=== PATIENT | male | born 1960 | race Caucasian/White ===

== ENCOUNTER 2023-06-04 19:39 | Emergency (ER) | payer OTHER, SELFPAY ==
[2023-06-04 19:49] VITALS: BP 130/70; PULSE 84; O2SAT 96
[2023-06-04 19:53] VITALS: BMI 23.0
[2023-06-04 20:32] VITALS: BP 77/43; PULSE 83; O2SAT 96
[2023-06-04 20:45] VITALS: BP 126/56
--- NOTE | 2023-06-04 22:03 | ED_ITS ---
HPI - Alcohol General Chief Complaint: ETOH/Substance Use Stated Complaint: ETOH, no SI/HI Time Seen by Provider: 06/04/23 19:59 History of Present Illness HPI narrative: 63 y/o M patient; without known PMH; presents from a backyard via EMS with report of alcohol intoxication. The patient endorses drinking whiskey and coke. He also endorses smoking cigarettes and marijuana. He denies recreational drug use. He denies medical complaints. He states he is homeless. He denies suicidal or homicidal ideation. Review of Systems Review of Systems: Yes Unobtainable due to mental condition (alcohol intoxication ) Neurologic: Denies Sensory deficit (Neuro) [facility] Past Medical History Attestation statement: The following information was validated with the patient. Social History Social History Advance Directives: No Advance Directives Information Provided: No Physical Exam ED Vital Signs: Vital Signs - 24 hr 06/04/23 20:32 Pulse Rate 83 Blood Pressure 77/43 L Pulse Oximetry 96 Oxygen Delivery Method Room Air BMI result Body Mass Index 23.0 Patient is afebrile and hemodynamically stable. Const Other: Intoxicated with slurred speech. Orientation/consciousness: patient oriented x3 HENMT Head: Yes atraumatic Eyes Pupils: Equal, round and reactive pupils present EOM: EOMs intact bilaterally Neck Neck: Yes full ROM, Yes supple and No tender Chest Chest palpation & inspection: normal inspection of the chest and normal palpation of entire chest wall Resp Effort & Inspection: normal respiratory effort, able to speak in complete sentences and no respiratory distress Auscultation: clear to auscultation bilaterally Cardio Rate: regular rate Rhythm: regular rhythm Peripheral pulses: Peripheral pulses 2+ throughout GI Palpation (GI): Soft to palpation, not firm, nontender, no guarding and not rigid Auscultation: normal bowel sounds Neuro General: patient oriented x3 Cranial nerves: Yes Equal, round and reactive pupils present Speech: Other speech findings present (Neuro) (mildly slurred speech ) Motor exam (neuro): 5/5 motor strength present throughout Sensory Exam: No Sensory deficit (Neuro) Course Course Course Narrative: Patient is clinically intoxicated. Declines alcohol detox. No acute medical complaints. Atraumatic examination. Plan: Transition care to evening provided pending sobriety Condition: Stable Discharge Plan Discharge Clinical Impression: Alcoholic intoxication Patient Disposition: Still a Patient
[2023-06-05] VITALS: BP 144/66; PULSE 85; RESP 16; TEMP 36.8; O2SAT 95
[2023-06-05 00:38] LABS: MANUAL DIFF FLAG NO
[2023-06-05 00:41] LABS: Basophils Percent Auto 0.7 % (0-2); Eosinophils Absolute Auto 0.2 X10*3/uL (0.0-0.4); Eosinophils Percent Auto 4.8 % (0-4); Hematocrit 32.8 % (42.0-52.0); Hemoglobin 11.9 g/dl (14.0-18.0); Imm Gran Abs Auto 0.01 X10*3/uL (0.00-0.03); Imm Gran Pct Auto 0.2 % (0.0-0.4); Mean Corpuscular HGB Conc 36.3 g/dl (31.0-36.0); Mean Corpuscular Hemoglobin 29.5 pg (27.0-33.0); Mean Corpuscular Volume 81.2 fL (80.0-98.0); Mean Platelet Volume 8.9 fL (9.4-12.4); Monocytes Absolute Auto 0.5 X10*3/uL (0.1-1.2); Monocytes Percent Auto 11.1 % (2-11); Neutrophils Absolute Auto 1.8 x10*3/uL (2.0-8.3); Neutrophils Percent Auto 39.2 % (45-73); Platelet Count 103 X10*3/uL (160-400); Red Blood Count 4.04 X10*6/uL (4.60-5.80); Red Cell Distribution Width 13.3 % (11.0-16.0); White Blood Count 4.6 X10*3/uL (4.8-10.8)
[2023-06-05 00:57] LABS: INTERNATIONAL NORM RATIO 1.1 (0.9-1.1); Prothrombin Time 13.1 SEC (11.1-13.3)
[2023-06-05 01:01] LABS: Alanine Aminotransferase 39 U/L (0-40); Albumin Level 3.6 g/dL (3.5-5.0); Alkaline Phosphatase 84 U/L (39-117); Anion Gap 13 (12-20); Aspartate Amino Transferase 49 U/L (5-37); Bilirubin Direct 0.2 mg/dL (0.0-0.5); Bilirubin Total 0.4 mg/dL (0.0-1.0); Blood Urea Nitrogen 12 mg/dL (9-16); Calcium 8.8 mg/dL (8.4-10.2); Carbon Dioxide 23 mmol/L (22-29); Chloride 104 mmol/L (96-108); Creatinine Clr Calc Pharmacy 101.3; Estimated Glomerular Filt Rate > 60; Ethanol 149 mg/dL; Glucose Random 86 mg/dL (60-115); Potassium 3.3 mmol/L (3.3-5.1); Sodium 137 mmol/L (135-145)
--- NOTE | 2023-06-05 03:04 | PC.NURSE ---
assumed care of pt, pt resting comfortably on stretcher.
[2023-06-05 03:57] LABS: Amphetamine Screen Urine Not Detected (Not Detect); Barbiturates, Urine Not Detected (Not Detect); Benzodiazepines Screen Urine Not Detected (Not Detect); Cannabinoid Screen Urine Not Detected (Not Detect); Cocaine Screen Urine Not Detected (Not Detect); Fentanyl, urine Not Detected (Not Detect); Opiate Screen Urine Not Detected (Not Detect); Phencyclidine Screen Urine Not Detected (Not Detect)
[2023-06-05 06:17] VITALS: BP 156/72; PULSE 75; RESP 18; O2SAT 98
--- NOTE | 2023-06-05 06:34 | PC.NURSE ---
pt clinically sober, changed into hospital attire, ambulated with a steady gait to the bathroom. Scoring 0 in CIWA
--- NOTE | 2023-06-05 08:30 | PC.NURSE ---
pt seen by recovery collector (suzie) pt aware of plan of care
[2023-06-05 09:00] VITALS: BP 171/96; PULSE 83; RESP 14; TEMP 36.8; O2SAT 93
--- NOTE | 2023-06-05 09:25 | MHC.RECOVRN ---
Met with pt in [place] after consult placed to CARE Team for alcohol use and desire to return to [facility]. Pt had presented to the ED after being found intoxicated in someone's backyard, denies SI/HI. Pt standing next to bed, awake, alert, easily engages in conversation. [facility] got in my face and I was having a bad hair day. Pt reports he had been at the [facility] x 8 days and their post ATS program x 2 weeks. Pt reports after leaving the program he went down the hill to the liquor store. On Saturday he reports drinking 6 12 ounce beers and on Saturday 6 beers plus a couple nips of Isak Beam. Pt reports desire to return to a different ATS. Discussed barriers to treatment, including needing [facility] approval to be admitted to another facility as well as recurrence for 2 days. Pt reports plan to return to [facility] to gather medications and belongings and discuss further with them. Pt reports having periods in recovery for up to 5 years, utilizing AA and NA. Pt reports going to meetings and having a sponsor is helpful, plans to attend meetings while waiting for treatment. Pt denies other questions or concerns for t/w. Discussed with provider, [facility].
== END 2023-06-05 09:14 | disposition home or self-care (01) ==
PROVIDERS: Emergency Provider Emergency Medicine
DX: F10.129 Alcohol abuse with intoxication, unspecified (principal); Y90.6 Blood alcohol level of 120-199 mg/100 ml; F12.90 Cannabis use, unspecified, uncomplicated; Z59.00 Homelessness unspecified
CPT/HCPCS: 36415; 80048; 80076; 80307; 85025; 85610; 99284

== ENCOUNTER 2023-11-02 00:55 | Emergency (ER) | payer OTHER, SELFPAY ==
[2023-11-02 01:06] VITALS: BP 126/74; PULSE 92; O2SAT 95
[2023-11-02 01:13] VITALS: BP 115/73; PULSE 88; RESP 12; TEMP 36.7; O2SAT 100
[2023-11-02 01:23] VITALS: BP 115/73; PULSE 88; RESP 12; TEMP 36.7; O2SAT 100; BMI 29.1
--- NOTE | 2023-11-02 01:30 | PC.NURSE ---
Pt ambulates with slow steady gait to restroom. UA collected. Plan of care ongoing.
--- NOTE | 2023-11-02 01:44 | ED.GENADULT ---
HPI - General Adult General Chief complaint: ETOH/Substance Use Stated complaint: weed/alcohol Time Seen by Provider: 11/02/23 01:33 Source: patient Mode of arrival: EMS Limitations: no limitations History of Present Illness ED Provider: ferny VITAL narrative: Patient alcoholic with chronic pain syndrome with neuropathy and chronic back problem with history of PTSD comes here for pain and increased stress had few drinks prior to arrival patient is homeless not happy with his medical condition Related Data Allergies Allergy/AdvReac Type Severity Reaction Status Date / Time No Known Allergies Allergy Verified 11/02/23 01:24 Review of Systems Review of Systems: Yes all other systems are reviewed and are negative [facility] Social History Social History Alcohol intake: current Smoked in Last 30 Days: Yes Use of substances other than those prescribed or required for medical reasons: Yes Substance Use Type: Marijuana Advance Directives: No Advance Directives Information Provided: No Do you have a plan to hurt others: No Plan Physical Exam ED Vital Signs: Vital Signs - 24 hr 11/02/23 01:13 11/02/23 01:23 11/02/23 03:16 Temperature 98.0 F 98.0 F Pulse Rate 88 88 Respiratory Rate 12 12 14 Blood Pressure 115/73 115/73 Pulse Oximetry 100 100 Oxygen Delivery Method Room Air Room Air 11/02/23 07:23 Temperature 0 F L Pulse Rate 0 L Respiratory Rate 0 L Blood Pressure 0/0 L Pulse Oximetry Oxygen Delivery Method BMI result Body Mass Index 29.1 Appearance: Alert. Oriented X3. No acute distress. Anxious intoxicated non cooperative Eyes: PERRLA, No Nystagmus ENT: Pharynx normal. Oral Mucosa moist Neck: Normal inspection. Neck supple. Diffuse neck pain no midline tenderness CVS: Normal heart rate and rhythm. Pulses normal. Respiratory: No respiratory distress. Equal air entry bilateral, no wheezing/rales/rhonchi Abdomen: Soft and nontender. Bowel sounds are present, no mass palpable, no CVA tenderness Skin: Skin warm and dry. Normal skin color. Normal skin turgor. Extremities: No lower extremity edema. No calf tenderness Neuro: Oriented X 3. No motor deficit. No sensory deficit.No cerebellar signs , cranial nerves II-XII intact Medications Administered Discontinued Medications Generic Name Dose Route Start Last Admin Trade Name Freq PRN Reason Stop Dose Admin Lorazepam 2 mg 11/02/23 01:50 11/02/23 01:56 Lorazepam 1 Mg Tablet PO 11/02/23 01:51 2 mg ONCE ONE Administration Morphine Sulfate 15 mg 11/02/23 01:50 11/02/23 01:56 Morphine Sulfate Immed Release 15 Mg Tablet PO 11/02/23 01:51 15 mg ONCE ONE Administration Medical Decision Making Medical Decision Making MDM Narrative: Patient alcoholic with chronic pain syndrome with PTSD non cooperative on arrival refused to have labs drawn slept after pain medication urinated in the bed will re-evaluate in the a.m. patient able to ambulate in steady gait in the ER will discharge patient home [facility] Differential Diagnosis Differential Diagnoses: The differential diagnosis associated with the presentation includes Lab Data Labs: Lab Results 11/02/23 Range/Units 01:55 Urine Color Yellow Urine Appearance Clear Urine pH 6.5 (5.0-9.0) Ur Specific [place] <= 1.005 (1.005-1.025) Urine Protein Negative (Neg-Trace) mg/dL Urine Glucose (UA) Negative (Negative) mg/dL Urine Ketones Negative (Negative) mg/dL Urine Blood Negative (Negative) Urine Nitrite Negative (Negative) Ur Leukocyte Esterase Negative (Negative) Urine Opiates Screen Not Detected (Not Detect) Ur Buprenorphine Scrn Not Detected (Not Detect) ng/mL Ur Oxycodone Screen Not Detected (Not Detect) ng/mL Urine Methadone Screen Not Detected (Not Detect) ng/mL Urine Fentanyl Screen Not Detected (Not Detect) Ur Barbiturates Screen Not Detected (Not Detect) Ur Phencyclidine Scrn Not Detected (Not Detect) Ur Amphetamines Screen Not Detected (Not Detect) U Benzodiazepines Scrn Not Detected (Not Detect) Urine Cocaine Screen Not Detected (Not Detect) U Marijuana (THC) Screen Not Detected (Not Detect) Discharge Plan Discharge Clinical Impression: Alcoholic intoxication, Chronic pain syndrome Patient Disposition: Home, Self-Care Instructions: Chronic Pain (ED), Abuse of Alcohol (ED) Additional Instructions: Stop drinking alcohol follow up with your pain clinic Interventions: ED Discharge Assessment Last Done: 11/02/23 07:23 Discharge Date/Time: 11/02/23 07:27 Print Language: Ukrainian
[2023-11-02] MEDS: LORazepam 1 MG TABLET 2 MG PO (01:56)
[2023-11-02] MEDS: Morphine Sulfate Immed Release 15 MG TABLET PO (01:56)
--- NOTE | 2023-11-02 02:02 | PC.NURSE ---
Pt medicated per mar. Pt being aggressive clapping in this check writer and techs face. Provider Anwer notified and aware of pts ciwa score of 10. Plan of care ongoing.
[2023-11-02 02:07] LABS: Appearance Urine Clear; Color Urine Yellow; Glucose Urine UA Negative (Negative); Leukocyte Esterase Urine Negative (Negative); Nitrite Urine Negative (Negative); PH 6.5 (5.0-9.0); Specific Gravity - Urine <= 1.005 (1.005-1.025); Urine Blood Negative (Negative); Urine Ketones Negative (Negative); Urine Protein Negative (Neg-Trace)
[2023-11-02 02:12] LABS: Amphetamine Screen Urine Not Detected (Not Detect); Barbiturates, Urine Not Detected (Not Detect); Benzodiazepines Screen Urine Not Detected (Not Detect); Buprenorphine Scr Not Detected (Not Detect); Cannabinoid Screen Urine Not Detected (Not Detect); Cocaine Screen Urine Not Detected (Not Detect); Fentanyl, urine Not Detected (Not Detect); Methadone Screen, Urine Not Detected (Not Detect); Opiate Screen Urine Not Detected (Not Detect); Oxycodone Screen Urine Not Detected (Not Detect); Phencyclidine Screen Urine Not Detected (Not Detect)
[2023-11-02 03:16] VITALS: RESP 14
--- NOTE | 2023-11-02 04:05 | MHC.EDTECH ---
Patient is sleeping thats why vitals havent been done
--- NOTE | 2023-11-02 05:42 | MHC.EDTECH ---
Unable to draw blood and clean patient due sleepiness and patient behaviour.
[2023-11-02 07:23] VITALS: BP 0/0; PULSE 0; RESP 0; TEMP -17.7; TEMP 0
--- NOTE | 2023-11-02 07:26 | PC.NURSE ---
Pt. was already here when this RN took over the assignment. Pt. was escorted off property for repeatedly threatening and charging at staff. VS refused upon discharge.
== END 2023-11-02 07:27 | disposition home or self-care (01) ==
PROVIDERS: Emergency Provider Internal Medicine
DX: F10.220 Alcohol dependence with intoxication, uncomplicated (principal); Y90.9 Presence of alcohol in blood, level not specified; G89.4 Chronic pain syndrome; R45.6 Violent behavior; F43.10 Post-traumatic stress disorder, unspecified; Z59.00 Homelessness unspecified; F12.90 Cannabis use, unspecified, uncomplicated
CPT/HCPCS: 80307; 81003; 99284

== ENCOUNTER 2024-01-12 20:31 | Emergency (ER) | payer OTHER, SELFPAY ==
--- NOTE | ~2024-01-12 | CT_ITS ---
EXAMINATION: CT HEAD WITHOUT CONTRAST CLINICAL INFORMATION: Reason for Exam detox ams, ethanol, med clearance COMPARISON: None available. TECHNIQUE: Contiguous axial imaging was performed from the skull base to vertex without intravenous administration of contrast. This CT examination was performed using dose optimization techniques as appropriate, variously including the following: *Automated exposure control *Adjustment of mA and/or kV according to patient size (this includes techniques or standardized protocols for targeted exams where dose is matched to indication/reason for exam; i.e. extremities or head) *Use of iterative reconstruction technique DLP: 775 mGy-cm FINDINGS: There is no evidence of acute intracranial hemorrhage or territorial infarction. No abnormal mass-effect or midline shift is seen. [place] to white matter differentiation is well preserved. No extra-axial fluid collections are identified. The ventricles are normal in size. There is mild periventricular white matter hypoattenuation consistent with chronic small vessel ischemic disease. Mild volume loss is noted. The osseous structures and soft tissues are normal. Mucosal thickening of the right ethmoid air cells. The mastoid air cells are well-aerated. CT/CT head/brain wo IV con IMPRESSION: No acute intracranial pathology. Mild chronic small vessel ischemic disease and volume loss. Electronically signed by: John Brito MD 01/13/2024 03:23 AM EDT RP
[2024-01-12 20:47] VITALS: BP 132/84; PULSE 88; O2SAT 95
[2024-01-12 21:08] VITALS: BP 148/69; PULSE 88; RESP 20; TEMP 36.6; O2SAT 95; BMI 28.3
--- NOTE | 2024-01-12 21:44 | ED_ITS ---
HPI - General Adult General Chief complaint: General Medical Stated complaint: medical clearance Time Seen by Provider: 01/12/24 21:23 Source: patient Limitations: no limitations History of Present Illness ED Provider: Mandeep HPI narrative: 63 yo M PMHx AUD, COPD, PTSD, HTN, cirrhosis, unhoused presenting from [place] for medical clearance for detox. Patient reports he drank 10 beers today, last about 3 hours ago. States he is feeling shaky and has not slept much recently so he is not feeling well. Smokes marijuana occasionally, last use yesterday. Denies fevers, chills, previous alcohol withdrawal seizures, DTs, N/V/D, CP, SOB, palpitations, abd pain , bleeding per rectum or vomiting blood Related Data Allergies Allergy/AdvReac Type Severity Reaction Status Date / Time No Known Allergies Allergy Verified 01/12/24 21:09 Review of Systems 2 Review of Systems: Yes all other systems are reviewed and are negative PMFSH Past Medical History Attestation statement: The following information was validated with the patient. Source: old records reviewed and nursing notes reviewed Social History Social History Alcohol intake: current Alcohol intake frequency: 3 or more drinks per day Alcohol type: beer and hard liquor Use of substances other than those prescribed or required for medical reasons: Yes Substance Use Type: Marijuana Substance Use Frequency: Daily Advance Directives: No Advance Directives Information Provided: No Physical Exam ED Vital Signs: Vital Signs - 24 hr 01/12/24 21:08 Temperature 97.8 F Pulse Rate 88 Respiratory Rate 20 Blood Pressure 148/69 H Pulse Oximetry 95 Oxygen Delivery Method Room Air BMI result Body Mass Index 28.3 VSS Appearance: Alert. Oriented X3. No acute distress. ? No accessory muscle use Head: Normal external exam. Normocephalic. Atraumatic. ? Eyes: PERRLA. EOMI. Conjunctiva and sclera normal. Eyelids normal. ? Neck: ?Soft full range of motion, no JVD CVS: ?Heart regular rate and rhythm no murmurs and rubs Respiratory: CTA Abdomen: ?Soft nontender no rebound or guarding positive bowel sounds Skin: Skin warm and dry.? Normal skin color.? Normal skin turgor. No rashes/lesions/lacerations noted. Extremities: No lower extremity edema. ? Extremities exhibit normal range of motion.? Extremities nontender. Neuro: Oriented X 3.? tremulousl Course Reevaluation(s) Reevaluation #1: CBC with baseline pancytopenia. And a baseline anemia. No reports of bleeding. This is likely patient's baseline Time: 00:01 Reevaluation #2: Chemistry unremarkable. Transaminases slightly bumped likely secondary to chronic alcohol use. Ethanol level 102. At this time patient to be placed into observation to allow more time to be evaluated by recovery. At time observation started patient calm cooperative resting no acute distress Time: 00:19 Medical Decision Making Medical Decision Making [facility] Narrative: 63 yo M presenting from [place] for medical clearance for detox. Patient reports he drank 10 beers today, last about 3 hours ago PE: benign Hx and PE concerning for alcohol intoxication. Less likely, DTs, hepatic encephalopathy, psychosis, metabolic derangements. Unlikely intracranial hemorrhage, stroke, posterior stroke Plan: labs, UA, tox screen Differential Diagnosis Differential Diagnoses: The differential diagnosis associated with the presentation includes (Hx and PE concerning for alcohol intoxication. Less likely, DTs, hepatic encephalopathy, psychosis, metabolic derangements. Unlikely intracranial hemorrhage, stroke, posterior stroke ) Admission/Observation Consideration of admission/observation: Escalation of care including admission/observation considered Lab Data [facility] Lab Attestation statement: I reviewed the patient's lab results. 01/12/24 23:48 01/12/24 23:48 Labs: Lab Results 01/12/24 Range/Units 23:48 WBC 2.7 L (4.8-10.8) X10*3/uL RBC 4.01 L (4.60-5.80) X10*6/uL Hgb 10.5 L (14.0-18.0) g/dl Hct 31.1 L (42.0-52.0) % MCV 77.6 L (80.0-98.0) fL MCH 26.2 L (27.0-33.0) pg MCHC 33.8 (31.0-36.0) g/dl RDW 14.3 (11.0-16.0) % Plt Count 78 L (160-400) X10*3/uL MPV 8.2 L (9.4-12.4) fL Immature Gran % (Auto) 0.4 (0.0-0.4) % Neut % (Auto) 45.1 (45-73) % Lymph % (Auto) 40.8 H (20-40) % Lamb % (Auto) 10.7 (2-11) % Eos % (Auto) 2.6 (0-4) % Baso % (Auto) 0.4 (0-2) % Lymph # (Auto) 1.1 L (1.2-4.9) X10*3/uL Lamb # (Auto) 0.3 (0.1-1.2) X10*3/uL Eos # (Auto) 0.1 (0.0-0.4) X10*3/uL Baso # (Auto) 0.0 (0.0-0.2) X10*3/uL Abs Immat Gran (auto) 0.01 (0.00-0.03) X10*3/uL Absolute Neuts (auto) 1.2 L (2.0-8.3) x10*3/uL Absolute Nucleated RBC 0.000 (0.0-0.012) X10*3/uL Nucleated RBC % (auto) 0.0 (0.0-0.2) /100WBC Sodium 142 (135-145) mmol/L Potassium 3.3 (3.3-5.1) mmol/L Chloride 106 (96-108) mmol/L Carbon Dioxide 26 (22-29) mmol/L Anion Gap 13 (12-20) BUN 9 (9-16) mg/dL Creatinine 0.80 (0.5-1.4) mg/dL Estim Creat Clear Calc 96.8 Estimated GFR > 60 Random Glucose 101 (60-115) mg/dL Calcium 8.5 (8.4-10.2) mg/dL Magnesium 1.8 (1.6-2.6) mg/dL Total Bilirubin 0.5 (0.0-1.0) mg/dL AST 63 H (5-37) U/L ALT 45 H (0-40) U/L Alkaline Phosphatase 101 (39-117) U/L Total Protein 6.8 (6.5-8.0) g/dL Albumin 3.6 (3.5-5.0) g/dL Ethyl Alcohol 102 mg/dL Discharge Plan Discharge Clinical Impression: Alcohol intoxication Patient Disposition: Still a Patient Print Language: Vietnamese
[2024-01-12 23:53] LABS: MANUAL DIFF FLAG NO
[2024-01-12 23:55] LABS: Basophils Percent Auto 0.4 % (0-2); Eosinophils Absolute Auto 0.1 X10*3/uL (0.0-0.4); Eosinophils Percent Auto 2.6 % (0-4); Hematocrit 31.1 % (42.0-52.0); Hemoglobin 10.5 g/dl (14.0-18.0); Imm Gran Abs Auto 0.01 X10*3/uL (0.00-0.03); Imm Gran Pct Auto 0.4 % (0.0-0.4); Lymphocytes Absolute Auto 1.1 X10*3/uL (1.2-4.9); Lymphocytes Percent Auto 40.8 % (20-40); Mean Corpuscular HGB Conc 33.8 g/dl (31.0-36.0); Mean Corpuscular Hemoglobin 26.2 pg (27.0-33.0); Mean Corpuscular Volume 77.6 fL (80.0-98.0); Mean Platelet Volume 8.2 fL (9.4-12.4); Monocytes Absolute Auto 0.3 X10*3/uL (0.1-1.2); Monocytes Percent Auto 10.7 % (2-11); Neutrophils Absolute Auto 1.2 x10*3/uL (2.0-8.3); Neutrophils Percent Auto 45.1 % (45-73); Red Blood Count 4.01 X10*6/uL (4.60-5.80); Red Cell Distribution Width 14.3 % (11.0-16.0); White Blood Count 2.7 X10*3/uL (4.8-10.8)
[2024-01-13] VITALS (9 sets, daily range): BP systolic 136–178; BP diastolic 54–81; PULSE 65–78; RESP 16–18; TEMP 36.5–37.1; O2SAT 90–99
--- NOTE | 2024-01-13 | ECG_ITS ---
Test Reason : MED CLEARANCE Blood Pressure : / mmHG Vent. Rate : 080 BPM Atrial Rate : 080 BPM P-R Int : 126 ms QRS Dur : 088 ms QT Int : 392 ms P-R-T Axes : 051 044 056 degrees QTc Int : 452 ms Normal sinus rhythm Normal ECG No previous ECGs available Referred By: Alonzo Kaufman Electronically Signed By:VERENICE PAIZ
[2024-01-13 00:14] LABS: Alanine Aminotransferase 45 U/L (0-40); Albumin Level 3.6 g/dL (3.5-5.0); Alkaline Phosphatase 101 U/L (39-117); Anion Gap 13 (12-20); Aspartate Amino Transferase 63 U/L (5-37); Bilirubin Total 0.5 mg/dL (0.0-1.0); Blood Urea Nitrogen 9 mg/dL (9-16); Calcium 8.5 mg/dL (8.4-10.2); Carbon Dioxide 26 mmol/L (22-29); Chloride 106 mmol/L (96-108); Creatinine Clr Calc Pharmacy 96.8; Estimated Glomerular Filt Rate > 60; Ethanol 102 mg/dL; Glucose Random 101 mg/dL (60-115); Magnesium 1.8 mg/dL (1.6-2.6); Platelet Count 78 X10*3/uL (160-400); Potassium 3.3 mmol/L (3.3-5.1); Sodium 142 mmol/L (135-145); Total Protein 6.8 g/dL (6.5-8.0)
[2024-01-13 00:27] LABS: Acetaminophen LAB < 3 mcg/mL (<30); Salicylate < 5.0 mg/dL (15-30)
--- NOTE | 2024-01-13 00:55 | MHC.EDTECH ---
This tech took over care of patient at 2300,rounds and vitals completed,patient urinated 600MLS of clear yellow urine in urinal,UDS obtained and sent to lab.
[2024-01-13 01:11] LABS: Amphetamine Screen Urine Not Detected (Not Detect); Barbiturates, Urine Not Detected (Not Detect); Benzodiazepines Screen Urine Not Detected (Not Detect); Buprenorphine Scr Not Detected (Not Detect); Cannabinoid Screen Urine POSITIVE (Not Detect); Cocaine Screen Urine POSITIVE (Not Detect); Fentanyl, urine Not Detected (Not Detect); Methadone Screen, Urine Not Detected (Not Detect); Opiate Screen Urine Not Detected (Not Detect); Oxycodone Screen Urine Not Detected (Not Detect); Phencyclidine Screen Urine Not Detected (Not Detect)
[2024-01-13] MEDS: LORazepam 1 MG TABLET 2 MG PO (01:13)
--- NOTE | 2024-01-13 02:08 | PC.NURSE ---
Patient is alert and oriented x3, VSS. Patient complaints of headache 08/06. Initial CIWA 8, medicated with Ativan 2 mg PO, repeat CIWA 4. Patient currently resting on a stretcher bed, not in acute distress. Plan for care team eval in am.
--- NOTE | 2024-01-13 02:16 | PC.NURSE ---
Patient noted to have a productive cough with wheezing. Hx of COPD. Dr. Walsh notified, plan to administer a Duoneb treatment. Respiratory therapist notified.
[2024-01-13] MEDS: Albuterol Sulfate 2.5 MG, Albuterol/Iprat 2.5/0.5MG 3 ML 3 ML INHALE (02:26)
--- NOTE | 2024-01-13 02:59 | MHC.EDTECH ---
Hourly rounds and vitals completed,patient is resting quietly,call richey in reach
--- NOTE | 2024-01-13 03:27 | PC.NURSE ---
Patient's O2 Sat 88-89% on RA when asleep. Dr. Walsh notified, new order received to place patient on supplemental O2 at 2 LPM.
--- NOTE | 2024-01-13 03:28 | PC.NURSE ---
Supplemental O2 applied at 2 LPM NC, patient maintaining O2 Sat 93-95%.
--- NOTE | 2024-01-13 08:23 | PC.NURSE ---
pt changed over by security - belongings obtained/placed in decon.
--- NOTE | 2024-01-13 10:56 | PC.NURSE ---
updated CIWA = 3. pt continues to rest comfortably w/ the lights dimmed in no apparent distress. remains on 2L via NC for supplemental support while asleep. no sob/wob noted. respirations even/unlabored. pt continues to wait for care team consult at this time. plan of care ongoing. call richey placed within reach.
--- NOTE | 2024-01-13 17:07 | PC.NURSE ---
pt speaking w/ care team at this time. plan of care ongoing.
--- NOTE | 2024-01-13 18:29 | MHC.EDTECH ---
Patient moved to 22H bed, rest comfortably and vitals was done.
--- NOTE | 2024-01-13 19:47 | MHC.EDTECH ---
This tech took over care of patient at 1900,hourly rounds and vitals completed,patient is sitting up drinking a coffee at this time.
--- NOTE | 2024-01-13 20:06 | MHC.EDTECH ---
EKG completed per order and signed by provider,covid swab obtained and sent to lab.
[2024-01-13 20:26] LABS: COVID-19 Test Negative (Negative); IDNOW Serial# 6674DD1D
[2024-01-13] MEDS: Ibuprofen 800 MG TABLET PO (20:33)
--- NOTE | 2024-01-13 21:19 | PC.NURSE ---
Patient arrives to Overflow ED bed 2. Given ham sandwich, mayonnaise packet, mustard packet, applesauce, cheese stick, and sabra radha to eat. Pt is pleasant, calm/cooperative, denies complaints at this time. Pt is awake watching TV at this time, sitting upright.
--- NOTE | 2024-01-13 21:48 | MHC.EDTECH ---
Patient just came to overflow from the main ed ,vitals taken ,RN Carmen is aware of pt high bp ,Patient had a snack .
--- NOTE | 2024-01-13 22:14 | MHC.EDTECH ---
Patient had a shower ,and gown change .
== END 2024-01-13 23:39 | disposition home or self-care (01) ==
PROVIDERS: Physician Assistant; Emergency Provider Emergency Medicine
DX: F10.129 Alcohol abuse with intoxication, unspecified (principal); Y90.5 Blood alcohol level of 100-119 mg/100 ml; F12.90 Cannabis use, unspecified, uncomplicated; R51.9 Headache, unspecified; I10 Essential (primary) hypertension; Z51.81 Encounter for therapeutic drug level monitoring; Z79.899 Other long term (current) drug therapy; Z11.52 Encounter for screening for COVID-19; Z71.41 Alcohol abuse counseling and surveillance of alcoholic
CPT/HCPCS: 36415; 70450; 80053; 80143; 80179; 80307; 83735; 85025; 87635; 93005; 94640; 99285; S9485

== ENCOUNTER → 2024-05-04 20:59 | Outpatient (BNV) | payer OTHER, SELFPAY | PROVIDERS: Emergency Provider Emergency Medicine; Visit Provider Internal Medicine | DX: F14.90 Cocaine use, unspecified, uncomplicated (principal) | CPT/HCPCS: 93010 ==

== ENCOUNTER 2024-06-10 21:05 | Emergency (ER) | payer OTHER, SELFPAY ==
[2024-06-10 21:29] VITALS: BP 140/76; PULSE 84; O2SAT 96
[2024-06-10 21:32] VITALS: BP 144/79; PULSE 88; RESP 20; TEMP 36.7; O2SAT 96; BMI 29.8
--- NOTE | 2024-06-10 21:48 | ED_ITS ---
HPI - General Adult General Chief complaint: ETOH/Substance Use Stated complaint: etoh Time Seen by Provider: 06/10/24 21:42 History of Present Illness ED Provider: Leslie VITAL narrative: The patient is a 64-year-old male who was brought to the hospital after becoming very agitated and a hotel lobby. He was apparently staying at the [facility]. He says he was agitated and upset with other people. He is requesting sedative medication. He admits to alcohol use. The patient was at a hotel in [place], the [facility]. He says that he specifically requested to be brought to the [place] emergency room. He says he does not like the [facility] emergency room. He says he has paid for several days in advance at the [facility]. Related Data Allergies Allergy/AdvReac Type Severity Reaction Status Date / Time latex Allergy Unknown Verified 06/10/24 21:37 lisinopril Allergy Unknown Verified 06/10/24 21:37 Review of Systems Review of Systems: Yes all other systems are reviewed and are negative [facility] Past Medical History Medical History Alcohol abuse Social History Social History (Updated 05/04/24 @ 21:11 by Jane Guillen DO) Alcohol intake: current Alcohol intake frequency: 3 or more drinks per day Alcohol type: beer Patient Tobacco Use Status: Tobacco use Unknown Smoked in Last 30 Days: Yes Use of substances other than those prescribed or required for medical reasons: Yes Substance Use Type: Marijuana Substance Use Frequency: Socially Last Used Substance: Weeks (ago) Any prior treatment program specific to substance use: No Advance Directives: No Advance Directives Information Provided: Yes Do you have a plan to hurt others: No Plan Physical Exam ED Vital Signs: Vital Signs - 24 hr 06/10/24 21:32 06/11/24 02:00 06/11/24 03:23 Temperature 98.1 F 98.1 F Pulse Rate 88 91 91 Respiratory Rate 20 18 Blood Pressure 144/79 H 141/75 H 141/75 H Pulse Oximetry 96 96 Oxygen Delivery Method Room Air Room Air 06/11/24 03:30 Temperature 98.1 F Pulse Rate 88 Respiratory Rate 16 Blood Pressure 140/75 H Pulse Oximetry 96 Oxygen Delivery Method Room Air BMI result Body Mass Index 29.8 Const Other: The patient was awake and alert. He was loud and disruptive. He seemed intoxicated. She did not seem in obvious distress. He looks somewhat chronically ill. HENMT Other: Face is symmetrical. Mucous membranes moist. Eyes Other: Pupils are round equal, conjunctivae clear, no scleral icterus. Neck Neck: Yes full ROM and Yes no JVD Resp Effort & Inspection: normal respiratory effort Auscultation: clear to auscultation bilaterally Cardio Rate: regular rate Rhythm: regular rhythm Heart sounds: S1 normal heart sound present and S2 normal heart sound present GI Other: Abdomen is soft and nontender Skin Other: Skin is dry and unremarkable Neuro Other: The patient was awake. Seemed intoxicated. He was bombastic, loud, and disruptive. No obvious cranial nerve deficit. Cranial nerves 2-12 are intact. He moves his extremities symmetrically. Extrem Other: No peripheral edema Medications Administered Discontinued Medications Generic Name Dose Route Start Last Admin Trade Name Malq PRN Reason Stop Dose Admin Albuterol Sulfate 4 puff 06/10/24 22:23 06/11/24 03:23 Albuterol Sulfate 90 Mcg 8 Gm Inhaler INHALE 06/10/24 22:24 4 puff ONCE ONE Administration Carvedilol 6.25 mg 06/10/24 22:07 06/11/24 03:23 Carvedilol 6.25 Mg Tablet PO 06/10/24 22:08 6.25 mg ONCE ONE Administration Protocol Chlordiazepoxide HCl 100 mg 06/10/24 21:47 06/10/24 21:56 Chlordiazepoxide Hcl 25 Mg Capsule PO 06/10/24 21:48 100 mg ONCE ONE Administration Medical Decision Making Medical Decision Making [facility] Narrative: The patient is a 64-year-old male who was brought to the hospital by ambulance after he became loud and aggressive at a hotel lobby where he has been staying. He was loud and bone best thick and arrival here. He was very argumentative and manipulative. He does not seem obviously acutely ill. He was initially given a dose of chlordiazepoxide. He also requested a dose of chlordiazepoxide and he requested albuterol. He seemed calmer for awhile after this but then he became agitated again in laid down on the floor of the emergency room. He was very reluctant to be assisted off the floor but ultimately we were able to convince him to accept assistance and we lifted him to a standing position and then returned him to his stretcher. At that point I ordered 2 mg of IM lorazepam but the patient fell asleep before this was given. I had also ordered blood work but the patient refused blood work. The patient fell asleep for awhile. He then woke up and asked to be discharged. He hopes to get back to the [facility]. He says he can pay for a cab because he has a debit card. No cabs are running at this hour. The patient requested that he be discharged and will stay in the waiting room. At discharge the patient was given a dose of carvedilol that he had requested and also 4 puffs of albuterol. He was ambulatory without difficulty, very steady in his feet. He was much more coherent. Discharge Plan Discharge Clinical Impression: Alcohol intoxication Patient Disposition: Home, Self-Care Additional Instructions: Please rest and take it easy. Drink a lot of fluids. Try to be very careful with alcohol. Follow up soon with your regular doctor at the [facility]. Return to the emergency room if worse. Referrals: [facility] [Provider Group] Interventions: ED Discharge Assessment Last Done: 06/11/24 03:30 Discharge Date/Time: 06/11/24 03:32 Print Language: Kazakh
[2024-06-10] MEDS: chlordiazePOXIDE HCl 25 MG CAPSULE 100 MG PO (21:56)
--- NOTE | 2024-06-11 01:51 | PC.NURSE ---
pt is sleeping, no meds given at this time. provider made aware.
[2024-06-11 02:00] VITALS: BP 141/75; PULSE 91; RESP 18; TEMP 36.7; O2SAT 96
[2024-06-11 03:23] VITALS: BP 141/75; PULSE 91
[2024-06-11] MEDS: Albuterol Sulfate 90 MCG 8 GM INHALER 4 PUFF INHALE (03:23)
[2024-06-11] MEDS: carvediloL 6.25 MG TABLET PO (03:23)
[2024-06-11 03:30] VITALS: BP 140/75; PULSE 88; RESP 16; TEMP 36.7; O2SAT 96
== END 2024-06-11 03:32 | disposition home or self-care (01) ==
PROVIDERS: Emergency Provider Emergency Medicine
DX: F10.129 Alcohol abuse with intoxication, unspecified (principal); R45.1 Restlessness and agitation; F91.9 Conduct disorder, unspecified; Y90.9 Presence of alcohol in blood, level not specified
CPT/HCPCS: 99284

== ENCOUNTER 2024-06-20 18:46 | Emergency (ER) | payer OTHER, SELFPAY ==
--- NOTE | 2024-06-20 | ECG_ITS ---
Test Reason : ETOH Blood Pressure : */* mmHG Vent. Rate : 86 BPM Atrial Rate : 86 BPM P-R Int : 130 ms QRS Dur : 92 ms QT Int : 400 ms P-R-T Axes : 72 38 56 degrees QTcB Int : 478 ms Normal sinus rhythm Normal ECG When compared with ECG of 04-May-2024 21:35, No significant changes seen Referred By: Jane Guillen Electronically Signed By: LESVIA IRAHETA
--- NOTE | ~2024-06-20 | XR_ITS ---
CLINICAL HISTORY: cough 1 view chest x-ray Comparison: None Findings: Lungs are clear without acute infiltrates. No pneumothorax. Heart size normal. No acute bony abnormalities. Impression: No acute processes This document has been electronically signed by: John Benson MD on 06/20/2024 20:27:14
--- NOTE | ~2024-06-20 | CT_ITS ---
CLINICAL HISTORY: Abd pain, hxo perforated viscus and colectomy CT abdomen and pelvis with contrast Comparison: None Findings: The heart is not enlarged. Calcific atherosclerosis. The lung bases are clear. Cirrhosis without suspicious hepatic mass. The main portal vein is patent. Small left larger than right renal cysts. No evidence of urolithiasis or urinary obstruction. Splenomegaly measuring 13.5 cm in length. Mild fat stranding adjacent to the pancreatic head. Pancreas is otherwise unremarkable. The gallbladder and other abdominal solid organs are unremarkable. Fat containing ventral abdominal wall and umbilical hernias. No bowel obstruction or pneumoperitoneum. Esophageal varices. Minimal colonic diverticulosis. Normal appendix. Pelvic structures unremarkable. Trace ascites. Fat containing right indirect inguinal hernia. Old ununited posterolateral left 10th and 11th rib fractures. Old healed posterior right 9th through 11th rib fractures. Degenerative change of the spine and hips. IMPRESSION: 1. Mild fat stranding adjacent to the pancreatic head, which may be related to the patient's decompensated cirrhosis, although consider correlation with lipase if there is a clinical concern for pancreatitis. 2. Other chronic and incidental findings as above. This document has been electronically signed by: Jose Stewart DO on 06/21/2024 12:25:20
--- NOTE | 2024-06-20 18:52 | ED.ALCOHOL ---
HPI - Alcohol General Chief Complaint: Arrhythmia/Palpitations Stated Complaint: ETOH Source: patient, EMS and old records reviewed Mode of arrival: EMS Limitations: other (intoxicated and agitated) History of Present Illness ED Provider: FILI HPI narrative: 64 yo male with PMH of ETOH abuse is very angry with any questioning. He is intoxicated. He tells me he is upset and doesn't know if a good friend . He then states it is a lot to deal with. He is very angry and then refuses to answer any of my questions. He states don't you understand what I am going through? MD complaint: alcohol intoxication Last drink: Just prior to admission Chronic alcohol use: Yes Previous visits for alcohol intoxication: Yes Recent trauma: No Associated symptoms: depression Treatments prior to arrival: none Related Data Allergies Allergy/AdvReac Type Severity Reaction Status Date / Time latex Allergy Unknown Verified 06/20/24 19:20 lisinopril Allergy Unknown Verified 06/20/24 19:20 Review of Systems Review of Systems: ROS unable to be obtained due to intoxication and anger PMFSH Past Medical History Attestation statement: The following information was validated with the patient. Source: old records reviewed Medical History Alcohol abuse Social History Social History Alcohol intake: current Alcohol intake frequency: 3 or more drinks per day Alcohol type: hard liquor Patient Tobacco Use Status: Tobacco use Unknown Smoked in Last 30 Days: Yes Use of substances other than those prescribed or required for medical reasons: No Substance Use Type: Marijuana Advance Directives: No Advance Directives Information Provided: Yes Do you have a plan to hurt others: No Plan Physical Exam ED Vital Signs: Vital Signs - 24 hr 06/20/24 18:58 06/20/24 23:00 06/21/24 00:35 Temperature 98.1 F 98.8 F 98.6 F Pulse Rate 83 89 82 Respiratory Rate 19 18 16 Blood Pressure 146/70 H 122/62 133/61 Pulse Oximetry 100 94 97 Oxygen Delivery Method Room Air Room Air Room Air BMI result Body Mass Index 23.5 Appearance: Alert. Oriented X3. No acute distress. Eyes: Pupils equal, round and reactive to light. ENT: Pharynx normal. Neck: Normal inspection. Neck supple. CVS: Normal heart rate and rhythm. Pulses normal. Respiratory: No respiratory distress. Breath sounds normal. Abdomen: Soft and nontender. Skin: Skin warm and dry. Normal skin color. Normal skin turgor. Extremities: No lower extremity edema. No calf ttp Neuro: Oriented X 3. No motor deficit. No sensory deficit. CN2-12 intact Medical Decision Making Medical Decision Making [facility] Narrative: 64 yo male with PMH of ETOH abuse here but he is not telling me why. He is from [place] and refused to be taken to [facility] ER. He is very rude on interview. He has no signs of head trauma. He did report palpitations to EMS I have ordered and EKG and basic labs, lytes, TSH. Differential Diagnosis Differential Diagnoses: The differential diagnosis associated with the presentation includes ETOH abuse, lyte abnormality, depression Admission/Observation Consideration of admission/observation: Escalation of care including admission/observation considered at this time physician observation started until he sees CARE team labs and EKG/CXR reassuring Lab Data [facility] Lab Attestation statement: I reviewed the patient's lab results. 06/20/24 19:43 06/20/24 19:43 Labs: Lab Results 06/20/24 Range/Units 19:43 WBC 5.6 (4.8-10.8) X10*3/uL RBC 4.47 L (4.60-5.80) X10*6/uL Hgb 10.3 L (14.0-18.0) g/dl Hct 32.4 L (42.0-52.0) % MCV 72.5 L (80.0-98.0) fL MCH 23.0 L (27.0-33.0) pg MCHC 31.8 (31.0-36.0) g/dl RDW 16.8 H (11.0-16.0) % Plt Count 91 L (160-400) X10*3/uL MPV 8.7 L (9.4-12.4) fL Immature Gran % (Auto) 0.2 (0.0-0.4) % Neut % (Auto) 49.2 (45-73) % Lymph % (Auto) 33.6 (20-40) % [facility] % (Auto) 12.7 H (2-11) % Eos % (Auto) 3.9 (0-4) % Baso % (Auto) 0.4 (0-2) % Lymph # (Auto) 1.9 (1.2-4.9) X10*3/uL [facility] [place] [facility] # (Auto) 0.7 (0.1-1.2) X10*3/uL Eos # (Auto) 0.2 (0.0-0.4) X10*3/uL Baso # (Auto) 0.0 (0.0-0.2) X10*3/uL Abs Immat Gran (auto) 0.01 (0.00-0.03) X10*3/uL Absolute Neuts (auto) 2.8 (2.0-8.3) x10*3/uL Absolute Nucleated RBC 0.000 (0.0-0.012) X10*3/uL Nucleated RBC % (auto) 0.0 (0.0-0.2) /100WBC Sodium 135 (135-145) mmol/L Potassium 4.0 (3.3-5.1) mmol/L Chloride 100 (96-108) mmol/L Carbon Dioxide 24 (22-29) mmol/L Anion Gap 15 (12-20) BUN 6 L (9-16) mg/dL Creatinine 0.76 (0.5-1.4) mg/dL Estim Creat Clear Calc 91.8 Estimated GFR > 60 Random Glucose 87 (60-115) mg/dL Calcium 8.8 (8.4-10.2) mg/dL Magnesium 2.0 (1.6-2.6) mg/dL Total Bilirubin 0.8 (0.0-1.0) mg/dL Direct Bilirubin 0.4 (0.0-0.5) mg/dL AST 70 H (5-37) U/L ALT 47 H (0-40) U/L Alkaline Phosphatase 110 (39-117) U/L Total Protein 7.9 (6.5-8.0) g/dL Albumin 3.9 (3.5-5.0) g/dL TSH 0.85 (0.32-4.0) uIU/mL Urine Opiates Screen Not Detected (Not Detect) Ur Buprenorphine Scrn Not Detected (Not Detect) ng/mL Ur Oxycodone Screen Not Detected (Not Detect) ng/mL Urine Methadone Screen Not Detected (Not Detect) ng/mL Urine Fentanyl Screen Not Detected (Not Detect) Ur Barbiturates Screen Not Detected (Not Detect) Ur Phencyclidine Scrn Not Detected (Not Detect) Ur Amphetamines Screen Not Detected (Not Detect) U Benzodiazepines Scrn POSITIVE H (Not Detect) Urine Cocaine Screen Not Detected (Not Detect) U Marijuana (THC) Screen Not Detected (Not Detect) Ethyl Alcohol 171 mg/dL Independent Interpretation I performed an independent interpretation of an: EKG and Plain X-Ray (normal ) Interpretation: Rate: 86 Rhythm: NSR [place]: normal Normal P waves. Normal LE. Normal QRS complex. ST T wave : normal no ELVIA qTC: 478 prior studies: no acute ischemia The study has been interpreted contemporaneously by me. . Radiology Impression Discussion of test interpretation with radiology: I have reviewed the radiologist's reading. Independent Historian Clinical information obtained from an independent historian. History obtained from or confirmed by: EMS External Record Review External record reviewed: Outpatient record Discharge Plan Discharge Clinical Impression: Alcohol abuse Patient Disposition: Still a Patient Instructions: Abuse of Alcohol (ED) Print Language: North Korean
[2024-06-20 18:58] VITALS: BP 146/70; PULSE 83; RESP 19; TEMP 36.7; O2SAT 100
[2024-06-20 19:16] VITALS: BP 133/74; PULSE 74; O2SAT 97; BMI 23.5
[2024-06-20 19:50] LABS: Basophils Percent Auto 0.4 % (0-2); Eosinophils Absolute Auto 0.2 X10*3/uL (0.0-0.4); Eosinophils Percent Auto 3.9 % (0-4); Hematocrit 32.4 % (42.0-52.0); Hemoglobin 10.3 g/dl (14.0-18.0); Imm Gran Abs Auto 0.01 X10*3/uL (0.00-0.03); Imm Gran Pct Auto 0.2 % (0.0-0.4); Lymphocytes Absolute Auto 1.9 X10*3/uL (1.2-4.9); Lymphocytes Percent Auto 33.6 % (20-40); MANUAL DIFF FLAG NO; Mean Corpuscular HGB Conc 31.8 g/dl (31.0-36.0); Mean Corpuscular Volume 72.5 fL (80.0-98.0); Mean Platelet Volume 8.7 fL (9.4-12.4); Monocytes Absolute Auto 0.7 X10*3/uL (0.1-1.2); Monocytes Percent Auto 12.7 % (2-11); Neutrophils Absolute Auto 2.8 x10*3/uL (2.0-8.3); Neutrophils Percent Auto 49.2 % (45-73); Platelet Count 91 X10*3/uL (160-400); Red Blood Count 4.47 X10*6/uL (4.60-5.80); Red Cell Distribution Width 16.8 % (11.0-16.0); White Blood Count 5.6 X10*3/uL (4.8-10.8)
[2024-06-20 20:03] LABS: Amphetamine Screen Urine Not Detected (Not Detect); Barbiturates, Urine Not Detected (Not Detect); Benzodiazepines Screen Urine POSITIVE (Not Detect); Buprenorphine Scr Not Detected (Not Detect); Cannabinoid Screen Urine Not Detected (Not Detect); Cocaine Screen Urine Not Detected (Not Detect); Fentanyl, urine Not Detected (Not Detect); Methadone Screen, Urine Not Detected (Not Detect); Opiate Screen Urine Not Detected (Not Detect); Oxycodone Screen Urine Not Detected (Not Detect); Phencyclidine Screen Urine Not Detected (Not Detect)
[2024-06-20 20:04] LABS: Ethanol 171 mg/dL
[2024-06-20 20:14] LABS: Alanine Aminotransferase 47 U/L (0-40); Albumin Level 3.9 g/dL (3.5-5.0); Alkaline Phosphatase 110 U/L (39-117); Anion Gap 15 (12-20); Aspartate Amino Transferase 70 U/L (5-37); Bilirubin Direct 0.4 mg/dL (0.0-0.5); Bilirubin Total 0.8 mg/dL (0.0-1.0); Blood Urea Nitrogen 6 mg/dL (9-16); Calcium 8.8 mg/dL (8.4-10.2); Carbon Dioxide 24 mmol/L (22-29); Chloride 100 mmol/L (96-108); Creatinine Clr Calc Pharmacy 91.8; Estimated Glomerular Filt Rate > 60; Glucose Random 87 mg/dL (60-115); Sodium 135 mmol/L (135-145); Total Protein 7.9 g/dL (6.5-8.0)
[2024-06-20 20:29] LABS: TSH reflex Free T4 0.85 uIU/mL (0.32-4.0)
[2024-06-20 23:00] VITALS: BP 122/62; PULSE 89; RESP 18; TEMP 37.1; O2SAT 94
[2024-06-21 00:35] VITALS: BP 133/61; PULSE 82; RESP 16; TEMP 37; O2SAT 97
[2024-06-21 02:27] VITALS: BP 162/72; PULSE 84; RESP 16; TEMP 37.1; O2SAT 94
[2024-06-21 08:46] VITALS: BP 125/49; PULSE 74; RESP 14; O2SAT 96
[2024-06-21] MEDS: iohexoL 350 MG/ML 100 ML INFUS..BTL 85 ML IV (10:41)
--- NOTE | 2024-06-21 11:38 | MHC.RECOVRN ---
Met with pt in ED19H to discuss ongoing alcohol use. Pt help and ATS seeking. Referrals sent for review. See Recovery assessment for more info.
--- NOTE | 2024-06-21 12:48 | MHC.RECOVRN ---
Pt accepted at [facility] for ATS. Waiting to hear back on transport information.
[2024-06-21 13:26] VITALS: BP 125/49; PULSE 74; RESP 14; TEMP 37.1; O2SAT 96
== END 2024-06-21 13:27 | disposition skilled nursing facility (03) ==
PROVIDERS: Emergency Provider Emergency Medicine
DX: F10.10 Alcohol abuse, uncomplicated (principal); Y90.6 Blood alcohol level of 120-199 mg/100 ml; R45.1 Restlessness and agitation; R10.32 Left lower quadrant pain; R00.2 Palpitations
CPT/HCPCS: 36415; 71045; 74177; 80048; 80076; 80307; 83735; 84443; 85025; 93005; 99285; Q9967; S9485

== ENCOUNTER → 2024-06-20 19:06 | Outpatient (BNV) | payer OTHER, SELFPAY | PROVIDERS: Emergency Provider Emergency Medicine; Visit Provider Internal Medicine | DX: R00.2 Palpitations (principal) | CPT/HCPCS: 93010 ==

== ENCOUNTER → 2024-06-20 20:04 | Outpatient (BNV) | payer OTHER, SELFPAY | PROVIDERS: Emergency Provider Emergency Medicine; Visit Provider Radiology Diagnostic Radiology | DX: R05.9 Cough, unspecified (principal) | CPT/HCPCS: 71045 ==

== ENCOUNTER → 2024-06-21 10:10 | Outpatient (BNV) | payer OTHER, SELFPAY | PROVIDERS: Emergency Provider Emergency Medicine; Visit Provider Radiology Diagnostic Radiology | DX: R10.9 Unspecified abdominal pain (principal); K74.60 Unspecified cirrhosis of liver; I25.84 Coronary atherosclerosis due to calcified coronary lesion; R16.0 Hepatomegaly, not elsewhere classified | CPT/HCPCS: 74177 ==

== ENCOUNTER 2024-10-09 16:33 | Emergency (ER) | payer OTHER, SELFPAY ==
--- NOTE | ~2024-10-09 | CT_ITS ---
CLINICAL HISTORY: Syncope, head strike, R O fracture, bleed CT head without contrast Comparison: CT/SR - HEAD HEAD_CSPINE (ADULT) - 10/09/24 16:53 EDT Findings: No intra-axial mass, midline shift, hydrocephalus, or acute hemorrhage. Age appropriate cerebral volume loss. Patchy low-density within the periventricular and subcortical white matter. The visualized paranasal sinuses and mastoid air cells are normal. The orbits are unremarkable. No skull fracture. IMPRESSION: 1. No acute intracranial findings. This document has been electronically signed by: Elver Talley MD on 10/09/2024 17:57:06
--- NOTE | ~2024-10-09 | CT_ITS ---
CLINICAL HISTORY: Syncope, neck pain, struck neck on sink, R O fract CT cervical spine without contrast Comparison: None Findings: Vertebral alignment is within normal limits. Multilevel disc space narrowing and endplate osteophyte formation, as well as facet hypertrophy. No acute fractures or dislocations. Visualized intracranial contents are unremarkable. No cervical fluid collections or masses. No consolidation or effusion at the lung apices. IMPRESSION: No acute findings. This document has been electronically signed by: Elver Talley MD on 10/09/2024 17:55:55
--- NOTE | 2024-10-09 16:39 | ED.FALL ---
HPI - Fall General Stated Complaint: fall w/ head strike 1hour ago, no thinners Time Seen by Provider: 10/09/24 16:35 Source: patient Mode of arrival: EMS Limitations: no limitations History of Present Illness ED Provider: Dr. Juan Pablo Barron HPI Narrative: 64-year-old male with a history of neuropathy, sciatica, COPD, PTSD, hypertension, cirrhosis, alcohol use disorder who presents emergency department for evaluation of syncopal episode with head strike and loss of consciousness. The patient states that he was standing in the bathroom and then passed out. He believes that he struck his neck on the sink. Patient states that he also struck his head with no bleeding. He is currently complaining of a headache and neck pain. He also states that has whole-body ache secondary to neuropathy and sciatica. Patient states that he drank 6 to 8 beers today and that he drinks this amount of beer daily. He denied drug use. The patient had outbursts of anger while talking to me and giving me the history. He also started yelling at the EMS and at nursing staff. Related Data Allergies Allergy/AdvReac Type Severity Reaction Status Date / Time latex Allergy Unknown Verified 10/09/24 17:11 lisinopril Allergy Unknown Verified 10/09/24 17:11 Review of Systems Review of Systems: Yes all other systems are reviewed and are negative PMFSH Past Medical History Medical History Alcohol abuse Social History Social History Alcohol intake: current Alcohol intake frequency: 3 or more drinks per day Alcohol type: beer Patient Tobacco Use Status: Tobacco use Unknown Substance Use Type: Marijuana Physical Exam Vital Signs: Exam: General: Awake, alert in no distress, strong odor of alcohol in his breath, has outbursts of anger when asked questions Head: Normocephalic, tenderness palpation of the occipital area of his head with no obvious hematoma or bleeding noted EENT: PERRL, Lids normal, sclera normal, conjunctiva normal, nose normal , ears normal, throat without erythema or exudates Neck: No C-spine tenderness but he does have tenderness to palpation of his trapezius muscles bilaterally Lung: breath sounds symmetric, no wheezing, rales or rhonchi Chest: symmetric movement, nontender Heart: regular rate and rhythm, normal S1, S2 no murmurs or rubs Abdomen: soft, non-tender, nondistended, normal bowel sounds Back: no vertebral tenderness, no CVAT Extremities: no deformities, moves all extremities symmetrically Neuro: Awake, alert, oriented, normal comprehensible speech, cranial nerves intact, moves all extremities symmetrically Psych: Angry outbursts Medical Decision Making Medical Decision Making [facility] Narrative: 64-year-old male with a history of neuropathy, sciatica, COPD, PTSD, hypertension, cirrhosis, alcohol use disorder who presents emergency department for evaluation of syncopal episode with head strike and loss of consciousness. The patient states that he was standing in the bathroom and then passed out. He believes that he struck his neck on the sink. Patient states that he also struck his head on the floor and denies scalp bleeding. He is currently complaining of a headache and neck pain. He also states that has whole-body aches secondary to neuropathy and sciatica. Patient states that he drank 6 to 8 beers today and that he drinks this amount of beer daily. He denied drug use. The patient had outbursts of anger while talking to me and giving me the history. He also started yelling at the EMS and at nursing staff. Vital signs were unremarkable. Physical examination did reveal tenderness with palpation of his occipital scalp with no hematoma or bleeding noted. Patient has no point tenderness palpation over his cervical vertebrae but does have bilateral trapezius muscle tenderness. Patient does appear to be acutely intoxicated Differential diagnosis: ?Includes but is not limited to skull fracture, intracranial bleed, cervical fracture, neck contusion/sprain/strain, alcohol intoxication, electrolyte abnormalities, anemia Course: 18:20 My independent interpretation patient's laboratory evaluation is as follows: WBC low 2800-chronic with 93 neutrophils and 8 lymphocytes with an ANC of 1.4. Chronic microcytic anemia with an H&H of 11.0 and 32.6. Elevated AST and ALT 59 and 44. Lipase was normal. U tox negative. Ethanol level 204. Troponin was detectable but not elevated. CT head and cervical spine revealed no acute findings. Twelve EKG was unremarkable. The patient states that he is feeling better and he would like to go home. The patient was able to walk without any difficulty and was discharged home. Admission/Observation Consideration of admission/observation: Escalation of care including admission/observation considered (Yes) Independent Interpretation I performed an independent interpretation of an: EKG Interpretation: My independent interpretation of the patient's 12 EKG done on 10/09/2024 at 17:09 hours is as follows: Normal sinus rhythm with a rate of 95, normal NM interval and QRS duration, prolonged QTC interval of 497 milliseconds, no ST segment elevation, no ST segment depression, no significant T-wave abnormalities, no PACs no PVCs Radiology Impression Discussion of test interpretation with radiology: I have reviewed the radiologist's reading. Radiologist Impression: CT head without contrast Comparison: CT/SR - HEAD HEAD_CSPINE (ADULT) - 10/09/24 16:53 EDT Findings: No intra-axial mass, midline shift, hydrocephalus, or acute hemorrhage. Age appropriate cerebral volume loss. Patchy low-density within the periventricular and subcortical white matter. The visualized paranasal sinuses and mastoid air cells are normal. The orbits are unremarkable. No skull fracture. IMPRESSION: 1. No acute intracranial findings. This document has been electronically signed by: Elver Talley MD on 10/09/2024 17:57:06 CT cervical spine without contrast Comparison: None Findings: Vertebral alignment is within normal limits. Multilevel disc space narrowing and endplate osteophyte formation, as well as facet hypertrophy. No acute fractures or dislocations. Visualized intracranial contents are unremarkable. No cervical fluid collections or masses. No consolidation or effusion at the lung apices. IMPRESSION: No acute findings. This document has been electronically signed by: Elver Talley MD on 10/09/2024 17:55:55 Independent Historian Clinical information obtained from an independent historian. History obtained from or confirmed by: EMS Chronic Conditions Patient?s care impacted by: Hypertension and Other (Alcohol use disorder) Discharge Plan Discharge Clinical Impression: Fall, Closed head injury, Neck strain, Alcohol intoxication Patient Disposition: Home, Self-Care Instructions: Head Injury (ED) Additional Instructions: The CT scan of your head revealed no skull fracture and no bleeding in the brain. The CT scan of your neck revealed no broken bones/fractures which is also reassuring. Your blood work was unchanged from your baseline. You do have anemia and elevation in your liver tests. This has secondary to your alcohol use disorder. Your blood alcohol level was elevated at 202. The legal limit of intoxication is 80 in your blood level was 2-3 times above the legal limit. Continue taking medications as prescribed by your providers. Follow-up with your doctor in 2 days. Please return to the emergency department if your symptoms get worse or if you develop any symptoms that are concerning to you. Alcohol use disorder discharge instructions You were seen in the Emergency Department today and you had a very elevated alcohol level If you would like to cut down or stop your alcohol use please consider calling our outpatient Addiction Treatment office:? [facility] (M-F [id number] [address] [place] [address] [phone] ? If you experience seizures, vomiting blood, black stools, falls, severe headache, chest pain, fevers, trouble breathing, hallucinations or any other concerns you need to call 911 or seek immediate care. Please stay hydrated. Print Language: Hungarian
--- NOTE | 2024-10-09 16:41 | ECG_ITS ---
Test Reason : FALL Blood Pressure : */* mmHG Vent. Rate : 95 BPM Atrial Rate : 95 BPM P-R Int : 146 ms QRS Dur : 92 ms QT Int : 396 ms P-R-T Axes : 74 46 63 degrees QTcB Int : 497 ms Normal sinus rhythm Prolonged QT Abnormal ECG When compared with ECG of 20-Jun-2024 19:06, No significant change was found Referred By: Juan Pablo Barron Electronically Signed By: JOSSIE THURMAN MD
[2024-10-09 17:06] VITALS: BP 130/80; BP 154/63; PULSE 80; PULSE 96; RESP 23; TEMP 36.7; O2SAT 93; O2SAT 94; BMI 29.2
[2024-10-09 17:28] LABS: MANUAL DIFF FLAG NO
[2024-10-09 17:30] LABS: Basophils Percent Auto 0.7 % (0-2); Eosinophils Absolute Auto 0.1 X10*3/uL (0.0-0.4); Eosinophils Percent Auto 2.1 % (0-4); Hematocrit 32.6 % (42.0-52.0); Imm Gran Abs Auto 0.01 X10*3/uL (0.00-0.03); Imm Gran Pct Auto 0.4 % (0.0-0.4); Lymphocytes Percent Auto 35.6 % (20-40); Mean Corpuscular HGB Conc 33.7 g/dl (31.0-36.0); Mean Corpuscular Volume 77.1 fL (80.0-98.0); Mean Platelet Volume 8.2 fL (9.4-12.4); Monocytes Absolute Auto 0.3 X10*3/uL (0.1-1.2); Monocytes Percent Auto 10.6 % (2-11); Neutrophils Absolute Auto 1.4 x10*3/uL (2.0-8.3); Neutrophils Percent Auto 50.6 % (45-73); Red Blood Count 4.23 X10*6/uL (4.60-5.80); Red Cell Distribution Width 18.4 % (11.0-16.0); White Blood Count 2.8 X10*3/uL (4.8-10.8)
[2024-10-09 17:45] LABS: Alanine Aminotransferase 44 U/L (0-40); Albumin Level 4.1 g/dL (3.5-5.0); Alkaline Phosphatase 92 U/L (39-117); Anion Gap 16 (12-20); Aspartate Amino Transferase 59 U/L (5-37); Bilirubin Total 0.4 mg/dL (0.0-1.0); Blood Urea Nitrogen 7 mg/dL (9-16); Calcium 8.9 mg/dL (8.4-10.2); Carbon Dioxide 29 mmol/L (22-29); Chloride 103 mmol/L (96-108); Estimated Glomerular Filt Rate > 60; Ethanol 204 mg/dL; Glucose Random 93 mg/dL (60-115); Lipase 34 U/L (8-78); Magnesium 1.9 mg/dL (1.6-2.6); Potassium 3.8 mmol/L (3.3-5.1); Sodium 144 mmol/L (135-145); Total Protein 6.9 g/dL (6.5-8.0)
[2024-10-09 17:51] LABS: Platelet Count 93 X10*3/uL (160-400)
[2024-10-09 17:52] VITALS: BP 141/66; PULSE 84; RESP 20; O2SAT 93
[2024-10-09 17:52] LABS: Troponin-I High Sensitivity 5.3 ng/L (<3.5-35.0)
--- NOTE | 2024-10-09 17:58 | PC.NURSE ---
Patient is a 64-year-old male with a history of neuropathy, sciatica, COPD, PTSD, hypertension, cirrhosis, alcohol use disorder who presents emergency department for evaluation of syncopal episode with head strike and loss of consciousness. The patient states that he was standing in the bathroom and then passed out. He believes that he struck his neck on the sink. Patient states that he also struck his head and no bleeding noted to the back of his head. He is currently complaining of a headache and neck pain. He also states that has whole-body ache secondary to neuropathy and sciatica. Patient states that he drank 6 to 8 beers today and that he drinks this amount of beer daily. He denied drug use. Alert and oriented, angry and belligerent at times. Follows commands. No neuro deficits noted. c-collar removed by provider. Respirations even and non-labored. Abdomen soft, distended with positive bowel sounds. umbilical hernia noted. Positive pedal pulses with LE edema noted. L>R. Bilat upper extremities with multiple areas of ecchymosis.
[2024-10-09 18:00] VITALS: BP 156/81; PULSE 93; RESP 26; TEMP 36.7; O2SAT 93
[2024-10-09 18:02] LABS: Amphetamine Screen Urine Not Detected (Not Detect); Barbiturates, Urine Not Detected (Not Detect); Benzodiazepines Screen Urine Not Detected (Not Detect); Buprenorphine Scr Not Detected (Not Detect); Cannabinoid Screen Urine Not Detected (Not Detect); Cocaine Screen Urine Not Detected (Not Detect); Fentanyl, urine Not Detected (Not Detect); Methadone Screen, Urine Not Detected (Not Detect); Opiate Screen Urine Not Detected (Not Detect); Oxycodone Screen Urine Not Detected (Not Detect); Phencyclidine Screen Urine Not Detected (Not Detect)
[2024-10-09 18:54] VITALS: BP 156/81; PULSE 93; RESP 26; TEMP 36.7; O2SAT 93
== END 2024-10-09 18:57 | disposition home or self-care (01) ==
PROVIDERS: Emergency Provider Emergency Medicine Emergency Medical Services; PCP Physician Assistant
DX: S06.9X9A Unspecified intracranial injury with loss of consciousness of unspecified duration, initial encounter (principal); W22.09XA Striking against other stationary object, initial encounter; Y93.9 Activity, unspecified; Y92.89 Other specified places as the place of occurrence of the external cause; Y99.9 Unspecified external cause status; R51.9 Headache, unspecified; M54.2 Cervicalgia; R55 Syncope and collapse; F10.129 Alcohol abuse with intoxication, unspecified; Y90.7 Blood alcohol level of 200-239 mg/100 ml
CPT/HCPCS: 36415; 70450; 72125; 80053; 80307; 83690; 83735; 84484; 85025; 85730; 93005; 99285

== ENCOUNTER → 2024-10-09 16:40 | Outpatient (BNV) | payer OTHER, SELFPAY | PROVIDERS: Emergency Provider Emergency Medicine Emergency Medical Services; Visit Provider Radiology Diagnostic Radiology | DX: M54.2 Cervicalgia (principal); R55 Syncope and collapse; S09.90XA Unspecified injury of head, initial encounter | CPT/HCPCS: 70450; 72125 ==

== ENCOUNTER → 2024-10-09 16:41 | Outpatient (BNV) | payer OTHER, SELFPAY | PROVIDERS: Emergency Provider Emergency Medicine Emergency Medical Services; PCP Physician Assistant; Visit Provider Internal Medicine Cardiovascular Disease | DX: R94.31 Abnormal electrocardiogram [ECG] [EKG] (principal); W19.XXXA Unspecified fall, initial encounter | CPT/HCPCS: 93010 ==

== ENCOUNTER 2024-10-12 16:01 | Emergency (ER) | payer OTHER, SELFPAY ==
--- NOTE | ~2024-10-12 | CT_ITS ---
CLINICAL HISTORY: fall, head strike CT head without contrast. COMPARISON: CT head dated 10/09/24 at 16:53 EDT FINDINGS: The visualized paranasal sinuses are clear. The mastoid air cells are clear. No calvarial fracture. Atherosclerotic intracranial vasculature. No evidence for mass or mass effect. No intracranial hemorrhage or abnormal extra-axial fluid collection. No evidence of hydrocephalus. The basilar cisterns are patent. Posterior fossa appears unremarkable. IMPRESSION: 1. No acute intracranial findings. This document has been electronically signed by: Cristóbal Balderrama MD on 10/12/2024 17:21:35
--- NOTE | ~2024-10-12 | XR_ITS ---
CLINICAL HISTORY: fall 2 view chest x-ray Comparison: None Findings: No acute airspace opacity. No pleural effusion or pneumothorax. Heart size is normal. No acute fracture. IMPRESSION: No acute cardiopulmonary process. This document has been electronically signed by: Promise Chew DO on 10/12/2024 17:25:28
[2024-10-12 16:08] VITALS: BP 124/83; PULSE 99; O2SAT 96
[2024-10-12 16:26] VITALS: BP 136/77; PULSE 96; RESP 18; TEMP 36.7; O2SAT 96; BMI 21.4
--- NOTE | 2024-10-12 16:36 | ED_ITS ---
HPI - General Adult General Chief complaint: Fall Stated complaint: general unwell feeling, abd pain Time Seen by Provider: 10/12/24 17:51 Source: patient Mode of arrival: ambulatory Limitations: no limitations History of Present Illness ED Provider: HPI narrative: Patient's history of alcohol abuse was seen here 2 comes here again as he fell in his motel room while walking does have history of neuropathy and has a problem in the balance patient when landed hit his right side of the forehead to the ground no loss of consciousness patient has been falling very often balance no loss of consciousness patient also does have bilateral inguinal hernia left status post repair right surgeon has a see surgeon although patient does suffer with chronic low back pain patient also complaining of black stool earlier today Related Data Previous Rx's ?Medication ?Instructions ?Recorded omeprazole 40 mg capsule,delayed 40 mg PO DAILY #90 caps 10/12/24 release thiamine HCl (vitamin B1) 100 mg 100 mg PO DAILY #90 tabs 10/12/24 tablet Allergies Allergy/AdvReac Type Severity Reaction Status Date / Time latex Allergy Unknown Verified 10/12/24 16:31 lisinopril Allergy Unknown Verified 10/12/24 16:31 Review of Systems 2 Review of Systems: Yes all other systems are reviewed and are negative PMFSH Past Medical History Medical History Alcohol abuse Social History Social History Alcohol intake: current Alcohol intake frequency: 3 or more drinks per day Alcohol type: beer Patient Tobacco Use Status: Tobacco use Unknown Smoked in Last 30 Days: Yes Use of substances other than those prescribed or required for medical reasons: Yes Substance Use Type: Marijuana Last Used Substance: Unknown Advance Directives: No Advance Directives Information Provided: No Physical Exam ED Vital Signs: Vital Signs - 24 hr 10/12/24 16:26 10/12/24 21:33 10/12/24 21:53 Temperature 98.0 F 98.9 F 98.9 F Pulse Rate 96 88 88 Respiratory Rate 18 16 16 Blood Pressure 136/77 133/65 133/65 Pulse Oximetry 96 95 95 Oxygen Delivery Method Room Air Room Air Room Air BMI result Body Mass Index 21.4 Appearance: Alert. Oriented X3. No acute distress. etoh+ Eyes: No pallor no icterus ENT: Pharynx normal. Oral Mucosa moist Neck: Normal inspection. Neck supple. CVS: Normal heart rate and rhythm. Pulses normal. Respiratory: No respiratory distress. Equal air entry bilateral, no wheezing/rales/rhonchi Abdomen: Soft and nontender. Bowel sounds are present, no mass palpable, no CVA tenderness : Status post left inguinal hernia surgery right groin has direct hernia reducible nontender brown stool guaiac positive Skin: Skin warm and dry. Normal skin color. Normal skin turgor. Extremities: No lower extremity edema. No calf tenderness Back: Diffuse paralumbar tenderness SLR negative bilateral Neuro: Oriented X 3. No motor deficit. No sensory deficit.No cerebellar signs , cranial nerves II-XII intact Course Course Course Narrative: RME performed by Precious Montelongo PA-C. Patient is a 64 year old assigned male at presenting to the emergency department with alcohol use and a fall. Patient states that he abuses alcohol and fell in his hotel room. Detailed physical exam and review of systems are deferred to the bore mill operator for plastic. EKG, labs, imaging, swabs ordered. Patient placed back in the waiting room pending room availability and results. Medications Administered Discontinued Medications Generic Name Dose Route Start Last Admin Trade Name Freq PRN Reason Stop Dose Admin Omeprazole 40 mg 10/12/24 21:45 10/12/24 21:52 Omeprazole 40 Mg Capsule.Dr PO 10/12/24 21:46 40 mg ONCE ONE Administration Thiamine HCl 100 mg 10/12/24 21:44 10/12/24 21:52 Thiamine Hcl 100 Mg Tablet PO 10/12/24 21:45 100 mg ONCE ONE Administration Medical Decision Making Medical Decision Making [facility] Narrative: Patient alcoholic with right inguinal hernia does not want to go for detox had a mechanical fall head CT was negative labs were stable advised follow up with GI as patient has occult blood positive for stool was brown H&H stable will prescribe thiamine PPI Differential Diagnosis Differential Diagnoses: The differential diagnosis associated with the presentation includes Lab Data [facility] Lab Attestation statement: I reviewed the patient's lab results. 10/12/24 17:37 10/12/24 17:37 Labs: Lab Results 10/12/24 10/12/24 10/12/24 Range/Units 17:37 18:28 18:31 WBC 4.2 L (4.8-10.8) X10*3/uL RBC 4.71 (4.60-5.80) X10*6/uL Hgb 12.4 L (14.0-18.0) g/dl Hct 36.5 L (42.0-52.0) % MCV 77.5 L (80.0-98.0) fL MCH 26.3 L (27.0-33.0) pg MCHC 34.0 (31.0-36.0) g/dl RDW 17.6 H (11.0-16.0) % Plt Count 86 L (160-400) X10*3/uL MPV 8.0 L (9.4-12.4) fL Immature Gran % (Auto) 0.2 (0.0-0.4) % Neut % (Auto) 53.7 (45-73) % Lymph % (Auto) 31.8 (20-40) % [place] % (Auto) 12.8 H (2-11) % Eos % (Auto) 1.0 (0-4) % Baso % (Auto) 0.5 (0-2) % Lymph # (Auto) 1.3 (1.2-4.9) X10*3/uL [place] # (Auto) 0.5 (0.1-1.2) X10*3/uL Eos # (Auto) 0.0 (0.0-0.4) X10*3/uL Baso # (Auto) 0.0 (0.0-0.2) X10*3/uL Abs Immat Gran (auto) 0.01 (0.00-0.03) X10*3/uL Absolute Neuts (auto) 2.2 (2.0-8.3) x10*3/uL Absolute Nucleated RBC 0.000 (0.0-0.012) X10*3/uL Nucleated RBC % (auto) 0.0 (0.0-0.2) /100WBC PT 11.7 (10.9-12.4) SEC INR 1.0 (0.9-1.1) Sodium 141 (135-145) mmol/L Potassium 3.5 (3.3-5.1) mmol/L Chloride 102 (96-108) mmol/L Carbon Dioxide 26 (22-29) mmol/L Anion Gap 17 (12-20) BUN 8 L (9-16) mg/dL Creatinine 0.76 (0.5-1.4) mg/dL Estim Creat Clear Calc 88.6 Estimated GFR > 60 Random Glucose 71 (60-115) mg/dL Calcium 9.2 (8.4-10.2) mg/dL Magnesium 2.0 (1.6-2.6) mg/dL Total Bilirubin 0.5 (0.0-1.0) mg/dL AST 61 H (5-37) U/L ALT 51 H (0-40) U/L Alkaline Phosphatase 99 (39-117) U/L Troponin I High Sens 4.6 (<3.5-35.0) ng/L Total Protein 7.7 (6.5-8.0) g/dL Albumin 4.3 (3.5-5.0) g/dL Urine Color Yellow Urine Appearance Clear Urine pH 6.0 (5.0-9.0) Ur Specific [place] 1.010 (1.005-1.025) Urine Protein Negative (Neg-Trace) mg/dL Urine Glucose (UA) Negative (Negative) mg/dL Urine Ketones Negative (Negative) mg/dL Urine Blood Negative (Negative) Urine Nitrite Negative (Negative) Ur Leukocyte Esterase Negative (Negative) Stool Occult Blood POSITIVE (NEGATIVE) Urine Opiates Screen Not Detected (Not Detect) Ur Buprenorphine Scrn Not Detected (Not Detect) ng/mL Ur Oxycodone Screen Not Detected (Not Detect) ng/mL Urine Methadone Screen Not Detected (Not Detect) ng/mL Urine Fentanyl Screen Not Detected (Not Detect) Ur Barbiturates Screen Not Detected (Not Detect) Ur Phencyclidine Scrn Not Detected (Not Detect) Ur Amphetamines Screen Not Detected (Not Detect) U Benzodiazepines Scrn Not Detected (Not Detect) Urine Cocaine Screen Not Detected (Not Detect) U Marijuana (THC) Screen Not Detected (Not Detect) Ethyl Alcohol 223 mg/dL Discharge Plan Discharge Clinical Impression: Alcohol abuse, Fall, Inguinal hernia of right side without obstruction or gangrene Patient Disposition: Home, Self-Care Instructions: Fall Prevention for Older Adults (ED), Inguinal Hernia (ED), Abuse of Alcohol (ED) Additional Instructions: Stop drinking alcohol Follow up with detox Take Prilosec and thiamine tablets as prescribed Follow up with surgeon for right inguinal hernia Prescriptions: New thiamine HCl (vitamin B1) 100 mg tablet 100 mg PO DAILY Qty: 90 0RF omeprazole 40 mg capsule,delayed release(DR/EC) 40 mg PO DAILY Qty: 90 0RF Referrals: Alexys Freedman MD [Physician] - 2 weeks Interventions: ED Discharge Assessment Last Done: 10/12/24 21:53 Discharge Date/Time: 10/12/24 22:02 Print Language: Canadian
--- NOTE | 2024-10-12 16:36 | ECG_ITS ---
Test Reason : palpitations Blood Pressure : */* mmHG Vent. Rate : 83 BPM Atrial Rate : 83 BPM P-R Int : 160 ms QRS Dur : 96 ms QT Int : 406 ms P-R-T Axes : 65 36 45 degrees QTcB Int : 477 ms Normal sinus rhythm Normal ECG When compared with ECG of 09-Oct-2024 17:09, No significant change was found Referred By: Generic ED Physician Electronically Signed By: Kenneth Fang
[2024-10-12 17:42] LABS: MANUAL DIFF FLAG NO
[2024-10-12 17:44] LABS: Basophils Percent Auto 0.5 % (0-2); Hematocrit 36.5 % (42.0-52.0); Hemoglobin 12.4 g/dl (14.0-18.0); Imm Gran Abs Auto 0.01 X10*3/uL (0.00-0.03); Imm Gran Pct Auto 0.2 % (0.0-0.4); Lymphocytes Absolute Auto 1.3 X10*3/uL (1.2-4.9); Lymphocytes Percent Auto 31.8 % (20-40); Mean Corpuscular Hemoglobin 26.3 pg (27.0-33.0); Mean Corpuscular Volume 77.5 fL (80.0-98.0); Monocytes Absolute Auto 0.5 X10*3/uL (0.1-1.2); Monocytes Percent Auto 12.8 % (2-11); Neutrophils Absolute Auto 2.2 x10*3/uL (2.0-8.3); Neutrophils Percent Auto 53.7 % (45-73); Red Blood Count 4.71 X10*6/uL (4.60-5.80); Red Cell Distribution Width 17.6 % (11.0-16.0); White Blood Count 4.2 X10*3/uL (4.8-10.8)
[2024-10-12 17:53] LABS: Prothrombin Time 11.7 SEC (10.9-12.4)
[2024-10-12 17:55] LABS: Platelet Count 86 X10*3/uL (160-400)
[2024-10-12 18:05] LABS: Alanine Aminotransferase 51 U/L (0-40); Albumin Level 4.3 g/dL (3.5-5.0); Alkaline Phosphatase 99 U/L (39-117); Anion Gap 17 (12-20); Aspartate Amino Transferase 61 U/L (5-37); Bilirubin Total 0.5 mg/dL (0.0-1.0); Blood Urea Nitrogen 8 mg/dL (9-16); Calcium 9.2 mg/dL (8.4-10.2); Carbon Dioxide 26 mmol/L (22-29); Chloride 102 mmol/L (96-108); Creatinine Clr Calc Pharmacy 88.6; Estimated Glomerular Filt Rate > 60; Ethanol 223 mg/dL; Glucose Random 71 mg/dL (60-115); Potassium 3.5 mmol/L (3.3-5.1); Sodium 141 mmol/L (135-145); Total Protein 7.7 g/dL (6.5-8.0)
--- OUTSIDE RECORDS SUMMARY | 2024-10-12 18:11 | XMS_ITS | Clinical Summary ---
Author Organization [facility] Address [address] [place] [address] Care Team Providers Care Quality Control Systems Manager Name Role Phone Unavailable Primary Care Provider Unavailabl e Allergies No known active allergies Social History Tobacco Use Types Packs/Day Years Used Date Smoking Tobacco: Never Assessed AUDIT-C Answer Date Recorded Q1: How often do you have a drink containing alcohol? 4 or more times a week 02/13/2023 Q2: How many drinks containi ng alcohol do you have on a typical day when you are drinking? 5 or 6 Q3: How often do you have si x or more drinks on one occasion? Monthly 02/13/2023 Sex and Gender Information Value Date Recorded Sex Assigned at Male 02/13/2023 2:45 AM EDT Legal Sex Male 2:42 AM EDT Gender Identity Male 02/13/2023 2:45 AM EDT Sexual Orientation Heterosexual (straight) 02/13 2:45 AM EDT Last Filed Vital Signs Vital Sign Reading Time Taken Comments Blood Pressure 124/61 02/13/2023 7:43 AM EDT Pulse 82 02/13/2023 7:43 AM EDT Temperature 35.9 ??C (96.6 ??F) 02/13/2023 4:44 AM ED T Respiratory Rate 17 02/13/2023 7:43 AM EDT Oxygen Saturation 93% 02/13/2023 7:43 AM EDT Inhaled Oxygen Concentration - - Weight - - Height - - Body Mass Index - - Plan of Treatment Health Maintenance Due Date Last Done Comments Hepatitis C Virus Screening 1960 HIV Screening 1973 DTaP/Tdap/Td Vaccines (1 - Tdap) 1979 Colonoscopy 2005 Pneumococcal Vaccines 50+ (1 of 1 - PCV) 2010 Zoster (Shingles) Vaccine (1 of 2) 2010 COVID-19 Vaccine ( - 2023-2 5 season) 2023 Influenza Vaccine 11/27/2024 RSV Vaccine 60 years and old er and Patients (1 - 1-dose 75+ series) 2035 Hepatitis B Vaccines Aged Out No long er eligible based on patient's age to complete this topic Insurance
[2024-10-12 18:12] LABS: Troponin-I High Sensitivity 4.6 ng/L (<3.5-35.0)
[2024-10-12 18:46] LABS: Amphetamine Screen Urine Not Detected (Not Detect); Barbiturates, Urine Not Detected (Not Detect); Benzodiazepines Screen Urine Not Detected (Not Detect); Buprenorphine Scr Not Detected (Not Detect); Cannabinoid Screen Urine Not Detected (Not Detect); Cocaine Screen Urine Not Detected (Not Detect); Fentanyl, urine Not Detected (Not Detect); Methadone Screen, Urine Not Detected (Not Detect); Opiate Screen Urine Not Detected (Not Detect); Oxycodone Screen Urine Not Detected (Not Detect); Phencyclidine Screen Urine Not Detected (Not Detect)
[2024-10-12 18:48] LABS: OBS Int Ctl Valid YES; OBS1 POSITIVE (NEGATIVE)
[2024-10-12 18:49] LABS: Appearance Urine Clear; Color Urine Yellow; Glucose Urine UA Negative (Negative); Leukocyte Esterase Urine Negative (Negative); Nitrite Urine Negative (Negative); Urine Blood Negative (Negative); Urine Ketones Negative (Negative); Urine Protein Negative (Neg-Trace)
--- NOTE | 2024-10-12 18:57 | PC.NURSE ---
Pt has declined orthostatic vs at this time, stating he's in too much pain to participate; pt otherwise cooperative with care at this time
[2024-10-12 21:33] VITALS: BP 133/65; PULSE 88; RESP 16; TEMP 37.2; O2SAT 95
--- NOTE | 2024-10-12 21:42 | MHC.EDTECH ---
Vital signs taken. Pt given gingerale and turkey sandwich per request.
[2024-10-12] MEDS: Omeprazole 40 MG CAPSULE.DR PO (21:52)
[2024-10-12] MEDS: Thiamine HCL 100 MG TABLET PO (21:52)
[2024-10-12 21:53] VITALS: BP 133/65; PULSE 88; RESP 16; TEMP 37.2; O2SAT 95
== END 2024-10-12 22:02 | disposition home or self-care (01) ==
PROVIDERS: Physician Assistant Medical; Emergency Provider Internal Medicine; PCP Physician Assistant
DX: F10.10 Alcohol abuse, uncomplicated (principal); Y90.7 Blood alcohol level of 200-239 mg/100 ml; K40.90 Unilateral inguinal hernia, without obstruction or gangrene, not specified as recurrent; R29.6 Repeated falls; R00.2 Palpitations; F43.10 Post-traumatic stress disorder, unspecified; F33.1 Major depressive disorder, recurrent, moderate; F17.210 Nicotine dependence, cigarettes, uncomplicated
CPT/HCPCS: 70450; 71046; 80053; 80307; 81003; 82272; 83735; 84484; 85025; 85610; 93005; 99284

== ENCOUNTER → 2024-10-12 16:36 | Outpatient (BNV) | payer OTHER, SELFPAY | PROVIDERS: Emergency Provider Internal Medicine; PCP Physician Assistant; Visit Provider Internal Medicine Cardiovascular Disease | DX: R00.2 Palpitations (principal) | CPT/HCPCS: 93010 ==

== ENCOUNTER → 2024-10-12 16:37 | Outpatient (BNV) | payer OTHER, SELFPAY | PROVIDERS: Emergency Provider Internal Medicine; PCP Physician Assistant; Visit Provider Radiology Diagnostic Radiology | DX: S09.90XA Unspecified injury of head, initial encounter (principal); F10.10 Alcohol abuse, uncomplicated | CPT/HCPCS: 70450; 71046 ==

== ENCOUNTER 2024-11-05 20:10 | Inpatient (IN) | payer OTHER, SELFPAY ==
[2024-11-05 20:38] VITALS: BMI 29.9
[2024-11-05 20:51] LABS: MANUAL DIFF FLAG NO
[2024-11-05 20:52] LABS: Hematocrit 33.9 % (42.0-52.0); Hemoglobin 12.0 g/dl (14.0-18.0); Imm Gran Abs Auto 0.01 X10*3/uL (0.00-0.03); Imm Gran Pct Auto 0.2 % (0.0-0.4); Lymphocytes Absolute Auto 1.5 X10*3/uL (1.2-4.9); Mean Corpuscular HGB Conc 35.4 g/dl (31.0-36.0); Mean Corpuscular Hemoglobin 27.7 pg (27.0-33.0); Mean Corpuscular Volume 78.3 fL (80.0-98.0); NRBC Abs Auto 0.000 X10*3/uL (0.0-0.012); NRBC Pct Auto 0.0 /100WBC (0.0-0.2); Red Blood Count 4.33 X10*6/uL (4.60-5.80); White Blood Count 4.2 X10*3/uL (4.8-10.8)
[2024-11-05 20:56] LABS: Platelet Count 97 X10*3/uL (160-400)
[2024-11-05 21:02] LABS: Appearance Urine Clear; Cannabinoid Screen Urine Not Detected (Not Detect); Glucose Urine UA Negative (Negative); PH 5.5 (5.0-9.0); Specific Gravity - Urine 1.010 (1.005-1.025)
[2024-11-05 21:04] VITALS: BP 119/68; PULSE 100; RESP 18; TEMP 37.1; O2SAT 96
[2024-11-05 21:06] LABS: Alanine Aminotransferase 57 U/L (0-40); Albumin Level 4.3 g/dL (3.5-5.0); Alkaline Phosphatase 98 U/L (39-117); Anion Gap 15 (12-20); Aspartate Amino Transferase 75 U/L (5-37); Blood Urea Nitrogen 9 mg/dL (9-16); Calcium 8.4 mg/dL (8.4-10.2); Carbon Dioxide 23 mmol/L (22-29); Chloride 102 mmol/L (96-108); Creatinine Clr Calc Pharmacy 122.9; Estimated Glomerular Filt Rate > 60; Potassium 3.7 mmol/L (3.3-5.1); Sodium 136 mmol/L (135-145); Total Protein 7.5 g/dL (6.5-8.0)
[2024-11-05 21:08] LABS: Acetaminophen LAB < 3 mcg/mL (<30); Salicylate < 5.0 mg/dL (15-30)
--- OUTSIDE RECORDS SUMMARY | 2024-11-05 23:24 | XMS_ITS | Clinical Summary ---
Author Organization [facility] Address [address] [place] [address] Care Team Providers Care Director Clinical Pharmacology Name Role Phone Unavailable Primary Care Provider [...] 82 02/13/2023 7:43 AM EDT Temperature 35.9 C (96.6 F) 02/13/2023 4:44 AM EDT Respiratory Rate 17 02/13/2023 7:43 AM EDT [...]
--- NOTE | 2024-11-05 23:57 | PC.NURSE ---
Took over care from RN Estefanía at 23:00, pt sleeping, no sign of distress.
--- NOTE | 2024-11-06 | ECG_ITS ---
Test Reason : R/O PROLONGED QT Blood Pressure : */* mmHG Vent. Rate : 75 BPM Atrial Rate : 75 BPM P-R Int : 152 ms QRS Dur : 94 ms QT Int : 400 ms P-R-T Axes : 86 57 79 degrees QTcB Int : 446 ms Normal sinus rhythm with sinus arrhythmia Normal ECG When compared with ECG of 12-Oct-2024 16:57, No significant change was found Referred By: Rachael [place] Electronically Signed By: Kenneth Fang
--- NOTE | 2024-11-06 04:21 | ED.GENADULT ---
HPI - General Adult General Chief complaint: Psychiatric Symptoms Stated complaint: SI Time Seen by Provider: 11/05/24 21:52 Source: patient Limitations: other (Question of intoxication) History of Present Illness ED Provider: Jyoti Mills PA-C HPI narrative: 64-year-old male with a history of GERD, alcohol abuse who presents with SI. Patient states he was at a [facility] in [place], making comments about self-harm. Patient was verbalizing that he would ?jump off a bridge?. History limited as the patient is somewhat uncooperative. Related Data Home Medications ?Medication ?Instructions ?Recorded ?Confirmed acetaminophen 325 mg tablet 325 mg PO BID PRN Pain 11/06/24 11/06/24 albuterol sulfate 90 mcg/actuation 2 puff inhalation Q4H PRN 11/06/24 11/06/24 aerosol inhaler (Ventolin HFA) Shortness Of Breath Or Wheezing amlodipine 5 mg tablet 5 mg PO BID 11/06/24 11/06/24 ascorbic acid (vitamin C) 250 mg 250 mg PO BID 11/06/24 11/06/24 tablet (Vitamin C) ibmwvksdmw-wibkqbu-wsryiotpokioa 1 cara mucous membrane Q2H PRN 11/06/24 11/06/24 10 mg-2.5 mg lozenges THROAT PAIN carvedilol 6.25 mg tablet 6.25 mg PO BID 11/06/24 11/06/24 ferrous sulfate 325 mg (65 mg 325 mg PO Q48H 11/06/24 11/06/24 iron) tablet fexofenadine 180 mg tablet 180 mg PO DAILY 11/06/24 11/06/24 gabapentin 300 mg capsule 300 mg PO BID 11/06/24 11/06/24 ibuprofen 800 mg tablet 800 mg PO DAILY PRN Pain 11/06/24 11/06/24 ipratropium 0.5 mg-albuterol 3 mg 3 ml inhalation QID PRN Shortness 11/06/24 11/06/24 (2.5 mg base)/3 mL nebulization Of Breath Or Wheezing soln magnesium hydroxide 400 mg/5 mL 30 ml PO DAILY PRN Constipation 11/06/24 11/06/24 oral suspension (Milk of Magnesia) melatonin 1 mg tablet 2 mg PO BEDTIME PRN Insomnia 11/06/24 11/06/24 nicotine 21 mg/24 hr daily 1 patch transdermal DAILY 11/06/24 11/06/24 transdermal patch spironolactone 25 mg tablet 25 mg PO DAILY 11/06/24 11/06/24 (Aldactone) vit C 250 mg-vit E 90 mg-zinc 40 1 tab PO BIDWM 11/06/24 11/06/24 mg-copper 1 df-wmwggm-uyjumm capsule (PreserVision AREDS-2) Allergies Allergy/AdvReac Type Severity Reaction Status Date / Time latex Allergy Unknown Verified 11/05/24 20:53 lisinopril Allergy Unknown Verified 11/05/24 20:53 Review of Systems Review of Systems: Unable to obtain Yes all other systems are reviewed and are negative [facility] Past Medical History Attestation statement: The following information was validated with the patient. Medical History Alcohol abuse Social History Social History Alcohol intake: current Alcohol intake frequency: 3 or more drinks per day Alcohol type: beer Patient Tobacco Use Status: Tobacco use Unknown Smoked in Last 30 Days: Yes Use of substances other than those prescribed or required for medical reasons: No Substance Use Type: Marijuana Advance Directives: No Advance Directives Information Provided: No Do you have a plan to hurt others: No Plan Physical Exam ED Vital Signs: Vital Signs - 24 hr 11/05/24 21:04 11/06/24 09:21 Temperature 98.8 F 97.0 F Pulse Rate 100 84 Respiratory Rate 18 18 Blood Pressure 119/68 178/73 H Pulse Oximetry 96 94 Oxygen Delivery Method Room Air Room Air BMI result Body Mass Index 29.9 Const Other: Awake Orientation/consciousness: patient oriented x3 HENMT Other: Alcohol halitosis Resp Effort & Inspection: normal respiratory effort Cardio Other: Normal peripheral perfusion Skin Other: Warm dry no rash Neuro General: patient oriented x3, gait normal, no focal motor deficits and CN's II-XI intact bilaterally Psych Other: Uncooperative at times Course Reevaluation(s) Reevaluation #1: Time: 04:25 Date: 11/06/24 Provider: BISI Segovia Patient in physician observation for psychiatric evaluation.? No acute events reported overnight. No current complaints. VS stable.? Patient is in bed search status/pending CARE team evaluation. Will continue to monitor. Reevaluation #2: Time: 08:29 Date: 11/06/24 Provider: Jane Guillen, DO Patient in physician observation for psychiatric evaluation.? No acute events reported overnight. No current complaints. VS stable.? Patient is pending CARE team dispo, CIWA and PRN ativan ordered. Will continue to monitor. Reevaluation #3: Time: 12:10 Date: 11/06/24 Provider: Jane Guillen DO Physician observation ended at 1210pm.Patient to be admitted as inpatient to psychiatry. Medications Administered Generic Name Dose Route Start Last Admin Trade Name Freq PRN Reason Stop Dose Admin Lorazepam 2 mg 11/06/24 12:09 11/06/24 14:02 Lorazepam 1 Mg Tablet PO 2 mg Q2H PRN Administration ciwa -14 Medical Decision Making Medical Decision Making [facility] Narrative: 64-year-old male with a history of GERD, alcohol abuse who presents with SI. Patient states he was at a [facility] in [place], making comments about self-harm. Patient was verbalizing that he would ?jump off a bridge?. History limited as the patient is somewhat uncooperative. Problem: Alcohol abuse History: Per patient I have considered the following differential diagnoses: Drug/alcohol intoxication, SI, HI, decompensated psychiatric illness Plan: The patient will be referred to the care team, in the meantime we will be screening basic labs serum ethanol and drug screen I have independently reviewed the following tests: Labs: No leukocytosis, not anemic, no electrolyte abnormality noted LFTs at baseline, U tox positive for cocaine ethanol is 237 Lab Data 11/05/24 20:42 11/05/24 20:42 Labs: Lab Results 11/05/24 Range/Units 20:42 WBC 4.2 L (4.8-10.8) X10*3/uL RBC 4.33 L (4.60-5.80) X10*6/uL Hgb 12.0 L (14.0-18.0) g/dl Hct 33.9 L (42.0-52.0) % MCV 78.3 L (80.0-98.0) fL MCH 27.7 (27.0-33.0) pg MCHC 35.4 (31.0-36.0) g/dl RDW 15.9 (11.0-16.0) % Plt Count 97 L (160-400) X10*3/uL MPV 7.9 L (9.4-12.4) fL Immature Gran % (Auto) 0.2 (0.0-0.4) % Neut % (Auto) 48.2 (45-73) % Lymph % (Auto) 36.6 (20-40) % [place] % (Auto) 9.3 (2-11) % Eos % (Auto) 5.0 H (0-4) % Baso % (Auto) 0.7 (0-2) % Lymph # (Auto) 1.5 (1.2-4.9) X10*3/uL [place] # (Auto) 0.4 (0.1-1.2) X10*3/uL Eos # (Auto) 0.2 (0.0-0.4) X10*3/uL Baso # (Auto) 0.0 (0.0-0.2) X10*3/uL Abs Immat Gran (auto) 0.01 (0.00-0.03) X10*3/uL Absolute Neuts (auto) 2.0 (2.0-8.3) x10*3/uL Absolute Nucleated RBC 0.000 (0.0-0.012) X10*3/uL Nucleated RBC % (auto) 0.0 (0.0-0.2) /100WBC Sodium 136 (135-145) mmol/L Potassium 3.7 (3.3-5.1) mmol/L Chloride 102 (96-108) mmol/L Carbon Dioxide 23 (22-29) mmol/L Anion Gap 15 (12-20) BUN 9 (9-16) mg/dL Creatinine 0.68 (0.5-1.4) mg/dL Estim Creat Clear Calc 122.9 Estimated GFR > 60 Random Glucose 121 H (60-115) mg/dL Calcium 8.4 D (8.4-10.2) mg/dL Total Bilirubin 0.7 (0.0-1.0) mg/dL AST 75 H (5-37) U/L ALT 57 H (0-40) U/L Alkaline Phosphatase 98 (39-117) U/L Total Protein 7.5 (6.5-8.0) g/dL Albumin 4.3 (3.5-5.0) g/dL Urine Color Yellow Urine Appearance Clear Urine pH 5.5 (5.0-9.0) Ur Specific [place] 1.010 (1.005-1.025) Urine Protein Negative (Neg-Trace) mg/dL Urine Glucose (UA) Negative (Negative) mg/dL Urine Ketones Negative (Negative) mg/dL Urine Blood Negative (Negative) Urine Nitrite Negative (Negative) Ur Leukocyte Esterase Negative (Negative) Salicylates < 5.0 L (15-30) mg/dL Urine Opiates Screen Not Detected (Not Detect) Ur Buprenorphine Scrn Not Detected (Not Detect) ng/mL Ur Oxycodone Screen Not Detected (Not Detect) ng/mL Urine Methadone Screen Not Detected (Not Detect) ng/mL Urine Fentanyl Screen Not Detected (Not Detect) Acetaminophen < 3 (<30) mcg/mL Ur Barbiturates Screen Not Detected (Not Detect) Ur Phencyclidine Scrn Not Detected (Not Detect) Ur Amphetamines Screen Not Detected (Not Detect) U Benzodiazepines Scrn Not Detected (Not Detect) Urine Cocaine Screen POSITIVE H (Not Detect) U Marijuana (THC) Screen Not Detected (Not Detect) Ethyl Alcohol 237 mg/dL Discharge Plan Discharge Clinical Impression: Suicidal ideation, Alcohol intoxication Patient Disposition: Admitted As Inpatient Interventions: Admission Worksheet (ED) Last Done: 11/06/24 13:40 Discharge Date/Time: 11/06/24 14:50
--- NOTE | 2024-11-06 07:19 | PC.NURSE ---
Assumed care of patient at 0645, patient appears to be in no apparent distress, laying on couch in BH 8, respirations even and unlabored. Continue plan of care for CARE team demondal
--- NOTE | 2024-11-06 08:48 | MHC.CARE ---
Pt will be an inpatient bedsearch.
--- NOTE | 2024-11-06 09:03 | PC.NURSE ---
RE: med rec this Rn completed med rec with patient, he reports that he has been non-complaint with medications for about 1 month, has not received any refills on his medications. He does report that he gets his medications from the [facility] in [place]
[2024-11-06 09:21] VITALS: BP 178/73; PULSE 84; RESP 18; TEMP 36.1; O2SAT 94
--- NOTE | 2024-11-06 13:02 | PHA.MEDREC ---
Pharmacy Consult ? Medication Reconciliation Pharmacy has completed the medication reconciliation. Utilized list from [facility].
[2024-11-06 14:00] VITALS: BP 165/99; PULSE 103; RESP 18; TEMP 36.6; O2SAT 96
--- NOTE | 2024-11-06 15:38 | PC.NURSE ---
Pt arrived on the unit at 1342 from [facility]. Pt was brought in by EMS. He was at [facility] in [place], intoxicated, and began making statements about jumping off a bridge and bystanders called the police. Pt reports no psychiatric admission but multiple detox and substance abuse admissions over his life. He got out of detox about 10 days ago and has been drinking heavily ever since. He in tangential in his answers to questions and gathering info can be difficult at times. He reports being homeless and staying with friends or a motel. He also states mom or girlfriends mom recently got out of [facility] and moved away. It seems he was staying with them and now can not. He has a lot of anger regarding this and financial issues about same. Pt is a former marine, has a TBI, and COPD. His CIWA upon admission was 14 and he received 2mg ativan. He received no prior medication for withdrawal since coming into the ED the previous day. Pt states he has lost all providers and hasn't been on meds for about a month. He reports poor sleep as he gets up to urinate frequently, relating this to a surgery on his lower extremities . Skin check was notable to excoriated skin on right buttock, unclear how he got that, and old scar that runs the length of his abdomen (the surgery he frequently refers to). At this time pt is denying SI/HI/AVH. He is worried about what would happen to him should he not be here as he feels he will quickly make plans to take his life. Tox screen was also positive for cocaine, pt hesitant to discuss at this time but was very open about ETOH use.
[2024-11-06 19:48] VITALS: BP 167/77; PULSE 82; RESP 18; TEMP 37.1; O2SAT 96
[2024-11-06] MEDS: Albuterol Sulfate 90 MCG 8 GM INHALER 2 PUFF INHALE (21:58)
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
[2024-11-07 08:03] VITALS: BP 151/77; PULSE 75; RESP 16; TEMP 37.1; O2SAT 96
[2024-11-07] MEDS: Nicotine 21 MG PATCH.TD24 TRANSDERMA (08:54)
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
[2024-11-07 10:59] LABS: Hemoglobin A1C 102.4627 umol/L; Total Hemoglobin (HGBA1C) 3397.0323 umol/L
[2024-11-07 11:04] LABS: Cholesterol 177 mg/dL (<200); HDL Cholesterol 64 mg/dL (>40); Magnesium 2.1 mg/dL (1.6-2.6); Triglycerides 89 mg/dL (<150)
[2024-11-07 11:20] LABS: Free T4 (Free Thyroxine) 0.91 ng/dL (0.71-1.85); Thyroid Stimulating Hormone 1.01 uIU/mL (0.32-4.0)
[2024-11-07 11:42] LABS: Folate 18.2 ng/mL (> or = 4.0); Vitamin B12 615 pg/mL (200-900)
[2024-11-07 11:43] VITALS: BP 131/65; PULSE 97
[2024-11-07 19:37] VITALS: BP 159/85; PULSE 78; RESP 18; TEMP 38.1; O2SAT 97
[2024-11-08 04:59] VITALS: BP 162/78; PULSE 78
[2024-11-08 08:00] VITALS: BP 162/78; PULSE 78; RESP 16; TEMP 36.4; O2SAT 96
[2024-11-08] MEDS: Ferrous Sulfate 324 MG TABLET.DR PO (09:01)
[2024-11-08 09:02] VITALS: BP 162/78; PULSE 78
[2024-11-08] MEDS: Nicotine 21 MG PATCH.TD24 TRANSDERMA (09:03)
[2024-11-08] MEDS: Albuterol Sulfate 90 MCG 8 GM INHALER 2 PUFF INHALE ×2 (09:25→21:02)
--- NOTE | 2024-11-08 11:00 | P.PNPSI_ITS ---
Subjective Subjective Date of Service: 11/08/24 Reason For Visit: Depression, SI, alcohol use d/o, cocaineuse d/o Interim History: met with pt; discussed with team Patient reports that he is feeling little better; SI resolved. Still feeling depressed; discussed risks/side effects of Lexapro and patient agrees to start. Still having withdrawal symptoms so scheduling Ativan. nurse reports abrasion right glut, ordering bactitracin Mental Status Exam Mental Status Exam Narrative: Pt is alert and oriented; behavior is cooperative, friendly and calm; patient is not in distress; dressed in hospital attire, unkempt; mood is described as depressed and affect congruent; eye contact appropriate; Speech is verbose, but not pressured; normal rate, volume and prosody; some psychomotor retardation present; thought process is goal directed but quite circumstantial; Thought content is on psychosocial stressors; otherwise pertinent to relevant topics and without any delusional content, paranoid ideations or grandiosity; no SI; no HI; Denies AVH and there is no evidence of perceptual disturbance. Patients insight and judgment impaired but improving. Diagnostics Vital Signs (24Hr): Vital Signs - 24 hr 11/07/24 11:43 11/07/24 19:37 11/08/24 04:59 Temperature 100.5 F H Pulse Rate 97 78 78 Respiratory Rate 18 Blood Pressure 131/65 159/85 H 162/78 H Pulse Oximetry 97 Oxygen Delivery Method Room Air 11/08/24 08:00 11/08/24 09:02 11/08/24 09:02 Temperature 97.5 F Pulse Rate 78 78 Respiratory Rate 16 Blood Pressure 162/78 H 162/78 H 162/78 H Pulse Oximetry 96 Oxygen Delivery Method Room Air BMI result Body Mass Index 29.9 Labs 11/05/24 20:42 11/05/24 20:42 Labs: Laboratory Results - last 48 hr 11/07/24 10:24 Estimat Average Glucose 94 Hemoglobin A1c % 4.9 Magnesium 2.1 Triglycerides 89 Cholesterol 177 LDL Cholesterol, Calc 96 HDL Cholesterol 64 Vitamin B12 615 Folate 18.2 TSH 1.01 Free T4 0.91 Medications Medications Current Medications Acetaminophen (Acetaminophen 325 Mg Tablet) 650 mg PO Q6H PRN PRN Reason: Headache/Pain, Scale 1-10 Last Admin: 11/07/24 08:56 Dose: 650 mg Al Hydroxide/Mg Hydroxide (Magnesium Hydrox/Alum Hydrox 30 Ml Oral.Susp) 30 ml PO Q6H PRN PRN Reason: Heartburn/Nausea Albuterol Sulfate (Albuterol Sulfate 90 Mcg 8 Gm Inhaler) 2 puff INHALE Q4H PRN PRN Reason: Shortness Of Breath Or Wheezing Last Admin: 11/08/24 09:25 Dose: 2 puff Albuterol/Ipratropium (Albuterol/Iprat 2.5/0.5mg 3 Ml Ampul.Neb) 3 ml INHALE QID PRN PRN Reason: Shortness Of Breath Or Wheezing Amlodipine Besylate (Amlodipine Besylate 5 Mg Tablet) 5 mg PO BID [facility]; Protocol Last Admin: 11/08/24 09:02 Dose: 5 mg Ascorbic Acid (Ascorbic Acid 250 Mg Tablet) 250 mg PO BID [facility] Last Admin: 11/08/24 09:02 Dose: 250 mg Benzocaine (Throat Lozenge, Medicated Lozenge) 1 lozenge MUCOUS MEM Q2H PRN PRN Reason: THROAT PAIN Carvedilol (Carvedilol 6.25 Mg Tablet) 6.25 mg PO BID [facility]; Protocol Last Admin: 11/08/24 09:02 Dose: 6.25 mg Ferrous Sulfate (Ferrous Sulfate 324 Mg Tablet.Dr) 324 mg PO Q48H [facility] Last Admin: 11/08/24 09:01 Dose: 324 mg Folic Acid (Folic Acid 1 Mg Tablet) 1 mg PO DAILY [facility] Last Admin: 11/08/24 09:02 Dose: 1 mg Gabapentin (Gabapentin 300 Mg Capsule) 300 mg PO BID [facility] Last Admin: 11/08/24 09:01 Dose: 300 mg Gabapentin (Gabapentin 300 Mg Capsule) 300 mg PO DAILY@1500 [facility] Stop: 11/11/24 14:59 Hydroxyzine HCl (Hydroxyzine Hcl 25 Mg Tablet) 25 mg PO Q6H PRN PRN Reason: mild anxiety Ibuprofen (Ibuprofen 600 Mg Tablet) 600 mg PO Q6H PRN PRN Reason: severe pain Last Admin: 11/08/24 09:24 Dose: 600 mg Loratadine (Loratadine 10 Mg Tablet) 10 mg PO DAILY [facility] Last Admin: 11/08/24 09:01 Dose: 10 mg Lorazepam (Lorazepam 1 Mg Tablet) 1 mg PO Q2H PRN PRN Reason: ciwa 6-10 Last Admin: 11/07/24 12:09 Dose: 1 mg Lorazepam (Lorazepam 1 Mg Tablet) 2 mg PO Q2H PRN PRN Reason: ciwa 11-14 Last Admin: 11/08/24 09:24 Dose: 2 mg Lorazepam (Lorazepam 1 Mg Tablet) 3 mg PO Q2H PRN PRN Reason: ciwa over 14 Lorazepam (Lorazepam 1 Mg Tablet) 1 mg PO TID [facility] Magnesium Hydroxide (Milk Of Magnesia 30 Ml Oral.Susp) 30 ml PO DAILY PRN PRN Reason: Constipation Melatonin (Melatonin 3 Mg Tablet) 3 mg PO BEDTIME [facility] Last Admin: 11/07/24 21:50 Dose: 3 mg Multivitamins/Vitamin C (Multivitamin Tablet) 1 tab PO DAILY [facility] Last Admin: 11/08/24 09:01 Dose: 1 tab Nicotine (Nicotine 21 Mg Patch.Td24) 21 mg TRANSDERMA DAILY [facility] Last Admin: 11/08/24 09:03 Dose: 21 mg Nicotine Polacrilex (Nicotine Polacrilex 2 Mg Gum) 4 mg BUCCAL Q2H PRN PRN Reason: Nicotine Cravings Spironolactone (Spironolactone 25 Mg Tablet) 25 mg PO DAILY [facility]; Protocol Last Admin: 11/08/24 09:01 Dose: 25 mg Thiamine HCl (Thiamine Hcl 100 Mg Tablet) 100 mg PO DAILY [facility] Last Admin: 11/08/24 09:01 Dose: 100 mg Allergies Allergies Allergy/AdvReac Type Severity Reaction Status Date / Time latex Allergy Unknown Verified 11/05/24 20:53 lisinopril Allergy Unknown Verified 11/05/24 20:53 Assessment & Plan Assessment & Plan (1) PTSD (post-traumatic stress disorder): Status: Acute Code(s): F43.10 - Post-traumatic stress disorder, unspecified (2) Suicidal ideation: Status: Acute Code(s): R45.851 - Suicidal ideations (3) Major depressive disorder, recurrent, moderate: Status: Acute Code(s): F33.1 - Major depressive disorder, recurrent, moderate (4) Alcohol abuse: Status: Acute Code(s): F10.10 - Alcohol abuse, uncomplicated Plan HPI: Pt is a 64 y/o, , [place] speaking, male arrived at the ED via ambulance from the community. Pt was at a [facility] in [place], making comments about selfharm, verbalizing that he would ? jump off a bridge?. Pt was intoxicated on arrival. Pt has no known hx of inpt hospitalization, has hx of substance use and detox admissions through the [place],, there is no known hx of SI or attempts. Past dx of PTSD by pt report. 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 Could be off medication x1 month even though he reports only 7 days as his medication was in friend's truck which was broken down in [place]. 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 Relapsed on alcohol after 10 days being at [place] detox, he has been drinking for 7 days straight up to 7 8 beers plus up to a L of Jenny. Currently has no SI/SIB/HI/AVH. History of suicidal. No history of suicide attempts. Formulation/clinical reasoning: Being homeless, Off med x1 month, relapsed on alcohol, been drinking heavily 7 days straight. Increased suicidal thoughts with plan to jump off a bridge . No outpatient psych provider. No outpatient therapist. Has some sleep issue as he has been going through cancer surgery. History of PTSD, TBI, and question depression. He not currently on antidepressant. Given above information, patient will be benefit from restart on home medication, possibility start on medication to target depression symptoms. Refer patient to outpatient psychiatric services. Patient may benefit from referral to outpatient substance use treatment programs to prevent relapsed on alcohol. Hospital course: 11/06/24: Restart on home medications with medication to address medical issues. Blood pressure elevated. Start Ativan p.r.n. per CIWA protocol. I will not start him on any new medication at this time due to the fact that he was not taking his home medications about a month. Mild edema on bilateral lower extremity. Educate on elevated legs. Monitor for blood pressure. He reports trazodone make him hyper. Therefore melatonin p.r.n. schedule at bedtime. I also review lab results with patient which was done from the ED. 11/07 pt shared about life struggles currently going through and past. Left meds in car which broke down in [facility] so has been off for weeks. However, no psych meds. Pt said he had suicidal thoughts following relapse with etoh 7 days ago (after 2 weeks of sobriety) in the face of being homeless and other stressors. Discussed medications and pt is open to antidepressant; will wait to detox is further along. Discussed antihypertensives -Discussed and Does not want MAT -Would like help w/ program for tx for sobriety in community -moderately scoring on CIWA 11/08 Patient reports that he is feeling little better; SI resolved. Still feeling depressed; discussed risks/side effects of Lexapro and patient agrees to start. Still having withdrawal symptoms so scheduling Ativan. nurse reports abrasion right glut, ordering bactitracin Plan Start Lexapro Schedule Ativan Extra dose of gabapentin for 3 days Patient on 15 minute checks for safety. Admitted to . CV. Encourage group participation. We will monitor for alcohol withdrawal per [facility] protocol. Work with treatment team to do collateral for CSS/CCS if possible for aftercare. We will order some labs work for tomorrow per protocol Patient educated on: diagnosis, medication risk/benefits, substance abuse and medical condition Informed Consent: understands Reason for continued inpatient stay Substantial Risk for: stable for discharge, rapid decompensation and med/psych decompensation Time Spent With Patient Time: Total time managing care of this patient today ____ minutes.
[2024-11-08 19:40] VITALS: BP 149/75; PULSE 70; TEMP 37.4; O2SAT 97
[2024-11-08 20:55] VITALS: BP 138/84; PULSE 100
[2024-11-08 23:23] VITALS: BP 141/63; PULSE 68; TEMP 36.9; O2SAT 96
[2024-11-09] MEDS: Nicotine 21 MG PATCH.TD24 TRANSDERMA (08:27)
[2024-11-09 08:30] VITALS: BP 135/67; PULSE 72; RESP 18; TEMP 36.8; O2SAT 95
--- NOTE | 2024-11-09 09:56 | HO.PSYCHPN ---
Subjective Subjective Date of Service: 11/09/24 Reason For Visit: Depression, SI, alcohol use d/o, cocaineuse d/o Subjective Notes: Conditional Voluntary Interim History: Met with pt and Kamala Summers LCSW. Pt provided a written narrative of his goals for current in pt stay which were reviewed. Agreed to addiction consult which is ordered. Intersted in establishing OP resources for therapy, psychopharmacology, housing (thinking of an SRO, sober living) and will contact [facility]. Tolerating medications. We may need to consider adding another mood stabilizer as he reports lability ARMATURE CONNECTOR. Detox is progressing, Lorazepam contintues scheduled and prn. Medication Compliance: Yes Side effects from medications: No Attending Groups: No Review of Systems Acute medical concerns: No Medical Review of Systems: unchanged Review of Systems Review of Systems Denies at this time Mental Status Exam Mental Status Exam Patient Appearance: Appropriate Patient Orientation: Person, Place, Time and Situation Level of Consciousness: Alert Patient Behavior: Appropriate, Talkative, Cooperative and Good Eye Contact Mood Description: Constricted Affect Description: Constricted Patient Cognition Impaired: No Ability to Follow Directions: Good Speech Pattern: Spontaneous Speech Memory Description: Intact Hallucinations: None Delusions: Not Present Thought Process: Intact and Goal Oriented Thought Content: positive for Intact, positive for Circumstantial and positive for Goal Oriented Depressive Symptoms: Increased Irritability (ARMATURE CONNECTOR per pt report) Judgement: Good Diagnostics Vital Signs (24Hr): Vital Signs - 24 hr 11/08/24 19:40 11/08/24 20:55 11/08/24 20:55 Temperature 99.4 F Pulse Rate 70 100 Respiratory Rate Blood Pressure 149/75 H 138/84 138/84 Pulse Oximetry 97 Oxygen Delivery Method Room Air 11/08/24 23:23 11/09/24 08:30 Temperature 98.4 F 98.2 F Pulse Rate 68 72 Respiratory Rate 18 Blood Pressure 141/63 H 135/67 Pulse Oximetry 96 95 Oxygen Delivery Method Room Air Room Air BMI result Body Mass Index 29.9 Labs 11/05/24 20:42 11/05/24 20:42 Labs: Laboratory Results - last 48 hr 11/07/24 10:24 Estimat Average Glucose 94 Hemoglobin A1c % 4.9 Magnesium 2.1 Triglycerides 89 Cholesterol 177 LDL Cholesterol, Calc 96 HDL Cholesterol 64 Vitamin B12 615 Folate 18.2 TSH 1.01 Free T4 0.91 Medications Medications Current Medications Acetaminophen (Acetaminophen 325 Mg Tablet) 650 mg PO Q6H PRN PRN Reason: Headache/Pain, Scale 1-10 Last Admin: 11/08/24 16:54 Dose: 650 mg Al Hydroxide/Mg Hydroxide (Magnesium Hydrox/Alum Hydrox 30 Ml Oral.Susp) 30 ml PO Q6H PRN PRN Reason: Heartburn/Nausea Albuterol Sulfate (Albuterol Sulfate 90 Mcg 8 Gm Inhaler) 2 puff INHALE Q4H PRN PRN Reason: Shortness Of Breath Or Wheezing Last Admin: 11/08/24 21:02 Dose: 2 puff Albuterol/Ipratropium (Albuterol/Iprat 2.5/0.5mg 3 Ml Ampul.Neb) 3 ml INHALE QID PRN PRN Reason: Shortness Of Breath Or Wheezing Amlodipine Besylate (Amlodipine Besylate 5 Mg Tablet) 5 mg PO BID [facility]; Protocol Last Admin: 11/09/24 08:25 Dose: 5 mg Ascorbic Acid (Ascorbic Acid 250 Mg Tablet) 250 mg PO BID [facility] Last Admin: 11/09/24 08:24 Dose: 250 mg Bacitracin (Bacitracin Oint 14 Gm Tube) 1 appl TOPICAL TID [facility]; Protocol Stop: 11/11/24 14:59 Last Admin: 11/09/24 08:26 Dose: Not Given Benzocaine (Throat Lozenge, Medicated Lozenge) 1 lozenge MUCOUS MEM Q2H PRN PRN Reason: THROAT PAIN Carvedilol (Carvedilol 6.25 Mg Tablet) 6.25 mg PO BID [facility]; Protocol Last Admin: 11/09/24 08:24 Dose: 6.25 mg Escitalopram Oxalate (Escitalopram Oxalate 5 Mg Tablet) 5 mg PO DAILY [facility] Last Admin: 11/09/24 08:24 Dose: 5 mg Ferrous Sulfate (Ferrous Sulfate 324 Mg Tablet.Dr) 324 mg PO Q48H [facility] Last Admin: 11/08/24 09:01 Dose: 324 mg Folic Acid (Folic Acid 1 Mg Tablet) 1 mg PO DAILY [facility] Last Admin: 11/09/24 08:24 Dose: 1 mg Gabapentin (Gabapentin 300 Mg Capsule) 300 mg PO BID [facility] Last Admin: 11/09/24 08:24 Dose: 300 mg Gabapentin (Gabapentin 300 Mg Capsule) 300 mg PO DAILY@1500 [facility] Stop: 11/11/24 14:59 Last Admin: 11/08/24 15:22 Dose: 300 mg Hydroxyzine HCl (Hydroxyzine Hcl 25 Mg Tablet) 25 mg PO Q6H PRN PRN Reason: mild anxiety Ibuprofen (Ibuprofen 600 Mg Tablet) 600 mg PO Q6H PRN PRN Reason: severe pain Last Admin: 11/09/24 00:36 Dose: 600 mg Loratadine (Loratadine 10 Mg Tablet) 10 mg PO DAILY [facility] Last Admin: 11/09/24 08:24 Dose: 10 mg Lorazepam (Lorazepam 1 Mg Tablet) 1 mg PO Q2H PRN PRN Reason: ciwa 6-10 Last Admin: 11/08/24 21:02 Dose: 1 mg Lorazepam (Lorazepam 1 Mg Tablet) 2 mg PO Q2H PRN PRN Reason: ciwa 11-14 Last Admin: 11/08/24 09:24 Dose: 2 mg Lorazepam (Lorazepam 1 Mg Tablet) 3 mg PO Q2H PRN PRN Reason: ciwa over 14 Lorazepam (Lorazepam 1 Mg Tablet) 1 mg PO TID [facility] Last Admin: 11/09/24 08:24 Dose: 1 mg Magnesium Hydroxide (Milk Of Magnesia 30 Ml Oral.Susp) 30 ml PO DAILY PRN PRN Reason: Constipation Melatonin (Melatonin 3 Mg Tablet) 3 mg PO BEDTIME [facility] Last Admin: 11/08/24 20:55 Dose: 3 mg Multivitamins/Vitamin C (Multivitamin Tablet) 1 tab PO DAILY [facility] Last Admin: 11/09/24 08:24 Dose: 1 tab Nicotine (Nicotine 21 Mg Patch.Td24) 21 mg TRANSDERMA DAILY [facility] Last Admin: 11/09/24 08:27 Dose: 21 mg Nicotine Polacrilex (Nicotine Polacrilex 2 Mg Gum) 4 mg BUCCAL Q2H PRN PRN Reason: Nicotine Cravings Spironolactone (Spironolactone 25 Mg Tablet) 25 mg PO DAILY [facility]; Protocol Last Admin: 11/09/24 08:24 Dose: 25 mg Thiamine HCl (Thiamine Hcl 100 Mg Tablet) 100 mg PO DAILY [facility] Last Admin: 11/09/24 08:24 Dose: 100 mg Allergies Allergies Allergy/AdvReac Type Severity Reaction Status Date / Time latex Allergy Unknown Verified 11/05/24 20:53 lisinopril Allergy Unknown Verified 11/05/24 20:53 Assessment & Plan Assessment & Plan (1) PTSD (post-traumatic stress disorder): Status: Acute Code(s): F43.10 - Post-traumatic stress disorder, unspecified (2) Suicidal ideation: Status: Acute Code(s): R45.851 - Suicidal ideations (3) Major depressive disorder, recurrent, moderate: Status: Acute Code(s): F33.1 - Major depressive disorder, recurrent, moderate (4) Alcohol abuse: Status: Acute Code(s): F10.10 - Alcohol abuse, uncomplicated Plan HPI: Pt is a 64 y/o, , [place] speaking, male arrived at the ED via ambulance from the community. Pt was at a [facility] in [place], making comments about selfharm, verbalizing that he would ? jump off a bridge?. Pt was intoxicated on arrival. Pt has no known hx of inpt hospitalization, has hx of substance use and detox admissions through the [place],, there is no known hx of SI or attempts. Past dx of PTSD by pt report. 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 Could be off medication x1 month even though he reports only 7 days as his medication was in friend's truck which was broken down in [place]. 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 Relapsed on alcohol after 10 days being at [place] detox, he has been drinking for 7 days straight up to 7 8 beers plus up to a L of Jenny. Currently has no SI/SIB/HI/AVH. History of suicidal. No history of suicide attempts. Formulation/clinical reasoning: Being homeless, Off med x1 month, relapsed on alcohol, been drinking heavily 7 days straight. Increased suicidal thoughts with plan to jump off a bridge . No outpatient psych provider. No outpatient therapist. Has some sleep issue as he has been going through cancer surgery. History of PTSD, TBI, and question depression. He not currently on antidepressant. Given above information, patient will be benefit from restart on home medication, possibility start on medication to target depression symptoms. Refer patient to outpatient psychiatric services. Patient may benefit from referral to outpatient substance use treatment programs to prevent relapsed on alcohol. Hospital course: 11/06/24: Restart on home medications with medication to address medical issues. Blood pressure elevated. Start Ativan p.r.n. per CIWA protocol. I will not start him on any new medication at this time due to the fact that he was not taking his home medications about a month. Mild edema on bilateral lower extremity. Educate on elevated legs. Monitor for blood pressure. He reports trazodone make him hyper. Therefore melatonin p.r.n. schedule at bedtime. I also review lab results with patient which was done from the ED. 11/07 pt shared about life struggles currently going through and past. Left meds in car which broke down in [facility] so has been off for weeks. However, no psych meds. Pt said he had suicidal thoughts following relapse with etoh 7 days ago (after 2 weeks of sobriety) in the face of being homeless and other stressors. Discussed medications and pt is open to antidepressant; will wait to detox is further along. Discussed antihypertensives -Discussed and Does not want MAT -Would like help w/ program for tx for sobriety in community -moderately scoring on CIWA 11/08 Patient reports that he is feeling little better; SI resolved. Still feeling depressed; discussed risks/side effects of Lexapro and patient agrees to start. Still having withdrawal symptoms so scheduling Ativan. nurse reports abrasion right glut, ordering bactitracin 11/09 Pt provided a narrative he wrote today outlining his goals to establish OP care and housing. Agreed to addictions consult. Continue CIWA, scheduled and prn Lorazepam. Will contact [facility] to discuss housing. Plan Start Lexapro Schedule Ativan Extra dose of gabapentin for 3 days Patient on 15 minute checks for safety. Admitted to . CV. Encourage group participation. We will monitor for alcohol withdrawal per CIWA protocol. Work with treatment team to do collateral for CSS/CCS if possible for aftercare. We will order some labs work for tomorrow per protocol Patient educated on: medication risk/benefits and substance abuse Informed Consent: understands Reason for continued inpatient stay Substantial Risk for: rapid decompensation Time Spent With Patient Time: Total time managing care of this patient today ____ minutes.
--- NOTE | 2024-11-09 16:11 | MHC.RECOVRN ---
Stanley is a 64-year-old Male, [facility] , with a history of COPD, GERD, and Alcohol Use Disorder (AUD). He presented to the ED expressing suicidal ideation. Met with Stanley in - after receiving addiction consult to discuss alcohol use, recovery supports, and other resources.? Pt stated he had a recent recurrence to drinking alcohol lasting about 10 days after a whole month period of sobriety. Trigger for his recent relapse was his girlfriend moving to [facility] without notice, as well as other psychosocial factors such as current lack of housing. Stanley reported drinking the equivalent of a six-pack of beer daily, as well as a couple of Whiskey nips. He states he recently tried cocaine as well, occasionally using $100 worth of cocaine via the intranasal route.? In the past Stanley has been actively engaged in recovery, attending AUD treatment programs including most recently at [facility] on June 21, 2024. From [id number], pt had a 4-year period of sobriety. During that time, he had a sponsor who was also his good friend, attended 12-step meetings, and was employed as a Rock Crusher Operator. He was also able to achieve 6 month-2 year periods of sobriety after this, with some intermittent recurrences in between. Stanley has a family hx of AUD and has a diagnosis of PTSD. Discussed ANDRA with Stanley and outpatient treatment for AUD. He declined outpatient [facility] appointment for treatment of his AUD, as he stated he wants to manage his housing situation first. Pt is considering inpatient [facility] treatment following discharge. Pt was not interested in ANDRA at this time as he insisted he is already on it. Discussed the difference between medications for withdrawal management vs ANDRA. Pt still was hesitant to speak with Addiction Medicine provider. He however did accept a aircraft launch and recovery technician referral to be sent on his behalf. lean coach referral made by t/w on 11.09.2024. Written materials provided to and reviewed with patient on harm reduction info for AUD, levels of care such as ATS, CSS, TSS, IOP, recovery coaching pamphlet and other resources. Pt encouraged to discuss options following discharge with SW. Pt provided with ACS team contact info in case any questions or concerns arise. No further questions or concerns offered at this moment. Discussed with Fifi Bearden NP
[2024-11-09 19:33] VITALS: BP 125/79; PULSE 85; TEMP 37.5; O2SAT 97
[2024-11-09 20:17] VITALS: BP 125/79
[2024-11-09 20:18] VITALS: BP 125/79; PULSE 85
[2024-11-09] MEDS: Albuterol Sulfate 90 MCG 8 GM INHALER 2 PUFF INHALE (20:22)
--- NOTE | 2024-11-09 20:31 | PC.NURSE ---
Dressing to right glute changed. Abrasion cleaned with NS, dressing with bacitracin applied.
--- NOTE | 2024-11-09 22:12 | PC.NURSE ---
Patient has requested that he not be woken for CIWA scoring.
[2024-11-10] MEDS: Ferrous Sulfate 324 MG TABLET.DR PO (08:56)
--- NOTE | 2024-11-10 08:56 | P.PNPSI_ITS ---
Subjective Subjective Date of Service: 11/10/24 Reason For Visit: Depression, SI, alcohol use d/o, cocaineuse d/o Subjective Notes: Conditional Voluntary Healthcare Proxy: No Guardianship: No Medical Problems Affecting Mental Status: No Interim History: Detox progressing. Scheduled Lorazepam decreased. CIWA discontinued. Pt working on calls to [employer] however he reports no answer or response when he calls. Discussed mood stabilizers as pt is talking about anger and difficulty managing anger. Pt reports it is his belief that his anger has a situational base and a mood stabilizer is not needed. I have a lot to be angry about. Medication Compliance: Yes Side effects from medications: No Attending Groups: No Review of Systems Acute medical concerns: No Medical Review of Systems: unchanged Review of Systems Review of Systems Denies Mental Status Exam Mental Status Exam Patient Appearance: Appropriate Patient Orientation: Person, Place, Time and Situation Level of Consciousness: Alert Patient Behavior: Appropriate, Talkative, Cooperative and Good Eye Contact Mood Description: Constricted Affect Description: Constricted Patient Cognition Impaired: No Ability to Follow Directions: Good Speech Pattern: Spontaneous Speech Memory Description: Intact Hallucinations: None Delusions: Not Present Thought Process: Intact and Goal Oriented Thought Content: positive for Intact, positive for Circumstantial and positive for Goal Oriented Depressive Symptoms: Increased Irritability ([employer]TE[employer] per pt report) Judgement: Good Diagnostics Vital Signs (24Hr): Vital Signs - 24 hr 11/09/24 19:33 11/09/24 20:17 11/09/24 20:18 Temperature 99.5 F Pulse Rate 85 85 Blood Pressure 125/79 125/79 125/79 Pulse Oximetry 97 Oxygen Delivery Method Room Air BMI result Body Mass Index 29.9 Labs 11/05/24 20:42 11/05/24 20:42 Medications Medications Current Medications Acetaminophen (Acetaminophen 325 Mg Tablet) 650 mg PO Q6H PRN PRN Reason: Headache/Pain, Scale 1-10 Last Admin: 11/08/24 16:54 Dose: 650 mg Al Hydroxide/Mg Hydroxide (Magnesium Hydrox/Alum Hydrox 30 Ml Oral.Susp) 30 ml PO Q6H PRN PRN Reason: Heartburn/Nausea Albuterol Sulfate (Albuterol Sulfate 90 Mcg 8 Gm Inhaler) 2 puff INHALE Q4H PRN PRN Reason: Shortness Of Breath Or Wheezing Last Admin: 11/09/24 20:22 Dose: 2 puff Albuterol/Ipratropium (Albuterol/Iprat 2.5/0.5mg 3 Ml Ampul.Neb) 3 ml INHALE QID PRN PRN Reason: Shortness Of Breath Or Wheezing Amlodipine Besylate (Amlodipine Besylate 5 Mg Tablet) 5 mg PO BID [facility]; Protocol Last Admin: 11/09/24 20:17 Dose: 5 mg Ascorbic Acid (Ascorbic Acid 250 Mg Tablet) 250 mg PO BID [facility] Last Admin: 11/09/24 20:18 Dose: 250 mg Bacitracin (Bacitracin Oint 14 Gm Tube) 1 appl TOPICAL TID [facility]; Protocol Stop: 11/11/24 14:59 Last Admin: 11/09/24 20:31 Dose: 1 appl Benzocaine (Throat Lozenge, Medicated Lozenge) 1 lozenge MUCOUS MEM Q2H PRN PRN Reason: THROAT PAIN Carvedilol (Carvedilol 6.25 Mg Tablet) 6.25 mg PO BID [facility]; Protocol Last Admin: 11/09/24 20:18 Dose: 6.25 mg Escitalopram Oxalate (Escitalopram Oxalate 5 Mg Tablet) 5 mg PO DAILY [facility] Last Admin: 11/09/24 08:24 Dose: 5 mg Ferrous Sulfate (Ferrous Sulfate 324 Mg Tablet.Dr) 324 mg PO Q48H [facility] Last Admin: 11/08/24 09:01 Dose: 324 mg Folic Acid (Folic Acid 1 Mg Tablet) 1 mg PO DAILY [facility] Last Admin: 11/09/24 08:24 Dose: 1 mg Gabapentin (Gabapentin 300 Mg Capsule) 300 mg PO BID [facility] Last Admin: 11/09/24 20:17 Dose: 300 mg Gabapentin (Gabapentin 300 Mg Capsule) 300 mg PO DAILY@1500 [facility] Stop: 11/11/24 14:59 Last Admin: 11/09/24 14:22 Dose: 300 mg Hydroxyzine HCl (Hydroxyzine Hcl 25 Mg Tablet) 25 mg PO Q6H PRN PRN Reason: mild anxiety Ibuprofen (Ibuprofen 600 Mg Tablet) 600 mg PO Q6H PRN PRN Reason: severe pain Last Admin: 11/10/24 03:03 Dose: 600 mg Loratadine (Loratadine 10 Mg Tablet) 10 mg PO DAILY [facility] Last Admin: 11/09/24 08:24 Dose: 10 mg Lorazepam (Lorazepam 1 Mg Tablet) 1 mg PO Q2H PRN PRN Reason: ciwa 6-10 Last Admin: 11/10/24 03:04 Dose: 1 mg Lorazepam (Lorazepam 1 Mg Tablet) 2 mg PO Q2H PRN PRN Reason: ciwa 11-14 Last Admin: 11/08/24 09:24 Dose: 2 mg Lorazepam (Lorazepam 1 Mg Tablet) 3 mg PO Q2H PRN PRN Reason: ciwa over 14 Lorazepam (Lorazepam 1 Mg Tablet) 1 mg PO TID [facility] Last Admin: 11/09/24 20:18 Dose: 1 mg Magnesium Hydroxide (Milk Of Magnesia 30 Ml Oral.Susp) 30 ml PO DAILY PRN PRN Reason: Constipation Melatonin (Melatonin 3 Mg Tablet) 3 mg PO BEDTIME [facility] Last Admin: 11/09/24 20:18 Dose: 3 mg Multivitamins/Vitamin C (Multivitamin Tablet) 1 tab PO DAILY [facility] Last Admin: 11/09/24 08:24 Dose: 1 tab Nicotine (Nicotine 21 Mg Patch.Td24) 21 mg TRANSDERMA DAILY [facility] Last Admin: 11/09/24 08:27 Dose: 21 mg Nicotine Polacrilex (Nicotine Polacrilex 2 Mg Gum) 4 mg BUCCAL Q2H PRN PRN Reason: Nicotine Cravings Omeprazole (Omeprazole 20 Mg Capsule.Dr) 20 mg PO DAILY@0630 [facility] Last Admin: 11/10/24 06:38 Dose: 20 mg Spironolactone (Spironolactone 25 Mg Tablet) 25 mg PO DAILY [facility]; Protocol Last Admin: 11/09/24 08:24 Dose: 25 mg Thiamine HCl (Thiamine Hcl 100 Mg Tablet) 100 mg PO DAILY [facility] Last Admin: 11/09/24 08:24 Dose: 100 mg Allergies Allergies Allergy/AdvReac Type Severity Reaction Status Date / Time latex Allergy Unknown Verified 11/05/24 20:53 lisinopril Allergy Unknown Verified 11/05/24 20:53 Assessment & Plan Assessment & Plan (1) PTSD (post-traumatic stress disorder): Status: Acute Code(s): F43.10 - Post-traumatic stress disorder, unspecified (2) Suicidal ideation: Status: Acute Code(s): R45.851 - Suicidal ideations (3) Major depressive disorder, recurrent, moderate: Status: Acute Code(s): F33.1 - Major depressive disorder, recurrent, moderate (4) Alcohol abuse: Status: Acute Code(s): F10.10 - Alcohol abuse, uncomplicated Plan HPI: Pt is a 64 y/o, , Kyrgyz speaking, male arrived at the ED via ambulance from the community. Pt was at a [employer] in [place], making comments about selfharm, verbalizing that he would ? jump off a bridge?. Pt was intoxicated on arrival. Pt has no known hx of inpt hospitalization, has hx of substance use and detox admissions through the [place],, there is no known hx of SI or attempts. Past dx of PTSD by pt report. 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 Could be off medication x1 month even though he reports only 7 days as his medication was in friend's truck which was broken down in [place]. 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 Relapsed on alcohol after 10 days being at [place] detox, he has been drinking for 7 days straight up to 7 8 beers plus up to a L of Jenny. Currently has no SI/SIB/HI/AVH. History of suicidal. No history of suicide attempts. Formulation/clinical reasoning: Being homeless, Off med x1 month, relapsed on alcohol, been drinking heavily 7 days straight. Increased suicidal thoughts with plan to jump off a bridge . No outpatient psych provider. No outpatient therapist. Has some sleep issue as he has been going through cancer surgery. History of PTSD, TBI, and question depression. He not currently on antidepressant. Given above information, patient will be benefit from restart on home medication, possibility start on medication to target depression symptoms. Refer patient to outpatient psychiatric services. Patient may benefit from referral to outpatient substance use treatment programs to prevent relapsed on alcohol. Hospital course: 11/06/24: Restart on home medications with medication to address medical issues. Blood pressure elevated. Start Ativan p.r.n. per [place] protocol. I will not start him on any new medication at this time due to the fact that he was not taking his home medications about a month. Mild edema on bilateral lower extremity. Educate on elevated legs. Monitor for blood pressure. He reports trazodone make him hyper. Therefore melatonin p.r.n. schedule at bedtime. I also review lab results with patient which was done from the ED. 11/07 pt shared about life struggles currently going through and past. Left meds in car which broke down in [facility] so has been off for weeks. However, no psych meds. Pt said he had suicidal thoughts following relapse with etoh 7 days ago (after 2 weeks of sobriety) in the face of being homeless and other stressors. Discussed medications and pt is open to antidepressant; will wait to detox is further along. Discussed antihypertensives -Discussed and Does not want MAT -Would like help w/ program for tx for sobriety in community -moderately scoring on CIWA 11/08 Patient reports that he is feeling little better; SI resolved. Still feeling depressed; discussed risks/side effects of Lexapro and patient agrees to start. Still having withdrawal symptoms so scheduling Ativan. nurse reports abrasion right glut, ordering bactitracin 11/09 Pt provided a narrative he wrote today outlining his goals to establish OP care and housing. Agreed to addictions consult. Continue CIWA, scheduled and prn Lorazepam. Will contact [facility] to discuss housing. 11/10 Decrease scheduled lorazepam DC CIWA Increase Lexapro on 11/11. Pt attempting to call [employer] [facility] [phone] to assess availability for sober living. Plan Start Lexapro Schedule Ativan Extra dose of gabapentin for 3 days Patient on 15 minute checks for safety. Admitted to . CV. Encourage group participation. We will monitor for alcohol withdrawal per CIWA protocol. Work with treatment team to do collateral for CSS/CCS if possible for aftercare. We will order some labs work for tomorrow per protocol Reason for continued inpatient stay Substantial Risk for: rapid decompensation Time Spent With Patient Time: Total time managing care of this patient today ____ minutes.
[2024-11-10] MEDS: Nicotine 21 MG PATCH.TD24 TRANSDERMA (08:58)
[2024-11-10 09:00] VITALS: BP 139/69; PULSE 76; RESP 18; TEMP 36.6; O2SAT 94
[2024-11-10] MEDS: Albuterol Sulfate 90 MCG 8 GM INHALER 2 PUFF INHALE ×2 (09:01→20:56)
--- NOTE | 2024-11-10 16:10 | MHC.RECOVRN ---
Met with Pt in in [id number] to offer support and resources regarding AUD Pt was agreeable to meeting and was pleasant, calm, and cooperative during interaction. On approach pt was making a phone call in an attempt to secure sober living. Pt reports he has currently been residing in hotels and motels and is open to other avenues such as [facility] placement.? Pt reported previous placement at [facility] and states he had 4 years of abstinence from alcohol and was also working with an AA sponsor.? TW will contact assigned SW to touch base regarding discharge plan. Pt denies further questions or needs. TW available if needed for further questions or concerns.?
[2024-11-10 20:00] VITALS: BP 130/89; PULSE 77; TEMP 36.9; O2SAT 98
[2024-11-10 20:48] VITALS: BP 130/89; PULSE 77
[2024-11-10 20:49] VITALS: BP 130/89
[2024-11-11 08:09] VITALS: BP 127/86; PULSE 73; TEMP 36.9; O2SAT 96
[2024-11-11] MEDS: Nicotine 21 MG PATCH.TD24 TRANSDERMA (09:11)
--- NOTE | 2024-11-11 09:24 | P.PNPSI_ITS ---
Subjective Subjective Date of Service: 11/11/24 Reason For Visit: Depression, SI, alcohol use d/o, cocaineuse d/o Subjective Notes: Conditional Voluntary Interim History: Patient found lying in bed. Reports migraine; has h/o of chronic migraine, especially when he is not drinking alcohol. He denies withdraw symptoms at this time. He reports moderate anxiety and depressive symptoms. He denies withdrawal symptoms. He denies SI/HI/AV/VH. He is in no acute distress at this time. Medication Compliance: No Side effects from medications: No Attending Groups: Intermittent Review of Systems Acute medical concerns: Yes Migraine Mental Status Exam Mental Status Exam Narrative: Appearance: Casually dressed, adequate hygiene Behavior: Calm and cooperative throughout the interview. Eye contact is appropriate, and there are no signs of psychomotor agitation or retardation Speech: Normal volume and prosody Thought process: logical and goal-directed Thought content: Future oriented no self-harming thoughts Mood: Calm Affect: Constricted SI:denies HI:denies VH/AH:none Delusions: None Insight/judgment: Fair insight and judgment Memory/cog: Alert, oriented x 4. grossly intact to conversational testing Diagnostics Vital Signs (24Hr): Vital Signs - 24 hr 11/10/24 20:00 11/10/24 20:48 11/10/24 20:49 Temperature 98.4 F Pulse Rate 77 77 Blood Pressure 130/89 130/89 130/89 Pulse Oximetry 98 Oxygen Delivery Method Room Air 11/11/24 08:09 Temperature 98.4 F Pulse Rate 73 Blood Pressure 127/86 Pulse Oximetry 96 Oxygen Delivery Method Room Air BMI result Body Mass Index 29.9 Labs 11/05/24 20:42 11/05/24 20:42 Medications Medications Current Medications Acetaminophen (Acetaminophen 325 Mg Tablet) 650 mg PO Q6H PRN PRN Reason: Headache/Pain, Scale 1-10 Last Admin: 11/08/24 16:54 Dose: 650 mg Al Hydroxide/Mg Hydroxide (Magnesium Hydrox/Alum Hydrox 30 Ml Oral.Susp) 30 ml PO Q6H PRN PRN Reason: Heartburn/Nausea Albuterol Sulfate (Albuterol Sulfate 90 Mcg 8 Gm Inhaler) 2 puff INHALE Q4H PRN PRN Reason: Shortness Of Breath Or Wheezing Last Admin: 11/10/24 20:56 Dose: 2 puff Albuterol/Ipratropium (Albuterol/Iprat 2.5/0.5mg 3 Ml Ampul.Neb) 3 ml INHALE QID PRN PRN Reason: Shortness Of Breath Or Wheezing Amlodipine Besylate (Amlodipine Besylate 5 Mg Tablet) 5 mg PO BID [facility]; Protocol Last Admin: 11/11/24 09:02 Dose: 5 mg Ascorbic Acid (Ascorbic Acid 250 Mg Tablet) 250 mg PO BID [facility] Last Admin: 11/11/24 09:02 Dose: 250 mg Bacitracin (Bacitracin Oint 14 Gm Tube) 1 appl TOPICAL TID [facility]; Protocol Stop: 11/11/24 14:59 Last Admin: 11/11/24 09:03 Dose: Not Given Benzocaine (Throat Lozenge, Medicated Lozenge) 1 lozenge MUCOUS MEM Q2H PRN PRN Reason: THROAT PAIN Carvedilol (Carvedilol 6.25 Mg Tablet) 6.25 mg PO BID [facility]; Protocol Last Admin: 11/11/24 09:01 Dose: 6.25 mg Escitalopram Oxalate (Escitalopram Oxalate 10 Mg Tablet) 10 mg PO DAILY [facility] Last Admin: 11/11/24 09:02 Dose: 10 mg Ferrous Sulfate (Ferrous Sulfate 324 Mg Tablet.Dr) 324 mg PO Q48H [facility] Last Admin: 11/10/24 08:56 Dose: 324 mg Folic Acid (Folic Acid 1 Mg Tablet) 1 mg PO DAILY [facility] Last Admin: 11/11/24 09:01 Dose: 1 mg Gabapentin (Gabapentin 300 Mg Capsule) 300 mg PO BID [facility] Last Admin: 11/11/24 09:02 Dose: 300 mg Gabapentin (Gabapentin 300 Mg Capsule) 300 mg PO DAILY@1500 [facility] Stop: 11/11/24 14:59 Last Admin: 11/10/24 14:21 Dose: 300 mg Hydroxyzine HCl (Hydroxyzine Hcl 25 Mg Tablet) 25 mg PO Q6H PRN PRN Reason: mild anxiety Ibuprofen (Ibuprofen 600 Mg Tablet) 600 mg PO Q6H PRN PRN Reason: severe pain Last Admin: 11/11/24 09:12 Dose: 600 mg Loratadine (Loratadine 10 Mg Tablet) 10 mg PO DAILY [facility] Last Admin: 11/11/24 09:00 Dose: 10 mg Lorazepam (Lorazepam 1 Mg Tablet) 1 mg PO Q2H PRN PRN Reason: ciwa 6-10 Last Admin: 11/10/24 03:04 Dose: 1 mg Lorazepam (Lorazepam 1 Mg Tablet) 2 mg PO Q2H PRN PRN Reason: ciwa 11-14 Last Admin: 11/08/24 09:24 Dose: 2 mg Lorazepam (Lorazepam 1 Mg Tablet) 3 mg PO Q2H PRN PRN Reason: ciwa over 14 Lorazepam (Lorazepam 0.5 Mg Tablet) 0.5 mg PO TID [facility] Last Admin: 11/11/24 09:02 Dose: 0.5 mg Magnesium Hydroxide (Milk Of Magnesia 30 Ml Oral.Susp) 30 ml PO DAILY PRN PRN Reason: Constipation Melatonin (Melatonin 3 Mg Tablet) 3 mg PO BEDTIME [facility] Last Admin: 11/10/24 20:49 Dose: 3 mg Multivitamins/Vitamin C (Multivitamin Tablet) 1 tab PO DAILY [facility] Last Admin: 11/11/24 09:01 Dose: 1 tab Nicotine (Nicotine 21 Mg Patch.Td24) 21 mg TRANSDERMA DAILY [facility] Last Admin: 11/11/24 09:11 Dose: 21 mg Nicotine Polacrilex (Nicotine Polacrilex 2 Mg Gum) 4 mg BUCCAL Q2H PRN PRN Reason: Nicotine Cravings Omeprazole (Omeprazole 20 Mg Capsule.Dr) 20 mg PO DAILY@0630 [facility] Last Admin: 11/11/24 07:19 Dose: 20 mg Spironolactone (Spironolactone 25 Mg Tablet) 25 mg PO DAILY [facility]; Protocol Last Admin: 11/11/24 09:00 Dose: 25 mg Thiamine HCl (Thiamine Hcl 100 Mg Tablet) 100 mg PO DAILY [facility] Last Admin: 11/11/24 09:00 Dose: 100 mg Allergies Allergies Allergy/AdvReac Type Severity Reaction Status Date / Time latex Allergy Unknown Verified 11/05/24 20:53 lisinopril Allergy Unknown Verified 11/05/24 20:53 Assessment & Plan Assessment & Plan (1) PTSD (post-traumatic stress disorder): Status: Acute Code(s): F43.10 - Post-traumatic stress disorder, unspecified (2) Suicidal ideation: Status: Acute Code(s): R45.851 - Suicidal ideations (3) Major depressive disorder, recurrent, moderate: Status: Acute Code(s): F33.1 - Major depressive disorder, recurrent, moderate (4) Alcohol abuse: Status: Acute Code(s): F10.10 - Alcohol abuse, uncomplicated Plan HPI: Pt is a 64 y/o, , Chilean speaking, male arrived at the ED via ambulance from the community. Pt was at a [employer] in [place], making comments about selfharm, verbalizing that he would ? jump off a bridge?. Pt was intoxicated on arrival. Pt has no known hx of inpt hospitalization, has hx of substance use and detox admissions through the [place],, there is no known hx of SI or attempts. Past dx of PTSD by pt report. 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 Could be off medication x1 month even though he reports only 7 days as his medication was in friend's truck which was broken down in [place]. 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 Relapsed on alcohol after 10 days being at [place] detox, he has been drinking for 7 days straight up to 7 8 beers plus up to a L of [place]. Currently has no SI/SIB/HI/AVH. History of suicidal. No history of suicide attempts. Formulation/clinical reasoning: Being homeless, Off med x1 month, relapsed on alcohol, been drinking heavily 7 days straight. Increased suicidal thoughts with plan to jump off a bridge . No outpatient psych provider. No outpatient therapist. Has some sleep issue as he has been going through cancer surgery. History of PTSD, TBI, and question depression. He not currently on antidepressant. Given above information, patient will be benefit from restart on home medication, possibility start on medication to target depression symptoms. Refer patient to outpatient psychiatric services. Patient may benefit from referral to outpatient substance use treatment programs to prevent relapsed on alcohol. Hospital course: 11/06/24: Restart on home medications with medication to address medical issues. Blood pressure elevated. Start Ativan p.r.n. per CIWA protocol. I will not start him on any new medication at this time due to the fact that he was not taking his home medications about a month. Mild edema on bilateral lower extremity. Educate on elevated legs. Monitor for blood pressure. He reports trazodone make him hyper. Therefore melatonin p.r.n. schedule at bedtime. I also review lab results with patient which was done from the ED. 7/12 pt shared about life struggles currently going through and past. Left meds in car which broke down in [facility] so has been off for weeks. However, no psych meds. Pt said he had suicidal thoughts following relapse with etoh 7 days ago (after 2 weeks of sobriety) in the face of being homeless and other stressors. Discussed medications and pt is open to antidepressant; will wait to detox is further along. Discussed antihypertensives -Discussed and Does not want MAT -Would like help w/ program for tx for sobriety in community -moderately scoring on CIWA 11/08 Patient reports that he is feeling little better; SI resolved. Still feeling depressed; discussed risks/side effects of Lexapro and patient agrees to start. Still having withdrawal symptoms so scheduling Ativan. nurse reports abrasion right glut, ordering bactitracin 11/09 Pt provided a narrative he wrote today outlining his goals to establish OP care and housing. Agreed to addictions consult. Continue CIWA, scheduled and prn Lorazepam. Will contact [facility] to discuss housing. 11/10 Decrease scheduled lorazepam DC CIWA Increase Lexapro on 11/11. Pt attempting to call [facility] [phone] to assess availability for sober living. 11/11: Lexapro increased to 10 mg daily. Continue current tx regimen. Plan Start Lexapro Schedule Ativan Extra dose of gabapentin for 3 days Patient on 15 minute checks for safety. Admitted to [facility]. CV. Encourage group participation. We will monitor for alcohol withdrawal per CIWA protocol. Work with treatment team to do collateral for CSS/CCS if possible for aftercare. We will order some labs work for tomorrow per protocol Patient educated on: therapeutic strategies Guardian/Caregiver educated on: therapeutic strategies Reason for continued inpatient stay Substantial Risk for: rapid decompensation Time Spent With Patient Time: Total time managing care of this patient today ____ minutes.
[2024-11-11] MEDS: Artificial Tears 15 ML DROPS 2 DROP EYE-BOTH ×3 (14:37→21:03)
[2024-11-11 20:00] VITALS: BP 137/61; PULSE 76; RESP 16; TEMP 36.8; O2SAT 99
[2024-11-11 21:03] VITALS: BP 162/72; BP 169/72; PULSE 77
[2024-11-11] MEDS: Albuterol Sulfate 90 MCG 8 GM INHALER 2 PUFF INHALE (21:05)
[2024-11-12 08:00] VITALS: BP 134/64; PULSE 78; RESP 18; TEMP 37; O2SAT 99
[2024-11-12 08:50] VITALS: BP 182/82; PULSE 66
[2024-11-12] MEDS: Nicotine 21 MG PATCH.TD24 TRANSDERMA (08:53)
[2024-11-12] MEDS: Ferrous Sulfate 324 MG TABLET.DR PO (08:55)
--- NOTE | 2024-11-12 09:08 | P.PNPSI_ITS ---
Subjective Subjective Date of Service: 11/12/24 Reason For Visit: Depression, SI, alcohol use d/o, cocaineuse d/o Subjective Notes: Conditional Voluntary Interim History: Patient found sitting in the break room. Reports moderate anxiety and depressive symptoms which he attributes to not having in place to live and not knowing his girlfriend's wereabouts. He notes that he experiences night sweats at night which is likely as he is not current drinking alcohol. He denies SI/HI/AH/VH. Medication Compliance: Yes Side effects from medications: No Attending Groups: Intermittent Review of Systems Acute medical concerns: No Mental Status Exam Mental Status Exam Narrative: Appearance: Casually dressed, adequate hygiene Behavior: Calm and cooperative throughout the interview. Eye contact is appropriate, and there are no signs of psychomotor agitation or retardation Speech: Normal volume and prosod, talkative Thought process: Circumstantial Thought content: Do not have a place to live Mood: Calm Affect: Constricted SI:denies HI:denies VH/AH:none Delusions: None Insight/judgment: Fair insight and judgment Memory/cog: Alert, oriented x 4. grossly intact to conversational testing Diagnostics Vital Signs (24Hr): Vital Signs - 24 hr 11/11/24 20:00 11/11/24 21:03 11/11/24 21:03 Temperature 98.3 F Pulse Rate 76 77 Respiratory Rate 16 Blood Pressure 137/61 162/72 H 169/72 H Pulse Oximetry 99 Oxygen Delivery Method Room Air 11/12/24 08:50 Temperature Pulse Rate 66 Respiratory Rate Blood Pressure 182/82 H Pulse Oximetry Oxygen Delivery Method BMI result Body Mass Index 29.9 Labs 11/05/24 20:42 11/05/24 20:42 Medications Medications Current Medications Acetaminophen (Acetaminophen 325 Mg Tablet) 650 mg PO Q6H PRN PRN Reason: Headache/Pain, Scale 1-10 Last Admin: 11/08/24 16:54 Dose: 650 mg Al Hydroxide/Mg Hydroxide (Magnesium Hydrox/Alum Hydrox 30 Ml Oral.Susp) 30 ml PO Q6H PRN PRN Reason: Heartburn/Nausea Albuterol Sulfate (Albuterol Sulfate 90 Mcg 8 Gm Inhaler) 2 puff INHALE Q4H PRN PRN Reason: Shortness Of Breath Or Wheezing Last Admin: 11/11/24 21:05 Dose: 2 puff Albuterol/Ipratropium (Albuterol/Iprat 2.5/0.5mg 3 Ml Ampul.Neb) 3 ml INHALE QID PRN PRN Reason: Shortness Of Breath Or Wheezing Amlodipine Besylate (Amlodipine Besylate 5 Mg Tablet) 5 mg PO BID [facility]; Protocol Last Admin: 11/12/24 08:52 Dose: 5 mg Artificial Tears (Artificial Tears 15 Ml Drops) 2 drop EYE-BOTH Q1H PRN PRN Reason: Dry Eyes Last Admin: 11/11/24 21:03 Dose: 2 drop Ascorbic Acid (Ascorbic Acid 250 Mg Tablet) 250 mg PO BID [facility] Last Admin: 11/12/24 08:52 Dose: 250 mg Benzocaine (Throat Lozenge, Medicated Lozenge) 1 lozenge MUCOUS MEM Q2H PRN PRN Reason: THROAT PAIN Carvedilol (Carvedilol 6.25 Mg Tablet) 6.25 mg PO BID [facility]; Protocol Last Admin: 11/12/24 08:50 Dose: 6.25 mg Escitalopram Oxalate (Escitalopram Oxalate 10 Mg Tablet) 10 mg PO DAILY [facility] Last Admin: 11/12/24 08:52 Dose: 10 mg Ferrous Sulfate (Ferrous Sulfate 324 Mg Tablet.Dr) 324 mg PO Q48H [facility] Last Admin: 11/10/24 08:56 Dose: 324 mg Folic Acid (Folic Acid 1 Mg Tablet) 1 mg PO DAILY [facility] Last Admin: 11/12/24 08:52 Dose: 1 mg Gabapentin (Gabapentin 300 Mg Capsule) 300 mg PO BID [facility] Last Admin: 11/12/24 08:51 Dose: 300 mg Hydroxyzine HCl (Hydroxyzine Hcl 25 Mg Tablet) 25 mg PO Q6H PRN PRN Reason: mild anxiety Ibuprofen (Ibuprofen 600 Mg Tablet) 600 mg PO Q6H PRN PRN Reason: severe pain Last Admin: 11/11/24 09:12 Dose: 600 mg Loratadine (Loratadine 10 Mg Tablet) 10 mg PO DAILY [facility] Last Admin: 11/12/24 08:52 Dose: 10 mg Lorazepam (Lorazepam 1 Mg Tablet) 1 mg PO Q2H PRN PRN Reason: ciwa 6-10 Last Admin: 11/10/24 03:04 Dose: 1 mg Lorazepam (Lorazepam 1 Mg Tablet) 2 mg PO Q2H PRN PRN Reason: ciwa 11-14 Last Admin: 11/08/24 09:24 Dose: 2 mg Lorazepam (Lorazepam 1 Mg Tablet) 3 mg PO Q2H PRN PRN Reason: ciwa over 14 Lorazepam (Lorazepam 0.5 Mg Tablet) 0.5 mg PO TID [facility] Last Admin: 11/12/24 08:57 Dose: 0.5 mg Magnesium Hydroxide (Milk Of Magnesia 30 Ml Oral.Susp) 30 ml PO DAILY PRN PRN Reason: Constipation Melatonin (Melatonin 3 Mg Tablet) 3 mg PO BEDTIME [facility] Last Admin: 11/11/24 21:03 Dose: 3 mg Multivitamins/Vitamin C (Multivitamin Tablet) 1 tab PO DAILY [facility] Last Admin: 11/12/24 08:50 Dose: 1 tab Nicotine (Nicotine 21 Mg Patch.Td24) 21 mg TRANSDERMA DAILY [facility] Last Admin: 11/12/24 08:53 Dose: 21 mg Nicotine Polacrilex (Nicotine Polacrilex 2 Mg Gum) 4 mg BUCCAL Q2H PRN PRN Reason: Nicotine Cravings Omeprazole (Omeprazole 20 Mg Capsule.Dr) 20 mg PO DAILY@0630 [facility] Last Admin: 11/12/24 08:49 Dose: 20 mg Spironolactone (Spironolactone 25 Mg Tablet) 25 mg PO DAILY [facility]; Protocol Last Admin: 11/12/24 08:51 Dose: 25 mg Thiamine HCl (Thiamine Hcl 100 Mg Tablet) 100 mg PO DAILY [facility] Last Admin: 11/12/24 08:51 Dose: 100 mg Allergies Allergies Allergy/AdvReac Type Severity Reaction Status Date / Time latex Allergy Unknown Verified 11/05/24 20:53 lisinopril Allergy Unknown Verified 11/05/24 20:53 Assessment & Plan Assessment & Plan (1) PTSD (post-traumatic stress disorder): Status: Acute Code(s): F43.10 - Post-traumatic stress disorder, unspecified (2) Suicidal ideation: Status: Acute Code(s): R45.851 - Suicidal ideations (3) Major depressive disorder, recurrent, moderate: Status: Acute Code(s): F33.1 - Major depressive disorder, recurrent, moderate (4) Alcohol abuse: Status: Acute Code(s): F10.10 - Alcohol abuse, uncomplicated Plan HPI: Pt is a 64 y/o, , Turkmen speaking, male arrived at the ED via ambulance from the community. [facility] [place], making comments about selfharm, verbalizing that he would ? jump off a bridge?. Pt was intoxicated on arrival. Pt has no known hx of inpt hospitalization, has hx of substance use and detox admissions through the [place],, there is no known hx of SI or attempts. Past dx of PTSD by pt report. 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 Could be off medication x1 month even though he reports only 7 days as his medication was in friend's truck which was broken down in [place]. 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 Relapsed on alcohol after 10 days being at [facility], he has been drinking for 7 days straight up to 7 8 beers plus up to a L of Jenny. Currently has no SI/SIB/HI/AVH. History of suicidal. No history of suicide attempts. Formulation/clinical reasoning: Being homeless, Off med x1 month, relapsed on alcohol, been drinking heavily 7 days straight. Increased suicidal thoughts with plan to jump off a bridge . No outpatient psych provider. No outpatient therapist. Has some sleep issue as he has been going through cancer surgery. History of PTSD, TBI, and question depression. He not currently on antidepressant. Given above information, patient will be benefit from restart on home medication, possibility start on medication to target depression symptoms. Refer patient to outpatient psychiatric services. Patient may benefit from referral to outpatient substance use treatment programs to prevent relapsed on alcohol. Hospital course: 11/06/24: Restart on home medications with medication to address medical issues. Blood pressure elevated. Start Ativan p.r.n. per CIWA protocol. I will not start him on any new medication at this time due to the fact that he was not taking his home medications about a month. Mild edema on bilateral lower extremity. Educate on elevated legs. Monitor for blood pressure. He reports trazodone make him hyper. Therefore melatonin p.r.n. schedule at bedtime. I also review lab results with patient which was done from the ED. 11/07 pt shared about life struggles currently going through and past. Left meds in car which broke down in [facility] so has been off for weeks. However, no psych meds. Pt said he had suicidal thoughts following relapse with etoh 7 days ago (after 2 weeks of sobriety) in the face of being homeless and other stressors. Discussed medications and pt is open to antidepressant; will wait to detox is further along. Discussed antihypertensives -Discussed and Does not want MAT -Would like help w/ program for tx for sobriety in community -moderately scoring on CIWA 11/08 Patient reports that he is feeling little better; SI resolved. Still feeling depressed; discussed risks/side effects of Lexapro and patient agrees to start. Still having withdrawal symptoms so scheduling Ativan. nurse reports abrasion right glut, ordering bactitracin 11/09 Pt provided a narrative he wrote today outlining his goals to establish OP care and housing. Agreed to addictions consult. Continue CIWA, scheduled and prn Lorazepam. Will contact [facility] to discuss housing. 11/10 Decrease scheduled lorazepam DC CIWA Increase Lexapro on 11/11. Pt attempting to call [facility] [phone] to assess availability for sober living. 11/11: Lexapro increased to 10 mg daily. Continue current tx regimen. 11/12: Continue current treatment regimen. Plan Start Lexapro Schedule Ativan Extra dose of gabapentin for 3 days Patient on 15 minute checks for safety. Admitted to . CV. Encourage group participation. We will monitor for alcohol withdrawal per CIIL protocol. Work with treatment team to do collateral for CSS/CCS if possible for aftercare. We will order some labs work for tomorrow per protocol Patient educated on: therapeutic strategies Reason for continued inpatient stay Substantial Risk for: rapid decompensation Time Spent With Patient Time: Total time managing care of this patient today ____ minutes.
[2024-11-12] MEDS: Artificial Tears 15 ML DROPS 2 DROP EYE-BOTH ×2 (14:41→21:03)
[2024-11-12 19:54] VITALS: BP 133/63; PULSE 73; RESP 19; TEMP 36.9; O2SAT 96
[2024-11-12] MEDS: Albuterol Sulfate 90 MCG 8 GM INHALER 2 PUFF INHALE (21:03)
[2024-11-13 08:00] VITALS: BP 173/70; PULSE 66; RESP 16; O2SAT 97
[2024-11-13 08:50] VITALS: BP 173/70
[2024-11-13 08:51] VITALS: BP 170/73; PULSE 66
[2024-11-13] MEDS: Nicotine 21 MG PATCH.TD24 TRANSDERMA (08:54)
[2024-11-13] MEDS: Artificial Tears 15 ML DROPS 2 DROP EYE-BOTH ×2 (08:57→21:10)
[2024-11-13] MEDS: Albuterol Sulfate 90 MCG 8 GM INHALER 2 PUFF INHALE ×2 (08:57→21:11)
--- NOTE | 2024-11-13 16:17 | P.PNPSI_ITS ---
Subjective Subjective Date of Service: 11/13/24 Reason For Visit: Depression, SI, alcohol use d/o, cocaineuse d/o Subjective Notes: Conditional Voluntary Healthcare Proxy: No Guardianship: No Medical Problems Affecting Mental Status: No Interim History: Experiencing neuropathic pain today. Added Gabapentin prn. Giving more thought to CSS and discussed possible need for assisted living. Reports tolerating antidepressant. Does not feel the need to increase at this time. Medication Compliance: Yes Side effects from medications: No Attending Groups: No Review of Systems neuropathic pain Medical Review of Systems: unchanged Review of Systems Review of Systems neuropathic pain Mental Status Exam Mental Status Exam Patient Appearance: Fatigued Patient Orientation: Person, Place, Time and Situation Level of Consciousness: Alert Patient Behavior: Appropriate, Talkative, Cooperative and Good Eye Contact Mood Description: Depressed Affect Description: Flat Patient Cognition Impaired: No Ability to Follow Directions: Good Speech Pattern: Spontaneous Speech Memory Description: Intact Hallucinations: None Delusions: Not Present Thought Process: Intact and Goal Oriented Thought Content: positive for Intact and positive for Goal Oriented Judgement: Good Diagnostics Vital Signs (24Hr): Vital Signs - 24 hr 11/12/24 19:54 11/13/24 08:00 11/13/24 08:50 Temperature 98.4 F Pulse Rate 73 66 Respiratory Rate 19 16 Blood Pressure 133/63 173/70 H 173/70 H Pulse Oximetry 96 97 Oxygen Delivery Method Room Air 11/13/24 08:51 11/13/24 08:51 Temperature Pulse Rate 66 Respiratory Rate Blood Pressure 170/73 H 170/73 H Pulse Oximetry Oxygen Delivery Method BMI result Body Mass Index 29.9 Labs 11/05/24 20:42 11/05/24 20:42 Medications Medications Current Medications Acetaminophen (Acetaminophen 325 Mg Tablet) 650 mg PO Q6H PRN PRN Reason: Headache/Pain, Scale 1-10 Last Admin: 11/08/24 16:54 Dose: 650 mg Al Hydroxide/Mg Hydroxide (Magnesium Hydrox/Alum Hydrox 30 Ml Oral.Susp) 30 ml PO Q6H PRN PRN Reason: Heartburn/Nausea Albuterol Sulfate (Albuterol Sulfate 90 Mcg 8 Gm Inhaler) 2 puff INHALE Q4H PRN PRN Reason: Shortness Of Breath Or Wheezing Last Admin: 11/13/24 08:57 Dose: 2 puff Albuterol/Ipratropium (Albuterol/Iprat 2.5/0.5mg 3 Ml Ampul.Neb) 3 ml INHALE QID PRN PRN Reason: Shortness Of Breath Or Wheezing Amlodipine Besylate (Amlodipine Besylate 5 Mg Tablet) 5 mg PO BID [facility]; Protocol Last Admin: 11/13/24 08:51 Dose: 5 mg Artificial Tears (Artificial Tears 15 Ml Drops) 2 drop EYE-BOTH Q1H PRN PRN Reason: Dry Eyes Last Admin: 11/13/24 08:57 Dose: 2 drop Ascorbic Acid (Ascorbic Acid 250 Mg Tablet) 250 mg PO BID [facility] Last Admin: 11/13/24 08:50 Dose: 250 mg Benzocaine (Throat Lozenge, Medicated Lozenge) 1 lozenge MUCOUS MEM Q2H PRN PRN Reason: THROAT PAIN Carvedilol (Carvedilol 6.25 Mg Tablet) 6.25 mg PO BID [facility]; Protocol Last Admin: 11/13/24 08:51 Dose: 6.25 mg Escitalopram Oxalate (Escitalopram Oxalate 10 Mg Tablet) 10 mg PO DAILY [facility] Last Admin: 11/13/24 08:50 Dose: 10 mg Ferrous Sulfate (Ferrous Sulfate 324 Mg Tablet.Dr) 324 mg PO Q48H [facility] Last Admin: 11/12/24 08:55 Dose: 324 mg Folic Acid (Folic Acid 1 Mg Tablet) 1 mg PO DAILY [facility] Last Admin: 11/13/24 08:51 Dose: 1 mg Gabapentin (Gabapentin 300 Mg Capsule) 300 mg PO BID [facility] Last Admin: 11/13/24 08:51 Dose: 300 mg Hydroxyzine HCl (Hydroxyzine Hcl 25 Mg Tablet) 25 mg PO Q6H PRN PRN Reason: mild anxiety Ibuprofen (Ibuprofen 600 Mg Tablet) 600 mg PO Q6H PRN PRN Reason: severe pain Last Admin: 11/12/24 14:40 Dose: 600 mg Loratadine (Loratadine 10 Mg Tablet) 10 mg PO DAILY [facility] Last Admin: 11/13/24 08:51 Dose: 10 mg Lorazepam (Lorazepam 1 Mg Tablet) 1 mg PO Q2H PRN PRN Reason: ciwa 6-10 Last Admin: 11/10/24 03:04 Dose: 1 mg Lorazepam (Lorazepam 1 Mg Tablet) 2 mg PO Q2H PRN PRN Reason: ciwa 11-14 Last Admin: 11/08/24 09:24 Dose: 2 mg Lorazepam (Lorazepam 1 Mg Tablet) 3 mg PO Q2H PRN PRN Reason: ciwa over 14 Lorazepam (Lorazepam 0.5 Mg Tablet) 0.5 mg PO TID [facility] Last Admin: 11/13/24 08:51 Dose: 0.5 mg Magnesium Hydroxide (Milk Of Magnesia 30 Ml Oral.Susp) 30 ml PO DAILY PRN PRN Reason: Constipation Melatonin (Melatonin 3 Mg Tablet) 3 mg PO BEDTIME [facility] Last Admin: 11/12/24 21:04 Dose: 3 mg Multivitamins/Vitamin C (Multivitamin Tablet) 1 tab PO DAILY [facility] Last Admin: 11/13/24 08:50 Dose: 1 tab Nicotine (Nicotine 21 Mg Patch.Td24) 21 mg TRANSDERMA DAILY [facility] Last Admin: 11/13/24 08:54 Dose: 21 mg Nicotine Polacrilex (Nicotine Polacrilex 2 Mg Gum) 4 mg BUCCAL Q2H PRN PRN Reason: Nicotine Cravings Omeprazole (Omeprazole 20 Mg Capsule.Dr) 20 mg PO DAILY@0630 [facility] Last Admin: 11/13/24 06:17 Dose: 20 mg Spironolactone (Spironolactone 25 Mg Tablet) 25 mg PO DAILY [facility]; Protocol Last Admin: 11/13/24 08:50 Dose: 25 mg Thiamine HCl (Thiamine Hcl 100 Mg Tablet) 100 mg PO DAILY [facility] Last Admin: 11/13/24 08:50 Dose: 100 mg Allergies Allergies Allergy/AdvReac Type Severity Reaction Status Date / Time latex Allergy Unknown Verified 11/05/24 20:53 lisinopril Allergy Unknown Verified 11/05/24 20:53 Assessment & Plan Assessment & Plan (1) PTSD (post-traumatic stress disorder): Status: Acute Code(s): F43.10 - Post-traumatic stress disorder, unspecified (2) Suicidal ideation: Status: Acute Code(s): R45.851 - Suicidal ideations (3) Major depressive disorder, recurrent, moderate: Status: Acute Code(s): F33.1 - Major depressive disorder, recurrent, moderate (4) Alcohol abuse: Status: Acute Code(s): F10.10 - Alcohol abuse, uncomplicated Plan HPI: Pt is a 64 y/o, , Yakut speaking, male arrived at the ED via ambulance from the community. Pt was at a [facility] in [place], making comments about selfharm, verbalizing that he would ? jump off a bridge?. Pt was intoxicated on arrival. Pt has no known hx of inpt hospitalization, has hx of substance use and detox admissions through the [place],, there is no known hx of SI or attempts. Past dx of PTSD by pt report. 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 Could be off medication x1 month even though he reports only 7 days as his medication was in friend's truck which was broken down in [place]. 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 Relapsed on alcohol after 10 days being at [facility] detox, he has been drinking for 7 days straight up to 7 8 beers plus up to a L of Jenny. Currently has no SI/SIB/HI/AVH. History of suicidal. No history of suicide attempts. Formulation/clinical reasoning: Being homeless, Off med x1 month, relapsed on alcohol, been drinking heavily 7 days straight. Increased suicidal thoughts with plan to jump off a bridge . No outpatient psych provider. No outpatient therapist. Has some sleep issue as he has been going through cancer surgery. History of PTSD, TBI, and question depression. He not currently on antidepressant. Given above information, patient will be benefit from restart on home medication, possibility start on medication to target depression symptoms. Refer patient to outpatient psychiatric services. Patient may benefit from referral to outpatient substance use treatment programs to prevent relapsed on alcohol. Hospital course: 11/06/24: Restart on home medications with medication to address medical issues. Blood pressure elevated. Start Ativan p.r.n. per CIWA protocol. I will not start him on any new medication at this time due to the fact that he was not taking his home medications about a month. Mild edema on bilateral lower extremity. Educate on elevated legs. Monitor for blood pressure. He reports trazodone make him hyper. Therefore melatonin p.r.n. schedule at bedtime. I also review lab results with patient which was done from the ED. 11/07 pt shared about life struggles currently going through and past. Left meds in car which broke down in [facility] so has been off for weeks. However, no psych meds. Pt said he had suicidal thoughts following relapse with etoh 7 days ago (after 2 weeks of sobriety) in the face of being homeless and other stressors. Discussed medications and pt is open to antidepressant; will wait to detox is further along. Discussed antihypertensives -Discussed and Does not want MAT -Would like help w/ program for tx for sobriety in community -moderately scoring on CIWA 11/08 Patient reports that he is feeling little better; SI resolved. Still feeling depressed; discussed risks/side effects of Lexapro and patient agrees to start. Still having withdrawal symptoms so scheduling Ativan. nurse reports abrasion right glut, ordering bactitracin 11/09 Pt provided a narrative he wrote today outlining his goals to establish OP care and housing. Agreed to addictions consult. Continue CIWA, scheduled and prn Lorazepam. Will contact [facility] to discuss housing. 11/10 Decrease scheduled lorazepam DC CIWA Increase Lexapro on 11/11. Pt attempting to call [facility] [phone] to assess availability for sober living. 11/11: Lexapro increased to 10 mg daily. Continue current tx regimen. 11/12: Continue current treatment regimen. 11/13: Continue tx. Plan Start Lexapro Schedule Ativan Extra dose of gabapentin for 3 days Patient on 15 minute checks for safety. Admitted to . CV. Encourage group participation. We will monitor for alcohol withdrawal per CIWA protocol. Work with treatment team to do collateral for CSS/CCS if possible for aftercare. We will order some labs work for tomorrow per protocol Reason for continued inpatient stay Substantial Risk for: rapid decompensation Time Spent With Patient Time: Total time managing care of this patient today ____ minutes.
[2024-11-13 20:00] VITALS: BP 129/74; PULSE 75; TEMP 36.7; O2SAT 97
[2024-11-13 21:02] VITALS: BP 129/74; PULSE 75
[2024-11-13 21:08] VITALS: BP 124/74
[2024-11-14 09:00] VITALS: BP 174/77; PULSE 67; RESP 18; TEMP 36.3; O2SAT 96
[2024-11-14] MEDS: Ferrous Sulfate 324 MG TABLET.DR PO (09:17)
[2024-11-14] MEDS: Nicotine 21 MG PATCH.TD24 TRANSDERMA (09:18)
--- NOTE | 2024-11-14 09:42 | P.PNPSI_ITS ---
Subjective Subjective Date of Service: 11/14/24 Reason For Visit: Depression, SI, alcohol use d/o, cocaineuse d/o Subjective Notes: Conditional Voluntary Interim History: Reports sleep is intact, ~6.5 hours last evening he reports. Neuropathic pain an issue today. Will add Gabapentin 300 mg daily prn. Lorazepam taper to 0.5 mg bid. Pt spending a good deal of his time in bed as milieu is active and he is attempting to avoid a conflict . Medication Compliance: Yes Side effects from medications: No Attending Groups: No Review of Systems Acute medical concerns: No Medical Review of Systems: unchanged Review of Systems Review of Systems neuropathic pain Mental Status Exam Mental Status Exam Patient Appearance: Fatigued Patient Orientation: Person, Place, Time and Situation Level of Consciousness: Alert Patient Behavior: Appropriate, Talkative, Cooperative and Good Eye Contact Mood Description: Depressed Affect Description: Flat Patient Cognition Impaired: No Ability to Follow Directions: Good Speech Pattern: Spontaneous Speech Memory Description: Intact Hallucinations: None Delusions: Not Present Thought Process: Intact and Goal Oriented Thought Content: positive for Intact and positive for Goal Oriented Judgement: Good Diagnostics Vital Signs (24Hr): Vital Signs - 24 hr 11/13/24 20:00 11/13/24 21:02 11/13/24 21:08 Temperature 98.0 F Pulse Rate 75 75 Respiratory Rate Blood Pressure 129/74 129/74 124/74 Pulse Oximetry 97 Oxygen Delivery Method Room Air 11/14/24 09:00 Temperature 97.4 F Pulse Rate 67 Respiratory Rate 18 Blood Pressure 174/77 H Pulse Oximetry 96 Oxygen Delivery Method Room Air BMI result Body Mass Index 29.9 Labs 11/05/24 20:42 11/05/24 20:42 Medications Medications Current Medications Acetaminophen (Acetaminophen 325 Mg Tablet) 650 mg PO Q6H PRN PRN Reason: Headache/Pain, Scale 1-10 Last Admin: 11/08/24 16:54 Dose: 650 mg Al Hydroxide/Mg Hydroxide (Magnesium Hydrox/Alum Hydrox 30 Ml Oral.Susp) 30 ml PO Q6H PRN PRN Reason: Heartburn/Nausea Albuterol Sulfate (Albuterol Sulfate 90 Mcg 8 Gm Inhaler) 2 puff INHALE Q4H PRN PRN Reason: Shortness Of Breath Or Wheezing Last Admin: 11/13/24 21:11 Dose: 2 puff Albuterol/Ipratropium (Albuterol/Iprat 2.5/0.5mg 3 Ml Ampul.Neb) 3 ml INHALE QID PRN PRN Reason: Shortness Of Breath Or Wheezing Amlodipine Besylate (Amlodipine Besylate 5 Mg Tablet) 5 mg PO BID [facility]; Protocol Last Admin: 11/14/24 09:17 Dose: 5 mg Artificial Tears (Artificial Tears 15 Ml Drops) 2 drop EYE-BOTH Q1H PRN PRN Reason: Dry Eyes Last Admin: 11/13/24 21:10 Dose: 2 drop Ascorbic Acid (Ascorbic Acid 250 Mg Tablet) 250 mg PO BID [facility] Last Admin: 11/14/24 09:17 Dose: 250 mg Benzocaine (Throat Lozenge, Medicated Lozenge) 1 lozenge MUCOUS MEM Q2H PRN PRN Reason: THROAT PAIN Carvedilol (Carvedilol 6.25 Mg Tablet) 6.25 mg PO BID [facility]; Protocol Last Admin: 11/14/24 09:17 Dose: 6.25 mg Escitalopram Oxalate (Escitalopram Oxalate 10 Mg Tablet) 10 mg PO DAILY [facility] Last Admin: 11/14/24 09:17 Dose: 10 mg Ferrous Sulfate (Ferrous Sulfate 324 Mg Tablet.Dr) 324 mg PO Q48H [facility] Last Admin: 11/14/24 09:17 Dose: 324 mg Folic Acid (Folic Acid 1 Mg Tablet) 1 mg PO DAILY [facility] Last Admin: 11/14/24 09:17 Dose: 1 mg Gabapentin (Gabapentin 300 Mg Capsule) 300 mg PO BID [facility] Last Admin: 11/14/24 09:17 Dose: 300 mg Gabapentin (Gabapentin 300 Mg Capsule) 300 mg PO DAILY PRN PRN Reason: neuropathic pain Hydroxyzine HCl (Hydroxyzine Hcl 25 Mg Tablet) 25 mg PO Q6H PRN PRN Reason: mild anxiety Ibuprofen (Ibuprofen 600 Mg Tablet) 600 mg PO Q6H PRN PRN Reason: severe pain Last Admin: 11/13/24 21:03 Dose: 600 mg Loratadine (Loratadine 10 Mg Tablet) 10 mg PO DAILY [facility] Last Admin: 11/14/24 09:17 Dose: 10 mg Lorazepam (Lorazepam 1 Mg Tablet) 1 mg PO Q2H PRN PRN Reason: ciwa 6-10 Last Admin: 11/10/24 03:04 Dose: 1 mg Lorazepam (Lorazepam 1 Mg Tablet) 2 mg PO Q2H PRN PRN Reason: ciwa 11-14 Last Admin: 11/08/24 09:24 Dose: 2 mg Lorazepam (Lorazepam 1 Mg Tablet) 3 mg PO Q2H PRN PRN Reason: ciwa over 14 Lorazepam (Lorazepam 0.5 Mg Tablet) 0.5 mg PO TID [facility] Last Admin: 11/14/24 09:17 Dose: 0.5 mg Magnesium Hydroxide (Milk Of Magnesia 30 Ml Oral.Susp) 30 ml PO DAILY PRN PRN Reason: Constipation Melatonin (Melatonin 3 Mg Tablet) 3 mg PO BEDTIME [facility] Last Admin: 11/13/24 21:08 Dose: 3 mg Multivitamins/Vitamin C (Multivitamin Tablet) 1 tab PO DAILY [facility] Last Admin: 11/14/24 09:17 Dose: 1 tab Nicotine (Nicotine 21 Mg Patch.Td24) 21 mg TRANSDERMA DAILY [facility] Last Admin: 11/14/24 09:18 Dose: 21 mg Nicotine Polacrilex (Nicotine Polacrilex 2 Mg Gum) 4 mg BUCCAL Q2H PRN PRN Reason: Nicotine Cravings Omeprazole (Omeprazole 20 Mg Capsule.Dr) 20 mg PO DAILY@0630 [facility] Last Admin: 11/14/24 07:17 Dose: 20 mg Spironolactone (Spironolactone 25 Mg Tablet) 25 mg PO DAILY [facility]; Protocol Last Admin: 11/14/24 09:17 Dose: 25 mg Thiamine HCl (Thiamine Hcl 100 Mg Tablet) 100 mg PO DAILY [facility] Last Admin: 11/14/24 09:17 Dose: 100 mg Allergies Allergies Allergy/AdvReac Type Severity Reaction Status Date / Time latex Allergy Unknown Verified 11/05/24 20:53 lisinopril Allergy Unknown Verified 11/05/24 20:53 Assessment & Plan Assessment & Plan (1) PTSD (post-traumatic stress disorder): Status: Acute Code(s): F43.10 - Post-traumatic stress disorder, unspecified (2) Suicidal ideation: Status: Acute Code(s): R45.851 - Suicidal ideations (3) Major depressive disorder, recurrent, moderate: Status: Acute Code(s): F33.1 - Major depressive disorder, recurrent, moderate (4) Alcohol abuse: Status: Acute Code(s): F10.10 - Alcohol abuse, uncomplicated Plan HPI: Pt is a 64 y/o, , Romansh speaking, male arrived at the ED via ambulance from the community. [facility] [place], making comments about selfharm, verbalizing that he would ? jump off a bridge?. Pt was intoxicated on arrival. Pt has no known hx of inpt hospitalization, has hx of substance use and detox admissions through the [facility],, there is no known hx of SI or attempts. Past dx of PTSD by pt report. 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 Could be off medication x1 month even though he reports only 7 days as his medication was in friend's truck which was broken down in [place]. 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 Relapsed on alcohol after 10 days being at [place] detox, he has been drinking for 7 days straight up to 7 8 beers plus up to a L of Jenny. Currently has no SI/SIB/HI/AVH. History of suicidal. No history of suicide attempts. Formulation/clinical reasoning: Being homeless, Off med x1 month, relapsed on alcohol, been drinking heavily 7 days straight. Increased suicidal thoughts with plan to jump off a bridge . No outpatient psych provider. No outpatient therapist. Has some sleep issue as he has been going through cancer surgery. History of PTSD, TBI, and question depression. He not currently on antidepressant. Given above information, patient will be benefit from restart on home medication, possibility start on medication to target depression symptoms. Refer patient to outpatient psychiatric services. Patient may benefit from referral to outpatient substance use treatment programs to prevent relapsed on alcohol. Hospital course: 11/06/24: Restart on home medications with medication to address medical issues. Blood pressure elevated. Start Ativan p.r.n. per CIWA protocol. I will not start him on any new medication at this time due to the fact that he was not taking his home medications about a month. Mild edema on bilateral lower extremity. Educate on elevated legs. Monitor for blood pressure. He reports trazodone make him hyper. Therefore melatonin p.r.n. schedule at bedtime. I also review lab results with patient which was done from the ED. 11/07 pt shared about life struggles currently going through and past. Left meds in car which broke down in [facility] so has been off for weeks. However, no psych meds. Pt said he had suicidal thoughts following relapse with etoh 7 days ago (after 2 weeks of sobriety) in the face of being homeless and other stressors. Discussed medications and pt is open to antidepressant; will wait to detox is further along. Discussed antihypertensives -Discussed and Does not want MAT -Would like help w/ program for tx for sobriety in community -moderately scoring on CIWA 11/08 Patient reports that he is feeling little better; SI resolved. Still feeling depressed; discussed risks/side effects of Lexapro and patient agrees to start. Still having withdrawal symptoms so scheduling Ativan. nurse reports abrasion right glut, ordering bactitracin 11/09 Pt provided a narrative he wrote today outlining his goals to establish OP care and housing. Agreed to addictions consult. Continue CIWA, scheduled and prn Lorazepam. Will contact [facility] to discuss housing. 11/10 Decrease scheduled lorazepam DC CIWA Increase Lexapro on 11/11. Pt attempting to call [facility] [phone] to assess availability for sober living. 11/11: Lexapro increased to 10 mg daily. Continue current tx regimen. 11/12: Continue current treatment regimen. 11/13: Continue tx. 11/14: Gabapentin 300 mg daily prn neuropathic pain increase Decrease Lorazepam to 0.5 mg bid Plan Start Lexapro Schedule Ativan Extra dose of gabapentin for 3 days Patient on 15 minute checks for safety. Admitted to . CV. Encourage group participation. We will monitor for alcohol withdrawal per CIWA protocol. Work with treatment team to do collateral for CSS/CCS if possible for aftercare. We will order some labs work for tomorrow per protocol Reason for continued inpatient stay Substantial Risk for: rapid decompensation Time Spent With Patient Time: Total time managing care of this patient today ____ minutes.
[2024-11-14] MEDS: Albuterol Sulfate 90 MCG 8 GM INHALER 2 PUFF INHALE ×2 (14:54→21:24)
[2024-11-14] MEDS: Artificial Tears 15 ML DROPS 2 DROP EYE-BOTH ×2 (14:54→21:28)
[2024-11-14 19:44] VITALS: BP 137/63; PULSE 69; TEMP 36.9; O2SAT 99
[2024-11-15 08:00] VITALS: BP 144/66; PULSE 67; RESP 18; TEMP 36.6; O2SAT 97
[2024-11-15] MEDS: Nicotine 21 MG PATCH.TD24 TRANSDERMA (08:44)
--- NOTE | 2024-11-15 10:29 | PM.EVENT ---
Event Note Date of Service: 11/15/24 Event Note: Pt is a 64-year-old male admitted to [facility] with hospitalist consult for possible conjunctivitis. Pt seen examined in his room where he is resting comfortably in bed. Reports has had left eye redness and crusting upon waking for the past few days. Denies any significant itching or acute vision changes. No pain. Some blurriness upon 1st waking, but soon clears. Pt does not wear contacts. Left eye unaffected. Exam reveals conjunctival injection right without significant purulent drainage. EOM intact and nonpainful. Plan: Erythromycin ointment q.i.d. x5 days in right eye only Treat left eye if becomes symptomatic Pt is advised to wash hands frequently and avoid touching his eyes Time Spent With Patient Time: Total time managing care of this patient today ____ minutes.
[2024-11-15] MEDS: Erythromycin Base 0.5% Oph Oin 1 GM TUBE 1 CM EYE-RIGHT (10:45)
[2024-11-15] MEDS: Erythromycin Base 0.5% Oph Oin 1 GM TUBE 1 CM EYE-BOTH ×3 (13:17→21:34)
--- NOTE | 2024-11-15 16:47 | HO.PSYCHPN ---
Subjective Subjective Date of Service: 11/15/24 Reason For Visit: Depression, SI, alcohol use d/o, cocaineuse d/o Subjective Notes: Conditional Voluntary Interim History: Pt reports migraine today and believes he may have pink eye . Will ask hospitalist to assess. Still reports some time remaining in room due to milieu triggers, however, seen in milieu more today, active with peers and engaged. Discussed concerns about rehab bed availabilities and if he will qualify to admit Medication Compliance: Yes Side effects from medications: No Attending Groups: No Review of Systems migraine headache reported reports sx of conjunctivitis Review of Systems Review of Systems migraine sx conjunctivitis sx Mental Status Exam Mental Status Exam Patient Appearance: Appropriate Patient Orientation: Person, Place, Time and Situation Level of Consciousness: Alert Patient Behavior: Appropriate, Talkative, Cooperative and Good Eye Contact Mood Description: Constricted Affect Description: Constricted Patient Cognition Impaired: No Ability to Follow Directions: Good Speech Pattern: Spontaneous Speech Memory Description: Intact Hallucinations: None Delusions: Not Present Thought Process: Intact and Goal Oriented Thought Content: positive for Intact and positive for Goal Oriented Judgement: Good Diagnostics Vital Signs (24Hr): Vital Signs - 24 hr 11/14/24 19:44 11/15/24 08:00 Temperature 98.4 F 97.9 F Pulse Rate 69 67 Respiratory Rate 18 Blood Pressure 137/63 144/66 H Pulse Oximetry 99 97 Oxygen Delivery Method Room Air Room Air BMI result Body Mass Index 29.9 Labs 11/05/24 20:42 11/05/24 20:42 Medications Medications Current Medications Acetaminophen (Acetaminophen 325 Mg Tablet) 650 mg PO Q6H PRN PRN Reason: Headache/Pain, Scale 1-10 Last Admin: 11/08/24 16:54 Dose: 650 mg Al Hydroxide/Mg Hydroxide (Magnesium Hydrox/Alum Hydrox 30 Ml Oral.Susp) 30 ml PO Q6H PRN PRN Reason: Heartburn/Nausea Albuterol Sulfate (Albuterol Sulfate 90 Mcg 8 Gm Inhaler) 2 puff INHALE Q4H PRN PRN Reason: Shortness Of Breath Or Wheezing Last Admin: 11/14/24 21:24 Dose: 2 puff Albuterol/Ipratropium (Albuterol/Iprat 2.5/0.5mg 3 Ml Ampul.Neb) 3 ml INHALE QID PRN PRN Reason: Shortness Of Breath Or Wheezing Amlodipine Besylate (Amlodipine Besylate 5 Mg Tablet) 5 mg PO BID [facility]; Protocol Last Admin: 11/15/24 08:43 Dose: 5 mg Artificial Tears (Artificial Tears 15 Ml Drops) 2 drop EYE-BOTH Q1H PRN PRN Reason: Dry Eyes Last Admin: 11/14/24 21:28 Dose: 2 drop Ascorbic Acid (Ascorbic Acid 250 Mg Tablet) 250 mg PO BID [facility] Last Admin: 11/15/24 08:42 Dose: 250 mg Benzocaine (Throat Lozenge, Medicated Lozenge) 1 lozenge MUCOUS MEM Q2H PRN PRN Reason: THROAT PAIN Carvedilol (Carvedilol 6.25 Mg Tablet) 6.25 mg PO BID [facility]; Protocol Last Admin: 11/15/24 08:42 Dose: 6.25 mg Erythromycin (Erythromycin Base 0.5% Oph Oin 1 Gm Tube) 1 cm EYE-BOTH QID [facility] Last Admin: 11/15/24 16:26 Dose: 1 cm Escitalopram Oxalate (Escitalopram Oxalate 10 Mg Tablet) 10 mg PO DAILY [facility] Last Admin: 11/15/24 08:43 Dose: 10 mg Ferrous Sulfate (Ferrous Sulfate 324 Mg Tablet.Dr) 324 mg PO Q48H [facility] Last Admin: 11/14/24 09:17 Dose: 324 mg Folic Acid (Folic Acid 1 Mg Tablet) 1 mg PO DAILY [facility] Last Admin: 11/15/24 08:43 Dose: 1 mg Gabapentin (Gabapentin 300 Mg Capsule) 300 mg PO BID [facility] Last Admin: 11/15/24 08:42 Dose: 300 mg Gabapentin (Gabapentin 300 Mg Capsule) 300 mg PO DAILY PRN PRN Reason: neuropathic pain Last Admin: 11/15/24 15:36 Dose: 300 mg Hydroxyzine HCl (Hydroxyzine Hcl 25 Mg Tablet) 25 mg PO Q6H PRN PRN Reason: mild anxiety Ibuprofen (Ibuprofen 600 Mg Tablet) 600 mg PO Q6H PRN PRN Reason: severe pain Last Admin: 11/14/24 20:38 Dose: 600 mg Loratadine (Loratadine 10 Mg Tablet) 10 mg PO DAILY [facility] Last Admin: 11/15/24 08:42 Dose: 10 mg Lorazepam (Lorazepam 0.5 Mg Tablet) 0.5 mg PO BID [facility] Last Admin: 11/15/24 08:42 Dose: 0.5 mg Magnesium Hydroxide (Milk Of Magnesia 30 Ml Oral.Susp) 30 ml PO DAILY PRN PRN Reason: Constipation Melatonin (Melatonin 3 Mg Tablet) 3 mg PO BEDTIME [facility] Last Admin: 11/14/24 20:40 Dose: 3 mg Multivitamins/Vitamin C (Multivitamin Tablet) 1 tab PO DAILY [facility] Last Admin: 11/15/24 08:42 Dose: 1 tab Nicotine (Nicotine 21 Mg Patch.Td24) 21 mg TRANSDERMA DAILY [facility] Last Admin: 11/15/24 08:44 Dose: 21 mg Nicotine Polacrilex (Nicotine Polacrilex 2 Mg Gum) 4 mg BUCCAL Q2H PRN PRN Reason: Nicotine Cravings Omeprazole (Omeprazole 20 Mg Capsule.Dr) 20 mg PO DAILY@0630 [facility] Last Admin: 11/15/24 07:11 Dose: 20 mg Spironolactone (Spironolactone 25 Mg Tablet) 25 mg PO DAILY [facility]; Protocol Last Admin: 11/15/24 08:42 Dose: 25 mg Thiamine HCl (Thiamine Hcl 100 Mg Tablet) 100 mg PO DAILY [facility] Last Admin: 11/15/24 08:42 Dose: 100 mg Allergies Allergies Allergy/AdvReac Type Severity Reaction Status Date / Time latex Allergy Unknown Verified 11/05/24 20:53 lisinopril Allergy Unknown Verified 11/05/24 20:53 Assessment & Plan Assessment & Plan (1) PTSD (post-traumatic stress disorder): Status: Acute Code(s): F43.10 - Post-traumatic stress disorder, unspecified (2) Suicidal ideation: Status: Acute Code(s): R45.851 - Suicidal ideations (3) Major depressive disorder, recurrent, moderate: Status: Acute Code(s): F33.1 - Major depressive disorder, recurrent, moderate (4) Alcohol abuse: Status: Acute Code(s): F10.10 - Alcohol abuse, uncomplicated Plan HPI: Pt is a 64 y/o, , Yakut speaking, male arrived at the ED via ambulance from the community. Pt was at a [facility] in [place], making comments about selfharm, verbalizing that he would ? jump off a bridge?. Pt was intoxicated on arrival. Pt has no known hx of inpt hospitalization, has [facility],, there is no known hx of SI or attempts. Past dx of PTSD by pt report. 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 Could be off medication x1 month even though he reports only 7 days as his medication was in friend's truck which was broken down in [place]. 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 Relapsed on alcohol after 10 days being at [place] detox, he has been drinking for 7 days straight up to 7 8 beers plus up to a L of [place]. Currently has no SI/SIB/HI/AVH. History of suicidal. No history of suicide attempts. Formulation/clinical reasoning: Being homeless, Off med x1 month, relapsed on alcohol, been drinking heavily 7 days straight. Increased suicidal thoughts with plan to jump off a bridge . No outpatient psych provider. No outpatient therapist. Has some sleep issue as he has been going through cancer surgery. History of PTSD, TBI, and question depression. He not currently on antidepressant. Given above information, patient will be benefit from restart on home medication, possibility start on medication to target depression symptoms. Refer patient to outpatient psychiatric services. Patient may benefit from referral to outpatient substance use treatment programs to prevent relapsed on alcohol. Hospital course: 11/06/24: Restart on home medications with medication to address medical issues. Blood pressure elevated. Start Ativan p.r.n. per [facility] protocol. I will not start him on any new medication at this time due to the fact that he was not taking his home medications about a month. Mild edema on bilateral lower extremity. Educate on elevated legs. Monitor for blood pressure. He reports trazodone make him hyper. Therefore melatonin p.r.n. schedule at bedtime. I also review lab results with patient which was done from the ED. 11/07 pt shared about life struggles currently going through and past. Left meds in car which broke down in [facility] so has been off for weeks. However, no psych meds. Pt said he had suicidal thoughts following relapse with etoh 7 days ago (after 2 weeks of sobriety) in the face of being homeless and other stressors. Discussed medications and pt is open to antidepressant; will wait to detox is further along. Discussed antihypertensives -Discussed and Does not want MAT -Would like help w/ program for tx for sobriety in community -moderately scoring on CIWA 11/08 Patient reports that he is feeling little better; SI resolved. Still feeling depressed; discussed risks/side effects of Lexapro and patient agrees to start. Still having withdrawal symptoms so scheduling Ativan. nurse reports abrasion right glut, ordering bactitracin 11/09 Pt provided a narrative he wrote today outlining his goals to establish OP care and housing. Agreed to addictions consult. Continue CIWA, scheduled and prn Lorazepam. Will contact [facility] to discuss housing. 11/10 Decrease scheduled lorazepam DC CIWA Increase Lexapro on 11/11. Pt attempting to call [facility] [phone] to assess availability for sober living. 11/11: Lexapro increased to 10 mg daily. Continue current tx regimen. 11/12: Continue current treatment regimen. 11/13: Continue tx. 11/15: Hospitalist consult for possible conjunctivitis Plan Start Lexapro Schedule Ativan Extra dose of gabapentin for 3 days Patient on 15 minute checks for safety. Admitted to . CV. Encourage group participation. We will monitor for alcohol withdrawal per CIWA protocol. Work with treatment team to do collateral for CSS/CCS if possible for aftercare. We will order some labs work for tomorrow per protocol Reason for continued inpatient stay Substantial Risk for: rapid decompensation Time Spent With Patient Time: Total time managing care of this patient today ____ minutes.
[2024-11-15 20:00] VITALS: BP 171/81; PULSE 69; RESP 16; TEMP 37; O2SAT 98
[2024-11-15 21:13] VITALS: BP 171/81; PULSE 69
[2024-11-16] MEDS: Nicotine 21 MG PATCH.TD24 TRANSDERMA (08:31)
[2024-11-16 08:32] VITALS: BP 153/72
[2024-11-16 08:33] VITALS: BP 153/72; PULSE 65
[2024-11-16] MEDS: Ferrous Sulfate 324 MG TABLET.DR PO (08:33)
[2024-11-16 08:36] VITALS: BP 153/72; PULSE 65; RESP 16; TEMP 36.8; O2SAT 96
[2024-11-16] MEDS: Erythromycin Base 0.5% Oph Oin 1 GM TUBE 1 CM EYE-BOTH ×3 (11:49→21:50)
--- NOTE | 2024-11-16 12:08 | HO.PSYCHPN ---
Subjective Subjective Date of Service: 11/16/24 Reason For Visit: Depression, SI, alcohol use d/o, cocaineuse d/o Subjective Notes: Conditional Voluntary Interim History: Reports migraine is resolved. Tx for conjunctivitis was initiated. Accepted to [facility]. Discussed with pt who is pleased yet apprehensive. Pt continues to request leaving Escitalopram at 10 mg Plans to discharge on 11/17. Medication Compliance: Yes Side effects from medications: No Attending Groups: Intermittent Review of Systems Review of Systems Conjunctivitis rx Mental Status Exam Mental Status Exam Patient Appearance: Appropriate Patient Orientation: Person, Place, Time and Situation Level of Consciousness: Alert Patient Behavior: Appropriate, Talkative, Cooperative and Good Eye Contact Mood Description: Constricted Affect Description: Constricted Patient Cognition Impaired: No Ability to Follow Directions: Good Speech Pattern: Spontaneous Speech Memory Description: Intact Hallucinations: None Delusions: Not Present Thought Process: Intact and Goal Oriented Thought Content: positive for Intact and positive for Goal Oriented Judgement: Good Diagnostics Vital Signs (24Hr): Vital Signs - 24 hr 11/15/24 20:00 11/15/24 21:13 11/15/24 21:13 Temperature 98.6 F Pulse Rate 69 69 Respiratory Rate 16 Blood Pressure 171/81 H 171/81 H 171/81 H Pulse Oximetry 98 Oxygen Delivery Method Room Air 11/16/24 08:32 11/16/24 08:33 11/16/24 08:33 Temperature Pulse Rate 65 Respiratory Rate Blood Pressure 153/72 H 153/72 H 153/72 H Pulse Oximetry Oxygen Delivery Method 11/16/24 08:36 Temperature 98.3 F Pulse Rate 65 Respiratory Rate 16 Blood Pressure 153/72 H Pulse Oximetry 96 Oxygen Delivery Method Room Air BMI result Body Mass Index 29.9 Labs 11/05/24 20:42 11/05/24 20:42 Medications Medications Current Medications Acetaminophen (Acetaminophen 325 Mg Tablet) 650 mg PO Q6H PRN PRN Reason: Headache/Pain, Scale 1-10 Last Admin: 11/08/24 16:54 Dose: 650 mg Al Hydroxide/Mg Hydroxide (Magnesium Hydrox/Alum Hydrox 30 Ml Oral.Susp) 30 ml PO Q6H PRN PRN Reason: Heartburn/Nausea Albuterol Sulfate (Albuterol Sulfate 90 Mcg 8 Gm Inhaler) 2 puff INHALE Q4H PRN PRN Reason: Shortness Of Breath Or Wheezing Last Admin: 11/14/24 21:24 Dose: 2 puff Albuterol/Ipratropium (Albuterol/Iprat 2.5/0.5mg 3 Ml Ampul.Neb) 3 ml INHALE QID PRN PRN Reason: Shortness Of Breath Or Wheezing Amlodipine Besylate (Amlodipine Besylate 5 Mg Tablet) 5 mg PO BID [facility]; Protocol Last Admin: 11/16/24 08:33 Dose: 5 mg Artificial Tears (Artificial Tears 15 Ml Drops) 2 drop EYE-BOTH Q1H PRN PRN Reason: Dry Eyes Last Admin: 11/14/24 21:28 Dose: 2 drop Ascorbic Acid (Ascorbic Acid 250 Mg Tablet) 250 mg PO BID [facility] Last Admin: 11/16/24 08:33 Dose: 250 mg Benzocaine (Throat Lozenge, Medicated Lozenge) 1 lozenge MUCOUS MEM Q2H PRN PRN Reason: THROAT PAIN Carvedilol (Carvedilol 6.25 Mg Tablet) 6.25 mg PO BID [facility]; Protocol Last Admin: 11/16/24 08:33 Dose: 6.25 mg Erythromycin (Erythromycin Base 0.5% Oph Oin 1 Gm Tube) 1 cm EYE-BOTH QID [facility] Last Admin: 11/16/24 11:49 Dose: 1 cm Escitalopram Oxalate (Escitalopram Oxalate 10 Mg Tablet) 10 mg PO DAILY [facility] Last Admin: 11/16/24 08:33 Dose: 10 mg Ferrous Sulfate (Ferrous Sulfate 324 Mg Tablet.Dr) 324 mg PO Q48H [facility] Last Admin: 11/16/24 08:33 Dose: 324 mg Folic Acid (Folic Acid 1 Mg Tablet) 1 mg PO DAILY [facility] Last Admin: 11/16/24 08:33 Dose: 1 mg Gabapentin (Gabapentin 300 Mg Capsule) 300 mg PO BID [facility] Last Admin: 11/16/24 08:32 Dose: 300 mg Gabapentin (Gabapentin 300 Mg Capsule) 300 mg PO DAILY PRN PRN Reason: neuropathic pain Last Admin: 11/15/24 15:36 Dose: 300 mg Hydroxyzine HCl (Hydroxyzine Hcl 25 Mg Tablet) 25 mg PO Q6H PRN PRN Reason: mild anxiety Ibuprofen (Ibuprofen 600 Mg Tablet) 600 mg PO Q6H PRN PRN Reason: severe pain Last Admin: 11/14/24 20:38 Dose: 600 mg Loratadine (Loratadine 10 Mg Tablet) 10 mg PO DAILY [facility] Last Admin: 11/16/24 08:32 Dose: 10 mg Lorazepam (Lorazepam 0.5 Mg Tablet) 0.5 mg PO BID [facility] Last Admin: 11/16/24 08:32 Dose: 0.5 mg Magnesium Hydroxide (Milk Of Magnesia 30 Ml Oral.Susp) 30 ml PO DAILY PRN PRN Reason: Constipation Melatonin (Melatonin 3 Mg Tablet) 3 mg PO BEDTIME [facility] Last Admin: 11/15/24 21:13 Dose: 3 mg Multivitamins/Vitamin C (Multivitamin Tablet) 1 tab PO DAILY [facility] Last Admin: 11/16/24 08:33 Dose: 1 tab Nicotine (Nicotine 21 Mg Patch.Td24) 21 mg TRANSDERMA DAILY [facility] Last Admin: 11/16/24 08:31 Dose: 21 mg Nicotine Polacrilex (Nicotine Polacrilex 2 Mg Gum) 4 mg BUCCAL Q2H PRN PRN Reason: Nicotine Cravings Omeprazole (Omeprazole 20 Mg Capsule.Dr) 20 mg PO DAILY@0630 [facility] Last Admin: 11/16/24 07:05 Dose: 20 mg Spironolactone (Spironolactone 25 Mg Tablet) 25 mg PO DAILY [facility]; Protocol Last Admin: 11/16/24 08:32 Dose: 25 mg Thiamine HCl (Thiamine Hcl 100 Mg Tablet) 100 mg PO DAILY [facility] Last Admin: 11/16/24 08:33 Dose: 100 mg Allergies Allergies Allergy/AdvReac Type Severity Reaction Status Date / Time latex Allergy Unknown Verified 11/05/24 20:53 lisinopril Allergy Unknown Verified 11/05/24 20:53 Assessment & Plan Assessment & Plan (1) PTSD (post-traumatic stress disorder): Status: Acute Code(s): F43.10 - Post-traumatic stress disorder, unspecified (2) Suicidal ideation: Status: Acute Code(s): R45.851 - Suicidal ideations (3) Major depressive disorder, recurrent, moderate: Status: Acute Code(s): F33.1 - Major depressive disorder, recurrent, moderate (4) Alcohol abuse: Status: Acute Code(s): F10.10 - Alcohol abuse, uncomplicated Plan HPI: Pt is a 64 y/o, , Singaporean speaking, male arrived at the ED via ambulance from the community. Pt was at a [employer] in [place], making comments about selfharm, verbalizing that he would ? jump off a bridge?. Pt was intoxicated on arrival. Pt has no known hx of inpt hospitalization, has hx of substance use and detox admissions through the [place],, there is no known hx of SI or attempts. Past dx of PTSD by pt report. 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 Could be off medication x1 month even though he reports only 7 days as his medication was in friend's truck which was broken down in [place]. 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 Relapsed on alcohol after 10 days being at [facility] detox, he has been drinking for 7 days straight up to 7 8 beers plus up to a L of Jenny. Currently has no SI/SIB/HI/AVH. History of suicidal. No history of suicide attempts. Formulation/clinical reasoning: Being homeless, Off med x1 month, relapsed on alcohol, been drinking heavily 7 days straight. Increased suicidal thoughts with plan to jump off a bridge . No outpatient psych provider. No outpatient therapist. Has some sleep issue as he has been going through cancer surgery. History of PTSD, TBI, and question depression. He not currently on antidepressant. Given above information, patient will be benefit from restart on home medication, possibility start on medication to target depression symptoms. Refer patient to outpatient psychiatric services. Patient may benefit from referral to outpatient substance use treatment programs to prevent relapsed on alcohol. Hospital course: 11/06/24: Restart on home medications with medication to address medical issues. Blood pressure elevated. Start Ativan p.r.n. per CIWA protocol. I will not start him on any new medication at this time due to the fact that he was not taking his home medications about a month. Mild edema on bilateral lower extremity. Educate on elevated legs. Monitor for blood pressure. He reports trazodone make him hyper. Therefore melatonin p.r.n. schedule at bedtime. I also review lab results with patient which was done from the ED. 11/07 pt shared about life struggles currently going through and past. Left meds in car which broke down in [facility] so has been off for weeks. However, no psych meds. Pt said he had suicidal thoughts following relapse with etoh 7 days ago (after 2 weeks of sobriety) in the face of being homeless and other stressors. Discussed medications and pt is open to antidepressant; will wait to detox is further along. Discussed antihypertensives -Discussed and Does not want MAT -Would like help w/ program for tx for sobriety in community -moderately scoring on CIWA 11/08 Patient reports that he is feeling little better; SI resolved. Still feeling depressed; discussed risks/side effects of Lexapro and patient agrees to start. Still having withdrawal symptoms so scheduling Ativan. nurse reports abrasion right glut, ordering bactitracin 11/09 Pt provided a narrative he wrote today outlining his goals to establish OP care and housing. Agreed to addictions consult. Continue CIWA, scheduled and prn Lorazepam. Will contact [facility] to discuss housing. 11/10 Decrease scheduled lorazepam DC CIWA Increase Lexapro on 11/11. Pt attempting to call [facility] [phone] to assess availability for sober living. 11/11: Lexapro increased to 10 mg daily. Continue current tx regimen. 11/12: Continue current treatment regimen. 11/13: Continue tx. 11/16: Discharge 11/17 to [facility] Plan Start Lexapro Schedule Ativan Extra dose of gabapentin for 3 days Patient on 15 minute checks for safety. Admitted to . CV. Encourage group participation. We will monitor for alcohol withdrawal per CIWA protocol. Work with treatment team to do collateral for [facility] if possible for aftercare. We will order some labs work for tomorrow per protocol Reason for continued inpatient stay Substantial Risk for: stable for discharge Time Spent With Patient Time: Total time managing care of this patient today ____ minutes.
[2024-11-16 20:00] VITALS: BP 143/62; PULSE 71; RESP 16; TEMP 36.8; O2SAT 97
[2024-11-16 21:46] VITALS: BP 143/62; PULSE 71
[2024-11-16] MEDS: Albuterol Sulfate 90 MCG 8 GM INHALER 2 PUFF INHALE (21:54)
[2024-11-17 07:52] VITALS: BP 148/73; PULSE 60; RESP 16; TEMP 36.7; O2SAT 96
[2024-11-17] MEDS: Nicotine 21 MG PATCH.TD24 TRANSDERMA (08:30)
[2024-11-17] MEDS: Erythromycin Base 0.5% Oph Oin 1 GM TUBE 1 CM EYE-BOTH (08:32)
--- NOTE | 2024-11-17 10:02 | PM.PSYDC ---
DS: Providers Provider Date of admission: 11/06/24 12:00 Primary care physician: Unknown Physician Consults: 11/09/24 12:04 Addiction Medicine Provider Routine Consulting Provider: Addiction Covering Reason for consultation: alcohol, cannabis Has provider been notified: No 11/15/24 10:03 Consult to Hospitalist Routine Comment: Consulting Provider: [facility] Hospitalists Reason For Exam: conjunctivitis DS: Diagnosis Discharge Diagnosis (1) PTSD (post-traumatic stress disorder): Status: Acute (2) Suicidal ideation: Status: Acute (3) Major depressive disorder, recurrent, moderate: Status: Acute (4) Alcohol abuse: Status: Acute DS: Medications Discharge Medications Home Medications: Previous Rx's ?Medication ?Instructions ?Recorded acetaminophen 325 mg tablet 650 mg (2 x 325 mg) PO Q6H PRN 11/16/24 Headache/Pain, Scale 1-10 #0 tabs albuterol sulfate 90 mcg/actuation 2 puff inhalation Q4H PRN 11/16/24 aerosol inhaler (Ventolin HFA) Shortness Of Breath Or Wheezing #1 inhaler amlodipine 5 mg tablet 5 mg PO BID #60 tabs 11/16/24 ascorbic acid (vitamin C) 250 mg 250 mg PO BID #60 tabs 11/16/24 tablet (Vitamin C) carvedilol 6.25 mg tablet 6.25 mg PO BID #60 tabs 11/16/24 erythromycin 5 mg/gram (0.5 %) eye 1 cm ophthalmic (eye) QID #3.5 11/16/24 ointment grams escitalopram oxalate 10 mg tablet 10 mg PO DAILY #30 tabs 11/16/24 ferrous sulfate 325 mg (65 mg 325 mg PO Q48H #30 tabs 11/16/24 iron) tablet fexofenadine 180 mg tablet 180 mg PO DAILY #30 tabs 11/16/24 folic acid 1 mg tablet 1 mg PO DAILY #30 tabs 11/16/24 gabapentin 300 mg capsule 300 mg PO BID #90 caps 11/16/24 gabapentin 300 mg capsule 300 mg PO DAILY PRN neuropathic 11/16/24 pain #0 caps hydroxyzine HCl 25 mg tablet 25 mg PO Q6H PRN mild anxiety #60 11/16/24 tabs ibuprofen 600 mg tablet 600 mg PO Q6H PRN severe pain #60 11/16/24 tabs ipratropium 0.5 mg-albuterol 3 mg 3 ml inhalation QID PRN Shortness 11/16/24 (2.5 mg base)/3 mL nebulization Of Breath Or Wheezing #1 inhaler soln melatonin 3 mg tablet 3 mg PO BEDTIME #30 tabs 11/16/24 multivitamin (Daily-Rian tablet) 1 tab PO DAILY #30 tabs 11/16/24 nicotine 21 mg/24 hr daily 1 patch transdermal DAILY #30 ea 11/16/24 transdermal patch omeprazole 20 mg capsule,delayed 20 mg PO DAILY@0630 #30 caps 11/16/24 release peg [id number] 1 2 drp ophthalmic (eye) Q1H PRN Dry 11/16/24 %-0.2 %-0.2 % eye drops Eyes #15 mL (Artificial Tears ([id number])) spironolactone 25 mg tablet 25 mg PO DAILY #30 tabs 11/16/24 (Aldactone) thiamine mononitrate (vit B1) 100 100 mg PO DAILY #30 tabs 11/16/24 mg tablet vit C 250 mg-vit E 90 mg-zinc 40 1 tab PO BIDWM #30 caps 11/16/24 mg-copper 1 [id number] capsule (PreserVision AREDS-2) DS: Summary Time Spent with Patient Time attestation: Total time managing care of this patient today ____ minutes. Discharge Plan Discharge Anticipated Discharge Date/Time: 11/17/24 12:00 Patient Disposition: Xfer Inpatient Rehab Fac Discharge Diagnosis: PTSD Recurrent Major Depression Alcohol Use Disorder Referrals: Elias SCHMIDT [Other] - 11/17/24 1:00 pm [facility] Phone Screen w Ani Ba [Other] - 11/23/24 3:00 pm Referral Note: Please call Ani on the date scheduled. If you cannot make this date or time call her as soon as possible to reschedule the appointment. Please keep in mind when on the phone screen, they can usually schedule a move-in during the phone screen, so please be prepared with a few days and times that would be convenient for you. [facility] for Psych[facility]/Therap [Other] - 1 Week Referral Note: When you return to the area after completing your treatment program you can secure psychiatry and therapy with [facility]. This is a same day walk in intake for psychiatry and therapy. Walk-in Hours: M-F 8am - 8pm Sat 9am - 5pm The first appointment is an intake only. It is recommended you get your intake in as soon as possible as there will likely be a wait time between your intake and your first psychiatry and therapy appointments. Amol Florez PA [Physician [employer], Internal Medicine] - 1 Week Discharge Medications: New acetaminophen 325 mg Tablet 650 mg PO Q6H PRN (Reason: Headache/Pain, Scale 1-10) Qty: 0 0RF gabapentin 300 mg Capsule 300 mg PO DAILY PRN (Reason: neuropathic pain) Qty: 0 0RF gabapentin 300 mg Capsule 300 mg PO BID Qty: 90 0RF hydroxyzine HCl 25 mg Tablet 25 mg PO Q6H PRN (Reason: mild anxiety) Qty: 60 0RF ibuprofen 600 mg Tablet 600 mg PO Q6H PRN (Reason: severe pain) Qty: 60 0RF Artificial Tears([id number]) 1-0.2-0.2 % Drops 2 drp ophthalmic (eye) Q1H PRN (Reason: Dry Eyes) Qty: 15 0RF escitalopram oxalate 10 mg Tablet 10 mg PO DAILY Qty: 30 0RF multivitamin [Daily-Rian] Tablet 1 tab PO DAILY Qty: 30 0RF melatonin 3 mg Tablet 3 mg PO BEDTIME Qty: 30 0RF erythromycin 5 mg/gram (0.5 %) Ointment 1 cm ophthalmic (eye) QID Qty: 3.5 0RF omeprazole 20 mg Capsule,Delayed Release(Dr/Ec) 20 mg PO DAILY@0630 Qty: 30 0RF folic acid 1 mg Tablet 1 mg PO DAILY Qty: 30 0RF thiamine mononitrate (vit B1) 100 mg Tablet 100 mg PO DAILY Qty: 30 0RF Continued carvedilol 6.25 mg Tablet 6.25 mg PO BID Qty: 60 0RF Rx Instructions: must administer with a meal/food HOLD IF SBP<115 or HR<56 ipratropium-albuterol 0.5 mg-3 mg(2.5 mg base)/3 mL Solution For Nebulization 3 ml INHALATION QID PRN (Reason: Shortness Of Breath Or Wheezing) Qty: 1 0RF fexofenadine 180 mg Tablet 180 mg PO DAILY Qty: 30 0RF amlodipine 5 mg Tablet 5 mg PO BID Qty: 60 0RF spironolactone [Aldactone] 25 mg Tablet 25 mg PO DAILY Qty: 30 0RF ascorbic acid (vitamin C) [Vitamin C] 250 mg Tablet 250 mg PO BID Qty: 60 0RF ferrous sulfate 325 mg (65 mg iron) Tablet 325 mg PO Q48H Qty: 30 0RF nicotine 21 mg/24 hr Patch 24 Hour 1 patch TRANSDERMAL DAILY Qty: 30 0RF albuterol sulfate [Ventolin HFA] 90 mcg/actuation Hfa Aerosol Inhaler 2 puff INHALATION Q4H PRN (Reason: Shortness Of Breath Or Wheezing) Qty: 1 0RF PreserVision AREDS-2 250-90-40-1 mg Capsule 1 tab PO BIDWM Qty: 30 0RF Discontinued acetaminophen 325 mg Tablet 325 mg PO BID PRN (Reason: Pain) ibuprofen 800 mg Tablet 800 mg PO DAILY PRN (Reason: Pain) magnesium hydroxide [Milk of Magnesia] 400 mg/5 mL Suspension 30 ml PO DAILY PRN (Reason: Constipation) gabapentin 300 mg Capsule 300 mg PO BID Cepacol (with benzocain-menth) 10-2.5 mg Lozenge 1 cara MUCOUS MEMBRANE Q2H PRN (Reason: THROAT PAIN) melatonin 1 mg Tablet 2 mg PO BEDTIME PRN (Reason: Insomnia) Discharge Orders: Discharge Order (Routine); Ordered 11/17/24 Ordered By: Lesley Merritt Diet: Advance to usual diet Activity on Discharge: As tolerated Stand Alone Forms: Patient Portal Discharge page, Community Support Print Language: Yoruba Care Plan Goals: Abstinence from substances Mood and Behavioral Stabilization Health Concerns: Abstinence from substances Mood and Behavioral Stabilization Plan of Treatment: Attend [facility] Attend scheduled appointments Take medications as directed Call/Return as needed Assessment: Wilda SI,HI,AH,VH Scheduled discharge to [facility]
== END 2024-11-17 10:54 | DRG 751 ==
LOC: HO.ED 23:24 → HO.PM5 11-06 12:02
PROVIDERS: Admitting Provider Clinical Nurse Specialist Psychiatric/Mental Health, Adult; Emergency Provider Emergency Medicine; Visit Provider Clinical Nurse Specialist Psychiatric/Mental Health, Adult
DX: F33.1 Major depressive disorder, recurrent, moderate (principal); R45.851 Suicidal ideations; F10.129 Alcohol abuse with intoxication, unspecified; F17.210 Nicotine dependence, cigarettes, uncomplicated; H10.9 Unspecified conjunctivitis; F43.10 Post-traumatic stress disorder, unspecified; Y90.7 Blood alcohol level of 200-239 mg/100 ml; Z71.6 Tobacco abuse counseling; Z79.899 Other long term (current) drug therapy
CPT/HCPCS: 36415; 80053; 80061; 80143; 80179; 80307; 81003; 82607; 82746; 83036; 83735; 84439; 84443; 85025; 93005; 99285; S9485

== ENCOUNTER → 2024-11-06 11:19 | Outpatient (BNV) | payer OTHER, SELFPAY | PROVIDERS: Admitting Provider Clinical Nurse Specialist Psychiatric/Mental Health, Adult; Emergency Provider Emergency Medicine; Visit Provider Internal Medicine Cardiovascular Disease | DX: Z13.6 Encounter for screening for cardiovascular disorders (principal) | CPT/HCPCS: 93010 ==

== ENCOUNTER → 2024-11-06 12:00 | Outpatient (BNV) | payer OTHER, SELFPAY | PROVIDERS: Admitting Provider Clinical Nurse Specialist Psychiatric/Mental Health, Adult; Emergency Provider Emergency Medicine; Visit Provider Psychiatry & Neurology Psychiatry | DX: F33.1 Major depressive disorder, recurrent, moderate (principal); R45.851 Suicidal ideations; F43.11 Post-traumatic stress disorder, acute; F10.10 Alcohol abuse, uncomplicated | CPT/HCPCS: 99232 ==

== ENCOUNTER 2024-12-06 22:17 | Emergency (ER) | payer OTHER, SELFPAY ==
--- NOTE | ~2024-12-06 | CT_ITS ---
CLINICAL HISTORY: trauma CT of the head without contrast. Comparison 10/12/2024. Findings: No acute hemorrhage or infarct is seen. No masses are identified and there is no hydrocephalus. There is no mass-effect. Impression: No acute intracranial abnormality is identified. This document has been electronically signed by: Oswaldo Kang MD on 12/07/2024 17:48:11
--- NOTE | ~2024-12-06 | XR_ITS ---
EXAMINATION: XR LUMBAR SPINE 2-3 VIEWS HISTORY: back pain COMPARISON: There are no prior studies for comparison. FINDINGS: AP, lateral, and coned down views of the lumbar spine are submitted. Osseous mineralization is normal. Five nonrib-bearing lumbar vertebral bodies are identified, maintaining normal height and alignment without evidence of fracture or spondylolisthesis. The intervertebral disc spaces are preserved. There is osteoarthritis of the L5-S1 facet joints. There is calcification of the abdominal aorta. XR/XR lumbar spine 2-3V IMPRESSION: Osteoarthritis of the L5-S1 facet joints. Electronically signed by: Stanley Andre MD 12/07/2024 09:47 AM EDT
[2024-12-06 22:32] VITALS: BP 173/95; BP 194/88; PULSE 117; PULSE 90; RESP 20; TEMP 36.8; O2SAT 94; O2SAT 95; BMI 29.0
[2024-12-06 22:58] LABS: MANUAL DIFF FLAG NO
[2024-12-06 23:00] LABS: Hematocrit 36.0 % (42.0-52.0); Hemoglobin 12.9 g/dl (14.0-18.0); Imm Gran Abs Auto 0.03 X10*3/uL (0.00-0.03); Imm Gran Pct Auto 0.3 % (0.0-0.4); Lymphocytes Absolute Auto 3.3 X10*3/uL (1.2-4.9); Mean Corpuscular HGB Conc 35.8 g/dl (31.0-36.0); Mean Corpuscular Hemoglobin 28.5 pg (27.0-33.0); Mean Corpuscular Volume 79.5 fL (80.0-98.0); NRBC Abs Auto 0.000 X10*3/uL (0.0-0.012); NRBC Pct Auto 0.0 /100WBC (0.0-0.2); Platelet Count 131 X10*3/uL (160-400); Red Blood Count 4.53 X10*6/uL (4.60-5.80); White Blood Count 9.0 X10*3/uL (4.8-10.8)
[2024-12-06 23:08] LABS: Appearance Urine Clear; Glucose Urine UA Negative (Negative); PH 5.5 (5.0-9.0); Specific Gravity - Urine 1.025 (1.005-1.025); UMIC TRIGGER UACC YES
[2024-12-06 23:10] LABS: Cannabinoid Screen Urine POSITIVE (Not Detect)
[2024-12-06 23:15] LABS: Alanine Aminotransferase 87 U/L (0-40); Albumin Level 5.0 g/dL (3.5-5.0); Alkaline Phosphatase 119 U/L (39-117); Anion Gap 19 (12-20); Aspartate Amino Transferase 89 U/L (5-37); Blood Urea Nitrogen 9 mg/dL (9-16); Calcium 9.0 mg/dL (8.4-10.2); Carbon Dioxide 27 mmol/L (22-29); Chloride 101 mmol/L (96-108); Creatinine Clr Calc Pharmacy 100.3; Estimated Glomerular Filt Rate > 60; Potassium 3.7 mmol/L (3.3-5.1); Sodium 143 mmol/L (135-145); Total Protein 8.3 g/dL (6.5-8.0)
--- OUTSIDE RECORDS SUMMARY | 2024-12-06 23:36 | XMS_ITS | Clinical Summary ---
Author Organization [facility] Address [address] [place] [address] Phone Care Team Providers Care Apparel Sales Leader Name Role Phone Melissa Lopez NP Primary Care Provider [phone] Allergies Active Allergy Reactions Criticality Noted Date Comments Lisinopril Angioedema High 07/28/2024 Fluoxetine Hives 08/11/2024 Encounters Date Type Department Care Team Description 10/30/2024 5:48 PM EDT - 10/31/2024 12:09 AM EDT Emergency [facility] Emergency [address] [place] [id number] Joel Woo MD Discharge Disposition: Left Against Medical Advice from Last 3 Months Social History Tobacco Use Types Packs/Day Years Used Date Smoking Tobacco: Never Assessed Alcohol Use Standard Drinks/Week Comments Yes 0 (1 standard drink = 0.6 oz pur e alcohol) Sex and Gender Information Value Date Recorded Sex Assigned at Male 07/28/2024 5:12 AM EDT Legal Sex Male 8:20 PM EST Gender Identity Male 07/28/2024 5:12 AM EDT Sexual Orientation Choose not to disclose 2024 5:12 AM EDT Obstetrics History Last Filed Vital Signs Vital Sign Reading Time Taken Comments Blood Pressure 116/85 10/30/2024 10:50 PM EDT Pulse 96 10/30/2024 10:50 PM EDT Temperature 36.9 C (98.4 F) 10/30/2024 10:50 PM EDT Respiratory Rate 20 10/30/2024 10:50 PM EDT Oxygen Saturation 96% 10/30/2024 10:50 PM EDT Inhaled Oxygen Concentration - - Weight 86.2 kg (190 lb) 08/10/2024 1:31 AM EDT Height 170.2 cm (5' 7 ) 08/10/2024 1:31 AM EDT Body Mass Index 29.76 08/10/2024 1:31 AM EDT Plan of Treatment Health Maintenance Due Date Last Done Comments Hepatitis A Vaccines (1 of 2 - Risk 2-dose series) 1979 Pneumococcal Vaccine: 50+ Years (1 of 2 - PCV) 1979 Zoster Vaccines (1 of 2) 2010 Cholesterol Screening (Lipid Panel) 05/23/2023 Colorectal Cancer Screening: Colonoscopy 05/23/2023 HIV Screening 05/23/2023 Lung Cancer Screening (Low Dose CT) 05/23/2023 Social Influencers of Health Screening 05/23/2023 COVID-19 Vaccine (1 - season) 2023 Depression Screening 04/29/2024 Influenza Vaccine (#1) 2024 Hypertension/CHF/CAD Annual BMP Blood Test 10/30/2025 10/30/2024, 08/11/2024, 08/10/2024, Additional history exists DTaP,Tdap,and Td Vaccines (2 - Td or Tdap) 10/02/2033 10/03/2023 RSV Immunization Adult Patients (1 - 1-dose 75+ series) 2035 Hepatitis C Screening Completed 08/09/2022 HIB Vaccines Aged Out No longer eligi ble based on patient's age to complete this topic HPV Vaccines Aged Out No longer eligi ble based on patient's age to complete this topic Hepatitis B Vaccines Aged Out No long er eligible based on patient's age to complete this topic IPV Vaccines Aged Out No longer eligi ble based on patient's age to complete this topic MMR Vaccines Aged Out No longer eligi ble based on patient's age to complete this topic Meningococcal ACWY Vaccine Aged Out N o longer eligible based on patient's age to complete this topic Meningococcal B Vaccine Aged Out No l onger eligible based on patient's age to complete this topic RSV Immunization Patients Under 20 months Aged Out No longer eligible based on patient's age to complete this topic Varicella Vaccines Aged Out No longer eligible based on patient's age to complete this topic Procedures Procedure Name Priority Date/Time Associated Diagnosis Comments ECG ANNOTATED 11/02/2024 URINALYSIS WITH REFLEX MICROSCOPIC STAT 10/30/2024 8:16 PM EDT DRUG ABUSE SCREEN EXPANDED WITH REFLEX CONFIRMATION, URINE STAT 10/30/2024 8:16 PM EDT URINALYSIS WITH REFLEX MICROSCOPIC STAT 10/30/2024 8:[address] HEAD WO CONTRAST STAT 10/30/2024 7 :37 PM EDT CBC WITH AUTO DIFFERENTIAL STAT 10/30/2024 7:33 PM EDT MAGNESIUM STAT 10/30/2024 7:33 PM EDT COMPREHENSIVE METABOLIC PANEL STAT 10/30/2024 7:33 PM EDT CBC AND DIFFERENTIAL STAT 10/30/2024 7:33 PM EDT ECG 12-LEAD STAT 10/30/2024 7:32 PM EDT from Last 3 Months Results * ECG-Annotated (11/02/2024) us Provider Onbase MD ECG ORDERABLES Final Result * Urinalysis with reflex microscopic (10/30/2024 8:16 PM EDT) [facility] [place] Urine 1.006 1.003 - 1.030 LAB URINALYSIS - AUTOMATED METHOD 10/30/2024 8:36 PM EDT [facility] pH, Urine 6.0 5.0 - 8.0 pH LAB URINALYSIS - AUTOMATED METHOD 10/30/2024 8:36 PM EDT [facility] Leukocytes, Urine Negative Negative LAB URINALYSIS - AUTOMATED METHOD 10/30/2024 8:36 PM EDT [facility] Nitrite, Urine Negative Negative LAB URINALYSIS - AUTOMATED METHOD 10/30/2024 8:36 PM EDT [facility] Protein, Urine Negative <=Trace mg/dL LAB URINALYSIS - AUTOMATED METHOD 10/30/2024 8:36 PM EDT [facility] Glucose, Urine Negative Negative mg/dL LAB URINALYSIS - AUTOMATED METHOD 10/30/2024 8:36 PM EDT [facility] Ketones, Urine Negative Negative mg/dL LAB URINALYSIS - AUTOMATED METHOD 10/30/2024 8:36 PM EDT [facility] Urobilinogen, Urine 1.0 0.2 - 1.0 mg/dL LAB URINALYSIS - AUTOMATED METHOD 10/30/2024 8:36 PM EDT [facility] Bilirubin, Urine Negative Negative LAB URINALYSIS - AUTOMATED METHOD 10/30/2024 8:36 PM EDT [facility] Blood, Urine Negative Negative LAB URINALYSIS - AUTOMATED METHOD 10/30/2024 8:36 PM T [facility] Urine Urine specimen obtained by clean catch procedure / Unknown Non-blood Collection / Unknown 10/30/2024 8:16 PM EDT 10/30/2024 8:30 PM EDT us Joel Woo MD LAB URINE ORDERABLES Final Res ult [facility] [address] [place] [address], * Drug abuse screen expanded with reflex confirmation, urine (10/30/2024 8:16 PM EDT) Amphetamine Screen, Ur Negative Negative LAB CHEMISTRY METHOD 10/30/2024 9:02 PM EDT [facility] Comment:Certain OTC medicati ons containing ephedrine, phenylephrine, pseudoephedrine and phenylpropanolamine can cause false positive results. Barbiturate Screen, Ur Negative Negative LAB CHEMISTRY METHOD 10/30/2024 9:02 PM EDT [facility] Benzodiazepine Screen, Ur Negative Negative LAB CHEMISTRY METHOD 10/30/2024 9:02 PM EDT [facility] Cocaine Screen, Ur Negative Negative LAB CHEMISTRY METHOD 10/30/2024 9:02 PM EDT [facility] Opiate Screen, Ur Negative Negative LAB CHEMISTRY METHOD [facility] Cannabinoid (THC) Screen, Ur Negative Negative LAB CHEMISTRY METHOD 10/30/2024 9:02 PM EDT [facility] Comment:Specimens from patie nts taking pantoprazole sodium (Protonix) have been shown to produce false positive results. Fentanyl, Ur Negative Negative LAB CHEMISTRY METHOD 10/30/2024 9:02 PM EDT [facility] Oxycodone Screen, Ur Negative Negative LAB CHEMISTRY METHOD 10/30/2024 9:02 PM [facility] Urine Urine specimen obtained by clean catch procedure / Unknown Non-blood Collection / Unknown 10/30/2024 8:16 PM EDT 10/30/2024 8:30 PM EDT Narrative [facility] - 10/30/2024 9:02 PM EDT Assay cutoffs: Amphetamines 1000 ng/mL Barbiturates 200 ng/mL Benzodiazepines 200 ng/mL Cocaine 300 ng/mL Fentanyl 1 ng/mL Opiates 300 ng/mL Oxycodone 100 ng/mL THC 50 ng/mL Semi-quantitative assay for screening purposes only. Unconfirmed screening result should not be used for non-medical purposes. *POSITIVE RESULTS ARE AUTOMATICALLY SENT FOR ALTERNATE METHOD CONFIRMATION* us Joel Woo MD LAB URINE ORDERABLES Final Res ult [facility] [address] [place] [address], [place] [phone] * CT Head wo Contrast (10/30/2024 7:37 PM EDT) Anatomical Region Laterality Modality Head and Neck Computed Tomogra phy 10/30/2024 8:04 PM EDT Impressions 10/30/2024 8:04 PM EDT 1. No acute intracranial findings. This document has been electronically signed by: Faizan Sanford MD on 10/30/2024 20:04:26 Narrative 10/30/2024 8:04 PM EDT INDICATION: Trauma, intoxication CT head without contrast Comparison: CT - CT HEAD WO CONTRAST - 08/11/24 21:00 EDT Findings: No intra-axial mass, midline shift, hydrocephalus, or acute hemorrhage. Moderate cerebral atrophy. Old lacunar infarct in the left basal ganglia. The visualized paranasal sinuses and mastoid air cells are normal. The orbits are unremarkable. There is no acute fracture. Procedure Note Faizan Sanford MD - 10/30/2024 INDICATION: Trauma, intoxication CT head without contrast Comparison: CT - CT HEAD WO CONTRAST - 08/11/24 21:00 EDT Findings: No intra-axial mass, midline shift, hydrocephalus, or acute hemorrhage. Moderate cerebral atrophy. Old lacunar infarct in the left basalganglia. The visualized paranasal sinuses and mastoid air cells are normal. The orbits are unremarkable. There is no acute fracture. IMPRESSION: 1. No acute intracranial findings. This document has been electronically signed by: Faizan Sanford MD on 10/30/2024 20:04:26 Joel Woo MD IM CT PROCEDURES Final Result * (ABNORMAL) CBC auto differential (10/30/2024 7:33 PM EDT) WBC 4.0(L) 4.8 - 10.8 K/[facility] LAB HEMETOLOGY METHOD 10/30/2024 8:05 PM EDT [facility] RBC 4.10(L) 4.50 - 5.50 M/mcL LAB HEMETOLOGY METHOD 10/30/2024 8:05 PM EDT [facility] Hemoglobin 10.9(L) 13.5 - 17.5 g/dL LAB HEMETOLOGY METHOD 10/30/2024 [facility] Hematocrit 32.7(L) 42.0 - 54.0 % LAB HEMETOLOGY METHOD 10/30/2024 8:05 PM [facility] MCV 79.2 79.0 - 98.0 FL LAB HEMETOLOGY METHOD 10/30/2024 8:05 PM [facility] MCH 26.4(L) 27.0 - 32.0 pcg LAB HEMETOLOGY METHOD 10/30/2024 8:05 PM [facility] MCHC 33.3 32.0 - 37.0 g/dL LAB HEMETOLOGY METHOD 10/30/2024 8:05 PM [facility] RDW 16.3(H) 11.0 - 15.0 % LAB HEMETOLOGY METHOD 10/30/2024 8:05 PM [facility] Platelets 131 130 - 400 K/mcL LAB HEMETOLOGY METHOD 10/30/2024 8:05 PM [facility] MPV 8.7 7.0 - 11.0 FL LAB HEMETOLOGY METHOD 10/30/2024 8:05 PM [facility] NRBC 0.0 <1.0 % LAB HEMETOLOGY METHOD 10/30/2024 8:05 PM [facility] NRBC Absolute 0.00 <0.10 K/mcL LAB HEMETOLOGY METHOD 10/30/2024 8:05 PM [facility] Neutrophils Relative 40.4 % LAB HEMETOLOGY METHOD 10/30/2024 8:05 PM [facility] Lymphocytes Relative 43.4 % LAB HEMETOLOGY METHOD 10/30/2024 8:05 PM [facility] Monocytes Relative 11.6 % LAB HEMETOLOGY METHOD 10/30/2024 8:05 PM [facility] Eosinophils Relative 3.3 % LAB HEMETOLOGY METHOD 10/30/2024 8:05 PM EDT [facility] Basophils Relative 1.0 % LAB HEMETOLOGY METHOD 10/30/2024 8:05 PM EDT [facility] Immature Granulocytes Relative 0.3 % LAB HEMETOLOGY METHOD 10/30/2024 8:05 PM EDT [facility] Neutrophils Absolute 1.60 1.50 - 7.00 K/mcL LAB HEMETOLOGY METHOD 10/30/2024 8:05 PM EDT [facility] Lymphocytes Absolute 1.72 1.00 - 5.00 K/mcL LAB HEMETOLOGY METHOD 10/30/2024 8:[facility] Monocytes Absolute 0.46 0.20 - 1.00 K/mcL LAB HEMETOLOGY METHOD 10/30/2024 8:05 PM EDT [facility] Eosinophils Absolute 0.13 0.00 - 0.50 K/mcL LAB HEMETOLOGY METHOD 10/30/2024 8:05 PM EDT [facility] Basophils Absolute 0.04 0.00 - 0.20 K/mcL LAB HEMETOLOGY METHOD 10/30/2024 8:05 PM EDT [facility] Immature Granulocytes Absolute 0.01 0.00 - 0.03 K/mcL LAB HEMETOLOGY METHOD 10/30/2024 8:05 PM EDT [facility] Blood Venous blood specimen / Unknown Venipuncture / Unknown 10/30/2024 7:33 PM EDT 10/30/2024 7:49 PM EDT us Joel Woo MD LAB BLOOD ORDERABLES Final Res ult [facility] [address] [place] [address], * Magnesium (10/30/2024 7:33 PM EDT) Pathologist [facility] Magnesium 1.9 1.9 - 2.6 mg/dL LAB CHEMISTRY METHOD 10/30/2024 8:27 PM [facility] Blood Venous blood specimen / Unknown Venipuncture / Unknown 10/30/2024 7:33 PM EDT 10/30/2024 7:49 PM EDT us Joel Woo MD LAB BLOOD ORDERABLES Final Res ult [facility] [address] [place] [address], * (ABNORMAL) Comprehensive metabolic panel (10/30/2024 7:33 PM EDT) Pathologist [facility] Sodium 136 133 - 145 mmol/L LAB CHEMISTRY METHOD 10/30/2024 8:27 PM [facility] Potassium 3.7 3.5 - 5.5 mmol/L LAB CHEMISTRY METHOD 10/30/2024 8:27 PM [facility] Chloride 98 96 - 110 mmol/L LAB CHEMISTRY METHOD 10/30/2024 8:27 PM [facility] CO2 31 21 - 32 mmol/L LAB CHEMISTRY METHOD 10/30/2024 8:27 PM [facility] Anion Gap 7 3 - 11 LAB CHEMISTRY METHOD 10/30/2024 8:27 PM [facility] Glucose 97 70 - 100 mg/dL LAB CHEMISTRY METHOD 10/30/2024 8:27 PM [facility] BUN 9 5 - 25 mg/dL LAB CHEMISTRY METHOD 10/30/2024 8:27 PM [facility] Creatinine 0.61(L) 0.70 - 1.30 mg/dL LAB CHEMISTRY METHOD 10/30/2024 8:27 PM [facility] eGFR 107 >=60 mL/min/1. 73m2 LAB CHEMISTRY METHOD 10/30/2024 8:27 PM EDT [facility] Comment:Calculation based on the Chronic Kidney Disease Epidemiology Collaboration (CKD-EPI) equation refit without adjustment for race. BUN/Creatinine Ratio 14.8 LAB CHEMISTRY METHOD 10/30/2024 8:27 PM EDT [facility] Calcium 8.3(L) 8.5 - 10.5 mg/dL LAB CHEMISTRY METHOD 10/30/2024 8:27 PM [facility] AST (SGOT) 57(H) 10 - 42 unit/L LAB CHEMISTRY METHOD 10/30/2024 8:27 PM [facility] ALT (SGPT) 74(H) 10 - 60 unit/L LAB CHEMISTRY METHOD 10/30/2024 8:27 PM [facility] Alkaline Phosphatase 93 42 - 121 unit/L LAB CHEMISTRY METHOD 10/30/2024 8:27 PM [facility] Total Protein 7.1 6.0 - 8.0 g/dL LAB CHEMISTRY METHOD 10/30/2024 8:27 PM [facility] Albumin 3.8 3.2 - 5.0 g/dL LAB CHEMISTRY METHOD 10/30/2024 8:27 PM [facility] Total Bilirubin 0.4 0.0 - 1.4 mg/dL LAB CHEMISTRY METHOD 10/30/2024 8:27 PM [facility] Blood Venous blood specimen / Unknown Venipuncture / Unknown 10/30/2024 7:33 PM EDT 10/30/2024 7:49 PM EDT us Joel Woo MD LAB BLOOD ORDERABLES Final Res ult [facility] [address] [place] [address], * ECG 12 lead (10/30/2024 7:32 PM EDT) Ventricular Rate ECG 88 BPM GEMUSE Atrial Rate 88 BPM GEMUSE P-R Interval 164 ms GEMUSE QRS Duration 96 ms GEMUSE Q-T Interval 394 ms GEMUSE QTc 476 ms GEMUSE P Wave [place] 77 degrees GEMUSE R [place] 40 degrees GEMUSE T [place] 61 degrees GEMUSE ECG Interpretation Normal sinus rhythm Abnormal ECG When compared with ECG of 10-AUG-2024 02:33, No significant change was found Confirmed by SANTOS MERCADO ([id number]) on 10/31/2024 7:59:02 AM GEMUSE 10/30/2024 7:32 PM EDT 10/31/2024 7:59 AM EDT us Joel Woo MD ECG ORDERABLES Final Result GEMUSE from Last 3 Months Insurance [facility] [employer] [facility] Care Teams Apparel Sales Leader Relationship Specialty Start Date End Date Melissa Lopez NP [address] [place] [address] [phone] PCP - General Internal Medicine 08/11/24
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
[2024-12-07 06:00] VITALS: BP 129/61; PULSE 81; RESP 17; TEMP 36.6; O2SAT 94
[2024-12-07 09:03] VITALS: BP 145/61; PULSE 90; RESP 18; TEMP 36.6; O2SAT 93
--- NOTE | 2024-12-07 10:56 | ECG_ITS ---
Test Reason : CP Blood Pressure : */* mmHG Vent. Rate : 71 BPM Atrial Rate : 71 BPM P-R Int : 158 ms QRS Dur : 92 ms QT Int : 434 ms P-R-T Axes : 84 42 61 degrees QTcB Int : 471 ms Normal sinus rhythm Normal ECG When compared with ECG of 06-Nov-2024 11:19, No significant change was found Referred By: Issa Copeland Electronically Signed By: Kenneth Fang
[2024-12-07 12:00] VITALS: RESP 16
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
[2024-12-07 18:00] VITALS: BP 171/97; PULSE 76; RESP 16; O2SAT 96
--- NOTE | 2024-12-07 20:42 | PC.NURSE ---
EMS at bedside for transport to [place].
[2024-12-07 21:03] VITALS: BP 171/97; PULSE 76; RESP 16; TEMP 36.7; O2SAT 96
== END 2024-12-07 21:04 ==
PROVIDERS: Emergency Medicine; Emergency Provider Emergency Medicine
DX: F10.129 Alcohol abuse with intoxication, unspecified (principal); Y90.8 Blood alcohol level of 240 mg/100 ml or more; F43.10 Post-traumatic stress disorder, unspecified; F33.1 Major depressive disorder, recurrent, moderate; R07.89 Other chest pain; M54.50 Low back pain, unspecified; R51.9 Headache, unspecified; F14.90 Cocaine use, unspecified, uncomplicated; F17.210 Nicotine dependence, cigarettes, uncomplicated; Z79.899 Other long term (current) drug therapy; Z51.81 Encounter for therapeutic drug level monitoring
CPT/HCPCS: 36415; 70450; 72100; 80053; 80307; 81001; 85025; 93005; 99284; 99285; S9485

== ENCOUNTER → 2024-12-07 09:00 | Outpatient (BNV) | payer OTHER, SELFPAY | PROVIDERS: Emergency Provider Emergency Medicine; Visit Provider Radiology Diagnostic Radiology | DX: R41.82 Altered mental status, unspecified (principal); M47.817 Spondylosis without myelopathy or radiculopathy, lumbosacral region | CPT/HCPCS: 70450; 72100 ==

== ENCOUNTER → 2024-12-07 10:56 | Outpatient (BNV) | payer OTHER, SELFPAY | PROVIDERS: Emergency Provider Emergency Medicine; Visit Provider Internal Medicine Cardiovascular Disease | DX: R07.9 Chest pain, unspecified (principal) | CPT/HCPCS: 93010 ==

== ENCOUNTER 2024-12-14 22:39 | Emergency (ER) | payer OTHER, SELFPAY ==
--- NOTE | ~2024-12-14 | XR_ITS ---
CLINICAL HISTORY: cp 1 view chest x-ray Comparison: CR - XR CHEST 1V - 06/20/24 20:19 EST Findings: No consolidation or effusion. Normal size heart. No acute fracture. IMPRESSION: 1. No acute findings. This document has been electronically signed by: Kade Charles MD on 12/15/2024 18:53:53
[2024-12-14 22:49] VITALS: BP 124/63; PULSE 89; RESP 18; TEMP 36.6; O2SAT 95
[2024-12-14 22:52] VITALS: BP 124/68; PULSE 88; O2SAT 96; BMI 33.7
--- NOTE | 2024-12-14 23:01 | ECG_ITS ---
Test Reason : etoh Blood Pressure : */* mmHG Vent. Rate : 87 BPM Atrial Rate : 87 BPM P-R Int : 148 ms QRS Dur : 92 ms QT Int : 382 ms P-R-T Axes : 34 37 49 degrees QTcB Int : 459 ms Normal sinus rhythm Cannot rule out Anterior infarct , age undetermined Abnormal ECG When compared with ECG of 07-Dec-2024 11:25, No significant change was found Referred By: Generic ED Physician Electronically Signed By: JOSSIE THURMAN MD
--- NOTE | 2024-12-14 23:21 | PC.NURSE ---
denies SI. states he does not want to kill himself or other people. then proceeds to state I'm afraid that I am going to hurt somebody. refuses to elaborate. changed over. glasses on stating they are prescription, ring left on finger stating it is his orthodoxy symbol. appears stuck on finger and will not come off easily, no redness or swelling or pain. hair ties in hair stating it is also his orthodoxy symbol. cooperative but rambling, repeating himself numerously.
[2024-12-14 23:50] LABS: Hemoglobin 12.1 g/dl (14.0-18.0); NRBC Abs Auto 0.000 X10*3/uL (0.0-0.012); NRBC Pct Auto 0.0 /100WBC (0.0-0.2); PLT CLUMP 1; SCAN SMEAR FLAG 1
[2024-12-14 23:52] LABS: Appearance Urine Clear; Glucose Urine UA Negative (Negative); Hematocrit 33.9 % (42.0-52.0); Imm Gran Abs Auto 0.05 X10*3/uL (0.00-0.03); Imm Gran Pct Auto 0.7 % (0.0-0.4); Lymphocytes Absolute Auto 2.4 X10*3/uL (1.2-4.9); Mean Corpuscular HGB Conc 35.7 g/dl (31.0-36.0); Mean Corpuscular Hemoglobin 28.7 pg (27.0-33.0); Mean Corpuscular Volume 80.3 fL (80.0-98.0); PH 5.0 (5.0-9.0); Red Blood Count 4.22 X10*6/uL (4.60-5.80); Specific Gravity - Urine 1.010 (1.005-1.025); White Blood Count 6.9 X10*3/uL (4.8-10.8)
[2024-12-14 23:53] LABS: MANUAL DIFF FLAG NO; Platelet Count 131 X10*3/uL (160-400)
[2024-12-15 00:01] LABS: Cannabinoid Screen Urine Not Detected (Not Detect)
--- NOTE | 2024-12-15 00:01 | ED.ALCOHOL ---
HPI - Alcohol General Chief Complaint: ETOH/Substance Use Stated Complaint: HTN, FOUND OUTSIDE, ETOH Time Seen by Provider: 12/14/24 23:59 Source: patient and EMS Mode of arrival: EMS Limitations: other (Intoxicated) History of Present Illness ED Provider: Dr. Rachael [place] HPI narrative: Patient comes to the emergency room via ambulance. Patient called for shortness of breath initially. Patient was found smoking 2 cigarettes at once. When patient arrived, patient admits that he has been drinking alcohol, patient is slurring his words, under the influence of drugs, stating that he is homeless. Denies any falls, denies SI or HI Related Data Home Medications ?Medication ?Instructions ?Recorded ?Confirmed ascorbic acid (vitamin C) 250 mg 500 mg PO DAILY 12/15/24 12/15/24 tablet (Vitamin C) Previous Rx's ?Medication ?Instructions ?Recorded acetaminophen 325 mg tablet 650 mg (2 x 325 mg) PO Q6H PRN 11/16/24 Headache/Pain, Scale 1-10 #0 tabs albuterol sulfate 90 mcg/actuation 2 puff inhalation Q4H PRN 11/16/24 aerosol inhaler (Ventolin HFA) Shortness Of Breath Or Wheezing #1 inhaler amlodipine 5 mg tablet 5 mg PO BID #60 tabs 11/16/24 carvedilol 6.25 mg tablet 6.25 mg PO BID #60 tabs 11/16/24 ferrous sulfate 325 mg (65 mg 325 mg PO Q48H #30 tabs 11/16/24 iron) tablet fexofenadine 180 mg tablet 180 mg PO DAILY #30 tabs 11/16/24 folic acid 1 mg tablet 1 mg PO DAILY #30 tabs 11/16/24 gabapentin 300 mg capsule 300 mg PO BID #90 caps 11/16/24 ibuprofen 600 mg tablet 600 mg PO Q6H PRN severe pain #60 11/16/24 tabs multivitamin (Daily-Rian tablet) 1 tab PO DAILY #30 tabs 11/16/24 nicotine 21 mg/24 hr daily 1 patch transdermal DAILY #30 ea 11/16/24 transdermal patch omeprazole 20 mg capsule,delayed 20 mg PO DAILY@0630 #30 caps 11/16/24 release spironolactone 25 mg tablet 25 mg PO DAILY #30 tabs 11/16/24 (Aldactone) Allergies Allergy/AdvReac Type Severity Reaction Status Date / Time latex Allergy Unknown Verified 12/14/24 22:59 lisinopril Allergy Unknown Verified 12/14/24 22:59 Review of Systems Review of Systems: Constitutional : No Weight loss, No Fever, No Chills, No Night Sweats, No Fatigue, No Malaise ENT/Mouth : No Hearing loss, No Ear Pain, No Nasal Congestion, No Sinus Pain, No Hoarseness, No sore throat, No Rhinorrhea, No Swallowing Difficulty Eyes: No Eye Pain, No Swelling, No Redness, No Foreign Body, No Discharge, No Vision Changes Cardiovascular : No Chest Pain, No SOB, No Dyspnea on Exertion, No Orthopnea, No Edema, No Palpitations Respiratory : No Cough, No Sputum, No Wheezing, No Smoke Exposure, No Dyspnea Gastrointestinal : No Nausea, No Vomiting, No Diarrhea, No Constipation, No abdominal Pain, No Hematochezia, No Melena Genitourinary : no irregular bleeding, No Dysuria, No Urinary Frequency, No Hematuria, No Urinary Incontinence, No Urgency, No Flank Pain, No Urinary Flow Changes, No Hesitancy Musculoskeletal : No joint pain, No Myalgias, No Joint Swelling Skin : No Skin Lesions, No rash Neuro : No Weakness, No Numbness, No Paresthesias, No Loss of Consciousness, No Dizziness, No Headache Psych : Admits to alcohol abuse Heme/Lymph: No Bruising, No Bleeding,No Lymphadenopathy Endocrine : No Polyuria, No Polydipsia, No Temperature Intolerance PMF Past Medical History Medical History Major depressive disorder, recurrent, moderate Alcohol abuse Social History Social History Household Members: Other Housing: Other Housing Other:: friends/motel Do you presently have visiting nurse or other home services: No Alcohol intake: current Alcohol intake frequency: 3 or more drinks per day Alcohol type: beer Comment: Pt. refused offer for an opportunity to use a walker. Patient Tobacco Use Status: Current everyday Tobacco user Tobacco use type: Cigarette Years Smoked: 40+ Substance Use Type: Crack/Cocaine service: Yes Sexual orientation: Straight/Heterosexual Physical Exam ED Exam Exam: Appearance: Alert. Intoxicated Eyes: Pupils equal, round and reactive to light. ENT: Pharynx normal. Neck: Normal inspection. Neck supple. No lymph nodes noted. No crepitus CVS: Normal heart rate and rhythm. Pulses normal. Normal S1 and S2 Respiratory: No respiratory distress. Breath sounds normal. No Wheezing. No rales Abdomen: Soft and nontender. No rigidity. No distention. Skin: Skin warm and dry. Normal skin color. Normal skin turgor. Extremities: No lower extremity edema. No Lacerations. No Rash Neuro: During his worse, under the influence of alcohol, belligerent Psych: Agitated and belligerent Vital Signs: Vital Signs - 24 hr 12/15/24 05:46 12/15/24 07:20 12/15/24 08:29 Temperature 97.7 F Pulse Rate 80 79 79 Respiratory Rate 16 17 17 Blood Pressure 117/61 135/56 L 135/56 L Pulse Oximetry 92 93 93 Oxygen Delivery Method Room Air Room Air Room Air 12/15/24 13:02 12/15/24 20:18 12/15/24 20:39 Temperature 98.5 F 98.1 F 98.1 F Pulse Rate 77 75 75 Respiratory Rate 18 18 18 Blood Pressure 160/76 H 168/80 H 168/80 H Pulse Oximetry 95 98 98 Oxygen Delivery Method Room Air Room Air Room Air BMI result Body Mass Index 33.7 Course Course Course Narrative: Patient is under the influence of alcohol. He is close smell of EtOH, admits that he has been drinking alcohol. Patient very loud and belligerent. Initially, IM medications were ordered. However, patient's nurse was able to redirect him. Patient agreeable to take p.o.. If patient becomes aggressive, we will medically and physically restrain him for the staffs and the patient's safety Reevaluation(s) Reevaluation #1: DR. Garcia's progress note; 12/15/2024. 10;00. VSS, no events overnight reported by by the nurse, start on physician observation. Dual diagnosis bed search is underway. Time: 10:00 Reevaluation #2: DR. Garcia's progress note; 12/15/2024 16;39 Was asked to come and evaluate the patient for chest pain and shortness of breath, patient is complaining of left-sided chest pain started 10 minutes ago thinks that because he did not take his heart medications, still await for pharmacy to verify his medication, chest x-ray, EKG, labs were ordered. Case signed out to Dr. Grant. Time: 16:39 Reevaluation #3: repeat trop flat, EKG negative, has had two neg EKGs and neg trop Jane Guillen, DO 12/15/24 0716 Additional Reevaluation(s): Time: 20:14 Date: 12/15/24 Provider: Vladimir Nelson MD Physician observation ended at 20:00. Patient was been medically cleared and evaluated by the CARE team. Recommendation was for a dual diagnosis inpatient admission. The patient is connected to the [facility] and the patient has been accepted in transfer at the [facility] in [place]. The patient will be transferred there by ambulance. Medical Decision Making Differential Diagnosis Differential Diagnoses: The differential diagnosis associated with the presentation includes (Alcohol abuse, polysubstance abuse) Admission/Observation Consideration of admission/observation: Escalation of care including admission/observation considered Lab Data MDM Lab Attestation statement: I reviewed the patient's lab results. 12/15/24 17:16 12/15/24 17:16 Labs: Lab Results 12/14/24 12/15/24 12/15/24 Range/Units 23:44 12:51 17:16 WBC 6.9 4.4 L (4.8-10.8) X10*3/uL RBC 4.22 L 4.52 L (4.60-5.80) X10*6/uL Hgb 12.1 L 12.9 L (14.0-18.0) g/dl Hct 33.9 L 37.3 L (42.0-52.0) % MCV 80.3 82.5 (80.0-98.0) fL MCH 28.7 28.5 (27.0-33.0) pg MCHC 35.7 34.6 (31.0-36.0) g/dl RDW 15.9 15.8 (11.0-16.0) % Plt Count 131 L 105 L (160-400) X10*3/uL MPV 8.3 L 9.0 L (9.4-12.4) fL Immature Gran % (Auto) 0.7 H 0.5 H (0.0-0.4) % Neut % (Auto) 49.1 48.3 (45-73) % Lymph % (Auto) 35.4 31.7 (20-40) % [place] % (Auto) 10.3 15.8 H (2-11) % Eos % (Auto) 4.1 H 3.2 (0-4) % Baso % (Auto) 0.4 0.5 (0-2) % Lymph # (Auto) 2.4 1.4 (1.2-4.9) X10*3/uL [place] # (Auto) 0.7 0.7 (0.1-1.2) X10*3/uL Eos # (Auto) 0.3 0.1 (0.0-0.4) X10*3/uL Baso # (Auto) 0.0 0.0 (0.0-0.2) X10*3/uL Abs Immat Gran (auto) 0.05 H 0.02 (0.00-0.03) X10*3/uL Absolute Neuts (auto) 3.3 2.1 (2.0-8.3) x10*3/uL Absolute Nucleated RBC 0.000 0.000 (0.0-0.012) X10*3/uL Nucleated RBC % (auto) 0.0 0.0 (0.0-0.2) /100WBC Sodium 135 138 (135-145) mmol/L Potassium 4.1 4.1 (3.3-5.1) mmol/L Chloride 101 102 (96-108) mmol/L Carbon Dioxide 22 26 (22-29) mmol/L Anion Gap 16 14 (12-20) BUN 13 17 H (9-16) mg/dL Creatinine 0.70 0.70 (0.5-1.4) mg/dL Estim Creat Clear Calc 118.7 118.7 Estimated GFR > 60 > 60 Random Glucose 99 106 (60-115) mg/dL Calcium 8.4 D 9.2 D (8.4-10.2) mg/dL Total Bilirubin 0.4 (0.0-1.0) mg/dL AST 86 H (5-37) U/L ALT 102 H (0-40) U/L Alkaline Phosphatase 85 (39-117) U/L Troponin I High Sens < 2.7 < 2.7 (<3.5-35.0) ng/L Total Protein 7.4 (6.5-8.0) g/dL Albumin 4.4 (3.5-5.0) g/dL TSH 0.69 (0.32-4.0) uIU/mL Urine Color Yellow Urine Appearance Clear Urine pH 5.0 (5.0-9.0) Ur Specific [place] 1.010 (1.005-1.025) Urine Protein Negative (Neg-Trace) mg/dL Urine Glucose (UA) Negative (Negative) mg/dL Urine Ketones Negative (Negative) mg/dL Urine Blood Negative (Negative) Urine Nitrite Negative (Negative) Ur Leukocyte Esterase Negative (Negative) Urine RBC 0-2 (0-2) /HPF Urine WBC 0-5 (0-5) /HPF Ur Squamous Epith Cells 0-2 (0-2) /HPF Urine Bacteria None Seen (None Seen) Hyaline Casts 0-2 (0-2) /LPF Salicylates < 5.0 L (15-30) mg/dL Urine Opiates Screen Not Detected (Not Detect) Ur Buprenorphine Scrn Not Detected (Not Detect) ng/mL Ur Oxycodone Screen Not Detected (Not Detect) ng/mL Urine Methadone Screen Not Detected (Not Detect) ng/mL Urine Fentanyl Screen Not Detected (Not Detect) Acetaminophen < 3 (<30) mcg/mL Ur Barbiturates Screen Not Detected (Not Detect) Ur Phencyclidine Scrn Not Detected (Not Detect) Ur Amphetamines Screen Not Detected (Not Detect) U Benzodiazepines Scrn Not Detected (Not Detect) Urine Cocaine Screen POSITIVE H (Not Detect) U Marijuana (THC) Screen Not Detected (Not Detect) Ethyl Alcohol 248 mg/dL Medications Administered Discontinued Medications Generic Name Dose Route Start Last Admin Trade Name Zohaib PRN Reason Stop Dose Admin Amlodipine Besylate 5 mg 12/15/24 14:30 12/15/24 20:26 Amlodipine Besylate 5 Mg Tablet PO 5 mg BID MORIS Administration Protocol Ascorbic Acid 500 mg 12/15/24 14:30 12/15/24 17:57 Ascorbic Acid 500 Mg Tablet PO Not Given DAILY MORIS Ascorbic Acid 500 mg 12/15/24 16:45 12/15/24 17:45 Ascorbic Acid 500 Mg Tablet PO 500 mg DAILY MORIS Administration Carvedilol 6.25 mg 12/15/24 14:30 12/15/24 20:26 Carvedilol 6.25 Mg Tablet PO 6.25 mg BID MORIS Administration Protocol Diazepam 10 mg 12/14/24 23:56 12/14/24 23:56 Diazepam 10 Mg/2 Ml Cartridge IM 12/14/24 23:57 Not Given STAT STA Diphenhydramine HCl 50 mg 12/14/24 23:56 12/14/24 23:56 Diphenhydramine Hcl 50 Mg/Ml Vial IM 12/14/24 23:57 Not Given ONCE ONE Diphenhydramine HCl 50 mg 12/14/24 23:59 12/15/24 00:05 Diphenhydramine Hcl 25 Mg Capsule PO 12/15/24 00:00 50 mg ONCE ONE Administration Folic Acid 1 mg 12/15/24 14:30 12/15/24 17:56 Folic Acid 1 Mg Tablet PO Not Given DAILY MORIS Gabapentin 300 mg 12/15/24 14:30 12/15/24 20:27 Gabapentin 300 Mg Capsule PO 300 mg BID MORIS Administration Haloperidol Lactate 5 mg 12/14/24 23:56 12/14/24 23:56 Haloperidol Lactate 5 Mg/Ml Vial IM 12/14/24 23:57 Not Given STAT STA Ibuprofen 600 mg 12/15/24 11:28 12/15/24 11:33 Ibuprofen 600 Mg Tablet PO 12/15/24 11:29 600 mg ONCE ONE Administration Lorazepam 2 mg 12/14/24 23:59 12/15/24 00:05 Lorazepam 1 Mg Tablet PO 12/15/24 00:00 2 mg ONCE ONE Administration Multivitamins/Vitamin C 1 tab 12/15/24 14:30 12/15/24 17:57 Multivitamin Tablet PO Not Given DAILY MORIS Multivitamins/Vitamin C 1 tab 12/15/24 16:45 12/15/24 17:45 Multivitamin Tablet PO 1 tab DAILY MORIS Administration Non-Formulary Medication 325 mg 12/15/24 14:30 12/15/24 17:56 Ferrous Sulfate PO Not Given Q48H MORIS Non-Formulary Medication 180 mg 12/15/24 14:30 12/15/24 17:56 Fexofenadine PO Not Given DAILY MORIS Omeprazole 20 mg 12/15/24 14:30 12/15/24 17:56 Omeprazole 20 Mg Capsule.Dr PO Not Given DAILY@0630 MORIS Spironolactone 25 mg 12/15/24 14:30 12/15/24 17:56 Spironolactone 25 Mg Tablet PO Not Given DAILY MORIS Protocol Critical Care Time Critical Care Time Critical Care Time: Yes Total Critical Care Time: 50 Attestation: I have personally provided critical care time. Time includes review of lab data, radiology results, discussion with consultants, and monitoring for potential decompensation. Intervention performed as documented. Discharge Plan Discharge Clinical Impression: Alcoholic intoxication Patient Disposition: Xfer Inpatient Rehab Fac Transfer Details: [facility], [facility] Instructions: Alcohol Intoxication (ED) Additional Instructions: You are going to the [facility] for further care. Please follow up with your regular doctor as well. Prescriptions: No Action acetaminophen 325 mg Tablet 650 mg PO Q6H PRN (Reason: Headache/Pain, Scale 1-10) Qty: 0 0RF gabapentin 300 mg Capsule 300 mg PO BID Qty: 90 0RF ibuprofen 600 mg Tablet 600 mg PO Q6H PRN (Reason: severe pain) Qty: 60 0RF multivitamin [Daily-Rian] Tablet 1 tab PO DAILY Qty: 30 0RF omeprazole 20 mg Capsule,Delayed Release(Dr/Ec) 20 mg PO DAILY@0630 Qty: 30 0RF folic acid 1 mg Tablet 1 mg PO DAILY Qty: 30 0RF carvedilol 6.25 mg Tablet 6.25 mg PO BID Qty: 60 0RF Rx Instructions: must administer with a meal/food HOLD IF SBP<115 or HR<56 fexofenadine 180 mg Tablet 180 mg PO DAILY Qty: 30 0RF amlodipine 5 mg Tablet 5 mg PO BID Qty: 60 0RF spironolactone [Aldactone] 25 mg Tablet 25 mg PO DAILY Qty: 30 0RF ferrous sulfate 325 mg (65 mg iron) Tablet 325 mg PO Q48H Qty: 30 0RF nicotine 21 mg/24 hr Patch 24 Hour 1 patch TRANSDERMAL DAILY Qty: 30 0RF albuterol sulfate [Ventolin HFA] 90 mcg/actuation Hfa Aerosol Inhaler 2 puff INHALATION Q4H PRN (Reason: Shortness Of Breath Or Wheezing) Qty: 1 0RF ascorbic acid (vitamin C) [Vitamin C] 250 mg tablet 500 mg PO DAILY Referrals: [facility] [Provider Group] Interventions: ED Discharge Assessment Last Done: 12/15/24 20:39 Discharge Date/Time: 12/15/24 20:42 Print Language: Mauritanian
[2024-12-15 00:05] LABS: Alanine Aminotransferase 102 U/L (0-40); Albumin Level 4.4 g/dL (3.5-5.0); Alkaline Phosphatase 85 U/L (39-117); Anion Gap 16 (12-20); Aspartate Amino Transferase 86 U/L (5-37); Blood Urea Nitrogen 13 mg/dL (9-16); Calcium 8.4 mg/dL (8.4-10.2); Carbon Dioxide 22 mmol/L (22-29); Chloride 101 mmol/L (96-108); Creatinine Clr Calc Pharmacy 118.7; Estimated Glomerular Filt Rate > 60; Potassium 4.1 mmol/L (3.3-5.1); Sodium 135 mmol/L (135-145); Total Protein 7.4 g/dL (6.5-8.0)
[2024-12-15 00:15] LABS: Acetaminophen LAB < 3 mcg/mL (<30); Salicylate < 5.0 mg/dL (15-30); Troponin-I High Sensitivity < 2.7 ng/L (<3.5-35.0)
--- NOTE | 2024-12-15 00:39 | PC.NURSE ---
pt awoke from sleep at 2355 severely agitated and combative, yelling. this nurse deescalated pt. at this time pt is in bed, calm, after listening to music and therapeutic communication. ambulated steadily to bathroom.
--- OUTSIDE RECORDS SUMMARY | 2024-12-15 00:40 | XMS_ITS | Clinical Summary ---
Author Organization [facility] Address [address] [place] [address] Phone Care Team Providers Care Fuel Cell Repairer Name Role Phone Melissa Lopez NP Primary Care Provider [phone] Allergies Active Allergy Reactions Criticality Noted Date Comments Lisinopril Angioedema High 07/28/2024 Fluoxetine Hives 08/11/2024 Encounters Date Type Department Care Team Description 10/30/2024 5:48 PM EDT - 10/31/2024 12:09 AM EDT Emergency [facility] Emergency [address] [place] [id number] Joel Woo MD Discharge Disposition: Left Against [...] with reflex microscopic (10/30/2024 8:16 PM EDT) [facility] [place] Urine 1.006 1.003 - 1.030 LAB URINALYSIS - AUTOMATED METHOD 10/30/2024 8:36 PM EDT [facility] pH, Urine 6.0 5.0 - 8.0 pH LAB URINALYSIS - AUTOMATED METHOD 10/30/2024 8:36 PM EDT [facility] Leukocytes, Urine Negative Negative LAB URINALYSIS - AUTOMATED METHOD 10/30/2024 8:36 PM EDT [facility] Nitrite, Urine Negative Negative LAB URINALYSIS - AUTOMATED METHOD 10/30/2024 8:36 PM EDT [facility] Protein, Urine Negative <=Trace mg/dL LAB URINALYSIS - AUTOMATED METHOD 10/30/2024 8:36 PM EDT [facility] Glucose, Urine Negative Negative mg/dL LAB URINALYSIS - AUTOMATED METHOD 10/30/2024 8:36 PM EDT [facility] Ketones, Urine Negative Negative mg/dL LAB URINALYSIS - AUTOMATED METHOD 10/30/2024 8:36 PM EDT [facility] Urobilinogen, Urine 1.0 0.2 - 1.0 mg/dL LAB URINALYSIS - AUTOMATED METHOD 10/30/2024 8:36 PM EDT [facility] Bilirubin, Urine Negative Negative LAB URINALYSIS - AUTOMATED METHOD 10/30/2024 8:36 PM EDT [facility] Blood, Urine Negative Negative LAB URINALYSIS - AUTOMATED METHOD 10/30/2024 8:36 PM T [facility] Urine Urine specimen obtained by clean catch procedure / Unknown Non-blood Collection / Unknown 10/30/2024 8:16 PM EDT 10/30/2024 8:30 PM EDT us Joel Woo MD LAB URINE ORDERABLES Final Res ult [facility] [address] [place] [address], * Drug abuse screen expanded with reflex confirmation, urine (10/30/2024 8:16 PM EDT) Amphetamine Screen, Ur Negative Negative LAB CHEMISTRY METHOD 10/30/2024 9:02 PM EDT [facility] Comment:Certain OTC medicati ons containing ephedrine, phenylephrine, pseudoephedrine and phenylpropanolamine can cause false positive results. Barbiturate Screen, Ur Negative Negative LAB CHEMISTRY METHOD 10/30/2024 9:02 PM EDT [facility] Benzodiazepine Screen, Ur Negative Negative LAB CHEMISTRY METHOD 10/30/2024 9:02 PM EDT [facility] Cocaine Screen, Ur Negative Negative LAB CHEMISTRY METHOD 10/30/2024 9:02 PM EDT [facility] Opiate Screen, Ur Negative Negative LAB CHEMISTRY METHOD 10/[facility]24 [facility] Cannabinoid (THC) Screen, Ur Negative Negative LAB CHEMISTRY METHOD 10/30/2024 9:02 PM EDT [facility] Comment:Specimens from patie nts taking pantoprazole sodium (Protonix) have been shown to produce false positive results. Fentanyl, Ur Negative Negative LAB CHEMISTRY METHOD 10/30/2024 9:02 PM EDT [facility] Oxycodone Screen, Ur Negative Negative LAB CHEMISTRY METHOD 10/30/2024 9:02 PM [facility] Urine Urine specimen obtained by clean catch procedure / Unknown Non-blood Collection / Unknown 10/30/2024 8:16 PM EDT 10/30/2024 8:30 PM EDT Narrative [facility] - 10/30/2024 9:02 PM EDT [...] MD LAB URINE ORDERABLES Final Res ult [facility] [address] [place] [address], [place] [phone] * CT Head wo Contrast (10/30/2024 7:37 [...] PM EDT) WBC 4.0(L) 4.8 - 10.8 K/[facility] LAB HEMETOLOGY METHOD 10/30/2024 8:05 PM EDT [facility] RBC 4.10(L) 4.50 - 5.50 M/mcL LAB HEMETOLOGY METHOD 10/30/2024 8:05 PM EDT [facility] Hemoglobin 10.9(L) 13.5 - 17.5 g/dL LAB HEMETOLOGY METHOD 10/30/2024 8:05 PM [facility] Hematocrit 32.7(L) 42.0 - 54.0 % LAB HEMETOLOGY METHOD 10/30/2024 8:05 PM [facility] MCV 79.2 79.0 - 98.0 FL LAB HEMETOLOGY METHOD 10/30/2024 8:05 PM [facility] MCH 26.4(L) 27.0 - 32.0 pcg LAB HEMETOLOGY METHOD 10/30/2024 8:05 PM [facility] MCHC 33.3 32.0 - 37.0 g/dL LAB HEMETOLOGY METHOD 10/30/2024 8:05 PM [facility] RDW 16.3(H) 11.0 - 15.0 % LAB HEMETOLOGY METHOD 10/30/2024 8:05 PM [facility] Platelets 131 130 - 400 K/mcL LAB HEMETOLOGY METHOD 10/30/2024 8:05 PM [facility] MPV 8.7 7.0 - 11.0 FL LAB HEMETOLOGY METHOD 10/30/2024 8:05 PM [facility] NRBC 0.0 <1.0 % LAB HEMETOLOGY METHOD 10/30/2024 8:05 PM [facility] NRBC Absolute 0.00 <0.10 K/mcL LAB HEMETOLOGY METHOD 10/30/2024 8:05 PM [facility] Neutrophils Relative 40.4 % LAB HEMETOLOGY METHOD 10/30/2024 8:05 PM [facility] Lymphocytes Relative 43.4 % LAB HEMETOLOGY METHOD 10/30/2024 8:05 PM [facility] Monocytes Relative 11.6 % LAB HEMETOLOGY METHOD 10/30/2024 8:05 PM [facility] Eosinophils Relative 3.3 % LAB HEMETOLOGY METHOD 10/30/2024 8:05 PM EDT [facility] Basophils Relative 1.0 % LAB HEMETOLOGY METHOD 10/30/2024 8:05 PM EDT [facility] Immature Granulocytes Relative 0.3 % LAB HEMETOLOGY METHOD 10/30/2024 8:05 PM EDT [facility] Neutrophils Absolute 1.60 1.50 - 7.00 K/mcL LAB HEMETOLOGY METHOD 10/30/2024 8:05 PM EDT [facility] Lymphocytes Absolute 1.72 1.00 - 5.00 K/mcL LAB HEMETOLOGY METHOD 10/30/2024 8:05 PM [facility] Monocytes Absolute 0.46 0.20 - 1.00 K/mcL LAB HEMETOLOGY METHOD 10/30/2024 8:05 PM EDT [facility] Eosinophils Absolute 0.13 0.00 - 0.50 K/mcL LAB HEMETOLOGY METHOD 10/30/2024 8:05 PM EDT [facility] Basophils Absolute 0.04 0.00 - 0.20 K/mcL LAB HEMETOLOGY METHOD 10/30/2024 8:05 PM EDT [facility] Immature Granulocytes Absolute 0.01 0.00 - 0.03 K/mcL LAB HEMETOLOGY METHOD 10/30/2024 8:05 PM EDT [facility] Blood Venous blood specimen / Unknown Venipuncture / Unknown 10/30/2024 7:33 PM EDT 10/30/2024 7:49 PM EDT us Joel Woo MD LAB BLOOD ORDERABLES Final Res ult [facility] [address] [place] [address], * Magnesium (10/30/2024 7:33 PM EDT) Pathologist [facility] Magnesium 1.9 1.9 - 2.6 mg/dL LAB CHEMISTRY METHOD 10/30/2024 8:27 PM [facility] Blood Venous blood specimen / Unknown Venipuncture / Unknown 10/30/2024 7:33 PM EDT 10/30/2024 7:49 PM EDT us Joel Woo MD LAB BLOOD ORDERABLES Final Res ult [facility] [address] [place] [address], * (ABNORMAL) Comprehensive metabolic panel (10/30/2024 7:33 PM EDT) Pathologist [facility] Sodium 136 133 - 145 mmol/L LAB CHEMISTRY METHOD 10/30/2024 8:27 PM [facility] Potassium 3.7 3.5 - 5.5 mmol/L LAB CHEMISTRY METHOD 10/30/2024 8:27 PM [facility] Chloride 98 96 - 110 mmol/L LAB CHEMISTRY METHOD 10/30/2024 8:27 PM [facility] CO2 31 21 - 32 mmol/L LAB CHEMISTRY METHOD 10/30/2024 8:27 PM [facility] Anion Gap 7 3 - 11 LAB CHEMISTRY METHOD 10/30/2024 8:27 PM [facility] Glucose 97 70 - 100 mg/dL LAB CHEMISTRY METHOD 10/30/2024 8:27 PM [facility] BUN 9 5 - 25 mg/dL LAB CHEMISTRY METHOD 10/30/2024 8:27 PM [facility] Creatinine 0.61(L) 0.70 - 1.30 mg/dL LAB CHEMISTRY METHOD 10/30/2024 8:27 PM [facility] eGFR 107 >=60 mL/min/1. 73m2 LAB CHEMISTRY METHOD 10/30/2024 8:27 PM EDT [facility] Comment:Calculation based on the Chronic Kidney Disease Epidemiology Collaboration (CKD-EPI) equation refit without adjustment for race. BUN/Creatinine Ratio 14.8 LAB CHEMISTRY METHOD 10/30/2024 8:27 PM EDT [facility] Calcium 8.3(L) 8.5 - 10.5 mg/dL LAB CHEMISTRY METHOD 10/30/2024 8:27 PM [facility] AST (SGOT) 57(H) 10 - 42 unit/L LAB CHEMISTRY METHOD 10/30/2024 8:27 PM [facility] ALT (SGPT) 74(H) 10 - 60 unit/L LAB CHEMISTRY METHOD 10/30/2024 8:27 PM [facility] Alkaline Phosphatase 93 42 - 121 unit/L LAB CHEMISTRY METHOD 10/30/2024 8:27 PM [facility] Total Protein 7.1 6.0 - 8.0 g/dL LAB CHEMISTRY METHOD 10/30/2024 8:27 PM [facility] Albumin 3.8 3.2 - 5.0 g/dL LAB CHEMISTRY METHOD 10/30/2024 8:27 PM [facility] Total Bilirubin 0.4 0.0 - 1.4 mg/dL LAB CHEMISTRY METHOD 10/30/2024 8:27 PM [facility] Blood Venous blood specimen / Unknown Venipuncture / Unknown 10/30/2024 7:33 PM EDT 10/30/2024 7:49 PM EDT us Joel Woo MD LAB BLOOD ORDERABLES Final Res ult [facility] [address] [place] [address], * ECG 12 lead (10/30/2024 7:32 PM EDT) Ventricular Rate ECG 88 BPM GEMUSE Atrial Rate 88 BPM GEMUSE P-R Interval 164 ms GEMUSE QRS Duration 96 ms GEMUSE Q-T Interval 394 ms GEMUSE QTc 476 ms GEMUSE P Wave [place] 77 degrees GEMUSE R [place] 40 degrees GEMUSE T [place] 61 degrees GEMUSE ECG Interpretation Normal sinus rhythm Abnormal ECG When compared with ECG of 10-AUG-2024 02:33, No significant change was found Confirmed by SANTOS MERCADO ([id number]) on 10/31/2024 7:59:02 AM GEMUSE 10/30/2024 7:32 PM EDT 10/31/2024 7:59 AM EDT us Joel Woo MD ECG ORDERABLES Final Result GEMUSE from Last 3 Months Insurance [facility] [employer] PL[employer] [facility] Care Teams Fuel Cell Repairer Relationship Specialty Start Date End Date Melissa Lopez NP [address] [place] [address] [phone] PCP - General Internal Medicine 08/11/24
--- OUTSIDE RECORDS SUMMARY | 2024-12-15 00:40 | XMS_ITS | Encounter Summary ---
Author Organization [facility] Address [address] [place] [address] Phone Care Team Providers Care Metal Hanger Name Role Phone Pelon Schneider MD Primary Care Provider [phone] Amol Anderson Primary Care Provider [phone] Pcp, Unknown Primary Care Provider Nargis Lewis DO Primary Care Provider [phone] Encounter Details Date Type Department Care Team (Late st Contact Info) Description 08/07/2022 Procedure Pass [facility] [address] [place] [address] Social History Tobacco Use Types Packs/Day Years Used Date Smoking Tobacco: Every Day Cigarettes Smokeless Tobacco: Never Alcohol Use Standard Drinks/Week Comments Yes 6 (1 standard drink = 0.6 oz pur e alcohol) daily Sex and Gender Information Value Date Recorded Sex Assigned at Male 11/11/2022 10:36 AM EDT Legal Sex Male 9:48 PM EDT Gender Identity Male 11/11/2022 10:36 AM EDT Sexual Orientation Straight 11/11/2022 10 :36 AM EDT documented as of this encounter Functional Status * Calculated C-SSRS Risk Score (Lifetime/Recent) Answer Date of Assessment Author No Risk Indicated 08/07/2022 4:45 AM EDT Harjit Nguyen, SAIM * [place] Suicide Severity Rating Scale (Screener/Recent Self-Report) Question Answer Date of Assessment Author 1. Wish to be (Past 1 Month) No 08/07/2022 4:45 AM EDT Florentino Short, RN 2. Non-Specific Active Suicidal Thoughts (Past 1 Month) No 08/07/2022 4:45 AM EDT Florentino Short RN 6. Suicidal Behavior (Lifetime) No 08/07/2022 4:45 AM EDT Florentino Short RN documented as of this encounter Plan of Treatment Upcoming Encounters Date Type Department Care Team (Late st Contact Info) Description 12/17/2024 9:30 AM EDT Office Visit [facility] General Surgical Care [address] [place] [address] Amanda Sanchez MD [address] [facility], [address]nd [place] [address] [email or web address] documented as of this encounter Visit Diagnoses Not on filedocumented in this encounter Additional Health Concerns Infection Onset Date Last Indicated Resolved Time Other (Comment) Comment:Please order CRE screening (Carbapenem Resistant Enterobacteriaceae) if this patient is readmitted, at the request of THUY CURTIS, due to prior potential exposure. Patient does not require additional precautions because of the screening. Contact Infection Control with questions. 08/23/2022 08/23/2022 CoV-Risk 08/14/2023 08/14/2023 08/25/2023 1:23 AM EDT documented as of this encounter Care Teams Metal Hanger Relationship Specialty Start Date End Date Pelon Schneider MD [address] [place] [id number] PCP - General Internal Medicine 02/05/18 12/01/23 Amol Anderson [address] [place] [id number] PCP - General 12/02/23 01/23/24 Pcp, Unknown PCP - General 01/24/24 01/24/24 Nargis Torre DO [address] [place] [id number] PCP - General Internal Medicine 01/25/24 documented as of this encounter Additional Source Comments The information contained in this document represents components of the legal health record. It is not the complete legal health record.[facility]
--- NOTE | 2024-12-15 02:32 | PC.NURSE ---
patient appears to be sleeping, currently supine/on right side with even nonlabored respirations. repositions self in sleep. report to Anna now.
[2024-12-15 05:46] VITALS: BP 117/61; PULSE 80; RESP 16; TEMP 36.5; O2SAT 92
--- NOTE | 2024-12-15 07:15 | PC.NURSE ---
Assumed care of pt at 0645. VSS and up to date. Pt resting quietly in room. When questioning patient about SI/HI, pt became agitated and last night was a bad night . Refused to give a clear answer. States he wants to see Care Team. Has some of his belongings with him. At this time pt seems to be high risk and belongings placed with security. ready to wear department manager notified.
[2024-12-15 07:20] VITALS: BP 135/56; PULSE 79; RESP 17; O2SAT 93
[2024-12-15 08:29] VITALS: BP 135/56; PULSE 79; RESP 17; O2SAT 93
--- NOTE | 2024-12-15 08:40 | PC.NURSE ---
Pt notified that Care Team will be seeing him. Regular diet ordered. All belongings secured. Pt has a ring on left third finger that is unable to come off. Pt calm and cooperative. Plan of care ongoing
--- NOTE | 2024-12-15 11:20 | PC.NURSE ---
per patient prev RN, pharmacy was requested to do patient med rec due to patient nt knowing what his home meds are
[2024-12-15 13:02] VITALS: BP 160/76; PULSE 77; RESP 18; TEMP 36.9; O2SAT 95
[2024-12-15 13:31] LABS: Thyroid Stimulating Hormone 0.69 uIU/mL (0.32-4.0)
--- NOTE | 2024-12-15 13:48 | PC.NURSE ---
spoke w/ pharmacy at [facility] in [facility] rec completed. provider notified/aware.
--- NOTE | 2024-12-15 16:38 | ECG_ITS ---
Test Reason : chest pain Blood Pressure : */* mmHG Vent. Rate : 78 BPM Atrial Rate : 78 BPM P-R Int : 162 ms QRS Dur : 92 ms QT Int : 404 ms P-R-T Axes : 82 39 43 degrees QTcB Int : 460 ms Normal sinus rhythm Normal ECG When compared with ECG of 14-Dec-2024 23:23, No significant change was found Referred By: Wyatt Garcia Electronically Signed By: JOSSIE THURMAN MD
[2024-12-15 17:20] LABS: MANUAL DIFF FLAG NO
[2024-12-15 17:23] LABS: Hematocrit 37.3 % (42.0-52.0); Hemoglobin 12.9 g/dl (14.0-18.0); Imm Gran Abs Auto 0.02 X10*3/uL (0.00-0.03); Imm Gran Pct Auto 0.5 % (0.0-0.4); Lymphocytes Absolute Auto 1.4 X10*3/uL (1.2-4.9); Mean Corpuscular HGB Conc 34.6 g/dl (31.0-36.0); Mean Corpuscular Hemoglobin 28.5 pg (27.0-33.0); Mean Corpuscular Volume 82.5 fL (80.0-98.0); NRBC Abs Auto 0.000 X10*3/uL (0.0-0.012); NRBC Pct Auto 0.0 /100WBC (0.0-0.2); Platelet Count 105 X10*3/uL (160-400); Red Blood Count 4.52 X10*6/uL (4.60-5.80); White Blood Count 4.4 X10*3/uL (4.8-10.8)
[2024-12-15 17:34] LABS: Anion Gap 14 (12-20); Blood Urea Nitrogen 17 mg/dL (9-16); Calcium 9.2 mg/dL (8.4-10.2); Carbon Dioxide 26 mmol/L (22-29); Chloride 102 mmol/L (96-108); Creatinine Clr Calc Pharmacy 118.7; Estimated Glomerular Filt Rate > 60; Potassium 4.1 mmol/L (3.3-5.1); Sodium 138 mmol/L (135-145)
[2024-12-15 17:43] LABS: Troponin-I High Sensitivity < 2.7 ng/L (<3.5-35.0)
--- NOTE | 2024-12-15 19:37 | PHA.MEDREC ---
Pharmacy Consult ? Medication Reconciliation Pharmacy has completed the medication reconciliation [facility] and faxing [facility]. Confirming now and will update if more information is obtained.
--- NOTE | 2024-12-15 19:56 | PC.NURSE ---
This publicity writer assumed care of this Pt at 1900. Pt in room laying on bed at this time. James from [place] called requesting Pt rings to come off prior to admission. Pt agreeable, one ring obtained and placed with belongings.
[2024-12-15 20:18] VITALS: BP 168/80; PULSE 75; RESP 18; TEMP 36.7; O2SAT 98
--- NOTE | 2024-12-15 20:23 | MHC.CARE ---
Pt accepted to [facility]. Accepting is Dr. Pugh
--- NOTE | 2024-12-15 20:33 | PC.NURSE ---
Pt medicated prior to discharge to [place].
[2024-12-15 20:39] VITALS: BP 168/80; PULSE 75; RESP 18; TEMP 36.7; O2SAT 98
== END 2024-12-15 20:42 ==
PROVIDERS: Emergency Medicine; Emergency Provider Emergency Medicine
DX: F10.129 Alcohol abuse with intoxication, unspecified (principal); Y90.8 Blood alcohol level of 240 mg/100 ml or more; R07.9 Chest pain, unspecified; Z59.00 Homelessness unspecified; Z79.899 Other long term (current) drug therapy
CPT/HCPCS: 36415; 71045; 80048; 80053; 80143; 80179; 80307; 81001; 84443; 84484; 85025; 93005; 99285; S9485

== ENCOUNTER → 2024-12-14 23:01 | Outpatient (BNV) | payer OTHER, SELFPAY | PROVIDERS: Emergency Provider Emergency Medicine; Visit Provider Internal Medicine Cardiovascular Disease | DX: R94.31 Abnormal electrocardiogram [ECG] [EKG] (principal); F10.230 Alcohol dependence with withdrawal, uncomplicated | CPT/HCPCS: 93010 ==

== ENCOUNTER → 2024-12-15 16:38 | Outpatient (BNV) | payer OTHER, SELFPAY | PROVIDERS: Emergency Provider Emergency Medicine; Visit Provider Internal Medicine Cardiovascular Disease | DX: R07.9 Chest pain, unspecified (principal) | CPT/HCPCS: 93010 ==

== ENCOUNTER → 2024-12-15 16:38 | Outpatient (BNV) | payer OTHER, SELFPAY | PROVIDERS: Emergency Provider Emergency Medicine; Visit Provider Radiology Diagnostic Radiology | DX: R07.9 Chest pain, unspecified (principal) | CPT/HCPCS: 71045 ==

== ENCOUNTER 2024-12-19 07:00 | Emergency (ER) | payer OTHER, SELFPAY ==
[2024-12-19] VITALS (11 sets, daily range): BP systolic 97–154; BP diastolic 52–86; PULSE 72–94; RESP 15–19; TEMP 36.3; O2SAT 92–100; BMI 29.5
--- NOTE | 2024-12-19 07:26 | PC.NURSE ---
64 M presents to ED with ETOH, appears pretty intoxicated, yelling and mostly non-compliant with medical staff. Pt sts he had drinks at [employer], has multiple drinks daily including mixed drinks, whiskey, and beer. Pt not answer most questions, became agitated during interaction when getting vital signs and history and told me to go away. 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 RR even and unlabored. Pt denies CP or SOB. Pt ambuated to the bathroom, was a little unsteady on his feet.
--- NOTE | 2024-12-19 07:36 | PC.NURSE ---
pt changed over into hospital attire, pt did have a multi tool lettermen- which contained a small knife which is being secured with security and the belongings put in the tami port
--- NOTE | 2024-12-19 08:00 | PC.NURSE ---
pt becomes extremely agitated and threatening towards staff, pt attempted to throw a chair, pt is not redirectable at this time
--- NOTE | 2024-12-19 08:01 | ED_ITS ---
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 He says he has a history of PTSD. Apparently he was picked up by ambulance from a hotel lobby intoxicated this morning. I believe the ambulance was called by the hotel because of intoxication. On arrival here the patient complains of chronic pain. He also says that he has been at several hospitals recently trying to get help but has not received any help. He was extremely vulgar, loud, and disruptive. He could not be redirected and he therefore required sedation. Related Data Home Medications ?Medication ?Instructions ?Recorded ?Confirmed ascorbic acid (vitamin C) 250 mg 500 mg PO DAILY 12/1512/19/24 tablet (Vitamin C) acetaminophen 325 mg tablet 650 mg PO BID PRN Headache /Pain, 12/19/24 12/19/24 Scale 1-10 fexofenadine 180 mg tablet 180 mg PO DAILY PRN Allergy 12/19/24 12/19/24 Symptoms ibuprofen 600 mg tablet 400 mg PO BIDWM PRN joint 12/19/24 pain/headache Previous Rx's ?Medication ?Instructions ?Recorded albuterol sulfate 90 mcg/actuation 2 puff inhalation Q 4H PRN 11/16/24 aerosol inhaler (Ventolin HFA) Shortness Of Breath Or Wheezing #1 inhaler amlodipine 5 mg tablet 5 mg PO BID #60 tabs 5 carvedilol 6.25 mg tablet 6.25 mg PO BID #60 tabs 10/28 05/23 ferrous sulfate 325 mg (65 mg 325 mg PO Q48H #30 tabs 11/16/24 iron) tablet gabapentin 300 mg capsule 300 mg PO BID #90 caps 11/16 nicotine 21 mg/24 hr daily 1 patch transdermal DAILY # 30 ea 11/16/24 transdermal patch omeprazole 20 mg capsule,delayed 20 mg PO DAILY@0630 # 30 caps 11/16/24 release spironolactone 25 mg tablet 25 mg PO DAILY #30 tabs (Aldactone) Allergies Allergy/AdvReac Type Severity Reaction Status Date / Time latex Allergy Unknown Verified 12/19/24 07:21 lisinopril Allergy Unknown Verified 12/19/24 07:21 Review of Systems 2 Review of Systems: Yes all other systems are reviewed and are negative [facility] Past Medical History Medical History Major depressive disorder, recurrent, moderate Alcohol abuse Social History Social History Household Members: Other Housing: Other Housing Other:: friends/motel Do you presently have visiting nurse or other home services: No Alcohol intake: current Alcohol intake frequency: 3 or more drinks per day Alcohol type: beer Comment: Pt. refused offer for an opportunity to use a walker. Patient Tobacco Use Status: Current everyday Tobacco user Tobacco use type: Cigarette Years Smoked: 40+ Smoked in Last 30 Days: Yes Use of substances other than those prescribed or required for medical reasons: Refusing to respond Substance Use Type: Crack/Cocaine Advance Directives: No Advance Directives Information Provided: Yes Do you have a plan to hurt others: No Plan service: Yes Sexual orientation: Straight/Heterosexual Physical Exam ED Vital Signs: Vital Signs - 24 hr 12/20/24 09:31 Temperature 97.8 F Pulse Rate 75 Respiratory Rate 16 Blood Pressure 143/65 H Pulse Oximetry 93 Oxygen Delivery Method Room Air BMI result Body Mass Index 29.5 Const Other: The patient was awake and alert. He looks like a chronically ill 64-year-old who seemed quite intoxicated. He was loud, foul mouth, and agitated. HENMT Other: The face is symmetrical. ?Mucous membranes moist. Eyes Other: Pupils are round equal, conjunctivae are clear, extraocular movements intact Neck Neck: Yes normal visual inspection, Yes full ROM and Yes no JVD Resp Effort & Inspection: normal respiratory effort Auscultation: clear to auscultation bilaterally Cardio Rate: regular rate Rhythm: regular rhythm Heart sounds: S1 normal heart sound present and S2 normal heart sound present GI Other: Abdomen was soft and seems nontender Skin Other: Skin is pale and dry Neuro Other: The patient was awake and alert. He was loud and verbally aggressive and very foul mouthed. Possibly some minimal slurring of speech but otherwise cranial nerves 2-12 are intact. He moved his extremities symmetrically and seemed to have reasonably good coordination. He seemed intoxicated but otherwise without a focal finding. Extrem Other: No peripheral edema Course Reevaluation(s) Reevaluation #1: Time: 07:17 Date: 12/20/24 Provider: Issa Copeland MD Patient in physician observation for psychiatric evaluation.? No acute events reported overnight. No current complaints. VS stable.? Patient is in bed search status/pending CARE team evaluation. Will continue to monitor. Reevaluation #2: 12/20/2024 09:17 patient is now refusing detox he does not want go any longer to detox he will be discharged home cleared by crisis. this end of the is physician observation Time: 09:17 Medications Administered Discontinued Medications Generic Name Dose Route Start Last Admin Trade Name Zohaib PRN Reason Stop Dose Admin Ibuprofen 400 mg 12/19/24 07:51 12/19/24 07:55 Ibuprofen 400 Mg Tablet PO 12/19/24 07:52 400 mg ONCE ONE Administration Lorazepam 2 mg 12/19/24 07:51 12/19/24 07:55 Lorazepam 1 Mg Tablet PO 12/19/24 07:52 2 mg ONCE ONE Administration Midazolam HCl 10 mg 12/19/24 07:59 12/19/24 08:05 Midazolam Hcl 5 Mg/Ml Vial IM 12/19/24 08:00 10 mg ONCE ONE Administration Olanzapine 10 mg 12/19/24 08:00 12/19/24 08:05 Olanzapine 10 Mg Vial IM 12/19/24 08:01 10 mg ONCE ONE Administration Medical Decision Making Medical Decision Making [facility] Narrative: The patient is a 64-year-old male with a history of substance use disorder and previous psychiatric hospitalizations. He was most recently here 4 days ago on December 15 and was transferred to the [facility] for detox and psychiatric care. It seems as though the patient was found significantly intoxicated and a hotel today and was brought here because of his intoxication. He was intoxicated, loud, verbally aggressive, and extremely disruptive. He could not be redirected after multiple efforts had redirection including oral medications. Ultimately he needed to be sedated with IM olanzapine and midazolam. His alcohol level was 257. He slept for several hours. He then awoke and a care team consult was placed. I think the patient is medically clear. He will be moved into our psychiatric area with the plan for disposition per the care team. The patient will be placed in physician observation as of 16:00 today 12/19/2024. Lab Data 12/19/24 08:42 08/23/25 08:42 Labs: Lab Results 12/19/24 12/20/24 Range/Units 08:42 03:27 WBC 4.8 (4.8-10.8) X10*3/uL RBC 4.00 L (4.60-5.80) X10*6/uL Hgb 11.7 L (14.0-18.0) g/dl Hct 31.9 L (42.0-52.0) % MCV 79.8 L (80.0-98.0) fL MCH 29.3 (27.0-33.0) pg MCHC 36.7 H (31.0-36.0) g/dl RDW 15.6 (11.0-16.0) % Plt Count 125 L (160-400) X10*3/uL MPV 8.4 L (9.4-12.4) fL Immature Gran % (Auto) 0.4 (0.0-0.4) % Neut % (Auto) 43.7 L (45-73) % Lymph % (Auto) 40.7 H (20-40) % [place] % (Auto) 11.3 H (2-11) % Eos % (Auto) 3.1 (0-4) % Baso % (Auto) 0.8 (0-2) % Lymph # (Auto) 1.9 (1.2-4.9) X10*3/uL [place] # (Auto) 0.5 (0.1-1.2) X10*3/uL Eos # (Auto) 0.2 (0.0-0.4) X10*3/uL Baso # (Auto) 0.0 (0.0-0.2) X10*3/uL Abs Immat Gran (auto) 0.02 (0.00-0.03) X10*3/uL Absolute Neuts (auto) 2.1 (2.0-8.3) x10*3/uL Absolute Nucleated RBC 0.000 (0.0-0.012) X10*3/uL Nucleated RBC % (auto) 0.0 (0.0-0.2) /100WBC PT 12.5 H (10.9-12.4) SEC INR 1.1 (0.9-1.1) Sodium 136 (135-145) mmol/L Potassium 3.9 (3.3-5.1) mmol/L Chloride 99 (96-108) mmol/L Carbon Dioxide 24 (22-29) mmol/L Anion Gap 17 (12-20) BUN 13 (9-16) mg/dL Creatinine 0.61 (0.5-1.4) mg/dL Estim Creat Clear Calc 127.6 Estimated GFR > 60 Random Glucose 96 (60-115) mg/dL Calcium 8.4 D (8.4-10.2) mg/dL Magnesium 2.1 (1.6-2.6) mg/dL Total Bilirubin 0.6 (0.0-1.0) mg/dL Direct Bilirubin 0.2 (0.0-0.5) mg/dL AST 73 H (5-37) U/L ALT 98 H (0-40) U/L Alkaline Phosphatase 88 (39-117) U/L Total Protein 7.4 (6.5-8.0) g/dL Albumin 4.4 (3.5-5.0) g/dL Urine Color Yellow Urine Appearance Clear Urine pH 6.0 (5.0-9.0) Ur Specific [place] 1.010 (1.005-1.025) Urine Protein Negative (Neg-Trace) mg/dL Urine Glucose (UA) Negative (Negative) mg/dL Urine Ketones Negative (Negative) mg/dL Urine Blood Negative (Negative) Urine Nitrite Negative (Negative) Ur Leukocyte Esterase Negative (Negative) Urine Opiates Screen Not Detected (Not Detect) Ur Buprenorphine Scrn Not Detected (Not Detect) ng/mL Ur Oxycodone Screen Not Detected (Not Detect) ng/mL Urine Methadone Screen Not Detected (Not Detect) ng/mL Urine Fentanyl Screen Not Detected (Not Detect) Ur Barbiturates Screen Not Detected (Not Detect) Ur Phencyclidine Scrn Not Detected (Not Detect) Ur Amphetamines Screen Not Detected (Not Detect) U Benzodiazepines Scrn POSITIVE H (Not Detect) Urine Cocaine Screen Not Detected (Not Detect) U Marijuana (THC) Screen Not Detected (Not Detect) Ethyl Alcohol 257 mg/dL Discharge Plan Discharge Clinical Impression: PTSD (post-traumatic stress disorder), Alcohol abuse Patient Disposition: Home, Self-Care Instructions: Abuse of Alcohol (DC) Prescriptions: No Action acetaminophen 325 mg tablet 650 mg PO BID PRN (Reason: Headache/Pain, Scale 1-10) fexofenadine 180 mg tablet 180 mg PO DAILY PRN (Reason: Allergy Symptoms) ibuprofen 600 mg tablet 400 mg PO BIDWM PRN (Reason: joint pain/headache) gabapentin 300 mg Capsule 300 mg PO BID Qty: 90 0RF omeprazole 20 mg Capsule,Delayed Release(Dr/Ec) 20 mg PO DAILY@0630 Qty: 30 0RF carvedilol 6.25 mg Tablet 6.25 mg PO BID Qty: 60 0RF Rx Instructions: must administer with a meal/food HOLD IF SBP<115 or HR<56 amlodipine 5 mg Tablet 5 mg PO BID Qty: 60 0RF spironolactone [Aldactone] 25 mg Tablet 25 mg PO DAILY Qty: 30 0RF ferrous sulfate 325 mg (65 mg iron) Tablet 325 mg PO Q48H Qty: 30 0RF nicotine 21 mg/24 hr Patch 24 Hour 1 patch TRANSDERMAL DAILY Qty: 30 0RF albuterol sulfate [Ventolin HFA] 90 mcg/actuation Hfa Aerosol Inhaler 2 puff INHALATION Q4H PRN (Reason: Shortness Of Breath Or Wheezing) Qty: 1 0RF ascorbic acid (vitamin C) [Vitamin C] 250 mg tablet 500 mg PO DAILY Interventions: ED Discharge Assessment Last Done: 12/20/24 09:31 Discharge Date/Time: 12/20/24 09:41 Print Language: Portuguese
[2024-12-19] MEDS: OLANZapine 10 MG VIAL IM (08:05)
--- NOTE | 2024-12-19 08:05 | PC.NURSE ---
Pt became increasingly agitated, yelling and swearing, threw a chair and was not re-directable through other means, required IM per MD.
--- NOTE | 2024-12-19 08:06 | ECG_ITS ---
Test Reason : ETOH Blood Pressure : */* mmHG Vent. Rate : 78 BPM Atrial Rate : 78 BPM P-R Int : 158 ms QRS Dur : 100 ms QT Int : 428 ms P-R-T Axes : 20 21 26 degrees QTcB Int : 487 ms Normal sinus rhythm Cannot rule out Anterior infarct , age undetermined Abnormal ECG When compared with ECG of 15-Dec-2024 16:47, No significant change was found Referred By: Vladimir Nelson Electronically Signed By: LESVIA IRAHETA
--- NOTE | 2024-12-19 08:35 | PC.NURSE ---
pt placed on 3L NC d/t desat to 89% on RA, now 92% on 3L NC.
[2024-12-19 08:46] LABS: Hematocrit 31.9 % (42.0-52.0); Hemoglobin 11.7 g/dl (14.0-18.0); Imm Gran Abs Auto 0.02 X10*3/uL (0.00-0.03); Imm Gran Pct Auto 0.4 % (0.0-0.4); Lymphocytes Absolute Auto 1.9 X10*3/uL (1.2-4.9); MANUAL DIFF FLAG NO; Mean Corpuscular HGB Conc 36.7 g/dl (31.0-36.0); Mean Corpuscular Hemoglobin 29.3 pg (27.0-33.0); Mean Corpuscular Volume 79.8 fL (80.0-98.0); NRBC Abs Auto 0.000 X10*3/uL (0.0-0.012); NRBC Pct Auto 0.0 /100WBC (0.0-0.2); Platelet Count 125 X10*3/uL (160-400); Red Blood Count 4.00 X10*6/uL (4.60-5.80); White Blood Count 4.8 X10*3/uL (4.8-10.8)
[2024-12-19 08:53] LABS: INTERNATIONAL NORM RATIO 1.1 (0.9-1.1); Prothrombin Time 12.5 SEC (10.9-12.4)
--- OUTSIDE RECORDS SUMMARY | 2024-12-19 08:54 | XMS_ITS | Clinical Summary ---
Author Organization [facility] Address [address] [place] [address] Care Team Providers Care Clinical Account Manager Name Role Phone Unavailable Primary Care [...]
--- OUTSIDE RECORDS SUMMARY | 2024-12-19 08:54 | XMS_ITS | Encounter Summary ---
Author Organization [facility] Address [address] [place] [address] Phone Care Team Providers Care Internal Revenue Agent Name Role Phone Pelon Schneider MD Primary Care Provider [phone] Amol Anderson Primary Care Provider [phone] Pcp, Unknown Primary Care Provider Nargis Lewis DO Primary Care Provider [phone] Encounter Details Date Type Department Care Team (Late st Contact Info) Description 08/07/2022 Procedure Pass Primary [facility] [address] [place] [address] Social History Tobacco Use Types Packs/Day Years [...] Indicated 08/07/2022 4:45 AM EDT Harjit Nguyen, SAMI * [place] Suicide Severity Rating Scale (Screener/Recent Self-Report) Question Answer Date of Assessment Author 1. Wish to be (Past 1 Month) No 08/07/2022 4:45 AM EDT Florentino Short, RN 2. Non-Specific Active Suicidal Thoughts (Past 1 Month) No 08/07/2022 4:45 AM EDT Florentino Short, RN 6. Suicidal Behavior (Lifetime) No 08/07/2022 4:45 AM EDT Florentino Short RN documented as of this encounter Plan of Treatment Not on file documented as of this encounter Visit Diagnoses [...] documented as of this encounter Care Teams Internal Revenue Agent Relationship Specialty Start Date End Date Pelon Schneider MD [address] [place] [address] PCP - General Internal Medicine 02/05/18 12/01/23 Amol Anderson [address] [place] [address] PCP - General 12/02/23 01/23/24 Pcp, Unknown PCP - General 01/24/24 01/24/24 Nargis Torre DO [address] [place] [address] PCP - General Internal Medicine 01/25/24 documented as of this encounter Additional Source Comments The information contained in this document represents components of the legal health record. It is not the complete legal health record.[facility]
--- OUTSIDE RECORDS SUMMARY | 2024-12-19 08:54 | XMS_ITS | Clinical Summary ---
Author Organization [facility] Address [address] [place] [address] Phone Care Team Providers Care Pie Dough Roller Name Role Phone Melissa Lopez NP Primary Care Provider [phone] Allergies Active Allergy Reactions Criticality Noted Date Comments Lisinopril Angioedema High 07/28/2024 Fluoxetine Hives 08/11/2024 Encounters Date Type Department Care Team Description 10/30/2024 5:48 PM EDT - 10/31/2024 12:[address] [facility] Emergency [address] [place] [id number] Joel Woo MD Discharge Disposition: Left Against [...] with reflex microscopic (10/30/2024 8:16 PM EDT) [facility] [place] [facility] Specific [place] Urine 1.006 1.003 - 1.030 LAB URINALYSIS - AUTOMATED METHOD 10/30/2024 8:36 PM EDT [facility] pH, Urine 6.0 5.0 - 8.0 pH LAB URINALYSIS - AUTOMATED METHOD 10/30/2024 8:36 PM EDT [facility] Leukocytes, Urine Negative Negative LAB URINALYSIS - AUTOMATED METHOD 10/30/2024 8:36 PM EDT [facility] Nitrite, Urine Negative Negative LAB URINALYSIS - AUTOMATED METHOD 10/30/2024 8:36 PM EDT [facility] Protein, Urine Negative <=Trace mg/dL LAB URINALYSIS - AUTOMATED METHOD 10/30/2024 8:36 PM EDT [facility] Glucose, Urine Negative Negative mg/dL LAB URINALYSIS - AUTOMATED METHOD 10/30/2024 8:36 PM EDT [facility] Ketones, Urine Negative Negative mg/dL LAB URINALYSIS - AUTOMATED METHOD 10/30/2024 8:36 PM EDT [facility] Urobilinogen, Urine 1.0 0.2 - 1.0 mg/dL LAB URINALYSIS - AUTOMATED METHOD 10/30/2024 8:36 PM EDT [facility] Bilirubin, Urine Negative Negative LAB URINALYSIS - AUTOMATED METHOD 10/30/2024 8:36 PM EDT [facility] Blood, Urine Negative Negative LAB URINALYSIS - AUTOMATED METHOD 10/30/2024 8:36 PM T [facility] Urine Urine specimen obtained by clean catch procedure / Unknown Non-blood Collection / Unknown 10/30/2024 8:16 PM EDT 10/30/2024 8:30 PM EDT us Joel Woo MD LAB URINE ORDERABLES Final Res ult [facility] [address] [place] [address], * Drug abuse screen expanded with reflex confirmation, urine (10/30/2024 8:16 PM EDT) Amphetamine Screen, Ur Negative Negative LAB CHEMISTRY METHOD 10/30/2024 9:02 PM EDT [facility] Comment:Certain OTC medicati ons containing ephedrine, phenylephrine, pseudoephedrine and phenylpropanolamine can cause false positive results. Barbiturate Screen, Ur Negative Negative LAB CHEMISTRY METHOD 10/30/2024 9:02 PM EDT [facility] Benzodiazepine Screen, Ur Negative Negative LAB CHEMISTRY METHOD 10/30/2024 9:02 PM EDT [facility] Cocaine Screen, Ur Negative Negative LAB CHEMISTRY METHOD 10/30/2024 9:02 PM EDT [facility] Opiate Screen, Ur Negative Negative LAB CHE[facility]STRY [facility] Cannabinoid (THC) Screen, Ur Negative Negative LAB CHEMISTRY METHOD 10/30/2024 9:02 PM EDT [facility] Comment:Specimens from patie nts taking pantoprazole sodium (Protonix) have been shown to produce false positive results. Fentanyl, Ur Negative Negative LAB CHEMISTRY METHOD 10/30/2024 9:02 PM EDT [facility] Oxycodone Screen, Ur Negative Negative LAB CHEMISTRY METHOD 10/30/2024 9:02 PM [facility] Urine Urine specimen obtained by clean catch procedure / Unknown Non-blood Collection / Unknown 10/30/2024 8:16 PM EDT 10/30/2024 8:30 PM EDT Narrative [facility] - 10/30/2024 9:02 PM EDT Assay [...] MD LAB URINE ORDERABLES Final Res ult [facility]) [facility] [address] [place] [address], [place] [phone] * CT Head wo Contrast (10/30/2024 7:37 [...] PM EDT) WBC 4.0(L) 4.8 - 10.8 K/[facility] LAB HEMETOLOGY METHOD 10/30/2024 8:05 PM EDT [facility] RBC 4.10(L) 4.50 - 5.50 M/mcL LAB HEMETOLOGY METHOD 10/30/2024 8:05 PM EDT [facility] Hemoglobin 10.9(L) 13.5 - 17.5 g/dL LAB HEMETOLOGY METHOD 10/30/2024 8:[facility] Hematocrit 32.7(L) 42.0 - 54.0 % LAB HEMETOLOGY METHOD 10/30/2024 8:05 PM [facility] MCV 79.2 79.0 - 98.0 FL LAB HEMETOLOGY METHOD 10/30/2024 8:05 PM [facility] MCH 26.4(L) 27.0 - 32.0 pcg LAB HEMETOLOGY METHOD 10/30/2024 8:05 PM [facility] MCHC 33.3 32.0 - 37.0 g/dL LAB HEMETOLOGY METHOD 10/30/2024 8:05 PM [facility] RDW 16.3(H) 11.0 - 15.0 % LAB HEMETOLOGY METHOD 10/30/2024 8:05 PM [facility] Platelets 131 130 - 400 K/mcL LAB HEMETOLOGY METHOD 10/30/2024 8:05 PM [facility] MPV 8.7 7.0 - 11.0 FL LAB HEMETOLOGY METHOD 10/30/2024 8:05 PM [facility] NRBC 0.0 <1.0 % LAB HEMETOLOGY METHOD 10/30/2024 8:05 PM [facility] NRBC Absolute 0.00 <0.10 K/mcL LAB HEMETOLOGY METHOD 10/30/2024 8:05 PM [facility] Neutrophils Relative 40.4 % LAB HEMETOLOGY METHOD 10/30/2024 8:05 PM [facility] Lymphocytes Relative 43.4 % LAB HEMETOLOGY METHOD 10/30/2024 8:05 PM [facility] Monocytes Relative 11.6 % LAB HEMETOLOGY METHOD 10/30/2024 8:05 PM [facility] Eosinophils Relative 3.3 % LAB HEMETOLOGY METHOD 10/30/2024 8:05 PM EDT [facility] Basophils Relative 1.0 % LAB HEMETOLOGY METHOD 10/30/2024 8:05 PM EDT [facility] Immature Granulocytes Relative 0.3 % LAB HEMETOLOGY METHOD 10/30/2024 8:05 PM EDT [facility] Neutrophils Absolute 1.60 1.50 - 7.00 K/mcL LAB HEMETOLOGY METHOD 10/30/2024 8:05 PM EDT [facility] Lymphocytes Absolute 1.72 1.00 - 5.00 K/mcL LAB HEMETOLOGY METHOD 10/30[facility]2024 8:[facility] Monocytes Absolute 0.46 0.20 - 1.00 K/mcL LAB HEMETOLOGY METHOD 10/30/2024 8:05 PM EDT [facility] Eosinophils Absolute 0.13 0.00 - 0.50 K/mcL LAB HEMETOLOGY METHOD 10/30/2024 8:05 PM EDT [facility] Basophils Absolute 0.04 0.00 - 0.20 K/mcL LAB HEMETOLOGY METHOD 10/30/2024 8:05 PM EDT [facility] Immature Granulocytes Absolute 0.01 0.00 - 0.03 K/mcL LAB HEMETOLOGY METHOD 10/30/2024 8:05 PM EDT [facility] Blood Venous blood specimen / Unknown Venipuncture / Unknown 10/30/2024 7:33 PM EDT 10/30/2024 7:49 PM EDT us Joel Woo MD LAB BLOOD ORDERABLES Final Res ult [facility] [address] [place] [address], * Magnesium (10/30/2024 7:33 PM EDT) Pathologist [facility] Magnesium 1.9 1.9 - 2.6 mg/dL LAB CHEMISTRY METHOD 10/30/2024 8:27 PM [facility] Blood Venous blood specimen / Unknown Venipuncture / Unknown 10/30/2024 7:33 PM EDT 10/30/2024 7:49 PM EDT us Joel Woo MD LAB BLOOD ORDERABLES Final Res ult [facility] [address] [place] [address], * (ABNORMAL) Comprehensive metabolic panel (10/30/2024 7:33 PM EDT) Pathologist [facility] Sodium 136 133 - 145 mmol/L LAB CHEMISTRY METHOD 10/30/2024 8:27 PM [facility] Potassium 3.7 3.5 - 5.5 mmol/L LAB CHEMISTRY METHOD 10/30/2024 8:27 PM [facility] Chloride 98 96 - 110 mmol/L LAB CHEMISTRY METHOD 10/30/2024 8:27 PM [facility] CO2 31 21 - 32 mmol/L LAB CHEMISTRY METHOD 10/30/2024 8:27 PM [facility] Anion Gap 7 3 - 11 LAB CHEMISTRY METHOD 10/30/2024 8:27 PM [facility] Glucose 97 70 - 100 mg/dL LAB CHEMISTRY METHOD 10/30/2024 8:27 PM [facility] BUN 9 5 - 25 mg/dL LAB CHEMISTRY METHOD 10/30/2024 8:27 PM [facility] Creatinine 0.61(L) 0.70 - 1.30 mg/dL LAB CHEMISTRY METHOD 10/30/2024 8:27 PM [facility] eGFR 107 >=60 mL/min/1. 73m2 LAB CHEMISTRY METHOD 10/30/2024 8:27 PM EDT [facility] Comment:Calculation based on the Chronic Kidney Disease Epidemiology Collaboration (CKD-EPI) equation refit without adjustment for race. BUN/Creatinine Ratio 14.8 LAB CHEMISTRY METHOD 10/30/2024 8:27 PM EDT [facility] Calcium 8.3(L) 8.5 - 10.5 mg/dL LAB CHEMISTRY METHOD 10/30/2024 8:27 PM [facility] AST (SGOT) 57(H) 10 - 42 unit/L LAB CHEMISTRY METHOD 10/30/2024 8:27 PM [facility] ALT (SGPT) 74(H) 10 - 60 unit/L LAB CHEMISTRY METHOD 10/30/2024 8:27 PM [facility] Alkaline Phosphatase 93 42 - 121 unit/L LAB CHEMISTRY METHOD 10/30/2024 8:27 PM [facility] Total Protein 7.1 6.0 - 8.0 g/dL LAB CHEMISTRY METHOD 10/30/2024 8:27 PM [facility] Albumin 3.8 3.2 - 5.0 g/dL LAB CHEMISTRY METHOD 10/30/2024 8:27 PM [facility] Total Bilirubin 0.4 0.0 - 1.4 mg/dL LAB CHEMISTRY METHOD 10/30/2024 8:27 PM [facility] Blood Venous blood specimen / Unknown Venipuncture / Unknown 10/30/2024 7:33 PM EDT 10/30/2024 7:49 PM EDT us Joel Woo MD LAB BLOOD ORDERABLES Final Res ult [facility] [address] [place] [address], * ECG 12 lead (10/30/2024 7:32 PM EDT) Ventricular Rate ECG 88 BPM GEMUSE Atrial Rate 88 BPM GEMUSE P-R Interval 164 ms GEMUSE QRS Duration 96 ms GEMUSE Q-T Interval 394 ms GEMUSE QTc 476 ms GEMUSE P Wave [place] 77 degrees GEMUSE R [place] 40 degrees GEMUSE T [place] 61 degrees GEMUSE ECG Interpretation Normal sinus rhythm Abnormal ECG When compared with ECG of 10-AUG-2024 02:33, No significant change was found Confirmed by SANTOS MERCADO ([id number]) on 10/31/2024 7:59:02 AM GEMUSE 10/30/2024 7:32 PM EDT 10/31/2024 7:59 AM EDT us Joel Woo MD ECG ORDERABLES Final Result GEMUSE from Last 3 Months Insurance [facility] [email or web address] [facility] Care Teams Pie Dough Roller Relationship Specialty Start Date End Date Melissa Lopez NP [address] [place] [address] [phone] PCP - General Internal Medicine 08/11/24
--- NOTE | 2024-12-19 09:05 | PC.NURSE ---
Pt is now calm, resting with eyes closed, RR even and unlabored, no visible s/s of distress
[2024-12-19 09:18] LABS: Alanine Aminotransferase 98 U/L (0-40); Albumin Level 4.4 g/dL (3.5-5.0); Alkaline Phosphatase 88 U/L (39-117); Aspartate Amino Transferase 73 U/L (5-37); Magnesium 2.1 mg/dL (1.6-2.6); Total Protein 7.4 g/dL (6.5-8.0)
[2024-12-19 09:19] LABS: Anion Gap 17 (12-20); Blood Urea Nitrogen 13 mg/dL (9-16); Calcium 8.4 mg/dL (8.4-10.2); Carbon Dioxide 24 mmol/L (22-29); Chloride 99 mmol/L (96-108); Creatinine Clr Calc Pharmacy 127.6; Estimated Glomerular Filt Rate > 60; Potassium 3.9 mmol/L (3.3-5.1); Sodium 136 mmol/L (135-145)
--- NOTE | 2024-12-19 11:18 | PC.NURSE ---
pt continuos on sleeping, respirations even and unlabored, sitter in place
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
--- NOTE | 2024-12-19 16:45 | PC.NURSE ---
pharmacy called to request med req.
--- NOTE | 2024-12-19 17:43 | PHA.MEDREC ---
Pharmacy Consult ? Medication Reconciliation Pharmacy has completed the medication reconciliation. List faxed from [place]
[2024-12-20 03:15] VITALS: BP 143/65; PULSE 75; RESP 16; TEMP 36.6; O2SAT 93
[2024-12-20 03:33] LABS: Appearance Urine Clear; Glucose Urine UA Negative (Negative); PH 6.0 (5.0-9.0); Specific Gravity - Urine 1.010 (1.005-1.025)
[2024-12-20 03:43] LABS: Cannabinoid Screen Urine Not Detected (Not Detect)
--- NOTE | 2024-12-20 09:17 | MHC.CARE ---
Pt declined detox and will be discharged to a hotel in [place]. ED provider in agreement.
[2024-12-20 09:31] VITALS: BP 143/65; PULSE 75; RESP 16; TEMP 36.6; O2SAT 93
== END 2024-12-20 09:41 | disposition home or self-care (01) ==
PROVIDERS: Emergency Provider Emergency Medicine
DX: F43.10 Post-traumatic stress disorder, unspecified (principal); F10.129 Alcohol abuse with intoxication, unspecified; R94.31 Abnormal electrocardiogram [ECG] [EKG]; F14.90 Cocaine use, unspecified, uncomplicated; F17.210 Nicotine dependence, cigarettes, uncomplicated; Y90.8 Blood alcohol level of 240 mg/100 ml or more; Z51.81 Encounter for therapeutic drug level monitoring; Z79.899 Other long term (current) drug therapy
CPT/HCPCS: 36415; 80048; 80076; 80307; 81003; 83735; 85025; 85610; 93005; 96372; 99285; J2250; J2359; S9485

== ENCOUNTER → 2024-12-19 08:06 | Outpatient (BNV) | payer OTHER, SELFPAY | PROVIDERS: Emergency Provider Emergency Medicine; Visit Provider Internal Medicine | DX: R94.31 Abnormal electrocardiogram [ECG] [EKG] (principal); F10.120 Alcohol abuse with intoxication, uncomplicated | CPT/HCPCS: 93010 ==

== ENCOUNTER 2025-01-29 01:28 | Emergency (ER) | payer OTHER, SELFPAY ==
[2025-01-29 01:32] VITALS: BP 150/70; PULSE 90; O2SAT 98; BMI 33.5
[2025-01-29 01:41] VITALS: BP 141/72; PULSE 78; RESP 18; TEMP 36.4; O2SAT 93
--- OUTSIDE RECORDS SUMMARY | 2025-01-29 02:04 | XMS_ITS | Clinical Summary ---
Author Organization [facility] Address [address] [place] [address] Care Team Providers Care Clinical Research Monitor Name Role Phone Unavailable Primary Care Provider [...] Zoster (Shingles) Vaccine (1 of 2) 2010 Influenza Vaccine 11/27/2024 COVID-19 Vaccine ( - 2023-2 5 season) 2024 RSV Vaccine 60 years and old er and Patients (1 - 1-dose 75+ series) 2035 Hepatitis B Vaccines Aged Out No long er eligible based on patient's age to complete this topic Insurance
--- OUTSIDE RECORDS SUMMARY | 2025-01-29 02:04 | XMS_ITS | Clinical Summary ---
Author Organization [facility] Address [address] [place] [address] Phone Care Team Providers Care Entry Level Project Engineer Name Role Phone Physician, Pcp Unknown Primary Care Provider Jensie vailable Allergies Active Allergy Reactions Criticality Noted Date Comments Lisinopril Angioedema High 07/28/2024 Fluoxetine Hives 08/11/2024 Encounters Date Type Department Care Team Description 01/05/2025 1:19 AM EDT - 01/05/2025 1:59 AM EDT Emergency [facility] Emergency [address] [place] [phone] Hypertension, unspecified type (Primary Dx); Alcoholic intoxication without complication (CMS/[facility] V24) Discharge Disposition: Home or Self Care 10/30/2024 5:48 PM EDT - 10/31/2024 12:09 AM EDT Emergency [facility] Emergency [address] [place] [address] [phone] Joel Woo MD Discharge Disposition: Left Against Medical Advice from Last 3 Months Medical History Medical History Date Comments Hypertension Social History Tobacco Use Types Packs/Day Years Used Date Smoking Tobacco: Unknown Tobacco Cessation:Counseling Given: Not Answered Alcohol Use Standard Drinks/Week Comments Yes 0 [...] Sign Reading Time Taken Comments Blood Pressure 127/63 01/05/2025 1:49 AM EDT Pulse 77 01/05/2025 1:49 AM EDT Temperature 36.9 C (98.4 F) 10/30/2024 10:50 PM EDT Respiratory Rate 17 01/05/2025 1:49 AM EDT Oxygen Saturation 95% 01/05/2025 1:49 AM EDT Inhaled Oxygen Concentration - - Weight 99.8 kg (220 lb) 01/05/2025 1:49 AM EDT Height 175.3 cm (5' 9 ) 01/05/2025 1:49 AM EDT Body Mass Index 32.49 01/05/2025 1:49 AM EDT Plan of Treatment Health Maintenance Due Date Last Done Comments Colorectal Cancer Screening: Colonoscopy 1960 Hepatitis A Vaccines (1 of 2 - Risk 2-dose series) 1979 Pneumococcal Vaccine: 50+ Years (1 of 2 - PCV) 1979 Zoster Vaccines (1 of 2) 2010 Cholesterol Screening (Lipid Panel) 05/23/2023 HIV Screening 05/23/2023 Lung Cancer Screening (Low Dose CT) 05/23/2023 Social Influencers of Health Screening 05/23/2023 Depression Screening 04/29/2024 COVID-19 Vaccine ( - season) 2024 Influenza Vaccine (#1) 2024 Hypertension/CHF/CAD Annual BMP [...] with reflex microscopic (10/30/2024 8:16 PM EDT) Specific [place] Urine 1.006 1.003 - 1.030 LAB URINALYSIS - AUTOMATED METHOD 10/30/2024 8:36 PM EDT [facility] pH, Urine 6.0 5.0 - 8.0 pH LAB URINALYSIS - AUTOMATED METHOD 10/30/2024 8:36 PM EDT [facility] Leukocytes, Urine Negative Negative LAB URINALYSIS - AUTOMATED METHOD 10/30/2024 8:36 PM EDT [facility] Nitrite, Urine Negative Negative LAB URINALYSIS - AUTOMATED METHOD 10/30/2024 8:36 PM EDT [facility] Protein, Urine Negative <=Trace mg/dL LAB URINALYSIS - AUTOMATED METHOD 10/30/2024 8:36 PM EDT [facility] Glucose, Urine Negative Negative mg/dL LAB URINALYSIS - AUTOMATED METHOD 10/30/2024 8:36 PM EDT [facility] Ketones, Urine Negative Negative mg/dL LAB URINALYSIS - AUTOMATED METHOD 10/30/2024 8:36 PM [facility] Urobilinogen, Urine 1.0 0.2 - 1.0 mg/dL LAB URINALYSIS - AUTOMATED METHOD 10/30/2024 8:36 PM EDT [facility] Bilirubin, Urine Negative Negative LAB URINALYSIS - AUTOMATED METHOD 10/30/2024 8:36 PM EDT [facility] Blood, Urine Negative Negative LAB URINALYSIS - AUTOMATED METHOD 10/30/2024 8:36 PM [facility] Urine Urine specimen obtained by clean catch procedure / Unknown Non-blood Collection / Unknown 10/30/2024 8:16 PM EDT 10/30/2024 8:30 PM EDT us Joel Woo MD LAB URINE ORDERABLES Final Res ult [facility] [address] [place] [address], [place] [phone] * Drug abuse screen expanded with reflex confirmation, urine (10/30/2024 8:16 PM EDT) Amphetamine Screen, Ur Negative Negative LAB CHEMISTRY METHOD 10/30/2024 9:02 PM [facility] Comment:Certain OTC medicati ons containing ephedrine, phenylephrine, pseudoephedrine and phenylpropanolamine can cause false positive results. Barbiturate Screen, Ur Negative Negative LAB CHEMISTRY METHOD 10/30/2024 9:02 PM [facility] Benzodiazepine Screen, Ur Negative Negative LAB CHEMISTRY METHOD 10/30/2024 9:02 PM [facility] Cocaine Screen, Ur Negative Negative LAB CHEMISTRY METHOD 10/30/2024 9:02 PM [facility] Opiate Screen, Ur Negative Negative LAB CHEMISTRY METHOD 10/30/2024 9:02 PM [facility] Cannabinoid (THC) Screen, Ur Negative Negative LAB CHEMISTRY METHOD 10/30/2024 9:02 PM [facility] Comment:Specimens from patie nts taking pantoprazole sodium (Protonix) have been shown to produce false positive results. Fentanyl, Ur Negative Negative LAB CHEMISTRY METHOD 10/30/2024 9:02 PM [facility] Oxycodone Screen, Ur Negative Negative LAB CHEMISTRY METHOD 10/30/2024 9:02 PM [facility] Urine Urine specimen obtained by clean catch procedure / Unknown Non-blood Collection / Unknown 10/30/2024 8:16 PM EDT 10/30/2024 8:30 PM EDT Narrative [facility] - 10/30/2024 9:02 PM [...] MD LAB URINE ORDERABLES Final Res ult [facility] [address] [place] [address], * CT Head wo Contrast (10/30/2024 7:37 [...] PM EDT) WBC 4.0(L) 4.8 - 10.8 K/mcL LAB HEMETOLOGY METHOD 10/30/2024 8:05 PM [facility] RBC 4.10(L) 4.50 - 5.50 M/mcL LAB HEMETOLOGY METHOD 10/30/2024 8:05 PM [facility] Hemoglobin 10.9(L) 13.5 - 17.5 g/dL LAB HEMETOLOGY METHOD 10/30/2024 8:05 PM [facility] Hematocrit 32.7(L) 42.0 - [...] 8:05 PM [facility] Basophils Relative 1.0 % LAB HEMETOLOGY METHOD 10/30/2024 8:05 PM [facility] Immature Granulocytes Relative 0.3 % LAB HEMETOLOGY METHOD 10/30/2024 8:05 PM [facility] Neutrophils Absolute 1.60 1.50 - 7.00 K/mcL LAB HEMETOLOGY METHOD 10/30/2024 8:05 PM [facility] Lymphocytes Absolute 1.72 1.00 - 5.00 K/mcL LAB HEMETOLOGY METHOD 10/30/2024 8:05 PM [facility] Monocytes Absolute 0.46 0.20 - 1.00 K/mcL LAB HEMETOLOGY METHOD 10/30/2024 8:05 PM [facility] Eosinophils Absolute 0.13 0.00 - 0.50 K/mcL LAB HEMETOLOGY METHOD 10/30/2024 8:05 PM [facility] Basophils Absolute 0.04 0.00 - 0.20 K/mcL LAB HEMETOLOGY METHOD 10/30/2024 8:05 PM [facility] Immature Granulocytes Absolute 0.01 0.00 - 0.03 K/mcL LAB HEMETOLOGY METHOD 10/30/2024 8:05 PM [facility] Blood Venous blood specimen / Unknown Venipuncture / Unknown 10/30/2024 7:33 PM EDT 10/30/2024 7:49 PM EDT Joel Woo MD LAB BLOOD ORDERABLES Final Res ult [facility] [address] [place] [address], [place] [phone] * Magnesium (10/30/2024 7:33 PM EDT) [facility] Magnesium 1.9 1.9 - 2.6 mg/dL LAB CHEMISTRY METHOD 10/30/2024 8:27 PM EDT [facility] Blood Venous blood specimen / Unknown Venipuncture / Unknown 10/30/2024 7:33 PM EDT 10/30/2024 7:49 PM EDT Joel Woo MD LAB BLOOD ORDERABLES Final Res ult Performing Organization Address [facility]/ZIP Co de Phone Number [facility] [address] [place] [address], [place] [phone] * (ABNORMAL) Comprehensive metabolic panel (10/30/2024 7:33 PM EDT) [facility] Sodium 136 133 - 145 mmol/L LAB CHEMISTRY METHOD 10/30/2024 8:27 PM EDT [facility] Potassium 3.7 3.5 - 5.5 mmol/L LAB CHEMISTRY METHOD 10/30/2024 8:27 PM EDT [facility] Chloride 98 96 - 110 mmol/L LAB CHEMISTRY METHOD 10/30/2024 8:27 PM T [facility] CO2 31 21 - 32 mmol/L LAB CHEMISTRY METHOD 10/30/2024 8:27 PM EDT [facility] Anion Gap 7 3 - 11 LAB CHE[facility]STR[facility] Glucose 97 70 - 100 mg/dL LAB CHEMISTRY METHOD 10/30/2024 8:27 PM EDT [facility] BUN 9 5 - 25 mg/dL LAB CHEMISTRY METHOD 10/30/2024 8:27 PM [facility] Creatinine 0.61(L) 0.70 - 1.30 mg/dL LAB CHEMISTRY METHOD 10/30/2024 8:27 PM [facility] eGFR 107 >=60 mL/min/1. 73m2 LAB CHEMISTRY METHOD 10/30/2024 8:27 PM [facility] Comment:Calculation based on the Chronic Kidney Disease Epidemiology Collaboration (CKD-EPI) equation refit without adjustment for race. BUN/Creatinine Ratio 14.8 LAB CHEMISTRY METHOD 10/30/2024 8:27 PM [facility] Calcium 8.3(L) 8.5 - [...] 7:33 PM EDT 10/30/2024 7:49 PM EDT Joel Woo MD LAB BLOOD ORDERABLES Final Res ult [facility] [address] [place] [address], * ECG 12 lead (10/30/2024 7:32 PM EDT) Ventricular Rate ECG 88 BPM GEMUSE Atrial Rate 88 BPM GEMUSE P-R Interval 164 ms GEMUSE QRS Duration 96 ms GEMUSE Q-T Interval 394 ms GEMUSE QTc 476 ms GEMUSE P Wave [place] 77 degrees GEMUSE R [place] 40 degrees GEMUSE T [place] 61 degrees GEMUSE ECG Interpretation Normal sinus rhythm Abnormal ECG When compared with ECG of 10-AUG-2024 02:33, No significant change was found Confirmed by SANTOS MERCADO ([id number]) on 10/31/2024 7:59:02 AM GEMUSE 10/30/2024 7:32 PM EDT 10/31/2024 7:59 AM EDT us Joel Woo MD ECG ORDERABLES Final Result Performing Organization Address [facility] Co de Phone Number GEMUSE from Last 3 Months Insurance [facility] Care Teams Entry Level Project Engineer Relationship Specialty Start Date End Date Physician, Pcp Unknown PCP - General 01/05/25
[2025-01-29 02:29] LABS: MANUAL DIFF FLAG NO
[2025-01-29 02:32] LABS: Hematocrit 33.7 % (42.0-52.0); Hemoglobin 12.3 g/dl (14.0-18.0); Imm Gran Abs Auto 0.02 X10*3/uL (0.00-0.03); Imm Gran Pct Auto 0.3 % (0.0-0.4); Lymphocytes Absolute Auto 2.0 X10*3/uL (1.2-4.9); Mean Corpuscular HGB Conc 36.5 g/dl (31.0-36.0); Mean Corpuscular Hemoglobin 29.1 pg (27.0-33.0); Mean Corpuscular Volume 79.7 fL (80.0-98.0); NRBC Abs Auto 0.000 X10*3/uL (0.0-0.012); NRBC Pct Auto 0.0 /100WBC (0.0-0.2); Platelet Count 137 X10*3/uL (160-400); Red Blood Count 4.23 X10*6/uL (4.60-5.80); White Blood Count 6.5 X10*3/uL (4.8-10.8)
[2025-01-29 02:41] LABS: Cannabinoid Screen Urine Not Detected (Not Detect)
[2025-01-29 02:47] LABS: Alanine Aminotransferase 67 U/L (0-40); Albumin Level 4.8 g/dL (3.5-5.0); Alkaline Phosphatase 101 U/L (39-117); Anion Gap 14 (12-20); Aspartate Amino Transferase 71 U/L (5-37); Blood Urea Nitrogen 10 mg/dL (9-16); Calcium 8.8 mg/dL (8.4-10.2); Carbon Dioxide 27 mmol/L (22-29); Chloride 102 mmol/L (96-108); Creatinine Clr Calc Pharmacy 118.3; Estimated Glomerular Filt Rate > 60; Magnesium 2.3 mg/dL (1.6-2.6); Potassium 4.2 mmol/L (3.3-5.1); Sodium 139 mmol/L (135-145); Total Protein 7.8 g/dL (6.5-8.0)
--- NOTE | 2025-01-29 04:07 | ED.PSYCH ---
HPI - Psych General Chief Complaint: Psychiatric Symptoms Stated Complaint: ETOH Time Seen by Provider: 01/29/25 03:30 Source: patient Mode of arrival: ambulatory Limitations: no limitations History of Present Illness ED Provider: Dr. Rachael [place] HPI Narrative: Patient comes to the emergency room via ambulance for EtOH. According to EMS, the patient made some suicidal statements with no plan. EMS states that he walked into a police station stating ?I a.m. going to take half of you out?. Patient is too intoxicated to give any history at this time. Related Data Home Medications ?Medication ?Instructions ?Recorded ?Confirmed ascorbic acid (vitamin C) 250 mg 500 mg PO DAILY 12/15/24 12/19/24 tablet (Vitamin C) acetaminophen 325 mg tablet 650 mg PO BID PRN Headache/Pain, 12/19/24 12/19/24 Scale 1-10 fexofenadine 180 mg tablet 180 mg PO DAILY PRN Allergy 12/19/24 12/19/24 Symptoms ibuprofen 600 mg tablet 400 mg PO BIDWM PRN joint 12/19/24 12/19/24 pain/headache Previous Rx's ?Medication ?Instructions ?Recorded albuterol sulfate 90 mcg/actuation 2 puff inhalation Q4H PRN 11/16/24 aerosol inhaler (Ventolin HFA) Shortness Of Breath Or Wheezing #1 inhaler amlodipine 5 mg tablet 5 mg PO BID #60 tabs 11/16/24 carvedilol 6.25 mg tablet 6.25 mg PO BID #60 tabs 11/16/24 ferrous sulfate 325 mg (65 mg 325 mg PO Q48H #30 tabs 11/16/24 iron) tablet gabapentin 300 mg capsule 300 mg PO BID #90 caps 11/16/24 nicotine 21 mg/24 hr daily 1 patch transdermal DAILY #30 ea 11/16/24 transdermal patch omeprazole 20 mg capsule,delayed 20 mg PO DAILY@0630 #30 caps 11/16/24 release spironolactone 25 mg tablet 25 mg PO DAILY #30 tabs 11/16/24 (Aldactone) Allergies Allergy/AdvReac Type Severity Reaction Status Date / Time latex Allergy Unknown Verified 01/29/25 01:36 lisinopril Allergy Unknown Verified 01/29/25 01:36 Review of Systems Review of Systems: Yes Other (Too intoxicated) [facility] Past Medical History Medical History Major depressive disorder, recurrent, moderate Alcohol abuse Social History Social History Household Members: Other Housing: Other Housing Other:: friends/motel Do you presently have visiting nurse or other home services: No Alcohol intake: current Alcohol intake frequency: 3 or more drinks per day Alcohol type: beer and hard liquor Comment: Pt. refused offer for an opportunity to use a walker. Patient Tobacco Use Status: Current everyday Tobacco user Tobacco use type: Cigarette Years Smoked: 40+ Smoked in Last 30 Days: Yes Substance Use Type: Marijuana Substance Use Frequency: Daily Advance Directives: No Do you have a plan to hurt others: No Plan service: Yes Sexual orientation: Straight/Heterosexual Physical Exam Exam: Exam: Appearance: Alert. Or Jono x1, intoxicated, talking nonsense, somnolent, easily arousable, not answering questions appropriately Eyes: Pupils equal, round and reactive to light. ENT: Pharynx normal. Neck: Normal inspection. Neck supple. No lymph nodes noted. No crepitus CVS: Normal heart rate and rhythm. Pulses normal. Normal S1 and S2 Respiratory: No respiratory distress. Breath sounds normal. No Wheezing. No rales Abdomen: Soft and nontender. No rigidity. No distention. Skin: Skin warm and dry. Normal skin color. Normal skin turgor. Extremities: No lower extremity edema. No Lacerations. No Rash Neuro: Oriented X 1 No motor deficit. Moving all extremities. Patient does have slurred speech, patient is intoxicated, CN 2 through 12 grossly intact Psych: Intoxicated Vital Signs: Vital Signs: Last Vital Signs Temp 97.7 F 01/29/25 07:39 Pulse 82 01/29/25 07:39 Resp 20 01/29/25 07:39 BP 145/54 H 01/29/25 07:39 Pulse Ox 95 01/29/25 07:39 O2 Del Method Room Air 01/29/25 07:39 BMI result Body Mass Index 33.5 Course Course Course Narrative: According to EMS, patient made SI/HI statements that the police station. At this time, patient is too intoxicated to assess. All of patient's labs pending According to EMS, the patient did not report any falls. Patient does not seem to have any obvious trauma Reevaluation(s) Reevaluation #1: Krogius: The patient was signed out to me by the overnight physician. The patient had presented intoxicated and with a belligerent demeanor. He fell asleep in the emergency room. He was signed out to me pending re-evaluation when he was awake. When he was awake he was alert and had no complaints. He was requesting discharge. He denied suicidality or homicidality. He gets his primary care at the [facility] and would like to follow up with the [facility]. He was not interested in any other discussions. Time: 07:50 Medical Decision Making Medical Decision Making [facility] Narrative: My interpretation of labs: Patient's hematology at baseline, chemistry at baseline, normal, LFTs chronically elevated secondary to EtOH abuse., ETOH level 275. Patient has not provided a urine sample yet Patient is intoxicated at this time. Vitals stable We will reassess for SI/HI when patient is clinically sober Physician observation started at 0200 Differential Diagnosis Differential Diagnoses: The differential diagnosis associated with the presentation includes (Alcohol intoxication, polysubstance abuse, anxiety, depression) Admission/Observation Consideration of admission/observation: Escalation of care including admission/observation considered (Patient is under physician observation waiting to become more sober.) Lab Data [facility] Lab Attestation statement: I reviewed the patient's lab results. 01/29/25 02:23 01/29/25 02:23 Labs: Lab Results 01/29/25 Range/Units 02:23 WBC 6.5 (4.8-10.8) X10*3/uL RBC 4.23 L (4.60-5.80) X10*6/uL Hgb 12.3 L (14.0-18.0) g/dl Hct 33.7 L (42.0-52.0) % MCV 79.7 L (80.0-98.0) fL MCH 29.1 (27.0-33.0) pg MCHC 36.5 H (31.0-36.0) g/dl RDW 14.7 (11.0-16.0) % Plt Count 137 L (160-400) X10*3/uL MPV 8.4 L (9.4-12.4) fL Immature Gran % (Auto) 0.3 (0.0-0.4) % Neut % (Auto) 57.1 (45-73) % Lymph % (Auto) 30.7 (20-40) % Arthur % (Auto) 9.3 (2-11) % Eos % (Auto) 2.0 (0-4) % Baso % (Auto) 0.6 (0-2) % Lymph # (Auto) 2.0 (1.2-4.9) X10*3/uL Arthur # (Auto) 0.6 (0.1-1.2) X10*3/uL Eos # (Auto) 0.1 (0.0-0.4) X10*3/uL Baso # (Auto) 0.0 (0.0-0.2) X10*3/uL Abs Immat Gran (auto) 0.02 (0.00-0.03) X10*3/uL Absolute Neuts (auto) 3.7 (2.0-8.3) x10*3/uL Absolute Nucleated RBC 0.000 (0.0-0.012) X10*3/uL Nucleated RBC % (auto) 0.0 (0.0-0.2) /100WBC Sodium 139 (135-145) mmol/L Potassium 4.2 (3.3-5.1) mmol/L Chloride 102 (96-108) mmol/L Carbon Dioxide 27 (22-29) mmol/L Anion Gap 14 (12-20) BUN 10 (9-16) mg/dL Creatinine 0.70 (0.5-1.4) mg/dL Estim Creat Clear Calc 118.3 Estimated GFR > 60 Random Glucose 106 (60-115) mg/dL Calcium 8.8 (8.4-10.2) mg/dL Magnesium 2.3 (1.6-2.6) mg/dL Total Bilirubin 0.5 (0.0-1.0) mg/dL AST 71 H (5-37) U/L ALT 67 H (0-40) U/L Alkaline Phosphatase 101 (39-117) U/L Total Protein 7.8 (6.5-8.0) g/dL Albumin 4.8 (3.5-5.0) g/dL Urine Opiates Screen Not Detected (Not Detect) Ur Buprenorphine Scrn Not Detected (Not Detect) ng/mL Ur Oxycodone Screen Not Detected (Not Detect) ng/mL Urine Methadone Screen Not Detected (Not Detect) ng/mL Urine Fentanyl Screen Not Detected (Not Detect) Ur Barbiturates Screen Not Detected (Not Detect) Ur Phencyclidine Scrn Not Detected (Not Detect) Ur Amphetamines Screen Not Detected (Not Detect) U Benzodiazepines Scrn Not Detected (Not Detect) Urine Cocaine Screen Not Detected (Not Detect) U Marijuana (THC) Screen Not Detected (Not Detect) Ethyl Alcohol 275 mg/dL Independent Historian Clinical information obtained from an independent historian. History obtained from or confirmed by: EMS Chronic Conditions Patient?s care impacted by: Other (Alcohol abuse and dependence) Critical Care Time Critical Care Time Critical Care Time: Yes Total Critical Care Time: 35 Attestation: I have personally provided critical care time. Time includes review of lab data, radiology results, discussion with consultants, and monitoring for potential decompensation. Intervention performed as documented. Discharge Plan Discharge Clinical Impression: Alcohol intoxication Patient Disposition: Home, Self-Care Additional Instructions: Please plan on following up with your regular doctor at the [facility]. Alcohol use disorder You were seen in the Emergency Department today for treatment of alcohol use disorder.? You may have been given medications to help with your withdrawal symptoms.? Please do not drink alcohol with them. This is very dangerous and can cause respiratory depression or other adverse reactions depending on the medication. If you would like to cut down or stop your alcohol use please consider calling our outpatient Addiction Treatment office:? [facility] ([id number] [id number]) [address] [place] [address] You have also been given a list of treatment providers in the area that can assist as well.? If you experience seizures, vomiting blood, black stools, falls, severe headache, chest pain, fevers, trouble breathing, hallucinations or any other concerns you need to call 911 or seek immediate care. Please stay hydrated. Prescriptions: No Action acetaminophen 325 mg tablet 650 mg PO BID PRN (Reason: Headache/Pain, Scale 1-10) fexofenadine 180 mg tablet 180 mg PO DAILY PRN (Reason: Allergy Symptoms) ibuprofen 600 mg tablet 400 mg PO BIDWM PRN (Reason: joint pain/headache) gabapentin 300 mg Capsule 300 mg PO BID Qty: 90 0RF omeprazole 20 mg Capsule,Delayed Release(Dr/Ec) 20 mg PO DAILY@0630 Qty: 30 0RF carvedilol 6.25 mg Tablet 6.25 mg PO BID Qty: 60 0RF Rx Instructions: must administer with a meal/food HOLD IF SBP<115 or HR<56 amlodipine 5 mg Tablet 5 mg PO BID Qty: 60 0RF spironolactone [Aldactone] 25 mg Tablet 25 mg PO DAILY Qty: 30 0RF ferrous sulfate 325 mg (65 mg iron) Tablet 325 mg PO Q48H Qty: 30 0RF nicotine 21 mg/24 hr Patch 24 Hour 1 patch TRANSDERMAL DAILY Qty: 30 0RF albuterol sulfate [Ventolin HFA] 90 mcg/actuation Hfa Aerosol Inhaler 2 puff INHALATION Q4H PRN (Reason: Shortness Of Breath Or Wheezing) Qty: 1 0RF ascorbic acid (vitamin C) [Vitamin C] 250 mg tablet 500 mg PO DAILY Referrals: Amol Florez PA [Physician Tongue And Groove Machine Operator, Internal Medicine] Interventions: Grant-Suicide Risk Severity Scale Last Done: 01/29/25 01:37 ED Discharge Assessment Last Done: 01/29/25 07:39 Print Language: Mexican
[2025-01-29 07:35] VITALS: BP 145/54; PULSE 82; RESP 20; TEMP 36.5; O2SAT 95
[2025-01-29 07:39] VITALS: BP 145/54; PULSE 82; RESP 20; TEMP 36.5; O2SAT 95
== END 2025-01-29 08:00 | disposition home or self-care (01) ==
PROVIDERS: Emergency Provider Emergency Medicine
DX: F10.129 Alcohol abuse with intoxication, unspecified (principal); F33.1 Major depressive disorder, recurrent, moderate; F17.210 Nicotine dependence, cigarettes, uncomplicated; F12.90 Cannabis use, unspecified, uncomplicated; Y90.8 Blood alcohol level of 240 mg/100 ml or more
CPT/HCPCS: 36415; 80053; 80307; 83735; 85025; 99284

== ENCOUNTER 2025-02-08 03:59 | Emergency (ER) | payer OTHER, SELFPAY ==
--- OUTSIDE RECORDS SUMMARY | 2025-02-02 23:39 | XMS_ITS | Encounter Summary ---
Author Organization [facility] Address [address] [place] [phone] Phone Care Team Providers Care Javascript Web Developer Name Role Phone GavincarriemainorNargis Leti ALEXIS Primary Care Provider Reason for Visit * Reason Comments Abdominal Pain * Auth/Cert (Routine) Specialty Diagnoses / Procedures Referred By Arian t Referred To Contact Referral ID Status Reason Start Date Expiration Date Visits Re quested Visits Authorized [id number] 1 1 Encounter Details Date Type Department Care Team (Late st Contact Info) Description 02/02/2025 11:39 PM EDT - 02/03/2025 12:20 AM EDT Emergency [facility] [address] [place] [address] Carlos Alberto Albrecht, DO [address] [place] [address] [email or web address] Discharge Disposition: Home or Self Care Social History Tobacco Use Types Packs/Day Years Used Date Smoking Tobacco: Every Day Cigarettes 0.5 49.9 Started: 1975 Passive Smoke Exposure: Past Smokeless Tobacco: Never Alcohol Use Standard Drinks/Week Comments Yes 42 (1 standard drink = 0.6 oz pu re alcohol) daily Education Answer Date Recorded Are you interested in more education? Not on josh e 08/24/2022 Are you concerned about learning? Not on file 08/24/2022 No 08/24/2022 No 08/24/2022 Food Answer Date Recorded Within the past 6 months we worried whether our food would run out before we got money to buy more. I choose not to answer 01/30/2025 Within the past 6 months the food we bought just didn't last and we didn't have enough money to get more. I choose not to answer 01/30/2025 Residential Stability Answer Date Recor ded What is your housing situation today? I choose n ot to answer 01/30/2025 How many times have you move d in the past 12 months? I choose not to answer 01/30/2025 Paying for Meds Answer Date Recorded Do you have trouble paying for medicines? I roman se not to answer 01/30/2025 Paying Utility Bills Answer Date Record ed Do you have trouble paying y our heating or electricity bill? I choose not to answer 01/30/2025 Transportation Answer Date Recorded Has the lack of transportati on kept you from medical appointments or from getting medications? I choose not to answer 01/30/2025 Digital Access Answer Date Recorded No 01/30/2025 No 01/30/2025 Do you have reliable internet access at home? I choose not to answer 01/30/2025 Do you have a device (e.g., phone, tablet, computer) with a working camera? I choose not to answer 01/30/2025 Intimate Partner Violence Answer Date R ecorded Are you denied basic needs s uch as food, clothing, or medical care? No 02/02/2025 In the past 12 months have y ou been in a relationship with a person who hurts, threatens, or tries to control you? No 02/02/2025 Are you denied basic needs s uch as food, clothing, or medical care? No 02/02/2025 In the past 12 months have y ou been in a relationship with a person who hurts, threatens, or tries to control you? No 02/02/2025 Sex and Gender Information Value Date Recorded Sex Assigned at Male 11/11/2022 10:36 AM EDT Legal Sex Male 9:48 PM EDT Gender Identity Male 11/11/2022 10:36 AM EDT Sexual Orientation Straight 11/11/2022 10 :36 AM EDT documented as of this encounter Last Filed Vital Signs Vital Sign Reading Time Taken Comments Blood Pressure 144/89 02/02/2025 11:45 PM EDT Pulse 91 02/02/2025 11:45 PM EDT Temperature 36.2 C (97.2 F) 02/02/2025 11:45 PM EDT Respiratory Rate 20 02/02/2025 11:45 PM EDT Oxygen Saturation 95% 02/02/2025 11:45 PM EDT Inhaled Oxygen Concentration - - Weight - - Height - - Body Mass Index - - documented in this encounter Discharge Instructions * Discharge Instructions* Carlos Alberto Albrecht DO - 02/03/2025 12:10 AM EDT Continue to follow-up with general surgery as an outpatient. * Attachments The following attachments cannot be sent through Care Everywhere. * Alcohol Intoxication: Acute (Mauritanian) documented in this encounter Medications at Time of Discharge acetaminophen (TYLENOL) 325 mg tabletIndications: [facility] Take 650 mg by mouth 2 (two) times a day as needed for pain (specific location in comments). Indications: [facility] albuterol 90 mcg/actuation inhaler Inhale 2 puffs into the lungs every 6 (six) hours as needed for wheezing. allopurinol (ZYLOPRIM) 100 MG tablet Take 100 mg by mouth daily. amLODIPine (NORVASC) 10 MG tablet Take 10 mg by mouth daily. 07/14/2022 ascorbic acid, vitamin C, (VITAMIN C) 500 MG tabletIndications: [facility] Take 500 mg by mouth daily. Indications: [facility] atenolol (TENORMIN) 50 mg tablet Take 50 mg by mouth. 07/14/2022 carvedilol (COREG) 6.25 MG tablet Take 6.25 mg by mouth 2 (two) times a day with meals. cholecalciferol (VITAMIN D3) 2,000 unit tablet Take 2,000 Units by mouth daily. ferrous sulfate 325 mg (65 mg standing rock iron) tablet Take 325 mg by mouth daily with breakfast. fexofenadine (EMANUEL) 180 MG tabletIndications: [facility] Take 180 mg by mouth daily. Indications: [facility] folic acid (FOLVITE) 1 MG tablet Take 1 mg by mouth daily. furosemide (LASIX) 20 MG tablet Take 20 mg by mouth daily. gabapentin (NEURONTIN) 100 MG capsule Take 100 mg by mouth 3 (three) times a day. ibuprofen (ADVIL,MOTRIN) 600 MG tablet Take 1 tablet (600 mg total) by mouth every 8 (eight) hours as needed for pain (specific location in comments). 30 tablet 09/13/2024 melatonin 5 mg Tab Take 5 mg by mouth nightly at bedtime. nicotine (NICODERM CQ) 21 mg/24 hrIndications:[facility] 1 patch onto the skin daily. Indications: [facility] omeprazole (PRILOSEC) 20 MG capsule Take 20 mg by mouth daily. spironolactone (ALDACTONE) 25 MG tablet Take 50 mg by mouth daily. therapeutic multivitamin tablet Take 1 tablet by mouth daily. thiamine (VITAMIN B-1) 100 MG tablet Take 200 mg by mouth daily. traZODone (DESYREL) 100 MG tablet Take 50 mg by mouth nightly at bedtime. documented as of this encounter ED Notes * Hina Edmond RN - 02/03/2025 12:17 AM EDT ED Discharge Nursing Note Patient refused discharge teaching. Yelling and swearing at staff throughout discharge process. Denied discharge paperwork. Security at bedside to assist patient out of department. * Hina Edmond RN - 02/02/2025 11:44 PM EDT Patient comes in by ambulance complaining of worsening hernia pain. States he is holding his herniain. Demanding hernia surgery now. Yelling at staff while in stretcher. * Carlos Alberto Albrecht DO - 02/02/2025 11:37 PM EDT Chief Complaint Chief Complaint Patient presents with Abdominal Pain History of Present Illness The patient, Stanley Liu,is a 64 y.o. male who presents for evaluation of Abdominal Pain Patient is a 64-year-old male. Presenting for evaluation of alcohol intoxication and chronic abdominal pain. Patient of limited ability to provide a history as he is quite upset at this time. When initially approached the patient questioned if I was a real doctor. Stated that I scuffed my feet too much to be a real doctor. Patient was redirected to his complaint today. States that he is frustrated that a surgeon will not fix his hernia. When asked if he has seen general surgery as an outpatienthe yelled simply that he has been to the ED thousands of times and that no one will fix it. Unless otherwise specified, I have reviewed and agree with the triage and nursing notes. ROS Unable to obtain Review of Systems Past Medical History Past Medical History: Diagnosis Date Alcohol dependence with intoxication Cancer Hypertensive disorder Perforated sigmoid colon Past Surgical History Past Surgical History: Procedure Laterality Date EXPLORATORY LAPAROTOMY/ EVACUATION OF 5L OF ASCITES, REPAIR OF DOUDENAL ULCER AND BENJI PATCH N/A 08/07/2022 Performed by Sarmad Serrato MD, MPH at [facility] Home Medications Prior to Admission medications Medication Sig acetaminophen (TYLENOL) 325 mg tablet 650 mg, 2 times daily PRN Patient not taking: Reported on 01/25/2025 albuterol 90 mcg/actuation inhaler 2 puffs, Every 6 hours PRN Patient not taking: Reported on 01/25/2025 allopurinol (ZYLOPRIM) 100 MG tablet 100 mg, Daily Patient not taking: Reported on 07/18/2024 amLODIPine (NORVASC) 10 MG tablet 10 mg, Daily ascorbic acid, vitamin C, (VITAMIN C) 500 MG tablet 500 mg, Daily Patient not taking: Reported on 01/25/2025 atenolol (TENORMIN) 50 mg tablet 50 mg Patient not taking: Reported on 07/18/2024 carvedilol (COREG) 6.25 MG tablet 6.25 mg, 2 times daily with meals cholecalciferol (VITAMIN D3) 2,000 unit tablet 2,000 Units, Daily Patient not taking: Reported on 07/18/2024 ferrous sulfate 325 mg (65 mg standing rock iron) tablet 325 mg, Daily with breakfast Patient not taking: Reported on 01/25/2025 fexofenadine (EMANUEL) 180 MG tablet 180 mg, Daily Patient not taking: Reported on 01/25/2025 folic acid (FOLVITE) 1 MG tablet 1 mg, Daily Patient not taking: Reported on 07/18/2024 furosemide (LASIX) 20 MG tablet 20 mg, Daily Patient not taking: Reported on 07/18/2024 gabapentin (NEURONTIN) 100 MG capsule 100 mg, 3 times daily ibuprofen (ADVIL,MOTRIN) 600 MG tablet 600 mg, Oral, Every 8 hours PRN melatonin 5 mg Tab 5 mg, Oral, Nightly nicotine (NICODERM CQ) 21 mg/24 hr 1 patch, Every 24 hours omeprazole (PRILOSEC) 20 MG capsule 20 mg, Daily spironolactone (ALDACTONE) 25 MG tablet 50 mg, Daily Patient not taking: Reported on 01/25/2025 therapeutic multivitamin tablet 1 tablet, Daily Patient not taking: Reported on 07/18/2024 thiamine (VITAMIN B-1) 100 MG tablet 200 mg, Daily Patient not taking: Reported on 07/18/2024 traZODone (DESYREL) 100 MG tablet 50 mg, Nightly Patient not taking: Reported on 07/18/2024 Allergies Allergies Allergen Reactions Fluoxetine Hives Hctz [Hydrochlorothiazide] Unknown [facility] Latex Lisinopril Cough Other Artificial sweetener Terazosin Unknown [facility] Social and Family History Social History Tobacco Use Smoking status: Every Day Current packs/day: 0.50 Average packs/day: 0.5 packs/day for 49.9 years (24.9 ttl pk-yrs) Types: Cigarettes Start date: 1975 Passive exposure: Past Smokeless tobacco: Never Substance Use Topics Alcohol use: Yes Alcohol/week: 42.0 standard drinks of alcohol Types: 42 Cans of beer per week Comment: daily Social History Substance and Sexual Activity Drug Use Not Currently No family history on file. Physical Exam Vital Signs: ED Triage Vitals [02/02/25 7928] Encounter Vitals Group BP (!) 144/89 Systolic BP Percentile Diastolic BP Percentile Heart Rate 91 Respiratory Rate 20 Temperature 36.2 ??C (97.2 ??F) Temp src SpO2 95 % Weight Height Head Circumference Peak Flow Pain Score Pain Loc Pain Education Exclude from Growth Chart Physical Exam General: Laying in a stretcher, malodorous of alcohol HENT: Normocephalic, Atraumatic Cardiovascular: Normal Rate, Normal Rhythm, Good Distal Perfusion Pulmonary: Normal Effort, symmetric chest rise Abdominal: Nondistended, visible small umbilical hernia, Soft MSK: Normal ROM Skin: Intact, Dry Neurological: Alert, Orientated x 3, Speech Slurred, Moves extremities without focal deficit Psych: argumentative, mild psychomotor agitation present, punching the stretcher Laboratory Testing No results found for this visit on 02/02/25. Radiology Testing No orders to display MDM MDM patient presents as above. On arrival vital signs are stable outside of mild hypertension. Patient presenting with complaints of abdominal pain and frustration about not having his hernia repaired. History and exam complicated by alcohol intoxication. Patient is quite agitated, yelling at staff, heis punching the stretcher. Despite doing all of this showing no outward signs of any abdominal discomfort. His exam is consistent with intoxication but abdominal exam is benign. Given patient's agitation and aggressive nature towards staff as well as low concern for acute intra-abdominal pathology such as incarcerated or obstructed hernia patient was discharged via the aid of security. Patient was able to get up and ambulate into a wheelchair and was escorted to the waiting room. Clinical Impressions as of 02/03/25 0016 Alcoholic intoxication without complication Generalized abdominal pain Clinical Impression Diagnosis Description Comment Final diagnoses Alcoholic intoxication without complication Alcoholic intoxication without complication -- Generalized abdominal pain Generalized abdominal pain -- Disposition: Home Carlos Alberto Albrecht DO 02/03/25 0023 documented in this encounter Plan of Treatment Not on file documented as of this encounter Visit Diagnoses Diagnosis Alcoholic intoxication without complication- Primary Generalized abdominal pain Abdominal pain, generalized documented in this encounter Additional Health Concerns Infection Onset Date Last Indicated Resolved Time Other (Comment) Comment:Please order CRE screening (Carbapenem Resistant Enterobacteriaceae) if this patient is readmitted, at the request of THUY CURTIS, due to prior potential exposure. Patient does not require additional precautions because of the screening. Contact Infection Control with questions. 08/23/2022 08/23/2022 documented as of this encounter Care Teams Javascript Web Developer Relationship Specialty Start Date End Date Nargis Torre DO [address] [place] [id number] PCP - General Internal Medicine 01/25/24 documented as of this encounter Additional Source Comments The information contained in this document represents components of the legal health record. It is not the complete legal health record.[facility]
--- OUTSIDE RECORDS SUMMARY | 2025-02-06 08:19 | XMS_ITS | Encounter Summary ---
Author Organization [facility] Address [address] [place] [address] Phone Care Team Providers Care Section 8 Property Manager Name Role Phone Nicho Nargis Leti ALEXIS Primary Care Provider [phone] Reason for Visit * Reason Comments Alcohol Intoxication * Auth/Cert (Routine) Specialty Diagnoses / Procedures Referred By Arian t Referred To Contact Referral ID Status Reason Start Date Expiration Date Visits Re quested Visits Authorized [id number] 1 1 Encounter Details Date Type Department Care Team (Late st Contact Info) Description 02/06/2025 8:19 AM EDT - 02/06/2025 11:49 AM EDT Emergency [facility] Emergency [address] [place] [address] Discharge Disposition: Home or Self Care Social [...] have trouble paying for medicines? I roman griffin not to answer 01/30/2025 Paying Utility Bills [...] as food, clothing, or medical care? No 02/07/2025 In the past 12 months have y ou been in a relationship with a person who hurts, threatens, or tries to control you? No 02/07/2025 Are you denied basic needs s uch as food, clothing, or medical care? No 02/07/2025 In the past 12 months have y ou been in a relationship with a person who hurts, threatens, or tries to control you? No 02/07/2025 Sex and Gender Information Value Date Recorded Sex Assigned at Male 11/11/2022 10:36 AM EDT Legal Sex Male 9:48 PM EDT Gender Identity Male 11/11/2022 10:36 AM EDT Sexual Orientation Straight 11/11/2022 10 :36 AM EDT documented as of this encounter Last Filed Vital Signs Vital Sign Reading Time Taken Comments Blood Pressure 129/87 02/06/2025 8:33 AM EDT Pulse 80 02/06/2025 8:33 AM EDT Temperature 35.9 C (96.6 F) 02/06/2025 8:33 AM EDT Respiratory Rate 20 02/06/2025 8:33 AM EDT Oxygen Saturation 94% 02/06/2025 8:33 AM EDT Inhaled Oxygen Concentration - - Weight - - Height - - Body Mass Index - - documented in this encounter Functional Status * Calculated C-SSRS Risk Score (Lifetime/Recent) Answer Date of Assessment Author No Risk Indicated 02/06/2025 1:29 AM EDT Hina Grace RN * [place] Suicide Severity Rating Scale (Screener/Recent Self-Report) Question Answer Date of Assessment Author 1. Wish to be (Past 1 Month) No 02/06/2025 1:29 AM EDT Hina Edmond, SAMI 2. Non-Specific Active Suicidal Thoughts (Past 1 Month) No 02/06/2025 1:29 AM EDT Hina Edmond RN 6. Suicidal Behavior (Lifetime) No 02/06/2025 1:29 AM EDT Hina Edmond RN documented as of this encounter Discharge Instructions * Discharge Instructions* Elisabeth Lovell PA-C - 02/06/2025 8:51 AM EDT Please return to the emergency department if you develop symptoms of alcohol withdrawal, thoughts of hurting yourself, or any other new or concerning symptoms. * Attachments The following attachments cannot be sent through Care Everywhere. * Alcohol Use Disorder: General Info (French) * Alcohol Detoxification and Withdrawal (French) documented in this encounter Medications at Time of Discharge acetaminophen (TYLENOL) 325 mg tabletIndications: [facility] Take 650 mg by mouth 2 (two) times a day as needed for pain (specific location in comments). Indications: [facility] albuterol 90 mcg/actuation inhaler Inhale 2 puffs into the lungs every 6 (six) hours as needed for wheezing. allopurinol (ZYLOPRIM) 100 MG tablet Take 100 mg by mouth daily. amLODIPine (NORVASC) 10 MG tablet Take 10 mg by mouth daily. 07/14/2022 ascorbic acid, vitamin C, (VITAMIN C) 500 MG tabletIndications: [facility] Take 500 mg by mouth daily. Indications: [facility] atenolol (TENORMIN) 50 mg tablet Take 50 mg by mouth. 07/14/2022 carvedilol (COREG) 6.25 MG tablet Take 6.25 mg by mouth 2 (two) times a day with meals. cholecalciferol (VITAMIN D3) 2,000 unit tablet Take 2,000 Units by mouth daily. ferrous sulfate 325 mg (65 mg [place] iron) tablet Take 325 mg by mouth daily with breakfast. fexofenadine (EMANUEL) 180 MG tabletIndications: [facility] Take 180 mg by mouth daily. Indications: [facility] folic acid (FOLVITE) 1 MG tablet Take [...] 1 patch onto the skin daily. Indications: [facility] omeprazole (PRILOSEC) 20 MG capsule Take 20 [...] ED Notes * Hina Edmond RN - 02/06/2025 1:27 AM EDT Patient picked up form outside [employer] [facility] called for high blood pressure. Endorses alcohol tonight.Security notified on arrival. * Elisabeth Lovell PA-C - 02/06/2025 1:25 AM EDT Chief Complaint Chief Complaint Patient presents with Alcohol Intoxication History of Present Illness 64-year-old male presenting for alcohol intoxication. The patient states I try to drink daily. He reports drinking three 24-ounce beers last night. 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 He was taking his blood pressure and noticed it to be going up and down like a yoyo. He is feeling his pulse when saying this. He denies any physicalcomplaints. He does mention a chronic right lower abdominal hernia which he is scheduled to see [facility] surgery for. Unless otherwise specified, I have reviewed and agree with the triage and nursing notes. ROS A ten point review of systems was negative except what was noted in the HPI. Review of Systems Past Medical History Past Medical History: Diagnosis Date Alcohol dependence with intoxication Cancer Hypertensive disorder Perforated sigmoid colon Past Surgical History Past Surgical History: Procedure Laterality Date EXPLORATORY LAPAROTOMY/ EVACUATION OF 5L OF ASCITES, REPAIR OF DOUDENAL ULCER AND BENJI PATCH N/A 08/07/2022 Performed by Sarmad Serrato MD, MPH at [facility] OR Home Medications Prior to Admission medications [...] 07/18/2024 ferrous sulfate 325 mg (65 mg [place] iron) tablet 325 mg, Daily with breakfast [...] Physical Exam Vital Signs: ED Triage Vitals Encounter Vitals Group BP 02/06/25127 (!) 141/78 Systolic BP Percentile -- Diastolic BP Percentile -- Heart Rate 02/06/25127 (!) 103 Respiratory Rate 02/06/25127 18 Temperature 02/06/25127 36 ??C (96.8 ??F) Temp Source 02/06/25 0833 Temporal SpO2 02/06/25127 98 % Weight -- Height -- Head Circumference -- Peak Flow -- Pain Score -- Pain Loc -- Pain Education -- Exclude from Growth Chart -- Physical Exam Vitals and nursing note reviewed. Constitutional: General: He is not in acute distress. Comments: Appears disheveled with foul-smelling odor. HENT: Head: Normocephalic. Cardiovascular: Rate and Rhythm: Normal rate. Pulmonary: Effort: Pulmonary effort is normal. Musculoskeletal: General: Normal range of motion. Skin: General: Skin is warm and dry. Neurological: Mental Status: He is alert. Laboratory Testing No results found for this visit on 02/06/25. Radiology Testing No orders to display MDM Assessment and Plan: 64-year-old male, with history of alcohol use disorder, presenting to the emergency department acutely intoxicated. On arrival, the patient was slightly tachycardic. His vitals are currently stable. He still has some slurred speech. He is requesting a tuna sandwich and sabra radha. He was provided food and drink. Will ambulate him. Anticipate discharge home once clinically sober. Category 1: Tests, Studies or Independent Historians: Prior Data Reviewed: Prior notes reviewed. Clinical Impressions as of 02/06/25 0859 Alcoholic intoxication without complication Clinical Impression Diagnosis Description Comment Final diagnosis Alcoholic intoxication without complication Alcoholic intoxication without complication -- Disposition: Home Elisabeth Lovell PA-C 02/06/25 0900 documented in this encounter Plan of Treatment Not on file documented as of this encounter Visit Diagnoses Diagnosis Alcoholic intoxication without complication- Primary documented in this encounter Additional Health Concerns Infection Onset Date Last Indicated Resolved Time Other (Comment) Comment:Please order CRE screening (Carbapenem Resistant Enterobacteriaceae) if this patient is readmitted, at the request of THUY CURTIS, due to prior potential exposure. Patient does not require additional precautions because of the screening. Contact Infection Control with questions. 08/23/2022 08/23/2022 documented as of this encounter Care Teams Section 8 Property Manager Relationship Specialty Start Date End Date Nargis Torre DO [address] [place] [id number] PCP - General Internal Medicine 01/25/24 documented as of this encounter Additional Source Comments The information contained in this document represents components of the legal health record. It is not the complete legal health record.[facility]
--- OUTSIDE RECORDS SUMMARY | 2025-02-07 01:38 | XMS_ITS | Encounter Summary ---
Author Organization [facility] Address [address] [facility] [address] [place] [address] Phone Care Team Providers Care Pilot Safety Inspector Name Role Phone GavinNargis jim Primary Care Provider [phone] Reason for Visit * Reason Comments Hypertension Leg Pain * Auth/Cert (Routine) Specialty Diagnoses / Procedures Referred By Arian t Referred To Contact Referral ID Status Reason Start Date Expiration Date Visits Re quested Visits Authorized [id number] 1 1 Encounter Details Date Type Department Care Team (Late st Contact Info) Description 02/07/2025 1:38 AM EDT - 02/07/2025 11:13 AM EDT Emergency [facility] [address] [place] [address] Carlos Alberto Albrecht DO [address] [place] [address] Ceferino Flowers MD [address] [place] [address] Discharge Disposition: Home or Self Care Social [...] Sign Reading Time Taken Comments Blood Pressure 182/89 02/07/2025 11:08 AM EDT Pulse 78 02/07/2025 11:08 AM EDT Temperature 36.8 C (98.2 F) 02/07/2025 11:08 AM EDT Respiratory Rate 18 02/07/2025 11:08 AM EDT Oxygen Saturation 99% 02/07/2025 11:08 AM EDT Inhaled Oxygen Concentration - - Weight - - Height - - Body Mass Index - - documented in this encounter Functional Status * Calculated C-SSRS Risk Score (Lifetime/Recent) Answer Date of Assessment Author No Risk Indicated 02/07/2025 12:24 AM EDT Maria C Ordoñez RN * [place] Suicide Severity Rating Scale (Screener/Recent Self-Report) Question Answer Date of Assessment Author 1. Wish to be (Past 1 Month) No 02/07/2025 12:24 AM EDT Luis M Dalal RN 2. Non-Specific Active Suicidal Thoughts (Past 1 Month) No 02/07/2025 12:24 AM EDT Luis M Dalal RN 6. Suicidal Behavior (Lifetime) No 02/07/2025 12:24 AM EDT Luis M Dalal RN documented as of this encounter Discharge Instructions * Discharge Instructions* Amairani Shine PA-C - 02/07/2025 10:56 AM EDT You were seen in the Emergency Department after drinking alcohol and making statements about wanting to harm yourself. You were observed until you were sober and are now safe for discharge. You told us that you no longer feel suicidal. During your visit, you also mentioned a painful lump in your right breast. It does not appear to beinfected at this time. We had planned to do an ultrasound, but you chose to follow up with your primary care provider for further evaluation instead. Please make an appointment as soon as possible for this. Recommendations: Please follow up with your primary care provider within the next few days for further evaluation ofthe breast lump. Seek help right away if you begin to feel suicidal again, have new or worsening pain, redness, or swelling in your breast, or if you feel unsafe. You can always return to the emergency department or call 911 in an emergency. Reduce or avoid alcohol use, as it can worsen mood and make it harder to stay safe and healthy. Resources for Support: National Suicide and Crisis Lifeline: Call or text 281 (available 19/11) If you need someone to talk to, you can also reach out to trusted family, friends, or a counselor. Take care and please seek follow-up care as recommended. Feel better!! documented in this encounter Medications at Time of Discharge acetaminophen (TYLENOL) 325 mg tabletIndications: [facility] pharmacy Take 650 mg by mouth 2 (two) times a day as needed for pain (specific location in comments). Indications: [facility] pharmacy albuterol 90 mcg/actuation inhaler Inhale 2 puffs into the lungs every 6 (six) hours as needed for wheezing. allopurinol (ZYLOPRIM) 100 MG tablet Take 100 mg by mouth daily. amLODIPine (NORVASC) 10 MG tablet Take 10 mg by mouth daily. 07/14/2022 ascorbic acid, vitamin C, (VITAMIN C) 500 MG tabletIndications: [facility] Take 500 mg by mouth daily. Indications: [facility] atenolol (TENORMIN) 50 mg tablet Take 50 mg by mouth. 07/14/2022 carvedilol (COREG) 6.25 MG tablet Take 6.25 mg by mouth 2 (two) times a day with meals. cholecalciferol (VITAMIN D3) 2,000 unit tablet Take 2,000 Units by mouth daily. ferrous sulfate 325 mg (65 mg nisqually iron) tablet Take 325 mg by mouth daily with breakfast. fexofenadine (EMANUEL) 180 MG tabletIndications: [facility] Take 180 mg by mouth daily. Indications: [facility] folic acid (FOLVITE) 1 MG tablet [...] as of this encounter ED Notes * Amairani Shine PA-C - 02/07/2025 11:13 AM EDT I assumed care of this patient at the start of my shift at 1000. The patient is now clinically sober, alert, and oriented, and is denying SI/HI/AVH. Case was discussed with the RESEARCH TEST ENGINE OPERATOR, and given the patient???s history and current presentation, we agree that he is safe for discharge. The patient also feels comfortable with this plan, understands his available outpatient mental health and substance use resources, and is aware that he may return to the emergency department at any time if symptoms recur or he feels unsafe. Separately, the patient was noted to have tenderness and a firm, mass-like swelling under the rightareola. There were no overlying skin changes or irregularities, and the appearance is not consistent with an acute infection. The plan for an ultrasound was discussed, but the patient declined and preferred outpatient follow-up for further evaluation. This plan is reasonable and safe at this time. Strict return precautions were reviewed, and the patient expressed understanding. Discharged in stable condition. * Xin Summers RN - 02/07/2025 11:09 AM EDT ED Discharge Nursing Note pt left ed with steady gait. VS at discharge were WNL for patient. Pt roa x 4, neuro intact. All questions at discharge answered. * Eloy Wilkerson RN - 02/07/2025 9:10 AM EDT ED Nursing Progress Note Pt stating he would like to leave today d/t having a cooking competition tomorrow. Pt informed thatCSO will see him at noon today per MD. Additionally pt requesting ibuprofen, informed that this RN is waiting for breakfast to administer d/t GI impact of medication. Pt accepting of this information. * Eloy Wilkerson RN - 02/07/2025 8:31 AM EDT ED Nursing Progress Note Pt refusing ECG at this time. States give me a little bit of time. Plan is to reattempt in ~1 hour. * Eloy Wilkerson RN - 02/07/2025 7:21 AM EDT ED Nursing Progress Note Assumed care of pt. Pt resting in bed with eyes closed, resps even and unlabored. Equal chest rise and fall noted. Plan is to assess CIWA and ECG when pt is awake and able to participate. * Paris Anderson RN - 02/07/2025 6:00 AM EDT ED Nursing Progress Note Pt sleeping in bed at this time. Pt breathing even and unlabored. NAD. * Paris Anderson RN - 02/07/2025 3:38 AM EDT ED Nursing Progress Note Pt unable to participate in CIWA d/t still being intoxicated/uncooperative * Maria C Dalal RN - 02/07/2025 12:21 AM EDT BIBA. Pt admits to drinking a whole shit load of alcohol today. Pt is complaining of high blood pressure and also left leg and foot pain. Pt states he has neuropathy and a broken toe. Pt also requesting to go to [employer] to have his hernia repaired. Pt yelling in triage but redirectable. Pt also rambling and swearing and appears intoxicated. * Carlos Alberto Albrecht DO - 02/07/2025 12:13 AM EDT Chief Complaint Chief Complaint Patient presents with Hypertension Leg Pain History of Present Illness The patient, Stanley Liu,is a 64 y.o. male who presents for evaluation of Hypertension and Leg Pain 64-year-old male. Presenting for evaluation of alcohol intoxication and what he describes as homicidal ideation. Patient states that he wants to hurt someone. Patient states that he has lost 3 friends over the last week due to drug use. He is just feeling increasingly frustrated and believes he needs a break. States that he [facility] to [facility]. Endorses chronic problems with his blood pressure which currently is actually quite reassuring. Patient also acknowledges chronicpain due to a right inguinal hernia however at this time states that the pain is manageable. He states that he is post to follow-up with a surgeon but is having difficulty getting this arranged. He acknowledges significant alcohol use today. Denies any drug use. Unless otherwise specified, I have reviewed and [...] Performed by Sarmad Serrato MD, MPH at [facility] OR Home Medications Prior to Admission [...] 07/18/2024 ferrous sulfate 325 mg (65 mg nisqually iron) tablet 325 mg, Daily with breakfast Patient not taking: Reported on 01/25/2025 fexofenadine (MEANUEL) 180 MG tablet 180 mg, Daily Patient [...] Physical Exam Vital Signs: ED Triage Vitals [02/07/25 0022] Encounter Vitals Group BP 137/81 Systolic BP Percentile Diastolic BP Percentile Heart Rate 85 Respiratory Rate 20 Temperature 36.1 ??C (97 ??F) Temp Source Tympanic SpO2 93 % Weight Height Head Circumference Peak Flow Pain Score Pain Loc Pain Education Exclude from Growth Chart Physical Exam General: Well Nourished, Well Developed HENT: Normocephalic, Atraumatic Eyes: PERRL, EOM Intact Cardiovascular: Normal Rate, Normal Rhythm, Good Distal Perfusion Pulmonary: Normal Effort, Breath Sounds Normal Abdominal: Soft, Non-tender, Non-distended MSK: Normal ROM Neurologic Screening Exam: Grossly non-focal. Vision is grossly intact to both eyes, EOM grossly intact, PERRL. Hearing is grossly intact to both ears. No olfactory deficits are noted. No obvious facial sensory deficits are noted. Motor function of the face is equal and symmetric. Shoulder shrug isintact. Tongue is in the midline. Psych: Alert, Awake, emotionally labile at certain points smiling at other points Appearing Quite angry. Denies suicidal ideation Laboratory Testing Results for orders placed or performed during the hospital encounter of 02/07/25 Acetaminophen level Specimen: Blood Result Value Ref Range ACETAMINOPHEN <5.0 (L) 15.0 - 30.0 ug/mL Ethanol, blood Specimen: Blood Result Value Ref Range ETHANOL 259 (H) <10 mg/dL Toxicology screen, urine Specimen: Urine Result Value Ref Range URINE CANNABINOIDS Positive (*) NONE DETECTED URINE COCAINE METAB NONE DETECTED NONE DETECTED URINE AMPHETAMINES NONE DETECTED NONE DETECTED URINE METHADONE NONE DETECTED NONE DETECTED URINE OPIATES NONE DETECTED NONE DETECTED URINE PHENCYCLIDINE NONE DETECTED NONE DETECTED URINE OXYCODONE NONE DETECTED NONE DETECTED URINE BARBITURATES NONE DETECTED NONE DETECTED URINE BENZODIAZEPINE NONE DETECTED NONE DETECTED URINE BUPRENORPHINE NONE DETECTED NONE DETECTED Fentanyl, urine NONE DETECTED NONE DETECTED Magnesium Specimen: Blood Result Value Ref Range MAGNESIUM 2.3 1.6 - 2.6 mg/dL LFTs (hepatic panel) Specimen: Blood Result Value Ref Range ALKALINE PHOSPHATASE 119 (H) 39 - 117 U/L TOTAL BILIRUBIN 0.5 0.0 - 1.2 mg/dL DIRECT BILIRUBIN 0.2 0.0 - 0.2 mg/dL Bilirubin (Indirect) 0.3 0 - 1.5 mg/dL AST 65 (H) 0 - 37 U/L ALT 44 (H) 0 - 40 U/L TOTAL PROTEIN 7.9 6.5 - 8.0 g/dL ALBUMIN 4.7 3.9 - 4.8 g/dL GLOBULIN 3.2 1 - 4.8 g/dL A/G Ratio 1.47 1.00 - 4.80 RATIO Basic metabolic panel Specimen: Blood Result Value Ref Range SODIUM 140 133 - 146 mmol/L CHLORIDE 101 96 - 108 mmol/L POTASSIUM 4.1 3.3 - 5.1 mmol/L CO2 24 21 - 35 mmol/L BUN 9 6 - 19 mg/dL CREATININE 0.70 0.5 - 1.5 mg/dL GLUCOSE 107 (H) 70 - 99 mg/dL CALCIUM 9.0 8.4 - 10.3 mg/dL EGFR 103 >59 mL/min/1.73m2 ANION GAP 19 10 - 20 mmol/L CBC and differential Specimen: Blood Result Value Ref Range WBC 6.23 4.00 - 11.00 K/uL RBC 4.38 (L) 4.50 - 5.90 M/uL HGB 12.7 (L) 13.5 - 17.5 g/dL HCT 36.9 (L) 41.0 - 53.0 % PLT 134 (L) 150 - 450 K/uL MCV 84.2 80.0 - 100.0 fL MCH 29.0 27.0 - 31.0 pg MCHC 34.4 32.0 - 36.0 g/dL RDW 15.9 (H) 11.5 - 14.5 % MPV 8.0 (L) 8.4 - 12.0 fL NRBC 0.00 0.00 /100 WBCs ABSOLUTE NRBC 0.00 0.00 K/uL DIFF METHOD Auto NEUTS 39.5 (L) 48.0 - 76.0 % LYMPHS 48.0 (H) 18.0 - 41.0 % MONOS 9.8 4.0 - 11.0 % EOS 2.1 0.0 - 5.0 % BASOS 0.3 0.0 - 1.5 % Granulocytes, immature (%) 0.3 0.0 - 0.9 % ABSOLUTE NEUTS 2.46 1.92 - 7.60 K/uL ABSOLUTE LYMPHS 2.99 0.72 - 4.10 K/uL ABSOLUTE MONOS 0.61 0.16 - 1.10 K/uL ABSOLUTE EOS 0.13 0.00 - 0.50 K/uL ABSOLUTE BASOS 0.02 0.00 - 0.15 K/uL Granulocytes, immature 0.02 0.00 - 0.09 K/uL Radiology Testing No orders to display MDM MDM Patient presents as above. On arrival vital signs are stable. His exam is benign. Requesting evaluation at the [facility] for psychiatric concerns. Will obtain laboratory studies for medical screening and obtain RESEARCH TEST ENGINE OPERATOR consult. ED Course as of 02/07/25254 [place] Feb 07, 2025 0241 LFTs (hepatic panel)(!) C/W prior [JS] 253 Ethanol (mg/dL)(!): 259 C/W hx [JS] 254 Pt will be signed out pending RESEARCH TEST ENGINE OPERATOR evaluation in am [JS] ED Course User Index [JS] Carlos Alberto Albrecht DO Savage, Justin G, DO 02/07/25[address] documented in this encounter Plan of Treatment Not on file documented as of this encounter Procedures Procedure Name Priority Date/Time Associated Diagnosis Comments ETHANOL, BLOOD STAT 02/07/2025 1:59 AM EDT LFTS (HEPATIC PANEL) STAT 02/07/2025 1:59 AM EDT PT-INR STAT 02/07/2025 1:59 AM EDT CBC AND DIFFERENTIAL STAT 02/07/2025 1:59 AM EDT MAGNESIUM STAT 02/07/2025 1:59 AM EDT ACETAMINOPHEN LEVEL STAT 02/07/2025 1 :59 AM EDT BASIC METABOLIC PANEL STAT 02/07/2025 1:59 AM EDT URINALYSIS W/REFLEX URINE CULTURE STAT 02/07/2025 1:38 AM EDT TOXICOLOGY SCREEN, URINE STAT 02/07/2025 1:38 AM EDT documented in this encounter Results * (ABNORMAL) Acetaminophen level (02/07/2025 1:59 AM EDT) ACETAMINOPHEN <5.0(L) 15.0 - 30.0 ug/mL [facility] Blood 02/07/2025 1:59 AM EDT 02/07/2025 2:03 AM EDT us Carlos Alberto G Albrecht DO LAB BLOOD ORDERABLES Final Re sult Performing Organization Address [facility] Co de Phone Number [address] [address] * (ABNORMAL) Ethanol, blood (02/07/2025 1:59 AM EDT) ETHANOL 259(H) <10 mg/dL [facility] Blood 02/07/2025 1:59 AM EDT 02/07/2025 2:03 AM EDT us Carlos Alberto G Albrecht DO LAB BLOOD ORDERABLES Final Re sult Performing Organization Address City/[facility]/ZIP Co de Phone Number [address] [address] * PT-INR (02/07/2025 1:59 AM EDT) [facility] PT 12.1 10.2 - 12.9 sec [facility] INR 1.0 0.9 - 1.1 [facility] Comment:Therapeutic range fo r oral Vitamin K antagonists: 2.0-3.5 Blood 02/07/2025 1:59 AM EDT 02/07/2025 2:03 AM EDT us Carlos Alberto G Albrecht DO LAB BLOOD ORDERABLES Final Re sult [address] [address] * Magnesium (02/07/2025 1:59 AM EDT) [facility] MAGNESIUM 2.3 1.6 - 2.6 mg/dL [facility] Blood 02/07/2025 1:59 AM EDT 02/07/2025 2:03 AM EDT Carlos Alberto [employer] DO LAB BLOOD ORDERABLES Final Re sult Performing Organization Address City/[facility]/ZIP Co de Phone Number [address] [address] * (ABNORMAL) LFTs (hepatic panel) (02/07/2025 1:59 AM EDT) [facility] ALKALINE PHOSPHATASE 119(H) 39 - 117 U/L [facility] TOTAL BILIRUBIN 0.5 0.0 - 1.2 mg/dL [facility] DIRECT BILIRUBIN 0.2 0.0 - 0.2 mg/dL [facility] Bilirubin (Indirect) 0.3 0 - 1.5 mg/dL [facility] AST 65(H) 0 - 37 U/L [facility] ALT 44(H) 0 - 40 U/L [facility] TOTAL PROTEIN 7.9 6.5 - 8.0 g/dL [facility] ALBUMIN 4.7 3.9 - 4.8 g/dL [facility] GLOBULIN 3.2 1 - 4.8 g/dL [facility] A/G Ratio 1.47 1.00 - 4.80 RATIO [facility] Blood 02/07/2025 1:59 AM EDT 02/07/2025 2:03 AM EDT us Carlos Alberto Albrecht DO LAB BLOOD ORDERABLES Final Re sult [address] [address] * (ABNORMAL) Basic metabolic panel (02/07/2025 1:59 AM EDT) SODIUM 140 133 - 146 mmol/L [facility] CHLORIDE 101 96 - 108 mmol/L [facility] POTASSIUM 4.1 3.3 - 5.1 mmol/L [facility] CO2 24 21 - 35 mmol/L [facility] BUN 9 6 - 19 mg/dL [facility] CREATININE 0.70 0.5 - 1.5 mg/dL [facility] GLUCOSE 107(H) 70 - 99 mg/dL [facility] CALCIUM 9.0 8.4 - 10.3 mg/dL [facility] EGFR 103 >59 mL/min/1.7 3m2 [facility] Comment:Estimated glomerular filtration rate calculated using the CKD-EPI refit equation. ANION GAP 19 10 - 20 mmol/L [facility] Blood 02/07/2025 1:59 AM EDT 02/07/2025 2:03 AM EDT us Carlos Alberto Albrecht DO LAB BLOOD ORDERABLES Final Re sult [address] [address] * (ABNORMAL) CBC and differential (02/07/2025 1:59 AM EDT) WBC 6.23 4.00 - 11.00 K/uL [facility] RBC 4.38(L) 4.50 - 5.90 M/uL [facility] HGB 12.7(L) 13.5 - 17.5 g/dL [facility] HCT 36.9(L) 41.0 - 53.0 % [facility] PLT 134(L) 150 - 450 K/uL [facility] MCV 84.2 80.0 - 100.0 fL [facility] MCH 29.0 27.0 - 31.0 pg [facility] MCHC 34.4 32.0 - 36.0 g/dL [facility] RDW 15.9(H) 11.5 - 14.5 % [facility] MPV 8.0(L) 8.4 - 12.0 fL [facility] NRBC 0.00 0.00 /100 WBCs [facility] ABSOLUTE NRBC 0.00 0.00 K/uL [facility] DIFF METHOD Auto [facility] NEUTS 39.5(L) 48.0 - 76.0 % [facility] LYMPHS 48.0(H) 18.0 - 41.0 % [facility] MONOS 9.8 4.0 - 11.0 % [facility] EOS 2.1 0.0 - 5.0 % [facility] BASOS 0.3 0.0 - 1.5 % [facility] Granulocytes, immature (%) 0.3 0.0 - 0.9 % [facility] ABSOLUTE NEUTS 2.46 1.92 - 7.60 K/uL [facility] ABSOLUTE LYMPHS 2.99 0.72 - 4.10 K/uL [facility] ABSOLUTE MONOS 0.61 0.16 - 1.10 K/uL [facility] ABSOLUTE EOS 0.13 0.00 - 0.50 K/uL [facility] ABSOLUTE BASOS 0.02 0.00 - 0.15 K/uL [facility] Granulocytes, immature 0.02 0.00 - 0.09 K/uL [facility] Blood 02/07/2025 1:59 AM EDT 02/07/2025 2:03 AM EDT us Carlos Alberto Albrecht DO LAB BLOOD ORDERABLES Final Re sult [facility] [address] [place] [address] * (ABNORMAL) Toxicology screen, urine (02/07/2025 1:38 AM EDT) URINE CANNABINOIDS Positive(A) NONE DETECTED [facility] Comment:Cutoff: 50 ng/mL URINE COCAINE METAB NONE DETECTED NONE DETECTED [facility] Comment:Cutoff: 300 ng/mL URINE AMPHETAMINES NONE DETECTED NONE DETECTED [facility] Comment:Cutoff: 1000 ng/mL URINE METHADONE NONE DETECTED NONE DETECTED [facility] Comment:Cutoff: 300 ng/mL URINE OPIATES NONE DETECTED NONE DETECTED [facility] Comment:Cutoff: 300 ng/mL URINE PHENCYCLIDINE NONE DETECTED NONE DETECTED [facility] Comment:Cutoff: 25 ng/mL URINE OXYCODONE NONE DETECTED NONE DETECTED [facility] Comment:Cutoff: 300 ng/mL URINE BARBITURATES NONE DETECTED NONE DETECTED [facility] Comment:Cutoff: 200 ng/mL URINE BENZODIAZEPINE NONE DETECTED NONE DETECTED [facility] Comment:Cutoff: 200 ng/mL URINE BUPRENORPHINE NONE DETECTED NONE DETECTED [facility] Comment:Cutoff: 5 ng/mL Fentanyl, urine NONE DETECTED NONE DETECTED [facility] Comment: Cutoff: 5 ng/mL INTERPRETATION FOR TOXICOLOGY PANEL: These results are unconfirmed and should be used for Medical Treatment purposes only. Urine (Urine) 02/07/2025 1:3 8 AM EDT 02/07/2025 1:44 AM EDT us Carlos Alberto Albrecht DO URINE ORDERABLES Final Result [facility] [address] [place] [address] * Urinalysis w/reflex Urine Culture (02/07/2025 1:38 AM EDT) COLOR Yellow Yellow [facility] CLARITY Clear [facility] GLUCOSE Negative Negative [facility] BILI Negative Negative [facility] KETONES Negative Negative [facility] SPECIFIC GRAVITY <1.005 1.005 - 1.030 [facility] BLOOD Negative Negative [facility] PH 5.5 5.0 - 8.0 [facility] Protein-UA Negative Negative [facility] NITRITE Negative Negative [facility] Leukocyte esterase, ur Negative Negative [facility] Urine (Urine) 02/07/2025 1:3 8 AM EDT 02/07/2025 1:45 AM EDT us Carlos Alberto Albrecht URINE ORDERABLES Final Result [facility] [address] [place] [address] documented in this encounter Visit Diagnoses Diagnosis Alcoholic intoxication without complication- Primary documented in this encounter Administered Medications Inactive Administered Medications - up to 3 most recent administrations Medication Order MAR Action Action Date Dose Rate Site ibuprofen (ADVIL,MOTRIN) tablet 600 mg 600 mg, Oral, Once, On 02/07/25 at 0930, For 1 dose Given 02/07/2025 9:27 AM EDT 600 mg documented in this encounter Active and Recently Administered Medications Times are shown in EDT. Scheduled Medication Order 02/05/2025 02/06/2025 02/07/2025 ibuprofen (ADVIL,MOTRIN) tablet 600 mg (COMPLETED) 600 mg, Oral, Once, On 02/07/25 at 0930, For 1 dose 0927 (Given - Provid er: Eloy Wilkerson RN - Comment: Unable to scan med with [place] d/t showin Read-only order. Unable to resolve issue with pharmacist, only able to document administration of this med via overriding scan in Epic.) documented in this encounter Additional Health Concerns Infection Onset Date Last Indicated Resolved Time Other (Comment) Comment:Please order CRE screening (Carbapenem Resistant Enterobacteriaceae) if this patient is readmitted, at the request of THUY Harlan, due to prior potential exposure. Patient does not require additional precautions because of the screening. Contact Infection Control with questions. 08/23/2022 08/23/2022 documented as of this encounter Care Teams Pilot Safety Inspector Relationship Specialty Start Date End Date Nargis Torre DO [address] [place] [address] PCP - General Internal Medicine 01/25/24 documented as of this encounter Additional Source Comments The information contained in this document represents components of the legal health record. It is not the complete legal health record.[facility]
[2025-02-08 04:05] VITALS: BP 142/78; BP 154/71; PULSE 77; RESP 18; TEMP 36.5; O2SAT 98; BMI 32.0
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
--- OUTSIDE RECORDS SUMMARY | 2025-02-08 04:37 | XMS_ITS | Encounter Summary ---
Author Organization [facility] Address [address] [place] [address] Phone Care Team Providers Care Nurse Anesthesia Program Director Name Role Phone GavinNargis jim Primary Care Provider [phone] Encounter Details Date Type Department Care Team (Late st Contact Info) Description 07/18/2024 Procedure Pass [facility], Ct Scan - [address] [id number] Social History Tobacco Use Types Packs/Day Years [...] on file 08/24/2022 No 08/24/2022 No 08/24/2022 Digital Access Answer Date Recorded No 09/21/2022 No 09/21/2022 Reliable internet access at home? Not on file 09/21/2022 Device with a working camera? Not on file Intimate Partner Violence Answer Date R ecorded Are you denied basic needs s uch as food, clothing, or medical care? No 07/18/2024 In the past 12 months have y ou been in a relationship with a person who hurts, threatens, or tries to control you? No 07/18/2024 Are you denied basic needs s uch as food, clothing, or medical care? No 07/18/2024 In the past 12 months have y ou been in a relationship with a person who hurts, threatens, or tries to control you? No 07/18/2024 Sex and Gender Information Value Date Recorded Sex Assigned at Male 11/11/2022 10:36 AM EDT Legal Sex Male 9:48 PM EDT Gender Identity Male 11/11/2022 10:36 AM EDT Sexual Orientation Straight 11/11/2022 10 :36 AM EDT documented as of this encounter Functional Status * Calculated C-SSRS Risk Score (Lifetime/Recent) Answer Date of Assessment Author No Risk Indicated 07/19/2024 1:33 AM EDT Renay Rosario, SAMI * [place] Suicide Severity Rating Scale (Screener/Recent Self-Report) Question Answer Date of Assessment Author 1. Wish to be (Past 1 Month) No 07/19/2024 1:33 AM EDT Renay Rosario, SAMI 2. Non-Specific Active Suici silvano Thoughts (Past 1 Month) No 07/19/2024 1:33 AM EDT Renay Rosario, SAMI 6. Suicidal Behavior (Lifetime) No 1:33 AM EDT Renay Rosario, SAMI documented as of this encounter Plan of Treatment Not on file documented as of this encounter Visit Diagnoses Not on filedocumented in this encounter Additional Health Concerns Infection Onset Date Last Indicated Resolved Time Other (Comment) Comment:Please order CRE screening (Carbapenem Resistant Enterobacteriaceae) if this patient is readmitted, at the request of [facility], due to prior potential exposure. Patient does not require additional precautions because of the screening. Contact Infection Control with questions. 08/23/2022 08/23/2022 documented as of this encounter Care Teams Nurse Anesthesia Program Director Relationship Specialty Start Date End Date Nargis Torre DO [address] [place] [address] PCP - General Internal Medicine 01/25/24 documented as of this encounter Additional Source Comments The information contained in this document represents components of the legal health record. It is not the complete legal health record.[facility]
--- OUTSIDE RECORDS SUMMARY | 2025-02-08 04:37 | XMS_ITS | Encounter Summary ---
Author Organization [facility] Address [address] [place] [address] Phone Care Team Providers Care Flower Buncher Or Picker Name Role Phone GavincarriemainorNargis Leti ALEXIS Primary Care Provider [phone] Encounter Details Date Type Department Care Team (Late st Contact Info) Description 01/01/2025 Procedure Pass [facility], Ct Scan - [address] [id number] Social History Tobacco Use Types Packs/Day Years [...] before we got money to buy more. Unable to assess 025 Within the past 6 months the food we bought just didn't last and we didn't have enough money to get more. Unable to assess 01/05/2025 Residential Stability Answer Date Recor ded What is your housing situation today? Unable to assess 01/05/2025 How many times have you moved in the past 12 mon ths? Unable to assess 01/05/2025 Paying for Meds Answer Date Recorded Do you have trouble paying for medicines? Unable to assess 01/05/2025 Paying Utility Bills Answer Date Record ed Do you have trouble paying y our heating or electricity bill? Unable to assess 01/05/2025 Transportation Answer Date Recorded Has the lack of transportati on kept you from medical appointments or from getting medications? Unable to assess 01/05/2025 Digital Access Answer Date Recorded No 01/05/2025 No 01/05/2025 Do you have reliable internet access at home? Un able to assess 01/05/2025 Do you have a device (e.g., phone, tablet, computer) with a working camera? Unable to assess 01/05/2025 Intimate Partner Violence Answer Date R ecorded Are you denied basic needs s uch as food, clothing, or medical care? No 01/05/2025 In the past 12 months have y ou been in a relationship with a person who hurts, threatens, or tries to control you? No 01/05/2025 Are you denied basic needs s uch as food, clothing, or medical care? No 01/05/2025 In the past 12 months have y ou been in a relationship with a person who hurts, threatens, or tries to control you? No 01/05/2025 Sex and Gender Information Value Date Recorded Sex Assigned at Male 11/11/2022 10:36 AM EDT Legal Sex Male 9:48 PM EDT Gender Identity Male 11/11/2022 10:36 AM EDT Sexual Orientation Straight 11/11/2022 10 :36 AM EDT documented as of this encounter Functional Status * Calculated C-SSRS Risk Score (Lifetime/Recent) Answer Date of Assessment Author No Risk Indicated 01/01/2025 1:54 PM EDT Monika Aragon RN * [place] Suicide Severity Rating Scale (Screener/Recent Self-Report) Question Answer Date of Assessment Author 1. Wish to be (Past 1 Month) No 025 1:54 PM EDT Monika Aragon, RN 2. Non-Specific Active Suici silvano Thoughts (Past 1 Month) No 01/01/2025 1:54 PM EDT Monika Aragon, RN 6. Suicidal Behavior (Lifetime) No 5 1:54 PM EDT Monika Aragon, RN documented as of this encounter Plan [...] documented as of this encounter Care Teams Flower Buncher Or Picker Relationship Specialty Start Date End Date Nargis Torre DO [address] [place] [address] PCP - General Internal Medicine 01/25/24 documented as of this encounter Additional Source Comments The information contained in this document represents components of the legal health record. It is not the complete legal health record.[facility]
--- OUTSIDE RECORDS SUMMARY | 2025-02-08 04:37 | XMS_ITS | Encounter Summary ---
Author Organization [facility] Address [address] [place] [address] Phone Care Team Providers Care Geriatric Physical Therapist Name Role Phone GavinNargis jim Primary Care Provider [phone] Encounter Details Date Type Department Care Team (Late st Contact Info) Description 08/09/2024 Procedure Pass [facility], Ct Scan - [address] [phone] Social History Tobacco Use Types Packs/Day Years [...] as food, clothing, or medical care? No 08/09/2024 In the past 12 months have y ou been in a relationship with a person who hurts, threatens, or tries to control you? No 08/09/2024 Are you denied basic needs s uch as food, clothing, or medical care? No 08/09/2024 In the past 12 months have y ou been in a relationship with a person who hurts, threatens, or tries to control you? No 08/09/2024 Sex and Gender Information Value Date Recorded Sex Assigned at Male 11/11/2022 10:36 AM EDT Legal Sex Male 9:48 PM EDT Gender Identity Male 11/11/2022 10:36 AM EDT Sexual Orientation Straight 11/11/2022 10 :36 AM EDT documented as of this encounter Functional Status * Calculated C-SSRS Risk Score (Lifetime/Recent) Answer Date of Assessment Author No Risk Indicated 08/09/2024 2:22 AM EDT Bianca Eduardo RN * [place] Suicide Severity Rating Scale (Screener/Recent Self-Report) Question Answer Date of Assessment Author 1. Wish to be (Past 1 Month) No 08/09/2024 2:22 AM EDT Graciela Wayne RN 2. Non-Specific Active Suicidal Thoughts (Past 1 Month) No 08/09/2024 2:22 AM EDT Graciela Wayne RN 6. Suicidal Behavior (Lifetime) No 08/09/2024 2:22 AM KALENT Graciela Wayne RN documented as of this encounter Plan [...] documented as of this encounter Care Teams Geriatric Physical Therapist Relationship Specialty Start Date End Date Nargis Torre DO [address] [place] [id number] PCP - General Internal Medicine 01/25/24 documented as of this encounter Additional Source Comments The information contained in this document represents components of the legal health record. It is not the complete legal health record.[facility]
--- OUTSIDE RECORDS SUMMARY | 2025-02-08 04:37 | XMS_ITS | Encounter Summary ---
Author Organization [facility] Address [address] [place] [address] Phone Care Team Providers Care Medical Authorization Specialist Name Role Phone GavinNargis jim Primary Care Provider [phone] Encounter Details Date Type Department Care Team (Late st Contact Info) Description 12/31/2024 Procedure Pass [facility], Ct Scan - [address] [phone] Social History Tobacco Use Types Packs/Day Years [...] buy more. I choose not to answer 12/22/2024 Within the past 6 months the food we bought just didn't last and we didn't have enough money to get more. I choose not to answer 12/22/2024 Residential Stability Answer Date Recor ded What is your housing situation today? I choose n ot to answer 12/22/2024 How many times have you move d in the past 12 months? I choose not to answer 12/22/2024 Paying for Meds Answer Date Recorded Do you have trouble paying for medicines? I roman se not to answer 12/22/2024 Paying Utility Bills Answer Date Record ed Do you have trouble paying y our heating or electricity bill? I choose not to answer 12/22/2024 Transportation Answer Date Recorded Has the lack of transportati on kept you from medical appointments or from getting medications? I choose not to answer 12/22/2024 Digital Access Answer Date Recorded No 12/22/2024 No 12/22/2024 Do you have reliable internet access at home? I choose not to answer 12/22/2024 Do you have a device (e.g., phone, tablet, computer) with a working camera? I choose not to answer 12/22/2024 Intimate Partner Violence Answer Date R ecorded Are you denied basic needs s uch as food, clothing, or medical care? No 01/02/2025 In the past 12 months have y ou been in a relationship with a person who hurts, threatens, or tries to control you? No 01/02/2025 Are you denied basic needs s uch as food, clothing, or medical care? No 01/02/2025 In the past 12 months have y ou been in a relationship with a person who hurts, threatens, or tries to control you? No 01/02/2025 Sex and Gender Information Value Date Recorded Sex Assigned at Male 11/11/2022 10:36 AM EDT Legal Sex Male 9:48 PM EDT Gender Identity Male 11/11/2022 10:36 AM EDT Sexual Orientation Straight 11/11/2022 10 :36 AM EDT documented as of this encounter Functional Status * Calculated C-SSRS Risk Score (Lifetime/Recent) Answer Date of Assessment Author No Risk Indicated 01/01/2025 1:54 PM EDT Monika Aragon, SAMI * [place] Suicide Severity Rating Scale (Screener/Recent Self-Report) Question Answer Date of Assessment Author 1. Wish to be (Past 1 Month) No 025 1:54 PM EDT Monika Aragon, SAMI 2. Non-Specific Active Suici silvano Thoughts (Past 1 Month) No 01/01/2025 1:54 PM EDT Monika Aragon, RN 6. Suicidal Behavior (Lifetime) No 1:54 PM EDT Monika Aragon, RN documented [...] documented as of this encounter Care Teams Medical Authorization Specialist Relationship Specialty Start Date End Date Nargis Torre DO [address] [place] [address] PCP - General Internal Medicine 01/25/24 documented as of this encounter Additional Source Comments The information contained in this document represents components of the legal health record. It is not the complete legal health record.[facility]
--- OUTSIDE RECORDS SUMMARY | 2025-02-08 04:37 | XMS_ITS | Encounter Summary ---
Author Organization [facility] Address [address] [place] [address] Phone Care Team Providers Care Director Market Research Name Role Phone Pelon Schneider MD Primary Care Provider [phone] Amol Anderson Primary Care Provider [phone] Pcp, Unknown Primary Care Provider Nargis Lewis DO Primary Care Provider [phone] Encounter Details Date Type Department Care Team (Late st Contact Info) Description 08/07/2022 Procedure Pass [facility] [address] [place] [address] Social History Tobacco Use Types Packs/Day Years [...] 4:45 AM EDT Harjit Nguyen, SAMI * [place] Suicide Severity Rating Scale (Screener/Recent Self-Report) Question Answer Date of Assessment Author 1. Wish to be (Past 1 Month) No 08/07/2022 4:45 AM EDT Florentino Short, SAMI 2. Non-Specific Active Suicidal Thoughts (Past 1 Month) No 08/07/2022 4:45 AM EDT Florentino Short RN 6. Suicidal Behavior (Lifetime) No 08/07/2022 4:45 AM EDT Flroentino Short RN documented as of this encounter [...] documented as of this encounter Care Teams Director Market Research Relationship Specialty Start Date End Date Pelon Schneider MD [address] [place] [address] PCP - General Internal Medicine 02/05/18 12/01/23 Amol Anderson [address] [place] [address] PCP - General 12/02/23 01/23/24 Pcp, Unknown PCP - General 01/24/24 01/24/24 Nargis Torre DO [address] [place] [address] PCP - General Internal Medicine 01/25/24 documented as of this encounter Additional Source Comments The information contained in this document represents components of the legal health record. It is not the complete legal health record.[facility]
--- OUTSIDE RECORDS SUMMARY | 2025-02-08 04:37 | XMS_ITS | Encounter Summary ---
Author Organization [facility] Address [address] [place] [address] Phone Care Team Providers Care Prune Washer Name Role Phone GavinNargis jim Primary Care Provider [phone] Encounter Details Date Type Department Care Team (Late st Contact Info) Description 09/13/2024 Procedure Pass [facility], Ct Scan - [address] [phone] Social History Tobacco Use Types Packs/Day Years [...] buy more. I choose not to answer 09/13/2024 Within the past 6 months the food we bought just didn't last and we didn't have enough money to get more. I choose not to answer 09/13/2024 Residential Stability Answer Date Recor ded What is your housing situation today? I choose n ot to answer 09/13/2024 How many times have you move d in the past 12 months? I choose not to answer 09/13/2024 Paying for Meds Answer Date Recorded Do you have trouble paying for medicines? I roman se not to answer 09/13/2024 Paying Utility Bills Answer Date Record ed Do you have trouble paying y our heating or electricity bill? I choose not to answer 09/13/2024 Transportation Answer Date Recorded Has the lack of transportati on kept you from medical appointments or from getting medications? I choose not to answer 09/13/2024 Digital Access Answer Date Recorded No 09/13/2024 No 09/13/2024 Do you have reliable internet access at home? I choose not to answer 09/13/2024 Do you have a device (e.g., phone, tablet, computer) with a working camera? I choose not to answer 09/13/2024 Intimate Partner Violence Answer Date R ecorded Are you denied basic needs s uch as food, clothing, or medical care? No 09/15/2024 In the past 12 months have y ou been in a relationship with a person who hurts, threatens, or tries to control you? No 09/15/2024 Are you denied basic needs s uch as food, clothing, or medical care? No 09/15/2024 In the past 12 months have y ou been in a relationship with a person who hurts, threatens, or tries to control you? No 09/15/2024 Sex and Gender Information Value Date Recorded Sex Assigned at Male 11/11/2022 10:36 AM EDT Legal Sex Male 9:48 PM EDT Gender Identity Male 11/11/2022 10:36 AM EDT Sexual Orientation Straight 11/11/2022 10 :36 AM EDT documented as of this encounter Functional Status * Calculated C-SSRS Risk Score (Lifetime/Recent) Answer Date of Assessment Author No Risk Indicated 09/15/2024 6:02 PM EDT Kelsie Ricci RN * [place] Suicide Severity Rating Scale (Screener/Recent Self-Report) Question Answer Date of Assessment Author 1. Wish to be (Past 1 Month) No 09/15/2024 6:02 PM KALENT Kelsie Ricci RN 2. Non-Specific Active Suici silvano Thoughts (Past 1 Month) No 09/15/2024 6:02 PM EDT Dana Ricci RN 6. Suicidal Behavior (Lifetime) No 6:02 PM EDT Kelsie Ricci RN documented as of this encounter Plan [...] documented as of this encounter Care Teams Prune Washer Relationship Specialty Start Date End Date Nargis Torre DO [address] [place] [address] PCP - General Internal Medicine 01/25/24 documented as of this encounter Additional Source Comments The information contained in this document represents components of the legal health record. It is not the complete legal health record.[facility]
--- OUTSIDE RECORDS SUMMARY | 2025-02-08 04:37 | XMS_ITS | Clinical Summary ---
Author Organization [facility] Address [address] [place] [address] Care Team Providers Care Hand Mounter Name Role Phone Unavailable Primary Care Provider [...]
--- OUTSIDE RECORDS SUMMARY | 2025-02-08 04:37 | XMS_ITS | Encounter Summary ---
Author Organization [facility] Address [address] [place] [address] Phone Care Team Providers Care Loadmaster Name Role Phone GavinNargis jim Primary Care Provider [phone] Encounter Details Date Type Department Care Team (Late st Contact Info) Description 08/09/2024 Procedure Pass [facility], Ct Scan - [address] [phone] Social History Tobacco Use Types Packs/Day Years [...] 2:22 AM EDT Bianca Eduardo RN * [place] Suicide Severity Rating Scale (Screener/Recent Self-Report) Question [...] documented as of this encounter Care Teams Loadmaster Relationship Specialty Start Date End Date Nargis Torre DO [address] [place] [address] PCP - General Internal Medicine 01/25/24 documented as of this encounter Additional Source Comments The information contained in this document represents components of the legal health record. It is not the complete legal health record.[facility]
--- OUTSIDE RECORDS SUMMARY | 2025-02-08 04:37 | XMS_ITS | Encounter Summary ---
Author Organization [facility] Address [address] [place] [address] Phone Care Team Providers Care Overweaver Name Role Phone GavincarriemainorNargis Leti ALEXIS Primary Care Provider Encounter Details Date Type Department Care Team (Late st Contact Info) Description 01/01/2025 Procedure Pass [facility], Ct Scan - [address] [phone] Social History Tobacco Use Types Packs/Day Years [...] 1:54 PM EDT Monika Aragon RN * [place] Suicide Severity Rating Scale (Screener/Recent Self-Report) Question [...] documented as of this encounter Care Teams Overweaver Relationship Specialty Start Date End Date Nargis Torre DO [address] [place] [address] PCP - General Internal Medicine 01/25/24 documented as of this encounter Additional Source Comments The information contained in this document represents components of the legal health record. It is not the complete legal health record.[facility]
--- OUTSIDE RECORDS SUMMARY | 2025-02-08 04:37 | XMS_ITS | Encounter Summary ---
Author Organization [facility] Address [address] [place] [address] Phone Care Team Providers Care Echo Vasc Tech Name Role Phone GavinNargis jim Primary Care Provider [phone] Encounter Details Date Type Department Care Team (Late st Contact Info) Description 10/07/2024 Procedure Pass [facility], Ct Scan - [address] [phone] Social History Tobacco Use Types Packs/Day Years [...] before we got money to buy more. Sometimes True 025 Within the past 6 months the food we bought just didn't last and we didn't have enough money to get more. Sometimes True 09/27 Residential Stability Answer Date Recor ded What is your housing situation today? I do not have housing (staying in a hotel, in a residential, living outside on the street, on a beach, in a car, or in a park) 10/06/2024 How many times have you move d in the past 12 months? Two or more times 10/06/2024 Paying for Meds Answer Date Recorded Do you have trouble paying for medicines? Yes 10/06/2024 Paying Utility Bills Answer Date Record ed Do you have trouble paying your heating or elect ricity bill? Yes 10/06/2024 Transportation Answer Date Recorded Has the lack of transportati on kept you from medical appointments or from getting medications? Yes 10/06/2024 Digital Access Answer Date Recorded Yes 10/06/2024 No 10/06/2024 Do you have reliable internet access at home? No 10/06/2024 Do you have a device (e.g., phone, tablet, computer) with a working camera? No 10/06/2024 Intimate Partner Violence Answer Date R ecorded Are you denied basic needs s uch as food, clothing, or medical care? No 10/06/2024 In the past 12 months have y ou been in a relationship with a person who hurts, threatens, or tries to control you? No 10/06/2024 Are you denied basic needs s uch as food, clothing, or medical care? No 10/06/2024 In the past 12 months have y ou been in a relationship with a person who hurts, threatens, or tries to control you? No 10/06/2024 Sex and Gender Information Value Date Recorded Sex Assigned at Male 11/11/2022 10:36 AM EDT Legal Sex Male 9:48 PM EDT Gender Identity Male 11/11/2022 10:36 AM EDT Sexual Orientation Straight 11/11/2022 10 :36 AM EDT documented as of this encounter Functional Status * Calculated C-SSRS Risk Score (Lifetime/Recent) Answer Date of Assessment Author No Risk Indicated 10/07/2024 10:19 AM EDT Hortencia Hughes RN * [place] Suicide Severity Rating Scale (Screener/Recent Self-Report) Question Answer Date of Assessment Author 1. Wish to be (Past 1 Month) No 025 10:19 AM EDT Hortencia Kong RN 2. Non-Specific Active Suici silvano Thoughts (Past 1 Month) No 10/07/2024 10:19 AM EDT Garrett Kong RN 6. Suicidal Behavior (Lifetime) No 10:19 AM EDT Hortencia Kong, SAMI documented as of this encounter Plan [...] documented as of this encounter Care Teams Echo Vasc Tech Relationship Specialty Start Date End Date Nargis Torre DO [address] [place] [address] PCP - General Internal Medicine 01/25/24 documented as of this encounter Additional Source Comments The information contained in this document represents components of the legal health record. It is not the complete legal health record.[facility]
--- OUTSIDE RECORDS SUMMARY | 2025-02-08 04:37 | XMS_ITS | Encounter Summary ---
Author Organization [facility] Address [address] [place] [address] Phone Care Team Providers Care Sleeping Room Cleaner Name Role Phone Pelon Schneider MD Primary Care Provider [phone] Amol Anderson Primary Care Provider [phone] Pcp, Unknown Primary Care Provider Nargis Lewis DO Primary Care Provider [phone] Encounter Details Date Type Department Care Team (Late st Contact Info) Description 08/07/2022 Procedure Pass [facility] [address]iop [address] [place] [address] Social History Tobacco Use Types Packs/Day Years [...] 4:45 AM EDT Harjit Nguyen, SAMI * [place] Suicide Severity Rating Scale (Screener/Recent Self-Report) Question [...] documented as of this encounter Care Teams Sleeping Room Cleaner Relationship Specialty Start Date End Date Pelon Schneider MD [address] [place] [address] PCP - General Internal Medicine 02/05/18 12/01/23 Amol Anderson [address] [place] [address] PCP - General 12/02/23 01/23/24 Pcp, Unknown PCP - General 01/24/24 01/24/24 Nargis Torre DO [address] [place] [address] PCP - General Internal Medicine 01/25/24 documented as of this encounter Additional Source Comments The information contained in this document represents components of the legal health record. It is not the complete legal health record.[facility]
--- OUTSIDE RECORDS SUMMARY | 2025-02-08 04:37 | XMS_ITS | Encounter Summary ---
Author Organization [facility] Address [address] [place] [address] Phone Care Team Providers Care Foil Spooler Name Role Phone GavinNargis jim Primary Care Provider [phone] Encounter Details Date Type Department Care Team (Late st Contact Info) Description 12/31/2024 Procedure Pass [facility], Ct Scan - [address] [phone] Social History Tobacco Use Types Packs/Day Years [...] 1:54 PM EDT Monika Aragon, SAMI * [place] Suicide Severity Rating Scale (Screener/Recent Self-Report) Question [...] documented as of this encounter Care Teams Foil Spooler Relationship Specialty Start Date End Date Nargis Torre DO [address] [place] [address] PCP - General Internal Medicine 01/25/24 documented as of this encounter Additional Source Comments The information contained in this document represents components of the legal health record. It is not the complete legal health record.[facility]
--- OUTSIDE RECORDS SUMMARY | 2025-02-08 04:37 | XMS_ITS | Encounter Summary ---
Author Organization [facility] Address [address] [place] [address] Phone Care Team Providers Care Dredging Inspector Name Role Phone GavinNargis jim Primary Care Provider [phone] Encounter Details Date Type Department Care Team (Late st Contact Info) Description 07/18/2024 Procedure Pass [facility], Ct Scan - [address] [phone] Social History Tobacco Use Types Packs/Day Years [...] 1:33 AM EDT Renay Rosario, SAMI * [place] Suicide Severity Rating Scale (Screener/Recent Self-Report) Question [...] is readmitted, at the request of [facility], due to prior potential exposure. Patient does not require additional precautions because of the screening. Contact Infection Control with questions. 08/23/2022 08/23/2022 documented as of this encounter Care Teams Dredging Inspector Relationship Specialty Start Date End Date Nargis Torre DO [address] [place] [address] PCP - General Internal Medicine 01/25/24 documented as of this encounter Additional Source Comments The information contained in this document represents components of the legal health record. It is not the complete legal health record.[facility]
--- OUTSIDE RECORDS SUMMARY | 2025-02-08 04:37 | XMS_ITS | Encounter Summary ---
Author Organization [facility] Address [address] [place] [address] Phone Care Team Providers Care Babbitt Spinner Name Role Phone GavinNargis jim Primary Care Provider [phone] Encounter Details Date Type Department Care Team (Late st Contact Info) Description 10/07/2024 Procedure Pass [facility], Ct Scan - [address] [phone] Social History Tobacco Use Types Packs/Day Years [...] housing (staying in a hotel, in a alf, living outside on the street, on a [...] 10:19 AM EDT Hortencia Hughes RN * [place] Suicide Severity Rating Scale (Screener/Recent Self-Report) Question [...] documented as of this encounter Care Teams Babbitt Spinner Relationship Specialty Start Date End Date Nargis Torre DO [address] [place] [address] PCP - General Internal Medicine 01/25/24 documented as of this encounter Additional Source Comments The information contained in this document represents components of the legal health record. It is not the complete legal health record.[facility]
--- OUTSIDE RECORDS SUMMARY | 2025-02-08 04:38 | XMS_ITS | Encounter Summary ---
Author Organization [facility] Address [address] [place] [address] Phone Care Team Providers Care Senior Financial Reporting Accountant Name Role Phone Pelon Schneider MD Primary Care Provider [phone] Amol Anderson Primary Care Provider [phone] Pcp, Unknown Primary Care Provider Nargis Lewis DO Primary Care Provider [phone] Encounter Details Date Type Department Care Team (Late st Contact Info) Description 10/03/2023 Procedure Pass [facility] [place] [address], [address] [place] [address] Social History Tobacco Use Types Packs/Day Years [...] with a working camera? Not on file Sex and Gender Information Value Date Recorded Sex Assigned at Male 11/11/2022 10:36 AM EDT Legal Sex Male 9:48 PM EDT Gender Identity Male 11/11/2022 10:36 AM EDT Sexual Orientation Straight 11/11/2022 10 :36 AM EDT documented as of this encounter Plan of [...] documented as of this encounter Care Teams Senior Financial Reporting Accountant Relationship Specialty Start Date End Date Pelon Schneider MD [address] [place] [address] PCP - General Internal Medicine 02/05/18 12/01/23 Amol Anderson [address] [place] [address] PCP - General 12/02/23 01/23/24 Pcp, Unknown PCP - General 01/24/24 01/24/24 Nargis Torre DO [address] [place] [address] PCP - General Internal Medicine 01/25/24 documented as of this encounter Additional Source Comments The information contained in this document represents components of the legal health record. It is not the complete legal health record.[facility]
--- OUTSIDE RECORDS SUMMARY | 2025-02-08 04:38 | XMS_ITS | Encounter Summary ---
Author Organization [facility] Address [address] [place] [address] Phone Care Team Providers Care Lead Carpenter Name Role Phone GavincarriemainorNargis Leti ALEXIS Primary Care Provider [phone] Encounter Details Date Type Department Care Team (Late st Contact Info) Description 01/26/2024 Procedure Pass [facility], Ct Scan - [address] [phone] Social History Tobacco Use Types Packs/Day Years [...] Date of Assessment Author No Risk Indicated 01/29/2024 2:55 PM EDT Stormy Collins RN * [place] Suicide Severity Rating Scale (Screener/Recent Self-Report) Question Answer Date of Assessment Author 1. Wish to be (Past 1 Month) No 01/29/2024 2:55 PM EDT Stormy Collins ae, RN 2. Non-Specific Active Suici silvano Thoughts (Past 1 Month) No 01/29/2024 2:55 PM EDT Jacky Collins RN 6. Suicidal Behavior (Lifetime) No 4 2:55 PM EDT Stormy Collins RN documented as of this encounter Plan [...] documented as of this encounter Care Teams Lead Carpenter Relationship Specialty Start Date End Date Nargis Torre DO [address] [place] [address] PCP - General Internal Medicine 01/25/24 documented as of this encounter Additional Source Comments The information contained in this document represents components of the legal health record. It is not the complete legal health record.[facility]
--- OUTSIDE RECORDS SUMMARY | 2025-02-08 04:38 | XMS_ITS | Encounter Summary ---
Author Organization [facility] Address [address] [place] [address] Phone Care Team Providers Care Plug Paster Name Role Phone GavinNargis jim Primary Care Provider [phone] Encounter Details Date Type Department Care Team (Late st Contact Info) Description 09/14/2024 Procedure Pass [facility], Ct Scan - [address] [phone] Social History Tobacco Use Types Packs/Day Years [...] 6:02 PM EDT Kelsie Ricci RN * [place] Suicide Severity Rating Scale (Screener/Recent Self-Report) Question [...] documented as of this encounter Care Teams Plug Paster Relationship Specialty Start Date End Date Nargis Torre DO [address] [place] [address] PCP - General Internal Medicine 01/25/24 documented as of this encounter Additional Source Comments The information contained in this document represents components of the legal health record. It is not the complete legal health record.[facility]
--- OUTSIDE RECORDS SUMMARY | 2025-02-08 04:38 | XMS_ITS | Clinical Summary ---
Author Organization [facility] Address [address] [place] [address] Phone Care Team Providers Care Repeater Chief Name Role Phone GavinNargis jim Primary Care Provider [phone] Allergies Active Allergy Reactions Criticality Noted Date Comments Fluoxetine Hives 08/11/2024 Hydrochlorothiazide Unknown 08/15/2022 [facility] Latex 12/23/2023 Lisinopril Cough 11/04/2012 Other 01/30/2025 Artificial sweetener Terazosin Unknown 08/15/2022 [facility] Medications * This document contains information received from the source organization and may not represent a complete record from that organization. albuterol 90 mcg/actuation inhaler Inhale 2 puffs into the lungs every 6 (six) hours as needed for wheezing. Active allopurinol (ZYLOPRIM) 100 MG tablet Take 100 mg by mouth daily. Active thiamine (VITAMIN B-1) 100 MG tablet Take 200 mg by mouth daily. Active omeprazole (PRILOSEC) 20 MG capsule Take 20 mg by mouth daily. Active folic acid (FOLVITE) 1 MG tablet Take 1 mg by mouth daily. Active cholecalciferol (VITAMIN D3) 2,000 unit tablet Take 2,000 Units by mouth daily. Active carvedilol (COREG) 6.25 MG tablet Take 6.25 mg by mouth 2 (two) times a day with meals. Active spironolactone (ALDACTONE) 25 MG tablet Take 50 mg by mouth daily. Active traZODone (DESYREL) 100 MG tablet Take 50 mg by mouth nightly at bedtime. Active ferrous sulfate 325 mg (65 mg wainwright iron) tablet Take 325 mg by mouth daily with breakfast. Active gabapentin (NEURONTIN) 100 MG capsule Take 100 mg by mouth 3 (three) times a day. Active furosemide (LASIX) 20 MG tablet Take 20 mg by mouth daily. Active therapeutic multivitamin tablet Take 1 tablet by mouth daily. Active atenolol (TENORMIN) 50 mg tablet Take 50 mg by mouth. 3 Active amLODIPine (NORVASC) 10 MG tablet Take 10 mg by mouth daily. 3 Active ibuprofen (ADVIL,MOTRIN) 600 MG tablet Take 1 tablet (600 mg total) by mouth every 8 (eight) hours as needed for pain (specific location in comments). 30 tablet 5 Active ascorbic acid, vitamin C, (VITAMIN C) 500 MG tabletIndications :[facility] 500 mg by mouth daily. Ind[facility] Active fexofenadine (EMANUEL) 180 MG tabletIndications [facility] Take 180 mg by mouth daily. Ind[facility] Active nicotine (NICODERM CQ) 21 mg/[address] hrInd[address]:[facility] [address] 1 patch onto the skin daily. Ind[facility] Active acetaminophen (TYLENOL) 325 mg tabletIndications [facility] Take 650 mg by mouth 2 (two) times a day as needed for pain (specific location in comments). Indications: [facility] Active melatonin 5 mg Tab Take 5 mg by mouth nightly at bedtime. Active Active Problems Problem Noted Date Diagnosed Date PTSD (post-traumatic stress disorder) 01/30/2025 Alcohol intoxication 10/03/2023 Suicidal ideation 10/12/2022 Bowel perforation 08/07/2022 Myalgia 02/19/2018 Lumbar radiculopathy 02/19/2018 Cervical facet joint syndrome 02/19/2018 Hypertension, benign 02/19/2018 Cancer Resolved Problems Problem Noted Date Diagnosed Date Resolved Date Alcohol use disorder 02/10/2024 024 Severe recurrent major depre ssion without psychotic features 02/10/2024 02/14/2024 Encounters Date Type Department Care Team Description 02/07/2025 1:38 AM EDT - 02/07/2025 11:13 AM EDT Emergency [facility] [address] [place] [address] Carlos Alberto Albrecht, Ceferino Miller MD Discharge Disposition: Home or Self Care 02/06/2025 8:19 AM EDT - 02/06/2025 11:49 AM EDT Emergency [facility] [address] [place] [phone] Discharge Disposition: Home or Self Care 02/02/2025 11:39 PM EDT - 02/03/2025 12:20 AM EDT Emergency [facility] [address] [place] [id number] Carlos Alberto Albrecht DO Discharge Disposition: Home or Self Care 01/30/2025 2:10 AM EDT - 02/01/2025 11:17 AM EDT Hospital Encounter [facility] [address] [place] [phone] Ceferino Flowers MD Daul, Adrian D, MD Andrade, Olyn Amanda, MD Griffith, MD Aditya Laguna, Harjit North MD Discharge Disposition: Home or Self Care 01/25/2025 6:01 PM EDT - 01/27/2025 9:56 AM EDT Hospital Encounter [facility] [address] [place] [address] Monique Callahan MD Griffith, MD Ruby Laguna Caleb J, MD Daul, Adrian D, MD Morse, Peter, MD Discharge Disposition: Home or Self Care 01/23/2025 5:04 PM EDT - 01/23/2025 10:47 PM EDT Emergency [facility] [address] [place] [address] Discharge Disposition: Home or Self Care 01/14/2025 3:07 AM EDT - 01/15/2025 12:40 PM EDT Hospital Encounter [facility] [address] [place] [address] Carlos Alberto Albrecht DO Griffith, Andrew Thomas Liao, MD Steinberg, Benjamin G, MD Kanter, Carolyn R, MD Discharge Disposition: [facility] 01/05/2025 5:51 AM EDT - 01/05/2025 9:42 PM EDT Emergency [facility] [address] [place] [phone] Carlos Alberto Albrecht DO Steinberg, Benjamin G, MD Discharge Disposition: Home or Self Care 01/02/2025 2:55 AM EDT - 01/02/2025 2:56 AM EDT Emergency [facility] Emergency [address] [place] [address] Discharge Disposition: Left Without Being Seen 01/01/2025 1:43 PM EDT - 01/01/2025 9:21 PM EDT Emergency [facility] Emergency [address] [place] [phone] Amanda Sanchez MD Discharge Disposition: Home or Self Care 01/01/[address] [address] 01/01/[address] [address] 12/31/2024 11:50 AM EDT - 12/31/2024 5:40 PM EDT Emergency [address] [address] Discharge Disposition: Home or Self Care 12/31/[address] [address] 12/31/[address] [address] 12/23/2024 1:52 AM EDT - 12/23/2024 2:42 AM EDT Emergency [facility] Emergency [address] [place] [id number] Carlos Alberto Albrecht, Discharge Disposition: Home or Self Care 12/22/2024 12:32 PM EDT - 12/22/2024 1:50 PM EDT Emergency [facility] Emergency [address] [place] [phone] Rob Romero MD Discharge Disposition: Home or Self Care 12/22/2024 1:28 AM EDT - 12/22/2024 3:15 AM EDT Emergency [facility] Emergency [address] [place] [address] Carlos Alberto Albrecht DO Discharge Disposition: Home or Self Care from Last 3 Months Immunizations Immunization Administration Dates Next Due PPD Test 09/02/2023 Tdap 10/03/2023 Social History Tobacco Use Types Packs/Day Years Used Date Smoking Tobacco: Every Day Cigarettes 0.5 49.9 Started: 1975 Passive Smoke Exposure: Past Smokeless Tobacco: Never Tobacco Cessation:Ready to Q uit: Not Asked; Counseling Given: Yes Alcohol Use Standard Drinks/Week Comments Yes 42 [...] Orientation Straight 11/11/2022 10 :36 AM EDT Last Filed Vital Signs Vital Sign Reading Time Taken Comments Blood Pressure 182/89 02/07/2025 11:08 AM EDT Pulse 78 02/07/2025 11:08 AM EDT Temperature 36.8 C (98.2 F) 02/07/2025 11:08 AM EDT Respiratory Rate 18 02/07/2025 11:08 AM EDT Oxygen Saturation 99% 02/07/2025 11:08 AM EDT Inhaled Oxygen Concentration 29.8% 08/09/2022 1 1:00 AM EDT Weight 88.5 kg (195 lb) 02/01/2025 6:45 AM EDT Height 170.2 cm (5' 7 ) 02/01/2025 6:45 AM EDT Body Mass Index 30.54 02/01/2025 6:45 AM EDT Plan of Treatment Health Maintenance Due Date Last Done Comments BLOOD PRESSURE 1960 LIPID PANEL 1960 DEPRESSION SCREENING 1972 HIV ONE-TIME SCREENING (18-65 YEARS) 1978 PNEUMOCOCCAL VACCINES (50+ years) (1 of 2 - PCV) 1979 ZOSTER VACCINES (1 of 2) 1979 COLOGUARD 2005 COLONOSCOPY 2005 COLORECTAL CANCER SCREENING 2005 FIT TEST 2005 FOBT 2005 SIGMOIDOSCOPY 2005 VIRTUAL COLONOSCOPY 2005 LUNG CANCER SCREENING (LDCT Only) 2010 RSV VACCINE (1 - Risk 50-74 years 1-dose series) 2010 INFLUENZA VACCINE (#1) 2024 COVID-19 VACCINE ( season) 2024 SMOKING Hx and SMOKELESS TOBACCO SCREENING 01/05/2026 01/05/2025 CREATININE LEVEL 02/07/2026 02/07/2025, 07/2024, 01/25/2025, Additional history exists POTASSIUM LEVEL 02/07/2026 02/07/2025, 07/2024, 01/25/2025, Additional history exists SCREENING FOR DIABETES 02/08/2028 02/07/2025 Adult Td,Tdap Booster 10/02/2033 10/03/2023 HEPATITIS C SCREENING Completed 08/09/2022, 023 HEPATITIS A VACCINES Aged Out No long er eligible based on patient's age to complete this topic HIB VACCINES Aged Out No longer eligi ble based on patient's age to complete this topic MENINGOCOCCAL VACCINES (ACWY) Aged Out No longer eligible based on patient's age to complete this topic MENINGOCOCCAL VACCINES (B) Aged Out N o longer eligible based on patient's age to complete this topic Medical Devices Not on file Procedures Procedure Name Priority Date/Time Associated Diagnosis Comments ACETAMINOPHEN LEVEL STAT 02/07/2025 1 :59 AM EDT ETHANOL, BLOOD STAT 02/07/2025 1:59 AM EDT PT-INR STAT 02/07/2025 1:59 AM EDT MAGNESIUM STAT 02/07/2025 1:59 AM EDT LFTS (HEPATIC PANEL) STAT 02/07/2025 1:59 AM EDT BASIC METABOLIC PANEL STAT 02/07/2025 1:59 AM EDT CBC AND DIFFERENTIAL STAT 02/07/2025 1:59 AM EDT TOXICOLOGY SCREEN, URINE STAT 02/07/2025 1:38 AM EDT URINALYSIS W/REFLEX URINE CULTURE STAT 02/07/2025 1:38 AM EDT TOXICOLOGY SCREEN, URINE STAT 01/31/2025 2:13 PM EDT ETHANOL, BLOOD STAT 01/30/2025 2:36 AM EDT LFTS (HEPATIC PANEL) STAT 01/30/2025 2:36 AM EDT BASIC METABOLIC PANEL STAT 01/30/2025 2:36 AM EDT CBC AND DIFFERENTIAL STAT 01/30/2025 2:36 AM EDT URINALYSIS W/REFLEX URINE CULTURE STAT 01/26/2025 6:20 PM EDT PT-INR STAT 01/26/2025 2:08 PM EDT ETHANOL, BLOOD STAT 01/25/2025 6:50 PM EDT SALICYLATES STAT 01/25/2025 6:50 PM EDT ACETAMINOPHEN LEVEL STAT 01/25/2025 6 :50 PM EDT LFTS (HEPATIC PANEL) STAT 01/25/2025 6:46 PM EDT BASIC METABOLIC PANEL STAT 01/25/2025 6:46 PM EDT CBC AND DIFFERENTIAL STAT 01/25/2025 6:46 PM EDT TOXICOLOGY SCREEN, URINE STAT 01/25/2025 6:41 PM EDT SALICYLATES STAT 01/14/2025 5:44 AM EDT ACETAMINOPHEN LEVEL STAT 01/14/2025 5 :44 AM EDT ETHANOL, BLOOD STAT 01/14/2025 5:44 AM EDT PT-INR STAT 01/14/2025 5:44 AM EDT LFTS (HEPATIC PANEL) STAT 01/14/2025 5:44 AM EDT BASIC METABOLIC PANEL STAT 01/14/2025 5:44 AM EDT CBC AND DIFFERENTIAL STAT 01/14/2025 5:44 AM EDT URINE SEDIMENT STAT 01/14/2025 5:37 AM EDT URINALYSIS W/REFLEX URINE CULTURE STAT 01/14/2025 5:37 AM EDT TOXICOLOGY SCREEN, URINE STAT 01/14/2025 5:37 AM EDT ECG 12-LEAD STAT 01/14/2025 3:41 AM EDT URINALYSIS Routine 01/05/2025 10:24 AM EDT TOXICOLOGY SCREEN, URINE STAT 01/05/2025 10:24 AM EDT ECG 12-LEAD STAT 01/05/2025 9:04 AM EDT COVID PANDEMIC RESPIRATORY VIRAL ORDER (PRO) STAT 01/05/2025 8:39 AM EDT MAGNESIUM Routine 01/05/2025 4:43 AM EDT SALICYLATES STAT 01/05/2025 4:43 AM EDT ACETAMINOPHEN LEVEL STAT 01/05/2025 4 :43 AM EDT ETHANOL, BLOOD STAT 01/05/2025 4:43 AM EDT LFTS (HEPATIC PANEL) STAT 01/05/2025 4:43 AM EDT BASIC METABOLIC PANEL STAT 01/05/2025 4:43 AM EDT CBC AND DIFFERENTIAL STAT 01/05/2025 4:43 AM EDT POCT GLUCOSE Routine 01/01/2025 7:55 PM EDT ECG 12-LEAD STAT 01/01/2025 7:[address] CERVICAL SPINE WITHOUT CONTRAST Routine 01/01/2025 1:[address] HEAD WITHOUT CONTRAST Routine 01/01/2025 1:55 PM EDT POCT GLUCOSE Routine 12/31/2024 2:[address] CERVICAL SPINE WITHOUT CONTRAST Routine 12/31/2024 2:[address] HEAD WITHOUT CONTRAST Routine 12/31/2024 2:07 PM EDT HEPATITIS C VIRAL LOAD (PCR) STAT 08/09/2022 5:38 PM EDT from Last 3 Months or Most Recently Relevant to Health Maintenance Results * (ABNORMAL) Ethanol, blood (02/07/2025 1:59 AM EDT) Only the most recent of5 resultswithin the time period is included. Pathologist [facility] ETHANOL 259(H) <10 mg/dL [facility] Blood 02/07/2025 1:59 AM EDT 02/07/2025 2:03 AM EDT us Carlos Alberto Albrecht DO LAB BLOOD ORDERABLES Final Re sult [address] [address] * (ABNORMAL) LFTs (hepatic panel) (02/07/2025 1:59 AM EDT) Only the most recent of5 resultswithin the time period is included. ALKALINE PHOSPHATASE 119(H) 39 - 117 U/L [facility] TOTAL BILIRUBIN 0.5 0.0 - 1.2 mg/dL [facility] DIRECT BILIRUBIN 0.2 0.0 - 0.2 mg/dL [facility] Bilirubin (Indirect) 0.3 0 - 1.5 mg/dL [facility] AST 65(H) 0 - 37 U/L [facility] ALT 44(H) 0 - 40 U/L [facility] TOTAL PROTEIN 7.9 6.5 - 8.0 g/dL [facility] ALBUMIN 4.7 3.9 - 4.8 g/dL [facility] GLOBULIN 3.2 1 - 4.8 g/dL [facility] A/G Ratio 1.47 1.00 - 4.80 RATIO [facility] Blood 02/07/2025 1:59 AM EDT 02/07/2025 2:03 AM EDT us Carlos Alberto Albrecht DO LAB BLOOD ORDERABLES Final Re sult Performing Organization Address [facility] Co de Phone Number [address] [address] * PT-INR (02/07/2025 1:59 AM EDT) Only the most recent of3 resultswithin the time period is included. Pathologist [facility] PT 12.1 10.2 - 12.9 sec [facility] INR 1.0 0.9 - 1.1 [facility] Comment:Therapeutic range fo r oral Vitamin K antagonists: 2.0-3.5 Blood 02/07/2025 1:59 AM EDT 02/07/2025 2:03 AM EDT us [employer] LAB BLOOD ORDERABLES Final Re sult Performing Organization Address City/[facility] Co de Phone Number [address] [address] * (ABNORMAL) CBC and differential (02/07/2025 1:59 AM EDT) Only the most recent of5 resultswithin the time period is included. WBC 6.23 4.00 - 11.00 K/uL [facility] RBC 4.38(L) 4.50 - 5.90 M/uL [facility] HGB 12.7(L) 13.5 - 17.5 g/dL [facility] HCT 36.9(L) 41.0 - 53.0 % [facility] PLT 134(L) 150 - 450 K/uL [facility] MCV 84.2 80.0 - 100.0 fL [facility] MCH 29.0 27.0 - 31.0 pg [facility] MCHC 34.4 32.0 - 36.0 g/dL [facility] RDW 15.9(H) 11.5 - 14.5 % [facility] MPV 8.0(L) 8.4 - 12.0 fL [facility] NRBC 0.00 0.00 /100 WBCs [facility] ABSOLUTE NRBC 0.00 0.00 K/uL [facility] DIFF METHOD Auto [facility] NEUTS 39.5(L) 48.0 - 76.0 % [facility] LYMPHS 48.0(H) 18.0 - 41.0 % [facility] MONOS 9.8 4.0 - 11.0 % [facility] EOS 2.1 0.0 - 5.0 % [facility] BASOS 0.3 0.0 - 1.5 % [facility] Granulocytes, immature (%) 0.3 0.0 - 0.9 % [facility] ABSOLUTE NEUTS 2.46 1.92 - 7.60 K/uL [facility] ABSOLUTE LYMPHS 2.99 0.72 - 4.10 K/uL [facility] ABSOLUTE MONOS 0.61 0.16 - 1.10 K/uL [facility] ABSOLUTE EOS 0.13 0.00 - 0.50 K/uL [facility] ABSOLUTE BASOS 0.02 0.00 - 0.15 K/uL [facility] Granulocytes, immature 0.02 0.00 - 0.09 K/uL [facility] Blood 02/07/2025 1:59 AM EDT 02/07/2025 2:03 AM EDT us Carlos Alberto Albrecht DO LAB BLOOD ORDERABLES Final Re sult Performing Organization Address [facility] de Phone Number [address] [address] * Magnesium (02/07/2025 1:59 AM EDT) Only the most recent of2 resultswithin the time period is included. MAGNESIUM 2.3 1.6 - 2.6 mg/dL [facility] Blood 02/07/2025 1:59 AM EDT 02/07/2025 2:03 AM EDT us Carlos Alberto Albrecht DO LAB BLOOD ORDERABLES Final Re sult Performing Organization Address [facility] de Phone Number [address] [address] * (ABNORMAL) Acetaminophen level (02/07/2025 1:59 AM EDT) Only the most recent of4 resultswithin the time period is included. Pathologist [facility] ACETAMINOPHEN <5.0(L) 15.0 - 30.0 ug/mL [facility] Blood 02/07/2025 1:59 AM EDT 02/07/2025 2:03 AM EDT us Carlos Alberto Albrecht DO LAB BLOOD ORDERABLES Final Re sult Performing Organization Address [facility] de Phone Number [address] [address] * (ABNORMAL) Basic metabolic panel (02/07/2025 1:59 AM EDT) Only the most recent of5 resultswithin the time period is included. SODIUM 140 133 - 146 mmol/L [facility] CHLORIDE 101 96 - 108 mmol/L [facility] POTASSIUM 4.1 3.3 - 5.1 mmol/L [facility] CO2 24 21 - 35 mmol/L [facility] BUN 9 6 - 19 mg/dL [facility] CREATININE 0.70 0.5 - 1.5 mg/dL [facility] GLUCOSE 107(H) 70 - 99 mg/dL [facility] CALCIUM 9.0 8.4 - 10.3 mg/dL [facility] EGFR 103 >59 mL/min/1.7 3m2 [facility] Comment:Estimated glomerular filtration rate calculated using the CKD-EPI refit equation. ANION GAP 19 10 - 20 mmol/L [facility] Blood 02/07/2025 1:59 AM EDT 02/07/2025 2:03 AM EDT us Carlos Alberto Albrecht DO LAB BLOOD ORDERABLES Final Re sult Performing Organization Address City/[facility] Co de Phone Number [address] [address] * Urinalysis w/reflex Urine Culture (02/07/2025 1:38 AM EDT) Only the most recent of3 resultswithin the time period is included. COLOR Yellow Yellow [facility] CLARITY Clear [facility] GLUCOSE Negative Negative [facility] BILI Negative Negative [facility] KETONES Negative Negative [facility] SPECIFIC GRAVITY <1.005 1.005 - 1.030 [facility] BLOOD Negative Negative [facility] PH 5.5 5.0 - 8.0 [facility] Protein-UA Negative Negative [facility] NITRITE Negative Negative [facility] Leukocyte esterase, ur Negative Negative [facility] Urine (Urine) 02/07/2025 1:3 8 AM EDT 02/07/2025 1:45 AM EDT us Carlos Alberto [place] Albrecht DO URINE ORDERABLES Final Result Performing Organization Address [facility]/ZIP Co de Phone Number [address] [address] * (ABNORMAL) Toxicology screen, urine (02/07/2025 1:38 AM EDT) Only the most recent of5 resultswithin the time period is included. URINE CANNABINOIDS Positive(A) NONE DETECTED [facility] Comment:Cutoff: 50 ng/mL URINE COCAINE METAB NONE DETECTED NONE DETECTED [facility] Comment:Cutoff: 300 ng/mL URINE AMPHETAMINES NONE DETECTED NONE DETECTED [facility] Comment:Cutoff: 1000 ng/mL URINE METHADONE NONE DETECTED NONE DETECTED [facility] Comment:Cutoff: 300 ng/mL URINE OPIATES NONE DETECTED NONE DETECTED [facility] Comment:Cutoff: 300 ng/mL URINE PHENCYCLIDINE NONE DETECTED NONE DETECTED [facility] Comment:Cutoff: 25 ng/mL URINE OXYCODONE NONE DETECTED NONE DETECTED [facility] Comment:Cutoff: 300 ng/mL URINE BARBITURATES NONE DETECTED NONE DETECTED [facility] Comment:Cutoff: 200 ng/mL URINE BENZODIAZEPINE NONE DETECTED NONE DETECTED [facility] Comment:Cutoff: 200 ng/mL URINE BUPRENORPHINE NONE DETECTED NONE DETECTED [facility] Comment:Cutoff: 5 ng/mL Fentanyl, urine NONE DETECTED NONE DETECTED [facility] Comment: Cutoff: 5 ng/mL INTERPRETATION FOR TOXICOLOGY PANEL: These results are unconfirmed and should be used for Medical Treatment purposes only. Urine (Urine) 02/07/2025 1:3 8 AM EDT 02/07/2025 1:44 AM EDT us Carlos Alberto Albrecht DO URINE ORDERABLES Final Result Performing Organization Address [facility] Co de Phone Number [address] [address] * (ABNORMAL) Salicylates (01/25/2025 6:50 PM EDT) Only the most recent of3 resultswithin the time period is included. SALICYLATES <0.3(L) 2.8 - 19.9 mg/dL [facility] Blood 01/25/2025 6:50 PM EDT 01/25/2025 6:59 PM EDT us Kizzy Lott PA-C LAB BLOOD ORDERABLES Final Result Performing Organization Address City/[facility]/ZIP Co de Phone Number [address] [address] * (ABNORMAL) Urine sediment (01/14/2025 5:37 AM EDT) WBC 0-4(A) NONE SEEN /hpf [facility] RBC NONE SEEN NONE SEEN /hpf [facility] URINE EPITHELIAL NONE SEEN NONE SEEN [facility] MUCUS NONE SEEN NONE SEEN /hpf [facility] BACTERIA NONE SEEN NONE SEEN /hpf [facility] 01/14/2025 5:37 AM EDT 01/14/2025 5:45 AM EDT us Carlos Alberto G Albrecht DO URINE ORDERABLES Final Result Performing Organization Address City/[facility]/ZIP Co de Phone Number [address] [address] * ECG 12-LEAD (01/14/2025 3:41 AM EDT) Only the most recent of3 resultswithin the time period is included. Ventricular Rate EKG/MIN 81 BPM [facility] Atrial Rate 81 BPM [facility] MA Interval 170 ms [facility] QRS Duration 92 ms [facility] QT Interval 404 ms [facility] QTC Interval 469 ms [facility] P Ashley 79 degrees [facility] R Wave Ashley 50 degrees [facility] T Wave Ashley 65 degrees [facility] 01/14/2025 3:41 AM EDT 01/14/2025 4:59 PM EDT Narrative [facility] - 01/14/2025 4:59 PM EDT Normal sinus rhythm Normal ECG When compared with ECG of 05-Jan-2025 09:04, T wave amplitude has increased in Anterior leads Confirmed by Rohan Cook ([id number]) on 01/14/2025 4:59:46 PM us Carlos Alberto G Albrecht DO ECG ORDERABLES Final Result [facility] * Urinalysis (01/05/2025 10:24 AM EDT) COLOR Yellow Yellow [facility] CLARITY Clear [facility] GLUCOSE Negative Negative [facility] BILI Negative Negative [facility] KETONES Negative Negative [facility] SPECIFIC GRAVITY 1.010 1.005 - 1.030 [facility] BLOOD Negative Negative [facility] PH 7.0 5.0 - 8.0 [facility] Protein-UA Negative Negative [facility] NITRITE Negative Negative [facility] Leukocyte esterase, ur Negative Negative [facility] 01/05/2025 10:2 4 AM EDT 01/05/2025 2:19 PM EDT us Giovany Gutierrez MD URINE ORDERABLES Final R esult Performing Organization Address [facility] de Phone Number [address] [address] * COVID Pandemic Respiratory Viral Order (PRO) (01/05/2025 8:39 AM EDT) Test Ordered Rapid COVID has been ordered [facility] Specimen Source/Description NASAL [facility] SARS-CoV 2 (COVID-19) PCR Not Detected Not Detected [facility] Comment: SARS-CoV-2 not detected Negative results do not preclude SARS-CoV-2 infection and should not be used as the sole basis for patient management decisions. Negative results must be combined with clinical observations, patient history, and epidemiological information. Other (Nasopharyngeal swab) 01/05/2025 8:39 AM EDT 01/05/2025 10:36 AM EDT us Darlyn Orozco MD BODY FLUIDS AND STOOLS ORDER KENIA Final Result Performing Organization Address [facility] Co de Phone Number [address] [address] * POCT Glucose (01/01/2025 7:55 PM EDT) Only the most recent of2 resultswithin the time period is included. Glucose, POCT 91 70 - 100 mg/dL [facility] 01/01/2025 7:55 PM EDT 01/01/2025 8:01 PM EDT us Amanda Sanchez MD POINT OF CARE TEST ORDERAB LES Final Result [address] [address] * CT CERVICAL SPINE WITHOUT CONTRAST (01/01/2025 1:55 PM EDT) Anatomical Region Laterality Modality C-spine Computed Tomogra phy 01/01/2025 2:25 PM EDT Impressions 01/01/2025 2:42 PM EDT 1. No acute intracranial findings. 2. No acute fracture or traumatic malalignment of the cervical spine. ATTESTATION: I, Lexy Tyson as teaching physician, have reviewed the images for this case and if necessary edited the report originally created by Saul Powers. Narrative 01/01/2025 2:[address] HEAD WITHOUT CONTRAST, CT CERVICAL SPINE WITHOUT CONTRAST Referring clinician's provided indication for this examination in Epic: Head trauma, abnormal mental status. TECHNIQUE: CTs of the head and cervical spine were performed without intravenous contrast using tailored dose modulation techniques. Images were reconstructed in the axial, coronal, and sagittal planes. COMPARISON: CT HEAD WITHOUT CONTRAST ; CT CERVICAL SPINE WITHOUT CONTRAST FINDINGS: HEAD: Brain Parenchyma: No midline shift, mass effect, parenchymal hemorrhage, or evidence of acute territorial infarct. Hypodensities in the periventricular white matter, likely a manifestation of chronic small vessel disease. Ventricular System and Extra-Axial Spaces: The ventricles and sulci are prominent. No extra-axial fluid collections. Basilar cisterns are patent. No hydrocephalus. Osseous and Extracranial Structures: No calvarial fracture or significant soft tissue hematoma. No significant paranasal sinus disease. No orbital abnormality. CERVICAL SPINE: Alignment and Vertebrae: Straightening of the lordosis. Vertebral bodies and posterior elements are intact. Bilateral facet arthropathy at multiple levels. Preserved C1-C2 relationship with degenerative change. Discs and Endplates: Disc space narrowing with endplate changes, anterior osteophytes, and posterior disc osteophyte complexes at C3 C7. Other Findings: Vascular calcifications. Procedure Note Lexy Tyson MD - 01/01/2025 CT HEAD WITHOUT CONTRAST, CT CERVICAL SPINE WITHOUT CONTRAST Referring clinician's provided indication for this examination in Epic:Head trauma, abnormal mental status. TECHNIQUE: CTs of the head and cervical spine were performed withoutintravenous contrast using tailored dose modulation techniques. Imageswere reconstructed in the axial, coronal, and sagittal planes. COMPARISON: CT HEAD WITHOUT CONTRAST ; CT CERVICAL SPINEWITHOUT CONTRAST FINDINGS: HEAD: Brain Parenchyma: No midline shift, mass effect, parenchymal hemorrhage,or evidence of acute territorial infarct. Hypodensities in theperiventricular white matter, likely a manifestation of chronic smallvessel disease. Ventricular System and Extra-Axial Spaces: The ventricles and sulci areprominent. No extra-axial fluid collections. Basilar cisterns are patent.No hydrocephalus. Osseous and Extracranial Structures: No calvarial fracture or significantsoft tissue hematoma. No significant paranasal sinus disease. No orbitalabnormality. CERVICAL SPINE: Alignment and Vertebrae: Straightening of the lordosis. Vertebral bodiesand posterior elements are intact. Bilateral facet arthropathy at multiplelevels. Preserved C1-C2 relationship with degenerative change. Discs and Endplates: Disc space narrowing with endplate changes, anteriorosteophytes, and posterior disc osteophyte complexes at C3 C7. Other Findings: Vascular calcifications. IMPRESSION: 1. No acute intracranial findings. 2. No acute fracture or traumatic malalignment of the cervical spine. ATTESTATION: I, Lexy Tyson as teaching physician, have reviewed theimages for this case and if necessary edited the report originally createdby Saul Powers. Aure Maynard PA-C IMG CT XSPECIALT Y ORDERABLES Final Result * CT HEAD WITHOUT CONTRAST (01/01/2025 1:55 PM EDT) Anatomical Region Laterality Modality Head Computed Tomogra phy 01/01/2025 2:25 PM EDT Impressions 01/01/2025 2:42 PM EDT 1. No acute intracranial findings. 2. No acute fracture or traumatic malalignment of the cervical spine. ATTESTATION: I, Lexy Tyson as teaching physician, have reviewed the images for this case and if necessary edited the report originally created by Saul Powers. Narrative 01/01/2025 2:[address] HEAD WITHOUT CONTRAST, CT CERVICAL SPINE WITHOUT CONTRAST Referring clinician's provided indication for this examination in [facility]: Head trauma, abnormal mental status. TECHNIQUE: CTs of the head and cervical spine were performed without intravenous contrast using tailored dose modulation techniques. Images were reconstructed in the axial, coronal, and sagittal planes. COMPARISON: CT HEAD WITHOUT CONTRAST ; CT CERVICAL SPINE WITHOUT CONTRAST FINDINGS: HEAD: Brain Parenchyma: No midline shift, mass effect, parenchymal hemorrhage, or evidence of acute territorial infarct. Hypodensities in the periventricular white matter, likely a manifestation of chronic small vessel disease. Ventricular System and Extra-Axial Spaces: The ventricles and sulci are prominent. No extra-axial fluid collections. Basilar cisterns are patent. No hydrocephalus. Osseous and Extracranial Structures: No calvarial fracture or significant soft tissue hematoma. No significant paranasal sinus disease. No orbital abnormality. CERVICAL SPINE: Alignment and Vertebrae: Straightening of the lordosis. Vertebral bodies and posterior elements are intact. Bilateral facet arthropathy at multiple levels. Preserved C1-C2 relationship with degenerative change. Discs and Endplates: Disc space narrowing with endplate changes, anterior osteophytes, and posterior disc osteophyte complexes at C3 C7. Other Findings: Vascular calcifications. Procedure Note Lexy Tyson MD - 01/01/2025 CT HEAD WITHOUT CONTRAST, CT CERVICAL SPINE WITHOUT CONTRAST Referring clinician's provided indication for this examination in [facility]:Head trauma, abnormal mental status. TECHNIQUE: CTs of the head and cervical spine were performed withoutintravenous contrast using tailored dose modulation techniques. Imageswere reconstructed in the axial, coronal, and sagittal planes. COMPARISON: CT HEAD WITHOUT CONTRAST ; CT CERVICAL SPINEWITHOUT CONTRAST FINDINGS: HEAD: Brain Parenchyma: No midline shift, mass effect, parenchymal hemorrhage,or evidence of acute territorial infarct. Hypodensities in theperiventricular white matter, likely a manifestation of chronic smallvessel disease. Ventricular System and Extra-Axial Spaces: The ventricles and sulci areprominent. No extra-axial fluid collections. Basilar cisterns are patent.No hydrocephalus. Osseous and Extracranial Structures: No calvarial fracture or significantsoft tissue hematoma. No significant paranasal sinus disease. No orbitalabnormality. CERVICAL SPINE: Alignment and Vertebrae: Straightening of the lordosis. Vertebral bodiesand posterior elements are intact. Bilateral facet arthropathy at multiplelevels. Preserved C1-C2 relationship with degenerative change. Discs and Endplates: Disc space narrowing with endplate changes, anteriorosteophytes, and posterior disc osteophyte complexes at C3 C7. Other Findings: Vascular calcifications. IMPRESSION: 1. No acute intracranial findings. 2. No acute fracture or traumatic malalignment of the cervical spine. ATTESTATION: I, Lexy Tyson as teaching physician, have reviewed theimages for this case and if necessary edited the report originally createdby Saul Powers. Aure Maynard PA-C IMCan CT HEAD/NECK Final Result * CT CERVICAL SPINE WITHOUT CONTRAST (12/31/2024 2:07 PM EDT) Anatomical Region Laterality Modality C-spine Computed Tomogra phy 12/31/2024 2:53 PM EDT Impressions 12/31/2024 3:02 PM EDT 1. No acute intracranial findings. 2. No acute fracture or traumatic malalignment of the cervical spine. Narrative 12/31/2024 3:[address] HEAD WITHOUT CONTRAST, CT CERVICAL SPINE WITHOUT CONTRAST Referring clinician's provided indication for this examination in Epic: * Head trauma, abnormal mental status (Age 19-64y) TECHNIQUE: CTs of the head and cervical spine were performed without intravenous contrast using tailored dose modulation techniques. Images were reconstructed in the axial, coronal, and sagittal planes. COMPARISON: CT HEAD WITHOUT CONTRAST FINDINGS: HEAD: Brain Parenchyma: Normal. No midline shift, mass effect, parenchymal hemorrhage, or evidence of acute territorial infarct. Ventricular System and Extra-Axial Spaces: Normal. No extra-axial fluid collections. Basal cisterns are patent. No hydrocephalus. Osseous and Extracranial Structures: No calvarial fracture or significant soft tissue hematoma. No significant paranasal sinus disease. No orbital abnormality. CERVICAL SPINE: Alignment and Vertebrae: Straightened alignment. Vertebral bodies and posterior elements are intact. Discs and Endplates: Normal. Other Findings: None. Procedure Note Armando Sue MD - 12/31/2024 CT HEAD WITHOUT CONTRAST, CT CERVICAL SPINE WITHOUT CONTRAST Referring clinician's provided indication for this examination in Epic: *Head trauma, abnormal mental status (Age 19-64y) TECHNIQUE: CTs of the head and cervical spine were performed withoutintravenous contrast using tailored dose modulation techniques. Imageswere reconstructed in the axial, coronal, and sagittal planes. COMPARISON: CT HEAD WITHOUT CONTRAST FINDINGS: HEAD: Brain Parenchyma: Normal. No midline shift, mass effect, parenchymalhemorrhage, or evidence of acute territorial infarct. Ventricular System and Extra-Axial Spaces: Normal. No extra-axial fluidcollections. Basal cisterns are patent. No hydrocephalus. Osseous and Extracranial Structures: No calvarial fracture or significantsoft tissue hematoma. No significant paranasal sinus disease. No orbitalabnormality. CERVICAL SPINE: Alignment and Vertebrae: Straightened alignment. Vertebral bodies andposterior elements are intact. Discs and Endplates: Normal. Other Findings: None. IMPRESSION: 1. No acute intracranial findings. 2. No acute fracture or traumatic malalignment of the cervical spine. Kizzy ELY CT XSPECIALTY ORD ERABLES Final Result * CT HEAD WITHOUT CONTRAST (12/31/2024 2:07 PM EDT) Anatomical Region Laterality Modality Head Computed Tomogra phy 12/31/2024 2:53 PM EDT Impressions 12/31/2024 3:02 PM EDT 1. No acute intracranial findings. 2. No acute fracture or traumatic malalignment of the cervical spine. Narrative 12/31/2024 3:[address] HEAD WITHOUT CONTRAST, CT CERVICAL SPINE WITHOUT CONTRAST Referring clinician's provided indication for this examination in [facility]: * Head trauma, abnormal mental status (Age 19-64y) TECHNIQUE: CTs of the head and cervical spine were performed without intravenous contrast using tailored dose modulation techniques. Images were reconstructed in the axial, coronal, and sagittal planes. COMPARISON: CT HEAD WITHOUT CONTRAST FINDINGS: HEAD: Brain Parenchyma: Normal. No midline shift, mass effect, parenchymal hemorrhage, or evidence of acute territorial infarct. Ventricular System and Extra-Axial Spaces: Normal. No extra-axial fluid collections. Basal cisterns are patent. No hydrocephalus. Osseous and Extracranial Structures: No calvarial fracture or significant soft tissue hematoma. No significant paranasal sinus disease. No orbital abnormality. CERVICAL SPINE: Alignment and Vertebrae: Straightened alignment. Vertebral bodies and posterior elements are intact. Discs and Endplates: Normal. Other Findings: None. Procedure Note Armando Sue MD - 12/31/2024 CT HEAD WITHOUT CONTRAST, CT CERVICAL SPINE WITHOUT CONTRAST Referring clinician's provided indication for this examination in [facility]: *Head trauma, abnormal mental status (Age 19-64y) TECHNIQUE: CTs of the head and cervical spine were performed withoutintravenous contrast using tailored dose modulation techniques. Imageswere reconstructed in the axial, coronal, and sagittal planes. COMPARISON: CT HEAD WITHOUT CONTRAST FINDINGS: HEAD: Brain Parenchyma: Normal. No midline shift, mass effect, parenchymalhemorrhage, or evidence of acute territorial infarct. Ventricular System and Extra-Axial Spaces: Normal. No extra-axial fluidcollections. Basal cisterns are patent. No hydrocephalus. Osseous and Extracranial Structures: No calvarial fracture or significantsoft tissue hematoma. No significant paranasal sinus disease. No orbitalabnormality. CERVICAL SPINE: Alignment and Vertebrae: Straightened alignment. Vertebral bodies andposterior elements are intact. Discs and Endplates: Normal. Other Findings: None. IMPRESSION: 1. No acute intracranial findings. 2. No acute fracture or traumatic malalignment of the cervical spine. Kizzy Lott PA-C IMG CT HEAD/NECK Kanwal l Result * Hepatitis C viral load (PCR) (08/09/2022 5:38 PM EDT) HCV RNA PCR TARGET NOT DETECTED TARGET NOT DETECTED IU/mL [facility] Comment:ASSAY RANGE: 15-100, 000,000 IU/ml HCV Viral Load LOG 10 TARGET NOT DETECTED TARGET NOT DETECTED log IU/mL [facility] Comment: NO VIRAL DNA DETECTED ASSAY RANGE: [id number] IU/mL (1.18 log - 8.00 log IU/mL) Blood (Blood) 08/09/2022 5:3 8 PM EDT 08/09/2022 5:57 PM EDT Jailene Donaldson MD NON CULTURE MICROBIOLOGY Fi nal Result [facility] [address] [place] [id number] from Last 3 Months or Most Recently Relevant to Health Maintenance Additional Health Concerns Infection Onset Date Last Indicated Other (Comment) Comment:Please order CRE screening (Carbapenem Resistant Enterobacteriaceae) if this patient is readmitted, at the request of THUY CURTIS, due to prior potential exposure. Patient does not require additional precautions because of the screening. Contact Infection Control with questions. 08/23/2022 0 08/23/2022 [place] [id number] [facility] [address] [facility] [address] [facility] [place] [address] [facility] [place] [address] [facility] [address] [facility] [place] [address] [facility] [place] [address] [facility] [place] [address] [facility] Advance Directives For more information, please contact: [phone] (9AM - 5PM Melissa/[place], Saturday-Saturday) * Full Code (Latest Code Status on File) Date Activated Date Inactivated Comments 08/07/2022 10:58 AM Question Answer Comments Code Status Confirmed With: Patient Care Teams Repeater Chief Relationship Specialty Start Date End Date Nargis Torre DO [address] [place] [id number] [email or web address] PCP - General Internal Medicine 01/25/24 Additional Source Comments The information contained in this document represents components of the legal health record. It is not the complete legal health record.[facility]
--- OUTSIDE RECORDS SUMMARY | 2025-02-08 04:38 | XMS_ITS | Clinical Summary ---
Author Organization [facility] Address [address] [place] [address] Phone Care Team Providers Care Wastewater Manager Name Role Phone Physician, Pcp Unknown Primary Care Provider Jenise vailable Allergies Active Allergy Reactions Criticality Noted Date Comments Lisinopril Angioedema High 07/28/2024 Fluoxetine Hives 08/11/2024 Encounters Date Type Department Care Team Description 01/05/2025 1:19 AM EDT - 01/05/2025 1:59 AM EDT Emergency [facility] Emergency [address] [place] [id number] Hypertension, unspecified type (Primary Dx); Alcoholic intoxication without complication (CMS/[facility] V24) Discharge Disposition: Home or Self Care from Last 3 Months Medical History Medical [...] Procedure Name Priority Date/Time Associated Diagnosis Comments COMPREHENSIVE METABOLIC PANEL STAT 10/30/2024 7:33 PM EDT from Last 3 Months or Most Recently Relevant to Health Maintenance Results * (ABNORMAL) Comprehensive metabolic panel (10/30/2024 7:33 PM EDT) Sodium 136 133 - 145 mmol/L LAB CHEMISTRY METHOD 10/30/2024 8:27 PM [facility] Potassium 3.7 3.5 - 5.5 mmol/L LAB CHEMISTRY METHOD 10/30/2024 8:27 PM [facility] Chloride 98 96 - 110 mmol/L LAB CHEMISTRY METHOD 10/30/2024 8:27 PM [facility] CO2 31 21 - 32 mmol/L LAB CHEMISTRY METHOD 10/30/2024 8:27 PM [facility] Anion Gap 7 3 - 11 LAB CHEMISTRY METHOD 10/30/2024 8:27 PM [facility] Glucose 97 70 - 100 mg/dL LAB CHEMISTRY METHOD 10/30/2024 8:27 PM [facility] BUN 9 5 - 25 mg/dL LAB CHEMISTRY METHOD 10/30/2024 8:27 PM [facility] Creatinine 0.61(L) 0.70 - 1.30 mg/dL LAB CHEMISTRY METHOD 10/30/2024 8:27 PM [facility] eGFR 107 >=60 mL/min/1. 73m2 LAB CHEMISTRY METHOD 10/30/2024 8:27 PM [facility] Comment:Calculation based on the Chronic Kidney Disease Epidemiology Collaboration (CKD-EPI) equation refit without adjustment for race. BUN/Creatinine Ratio 14.8 LAB CHEMISTRY METHOD 10/30/2024 8:27 PM [facility] Calcium 8.3(L) 8.5 - 10.5 mg/dL LAB CHEMISTRY METHOD 10/30/2024 8:27 PM EDT [facility] AST (SGOT) 57(H) 10 - 42 unit/L LAB CHEMISTRY METHOD 10/30/2024 8:27 PM EDT [facility] ALT (SGPT) 74(H) 10 - 60 unit/L LAB CHEMISTRY METHOD 10/30/2024 8:27 PM EDT [facility] Alkaline Phosphatase 93 42 - 121 unit/L LAB CHEMISTRY METHOD 10/30/2024 8:27 PM EDT [facility] Total Protein 7.1 6.0 - 8.0 g/dL LAB CHEMISTRY METHOD 10/30/2024 8:27 PM EDT [facility] Albumin 3.8 3.2 - 5.0 g/dL LAB CHEMISTRY METHOD [facility] Total Bilirubin 0.4 0.0 - 1.4 mg/dL LAB CHEMISTRY METHOD 10/30/2024 8:27 PM EDT [facility] Blood Venous blood specimen / Unknown Venipuncture / Unknown 10/30/2024 7:33 PM EDT 10/30/2024 7:49 PM EDT us Joel Woo MD LAB BLOOD ORDERABLES Final Res ult [facility] [address] [place] [address], from Last 3 Months or Most Recently Relevant to Health Maintenance Insurance [facility] [employer] [facility] Care Teams Wastewater Manager Relationship Specialty Start Date End Date Physician, Pcp Unknown PCP - General 01/05/25
--- OUTSIDE RECORDS SUMMARY | 2025-02-08 04:38 | XMS_ITS | Encounter Summary ---
Author Organization [facility] Address [address] [place] [address] Phone Care Team Providers Care Radiology Assistant Name Role Phone GavinNargis jim Primary Care Provider [phone] Encounter Details Date Type Department Care Team (Late st Contact Info) Description 02/19/2024 Procedure Pass [facility], Ct Scan - [address] [id number] Social History Tobacco Use Types Packs/Day Years [...] as food, clothing, or medical care? No 02/19/2024 In the past 12 months have y ou been in a relationship with a person who hurts, threatens, or tries to control you? No 02/19/2024 Are you denied basic needs s uch as food, clothing, or medical care? No 02/19/2024 In the past 12 months have y ou been in a relationship with a person who hurts, threatens, or tries to control you? No 02/19/2024 Sex and Gender Information Value Date Recorded Sex Assigned at Male 11/11/2022 10:36 AM EDT Legal Sex Male 9:48 PM EDT Gender Identity Male 11/11/2022 10:36 AM EDT Sexual Orientation Straight 11/11/2022 10 :36 AM EDT documented as of this encounter Functional Status * Calculated C-SSRS Risk Score (Lifetime/Recent) Answer Date of Assessment Author No Risk Indicated 02/19/2024 5:18 PM EDT Kirstin Bedolla RN * [place] Suicide Severity Rating Scale (Screener/Recent Self-Report) Question Answer Date of Assessment Author 1. Wish to be (Past 1 Month) No 024 5:18 PM EDT Kirstin Harris RN 2. Non-Specific Active Suici silvano Thoughts (Past 1 Month) No 02/19/2024 5:18 PM EDT Lisa Harris RN 6. Suicidal Behavior (Lifetime) No 5:18 PM EDT Kirstin Harris RN documented as of this encounter Plan [...] documented as of this encounter Care Teams Radiology Assistant Relationship Specialty Start Date End Date Nargis Torre DO [address] [place] [id number] PCP - General Internal Medicine 01/25/24 documented as of this encounter Additional Source Comments The information contained in this document represents components of the legal health record. It is not the complete legal health record.[facility]
--- OUTSIDE RECORDS SUMMARY | 2025-02-08 04:38 | XMS_ITS | Encounter Summary ---
Author Organization [facility] Address [address] [place] [address] Phone Care Team Providers Care Draw In Hand Name Role Phone GavinNargis jim Primary Care Provider [phone] Encounter Details Date Type Department Care Team (Late st Contact Info) Description 09/14/2024 Procedure Pass [facility], Ct Scan - [address] [phone] Social History Tobacco Use Types Packs/Day Years [...] 6:02 PM EDT Kelsie Ricci RN * [place] Suicide Severity Rating Scale (Screener/Recent Self-Report) Question [...] documented as of this encounter Care Teams Draw In Hand Relationship Specialty Start Date End Date Nargis Torre DO [address] [place] [id number] PCP - General Internal Medicine 01/25/24 documented as of this encounter Additional Source Comments The information contained in this document represents components of the legal health record. It is not the complete legal health record.[facility]
--- OUTSIDE RECORDS SUMMARY | 2025-02-08 04:38 | XMS_ITS | Encounter Summary ---
Author Organization [facility] Address [address] [place] [address] Phone Care Team Providers Care Helicopter Utility Aircrewman Name Role Phone GavincarriemainorNargis Leti ALEXIS Primary Care Provider Encounter Details Date Type Department Care Team (Late st Contact Info) Description 10/01/2024 Procedure Pass [facility], Ct Scan - [address] [phone] Social History Tobacco Use Types Packs/Day Years [...] money to get more. Unable to assess 10/04/2024 Residential Stability Answer Date Recor ded What is your housing situation today? Unable to assess 10/04/2024 How many times have you moved in the past 12 mon ths? Unable to assess 10/04/2024 Paying for Meds Answer Date Recorded Do you have trouble paying for medicines? Unable to assess 10/04/2024 Paying Utility Bills Answer Date Record ed Do you have trouble paying y our heating or electricity bill? Unable to assess 10/04/2024 Transportation Answer Date Recorded Has the lack of transportati on kept you from medical appointments or from getting medications? Unable to assess 10/04/2024 Digital Access Answer Date Recorded No 10/04/2024 No 10/04/2024 Do you have reliable internet access at home? Un able to assess 10/04/2024 Do you have a device (e.g., phone, tablet, computer) with a working camera? Unable to assess 10/04/2024 Intimate Partner Violence Answer Date R ecorded Are you denied basic needs s uch as food, clothing, or medical care? No 10/04/2024 In the past 12 months have y ou been in a relationship with a person who hurts, threatens, or tries to control you? No 10/04/2024 Are you denied basic needs s uch as food, clothing, or medical care? No 10/04/2024 In the past 12 months have y ou been in a relationship with a person who hurts, threatens, or tries to control you? No 10/04/2024 Sex and Gender Information Value Date Recorded Sex Assigned at Male 11/11/2022 10:36 AM EDT Legal Sex Male 9:48 PM EDT Gender Identity Male 11/11/2022 10:36 AM EDT Sexual Orientation Straight 11/11/2022 10 :36 AM EDT documented as of this encounter Functional Status * Calculated C-SSRS Risk Score (Lifetime/Recent) Answer Date of Assessment Author Low Risk 10/04/2024 4:19 AM EDT Noy Caldwell RN * [place] Suicide Severity Rating Scale (Screener/Recent Self-Report) Question Answer Date of Assessment Author 1. Wish to be (Past 1 Month) Yes 10/04/2024 4:19 AM KALENT Noy Caldwell RN 2. Non-Specific Active Suicidal Thoughts (Past 1 Month) Yes 10/04/2024 4:19 AM Noy Harvey RN 3. Active Suicidal Ideation with any Methods (Not Plan) Without Intent to Act (Past 1 Month) No 10/04/2024 4:19 AM Noy Harvey RN 4. Active Suicidal Ideation with Some Intent to Act, Without Specific Plan (Past 1 Month) No 10/04/2024 4:19 AM EDNoy Najera RN 5. Active Suicidal Ideation with Specific Plan and Intent (Past 1 Month) No 10/04/2024 4:19 AM Noy Harvey RN 6. Suicidal Behavior (Lifetime) No 10/04/2024 4:19 AM Noy Harvey RN documented as of this encounter Plan [...] documented as of this encounter Care Teams Helicopter Utility Aircrewman Relationship Specialty Start Date End Date Nargis Torre DO [address] [place] [id number] PCP - General Internal Medicine 01/25/24 documented as of this encounter Additional Source Comments The information contained in this document represents components of the legal health record. It is not the complete legal health record.[facility]
--- OUTSIDE RECORDS SUMMARY | 2025-02-08 04:38 | XMS_ITS | Encounter Summary ---
Author Organization [facility] Address [address] [place] [address] Phone Care Team Providers Care Director Of Clinical Trials Name Role Phone Pelon Schneider MD Primary Care Provider [phone] Amol Anderson Primary Care Provider [phone] Pcp, Unknown Primary Care Provider Nargis Lewis DO Primary Care Provider [phone] Encounter Details Date Type Department Care Team (Late st Contact Info) Description 06/13/2022 Procedure Pass [facility], Ct Scan - [facility] [address] [place] [address] Social History Tobacco Use Types Packs/Day Years [...] Date of Assessment Author No Risk Indicated 06/13/2022 9:57 PM Lety Jasmine RN * [place] Suicide Severity Rating Scale (Screener/Recent Self-Report) Question Answer Date of Assessment Author 1. Wish to be (Past 1 Month) No 023 9:57 PM Lety Matias, RN 2. Non-Specific Active Suici silvano Thoughts (Past 1 Month) No 06/13/2022 9:57 PM Dominick Matias, SAMI 6. Suicidal Behavior (Lifetime) No 9:57 PM Lety Matias, SAMI documented as of this encounter Plan [...] as of this encounter Care Teams Director Of Clinical Trials Relationship Specialty Start Date End Date Pelon Schneider MD [address] [place] [address] PCP - General Internal Medicine 02/05/18 12/01/23 Amol Anderson [address] [place] [address] PCP - General 12/02/23 01/23/24 Pcp, Unknown PCP - General 01/24/24 01/24/24 Nargis Torre DO [address] [place] [address] PCP - General Internal Medicine 01/25/24 documented as of this encounter Additional Source Comments The information contained in this document represents components of the legal health record. It is not the complete legal health record.[facility]
--- OUTSIDE RECORDS SUMMARY | 2025-02-08 04:38 | XMS_ITS | Encounter Summary ---
Author Organization [facility] Address [address] [place] [address] Phone Care Team Providers Care High School Coach Name Role Phone Pelon Schneider MD Primary Care Provider [phone] Amol Anderson Primary Care Provider [phone] Pcp, Unknown Primary Care Provider Nargis Lewis DO Primary Care Provider [phone] Encounter Details Date Type Department Care Team (Late st Contact Info) Description 10/05/2023 Procedure Pass [facility] Emergency Imaging, [address] Floor 1 [place] [address] Social History Tobacco Use Types Packs/Day Years [...] documented as of this encounter Care Teams High School Coach Relationship Specialty Start Date End Date Pelon Schneider MD [address] [place] [address] PCP - General Internal Medicine 02/05/18 12/01/23 Amol Anderson [address] [place] [address] PCP - General 12/02/23 01/23/24 Pcp, Unknown PCP - General 01/24/24 01/24/24 Nargis Torre DO [address] [place] [address] PCP - General Internal Medicine 01/25/24 documented as of this encounter Additional Source Comments The information contained in this document represents components of the legal health record. It is not the complete legal health record.[facility]
--- OUTSIDE RECORDS SUMMARY | 2025-02-08 04:38 | XMS_ITS | Encounter Summary ---
Author Organization [facility] Address [address] [place] [address] Phone Care Team Providers Care Carpet Binder Name Role Phone Pelon Schneider MD Primary Care Provider [phone] Amol Anderson Primary Care Provider [phone] Pcp, Unknown Primary Care Provider Nargis Lewis DO Primary Care Provider [phone] Encounter Details Date Type Department Care Team (Late st Contact Info) Description 06/13/2022 Procedure Pass [facility], Ct Scan - [facility] [address] [place] [address] Social History Tobacco Use Types Packs/Day Years [...] 06/13/2022 9:57 PM Lety Jasmine RN * [place] Suicide Severity Rating Scale (Screener/Recent Self-Report) Question Answer Date of Assessment Author 1. Wish to be (Past 1 Month) No 023 9:57 PM Lety Matias, RN 2. Non-Specific Active Suici silvano Thoughts (Past 1 Month) No 06/13/2022 9:57 PM Dominick Matias, SAMI 6. Suicidal Behavior (Lifetime) No 9:57 PM Lety Matias, SAIM documented as of this encounter Plan of [...] documented as of this encounter Care Teams Carpet Binder Relationship Specialty Start Date End Date Pelon Schneider MD [address] [place] [address] PCP - General Internal Medicine 02/05/18 12/01/23 Amol Anderson [address] [place] [address] PCP - General 12/02/23 01/23/24 Pcp, Unknown PCP - General 01/24/24 01/24/24 Nargis Torre DO [address] [place] [address] PCP - General Internal Medicine 01/25/24 documented as of this encounter Additional Source Comments The information contained in this document represents components of the legal health record. It is not the complete legal health record.[facility]
--- OUTSIDE RECORDS SUMMARY | 2025-02-08 04:38 | XMS_ITS | Encounter Summary ---
Author Organization [facility] Address [address] [place] [address] Phone Care Team Providers Care Vegetable Thinner Name Role Phone Pelon Schneider MD Primary Care Provider [phone] Amol Anderson Primary Care Provider [phone] Pcp, Unknown Primary Care Provider Nargis Lewis DO Primary Care Provider [phone] Encounter Details Date Type Department Care Team (Late st Contact Info) Description 10/03/2023 Procedure Pass [facility] [place] [address] [facility] [address], 2nd Floor, [address] [place] [address] Social History Tobacco Use Types Packs/Day Years [...] documented as of this encounter Care Teams Vegetable Thinner Relationship Specialty Start Date End Date Pelon Schneider MD [address] [place] [address] PCP - General Internal Medicine 02/05/18 12/01/23 Amol Anderson [address] [place] [address] PCP - General 12/02/23 01/23/24 Pcp, Unknown PCP - General 01/24/24 01/24/24 Nargis Torre DO [address] [place] [address] PCP - General Internal Medicine 01/25/24 documented as of this encounter Additional Source Comments The information contained in this document represents components of the legal health record. It is not the complete legal health record.[facility]
--- OUTSIDE RECORDS SUMMARY | 2025-02-08 04:38 | XMS_ITS | Encounter Summary ---
Author Organization [facility] Address [address] [place] [address] Phone Care Team Providers Care Regulatory Leader Name Role Phone GavinNargis jim Primary Care Provider [phone] Encounter Details Date Type Department Care Team (Late st Contact Info) Description 01/29/2024 Procedure Pass [facility], Ct Scan - [address] [id number] Social History Tobacco Use Types Packs/Day Years [...] Date of Assessment Author No Risk Indicated 01/30/2024 10:22 PM EDT Bianca Balderas, RN * [place] Suicide Severity Rating Scale (Screener/Recent Self-Report) Question Answer Date of Assessment Author 1. Wish to be (Past 1 Month) No 01/30/2024 10:22 PM EDT Maria C Wayne RN 2. Non-Specific Active Suicidal Thoughts (Past 1 Month) No 01/30/2024 10:22 PM EDT Maria C Wayne RN 6. Suicidal Behavior (Lifetime) No 01/30/2024 10:22 PM EDT Maria C Wayne RN documented as of this encounter [...] documented as of this encounter Care Teams Regulatory Leader Relationship Specialty Start Date End Date Nargis Torre DO [address] [place] [address] PCP - General Internal Medicine 01/25/24 documented as of this encounter Additional Source Comments The information contained in this document represents components of the legal health record. It is not the complete legal health record.[facility]
--- OUTSIDE RECORDS SUMMARY | 2025-02-08 04:38 | XMS_ITS | Encounter Summary ---
Author Organization [facility] Address [address] [place] [address] Phone Care Team Providers Care Photoengraver Apprentice Name Role Phone GavinNargis jim Primary Care Provider [phone] Encounter Details Date Type Department Care Team (Late st Contact Info) Description 02/19/2024 Procedure Pass [facility], Ct Scan - [address] [id number] Social History Tobacco Use Types Packs/Day Years [...] 5:18 PM EDT Kirstin Bedolla RN * [place] Suicide Severity Rating Scale (Screener/Recent Self-Report) Question [...] documented as of this encounter Care Teams Photoengraver Apprentice Relationship Specialty Start Date End Date Nargis Torre DO [address] [place] [address] PCP - General Internal Medicine 01/25/24 documented as of this encounter Additional Source Comments The information contained in this document represents components of the legal health record. It is not the complete legal health record.[facility]
--- OUTSIDE RECORDS SUMMARY | 2025-02-08 04:38 | XMS_ITS | Encounter Summary ---
Author Organization [facility] Address [address] [place] [address] Phone Care Team Providers Care Lithographic Press Feeder Name Role Phone GavincarriemainorNargis Leti ALEXIS Primary Care Provider Encounter Details Date Type Department Care Team (Late st Contact Info) Description 10/01/2024 Procedure Pass [facility], Ct Scan - [address] [phone] Social History Tobacco Use Types Packs/Day Years [...] 4:19 AM EDT Noy Caldwell RN * [place] Suicide Severity Rating Scale (Screener/Recent Self-Report) Question [...] documented as of this encounter Care Teams Lithographic Press Feeder Relationship Specialty Start Date End Date Nargis Torre DO [address] [place] [address] PCP - General Internal Medicine 01/25/24 documented as of this encounter Additional Source Comments The information contained in this document represents components of the legal health record. It is not the complete legal health record.[facility]
--- OUTSIDE RECORDS SUMMARY | 2025-02-08 04:38 | XMS_ITS | Encounter Summary ---
Author Organization [facility] Address [address] [place] [address] Phone Care Team Providers Care Account Executive Metalworking Name Role Phone GavinNargis jim Primary Care Provider Encounter Details Date Type Department Care Team (Late st Contact Info) Description 01/29/2024 Procedure Pass [facility], Ct Scan - [address] [phone] Social History Tobacco Use Types Packs/Day Years [...] 10:22 PM EDT Bianca Balderas, RN * [place] Suicide Severity Rating Scale (Screener/Recent Self-Report) Question [...] documented as of this encounter Care Teams Account Executive Metalworking Relationship Specialty Start Date End Date Nargis Torre DO [address] [place] [address] PCP - General Internal Medicine 01/25/24 documented as of this encounter Additional Source Comments The information contained in this document represents components of the legal health record. It is not the complete legal health record.[facility]
--- OUTSIDE RECORDS SUMMARY | 2025-02-08 04:38 | XMS_ITS | Encounter Summary ---
Author Organization [facility] Address [address] [place] [address] Phone Care Team Providers Care Lathe Spotter Name Role Phone GavincarriemainorNargis Leti ALEXIS Primary Care Provider [phone] Encounter Details Date Type Department Care Team (Late st Contact Info) Description 01/26/2024 Procedure Pass [facility], Ct Scan - [address] [phone] Social History Tobacco Use Types Packs/Day Years [...] 2:55 PM EDT Stormy Collins RN * [place] Suicide Severity Rating Scale (Screener/Recent Self-Report) Question [...] documented as of this encounter Care Teams Lathe Spotter Relationship Specialty Start Date End Date Nargis Torre DO [address] [place] [address] PCP - General Internal Medicine 01/25/24 documented as of this encounter Additional Source Comments The information contained in this document represents components of the legal health record. It is not the complete legal health record.[facility]
--- OUTSIDE RECORDS SUMMARY | 2025-02-08 04:38 | XMS_ITS | Encounter Summary ---
Author Organization [facility] Address [address] [place] [address] Phone Care Team Providers Care Cma Or Lpn Name Role Phone Pelon Schneider MD Primary Care Provider [phone] Amol Anderson Primary Care Provider [phone] Pcp, Unknown Primary Care Provider Nargis Lewis DO Primary Care Provider [phone] Encounter Details Date Type Department Care Team (Late st Contact Info) Description 10/05/2023 Procedure Pass [facility] Emergency Imaging, [address], [address] 1 [place] [address] Social History Tobacco Use Types Packs/Day Years [...] documented as of this encounter Care Teams Cma Or Lpn Relationship Specialty Start Date End Date Pelon Schneider MD [address] [place] [address] PCP - General Internal Medicine 02/05/18 12/01/23 Amol Anderson [address] [place] [address] PCP - General 12/02/23 01/23/24 Pcp, Unknown PCP - General 01/24/24 01/24/24 Nargis Torre DO [address] [place] [address] PCP - General Internal Medicine 01/25/24 documented as of this encounter Additional Source Comments The information contained in this document represents components of the legal health record. It is not the complete legal health record.[facility]
--- NOTE | 2025-02-08 05:30 | PC.NURSE ---
pt belongings placed in [place]ami [place] by security due to pt attempting to get dressed and leave
--- NOTE | 2025-02-08 07:47 | ED.ALCOHOL ---
HPI - Alcohol General Chief Complaint: ETOH/Substance Use Stated Complaint: ETOH Time Seen by Provider: 02/08/25 04:23 Source: patient, EMS and police Mode of arrival: EMS Limitations: altered mental status (alcohol intoxication) History of Present Illness ED Provider: Dr. Bertha Herbert HPI narrative: 64-year-old male with extensive history of alcohol abuse and PTSD, very well known to this emergency department brought in by ambulance from the hotel where he is currently living with his girlfriend because he was reportedly kicked out of their hotel room. Patient admits to alcohol use tonight. Describes drinking 8 beers and 5 shots. He has no complaints aside from being intoxicated. Denies suicidal or homicidal ideation. Patient is extremely belligerent, refusing to answer further questions. Related Data Home Medications ?Medication ?Instructions ?Recorded ?Confirmed ascorbic acid (vitamin C) 250 mg 500 mg PO DAILY 12/15/24 12/19/24 tablet (Vitamin C) acetaminophen 325 mg tablet 650 mg PO BID PRN Headache/Pain, 12/19/24 12/19/24 Scale 1-10 fexofenadine 180 mg tablet 180 mg PO DAILY PRN Allergy 12/19/24 12/19/24 Symptoms ibuprofen 600 mg tablet 400 mg PO BIDWM PRN joint 12/19/24 12/19/24 pain/headache Previous Rx's ?Medication ?Instructions ?Recorded albuterol sulfate 90 mcg/actuation 2 puff inhalation Q4H PRN 11/16/24 aerosol inhaler (Ventolin HFA) Shortness Of Breath Or Wheezing #1 inhaler amlodipine 5 mg tablet 5 mg PO BID #60 tabs 11/16/24 carvedilol 6.25 mg tablet 6.25 mg PO BID #60 tabs 11/16/24 ferrous sulfate 325 mg (65 mg 325 mg PO Q48H #30 tabs 11/16/24 iron) tablet gabapentin 300 mg capsule 300 mg PO BID #90 caps 11/16/24 nicotine 21 mg/24 hr daily 1 patch transdermal DAILY #30 ea 11/16/24 transdermal patch omeprazole 20 mg capsule,delayed 20 mg PO DAILY@0630 #30 caps 11/16/24 release spironolactone 25 mg tablet 25 mg PO DAILY #30 tabs 11/16/24 (Aldactone) Allergies Allergy/AdvReac Type Severity Reaction Status Date / Time latex Allergy Unknown Verified 02/09/25 15:37 lisinopril Allergy Unknown Verified 02/09/25 15:37 Review of Systems Review of Systems: Yes Unobtainable due to mental status (Intoxicated) [facility] Past Medical History Medical History Major depressive disorder, recurrent, moderate Alcohol abuse Social History Social History Household Members: Other Housing: Other Housing Other:: friends/motel Do you presently have visiting nurse or other home services: No Alcohol intake: current Alcohol intake frequency: 3 or more drinks per day Alcohol type: beer and hard liquor Comment: Pt. refused offer for an opportunity to use a walker. Patient Tobacco Use Status: Current everyday Tobacco user Tobacco use type: Cigarette Years Smoked: 40+ Substance Use Type: Marijuana Advance Directives: No Advance Directives Information Provided: No Do you have a plan to hurt others: No Plan service: Yes Sexual orientation: Straight/Heterosexual Physical Exam ED Exam Exam: GENERAL: Appears intoxicated, GCS 13, eyes open to voice, slurred speech, belligerent, refusing to answer questions. SKIN: Normal skin color for ethnicity, warm, dry, no rashes noted. HEENT: Normocephalic, atraumatic, no stridor, posterior oropharynx nonerythematous, dentition intact, EOMI, pupils are pinpoint bilaterally, reactive to light, smell of alcohol on his breath. NECK: Soft, supple, no step-offs, no deformities, no lymphadenopathy. CHEST: Heart regular rhythm, no murmurs, symmetric chest rise and fall. PULMONARY: Clear to auscultation bilaterally, diminished at the bases, no labored breathing, no wheezes/rhales/rhonchi. ABDOMINAL: Soft, nondistended, positive bowel sounds in all quadrants. : Deferred. MUSCULOSKELETAL: Normal tone, full range of motion, no deformities, no peripheral edema. NEURO: GCS 13, eyes open to voice, slightly slurred speech, CN II through XII intact, equal strength and sensation bilateral upper and lower extremities, no focal neurologic deficits. PSYCHIATRIC: Flat affect, poor eye contact, belligerent, confrontational. Vital Signs: Vital Signs - 24 hr 02/08/25 04:05 Temperature 97.7 F Pulse Rate 77 Respiratory Rate 18 Blood Pressure 154/71 H Pulse Oximetry 98 Oxygen Delivery Method Room Air BMI result Body Mass Index 32.0 Medical Decision Making Medical Decision Making MDM Narrative: 64-year-old male with history of alcohol use disorder and PTSD presenting via EMS with reported alcohol intoxication after being kicked out of his hotel room by his girlfriend. Patient appears intoxicated and is extremely belligerent. Police are at bedside, requiring anxiolysis with Valium. Differential diagnosis includes alcohol intoxication, drug use, decompensated mental illness, malingering, among others. Plan for sober re-evaluation and final disposition. He has no evidence of trauma, no complaints other than being intoxicated and needing a place to stay because he was kicked out of his hotel room. Hemodynamically stable. Differential Diagnosis Differential Diagnoses: The differential diagnosis associated with the presentation includes (as above) Admission/Observation Consideration of admission/observation: Escalation of care including admission/observation considered Independent Historian Clinical information obtained from an independent historian. History obtained from or confirmed by: EMS External Record Review External record reviewed: Inpatient record Chronic Conditions Patient?s care impacted by: Other (PTSD, EtOH use disorder) Social Determinants Patient?s care significantly limited by Social Determinants of Health including: Inadequate housing, Problems related to primary support group and Other Social Determinant of Health Medications Administered Discontinued Medications Generic Name Dose Route Start Last Admin Trade Name Zohaib PRN Reason Stop Dose Admin Diazepam 5 mg 02/08/25 04:23 02/08/25 04:28 Diazepam 5 Mg Tablet PO 02/08/25 04:24 5 mg ONCE ONE Administration Diphenhydramine HCl 50 mg 02/08/25 05:02 02/08/25 05:08 Diphenhydramine Hcl 25 Mg Capsule PO 02/08/25 05:03 50 mg ONCE ONE Administration Haloperidol 5 mg 02/08/25 04:23 02/08/25 04:29 Haloperidol 5 Mg Tablet PO 02/08/25 04:24 Not Given ONCE ONE Discharge Plan Discharge Clinical Impression: Alcoholic intoxication, Alcohol abuse, Housing insecurity Patient Disposition: Home, Self-Care Additional Instructions: Please follow up with your regular doctor at the [facility]. Alcohol use disorder You were seen in the Emergency Department today for treatment of alcohol use disorder.? You may have been given medications to help with your withdrawal symptoms.? Please do not drink alcohol with them. This is very dangerous and can cause respiratory depression or other adverse reactions depending on the medication. If you would like to cut down or stop your alcohol use please consider calling our outpatient Addiction Treatment office:? [facility] (M-F 9a-5p) [address] [place] [address] [address] You have also been given a list of treatment providers in the area that can assist as well.? If you experience seizures, vomiting blood, black stools, falls, severe headache, chest pain, fevers, trouble breathing, hallucinations or any other concerns you need to call 911 or seek immediate care. Please stay hydrated. Please follow up with your regular doctor at the [facility]. Prescriptions: No Action acetaminophen 325 mg tablet 650 mg PO BID PRN (Reason: Headache/Pain, Scale 1-10) fexofenadine 180 mg tablet 180 mg PO DAILY PRN (Reason: Allergy Symptoms) ibuprofen 600 mg tablet 400 mg PO BIDWM PRN (Reason: joint pain/headache) gabapentin 300 mg Capsule 300 mg PO BID Qty: 90 0RF omeprazole 20 mg Capsule,Delayed Release(Dr/Ec) 20 mg PO DAILY@0630 Qty: 30 0RF carvedilol 6.25 mg Tablet 6.25 mg PO BID Qty: 60 0RF Rx Instructions: must administer with a meal/food HOLD IF SBP<115 or HR<56 amlodipine 5 mg Tablet 5 mg PO BID Qty: 60 0RF spironolactone [Aldactone] 25 mg Tablet 25 mg PO DAILY Qty: 30 0RF ferrous sulfate 325 mg (65 mg iron) Tablet 325 mg PO Q48H Qty: 30 0RF nicotine 21 mg/24 hr Patch 24 Hour 1 patch TRANSDERMAL DAILY Qty: 30 0RF albuterol sulfate [Ventolin HFA] 90 mcg/actuation Hfa Aerosol Inhaler 2 puff INHALATION Q4H PRN (Reason: Shortness Of Breath Or Wheezing) Qty: 1 0RF ascorbic acid (vitamin C) [Vitamin C] 250 mg tablet 500 mg PO DAILY Referrals: Amol Florez PA [Physician Usability Architect, Internal Medicine] Discharge Date/Time: 02/08/25 11:41 Print Language: Hungarian
[2025-02-08 08:09] VITALS: RESP 16
--- NOTE | 2025-02-08 09:22 | PC.NURSE ---
assumed care of pt approx 0700, resting in stretcher with eyes closed and respirations even/unlabored. no apparent s/s of distressed. pt allowed to rest and plan on care ongoing..
== END 2025-02-08 11:41 | disposition home or self-care (01) ==
PROVIDERS: Emergency Provider Emergency Medicine
DX: F10.129 Alcohol abuse with intoxication, unspecified (principal); Y90.9 Presence of alcohol in blood, level not specified; F43.10 Post-traumatic stress disorder, unspecified; Z59.89 Other problems related to housing and economic circumstances
CPT/HCPCS: 99284

== ENCOUNTER 2025-02-09 15:17 | Emergency (ER) | payer OTHER, SELFPAY ==
[2025-02-09 15:35] VITALS: BP 150/84; PULSE 96; RESP 22; O2SAT 95; BMI 29.1
[2025-02-09 15:45] VITALS: BP 109/64; PULSE 104; RESP 20; O2SAT 95
[2025-02-09] MEDS: OLANZapine 10 MG VIAL IM (15:45)
--- NOTE | 2025-02-09 16:03 | ED.ALCOHOL ---
HPI - Alcohol General Chief Complaint: ETOH/Substance Use Stated Complaint: ETOH INTOX,WAVING POCKET KNIVE,CALM PER EMS Time Seen by Provider: 02/09/25 16:03 History of Present Illness ED Provider: Leslie VITAL narrative: The patient is a 64-year-old male with a history of chronic alcoholism and a history of frequent emergency room visits because of alcohol intoxication. He is brought here with a great deal of frequency because he becomes agitated when intoxicated. I believe that he has been staying at a hotel. Apparently today he was intoxicated and waving a pocket knife around. An ambulance was called and he was brought to the hospital. There was no report of any assault or injury. He denies using anything other than alcohol. He was agitated and intoxicated and he did not offer any additional history. He was very disruptive to the emergency room. Related Data Home Medications ?Medication ?Instructions ?Recorded ?Confirmed ascorbic acid (vitamin C) 250 mg 500 mg PO DAILY 12/15/24 12/19/24 tablet (Vitamin C) acetaminophen 325 mg tablet 650 mg PO BID PRN Headache/Pain, 12/19/24 12/19/24 Scale 1-10 fexofenadine 180 mg tablet 180 mg PO DAILY PRN Allergy 12/19/24 12/19/24 Symptoms ibuprofen 600 mg tablet 400 mg PO BIDWM PRN joint 12/19/24 12/19/24 pain/headache Previous Rx's ?Medication ?Instructions ?Recorded albuterol sulfate 90 mcg/actuation 2 puff inhalation Q4H PRN 11/16/24 aerosol inhaler (Ventolin HFA) Shortness Of Breath Or Wheezing #1 inhaler amlodipine 5 mg tablet 5 mg PO BID #60 tabs 11/16/24 carvedilol 6.25 mg tablet 6.25 mg PO BID #60 tabs 11/16/24 ferrous sulfate 325 mg (65 mg 325 mg PO Q48H #30 tabs 11/16/24 iron) tablet gabapentin 300 mg capsule 300 mg PO BID #90 caps 11/16/24 nicotine 21 mg/24 hr daily 1 patch transdermal DAILY #30 ea 11/16/24 transdermal patch omeprazole 20 mg capsule,delayed 20 mg PO DAILY@0630 #30 caps 11/16/24 release spironolactone 25 mg tablet 25 mg PO DAILY #30 tabs 11/16/24 (Aldactone) Allergies Allergy/AdvReac Type Severity Reaction Status Date / Time latex Allergy Unknown Verified 02/09/25 15:37 lisinopril Allergy Unknown Verified 02/09/25 15:37 Review of Systems Review of Systems: Yes Unobtainable due to mental status PMFSH Past Medical History Medical History Major depressive disorder, recurrent, moderate Alcohol abuse Social History Social History Household Members: Other Housing: Other Housing Other:: friends/motel Do you presently have visiting nurse or other home services: No Alcohol intake: current Alcohol intake frequency: 3 or more drinks per day Alcohol type: beer and hard liquor Comment: Pt. refused offer for an opportunity to use a walker. Patient Tobacco Use Status: Current everyday Tobacco user Tobacco use type: Cigarette Years Smoked: 40+ Substance Use Type: Marijuana Advance Directives: No Advance Directives Information Provided: No Do you have a plan to hurt others: No Plan service: Yes Sexual orientation: Straight/Heterosexual Physical Exam ED Vital Signs: Vital Signs - 24 hr 02/09/25 15:35 02/09/25 15:45 02/09/25 21:31 Temperature Pulse Rate 104 H 75 Respiratory Rate 22 H 20 12 Blood Pressure 109/64 133/69 Pulse Oximetry 95 100 Oxygen Delivery Method Room Air Nasal Cannula Oxygen Flow Rate 2 02/09/25 23:46 02/10/25 02:35 02/10/25 04:42 Temperature 97.9 F 98.6 F Pulse Rate 83 74 80 Respiratory Rate 16 16 18 Blood Pressure 128/81 146/88 H Pulse Oximetry 96 95 Oxygen Delivery Method Room Air Room Air Oxygen Flow Rate 02/10/25 06:37 02/10/25 08:40 02/10/25 12:13 Temperature 98.8 F 97.7 F 97.8 F Pulse Rate 75 88 110 H Respiratory Rate 16 14 18 Blood Pressure 156/65 H 161/93 H 153/102 H Pulse Oximetry 92 97 94 Oxygen Delivery Method Room Air Room Air Room Air Oxygen Flow Rate BMI result Body Mass Index 29.1 Const Other: The patient was awake and alert. He was agitated and belligerent similar to his behavior on previous presentations when intoxicated. He did not seem injured or in distress. HENMT Other: Face is symmetrical. Mucous membranes moist. No signs of trauma to the head or the face. Eyes Other: Pupils are round equal, conjunctivae are clear, extraocular movements intact, no scleral icterus Neck Neck: Yes normal visual inspection, Yes full ROM and Yes no JVD Resp Effort & Inspection: normal respiratory effort Auscultation: clear to auscultation bilaterally Cardio Rate: tachycardic Rhythm: regular rhythm Heart sounds: S1 normal heart sound present and S2 normal heart sound present GI Other: Abdomen, examined when sedated, seemed soft and nontender. Skin Other: Skin is intact. No signs of trauma. Skin is dry and unremarkable. Neuro Other: The patient was awake and agitated in a manner consistent with a intoxication. His demeanor was loudly belligerent and threatening. Otherwise his cranial nerves seemed intact. He was moving his extremities symmetrically. He seemed intoxicated but without focal deficits. Extrem Other: No deformities or other signs of injury to the extremities. Course Reevaluation(s) Reevaluation #1: DR. Garcia's progress note: Patient's feel stable now, AAO x3, no SI, no HI, no auditory hallucination, no visual hallucination, patient feels safe to be discharged home, admitted that he did what he did yesterday because he was drunk now he wants to be discharged and feels safe to be discharged. Patient will see his doctor at the [facility] today. Care team input is appreciated, discontinue physician observation. Time: 12:51 Medical Decision Making Medical Decision Making MDM Narrative: The patient is a chronic alcoholic who frequently becomes very belligerent when intoxicated and is brought to the emergency room. His presentation today is extremely similar to previous presentations. Because of his agitation and belligerence he was given IM olanzapine and midazolam. This seemed to be an effective sedation as it has been in the past. Labs has been done. His ethanol level is 279. This is similar to previous recent ethanol levels when he has presented in his similar manner. His white count is 2.7. It is not uncommon for alcoholics to have leukopenia. He has no left shift on his differential. Hemoglobin is 11.6 which is similar to previous hemoglobins. Electrolytes are normal. Renal function is stable. At this point my impression is that the patient has simply again intoxicated. He is currently sedated. He will be allowed to sleep until he is more coherent. I will be signing the patient out to the oncoming physician at change of shift. I took over patient's case at the change of shift. Patient at around midnight stated that he wants to go to detox. State that he was depressed. Care team/cost recovery technician was consulted. Currently in stable condition. Awaiting final disposition. Lab Data 02/09/25 16:41 02/09/25 16:41 Labs: Lab Results 02/09/25 02/10/25 Range/Units 16:41 10:32 WBC 2.7 L (4.8-10.8) X10*3/uL RBC 4.08 L (4.60-5.80) X10*6/uL Hgb 11.6 L (14.0-18.0) g/dl Hct 34.8 L (42.0-52.0) % MCV 85.3 (80.0-98.0) fL MCH 28.4 (27.0-33.0) pg MCHC 33.3 (31.0-36.0) g/dl RDW 16.1 H (11.0-16.0) % Plt Count 83 L D (160-400) X10*3/uL MPV 8.7 L (9.4-12.4) fL Immature Gran % (Auto) 0.0 (0.0-0.4) % Neut % (Auto) 50.7 (45-73) % Lymph % (Auto) 36.0 (20-40) % [place] % (Auto) 11.4 H (2-11) % Eos % (Auto) 1.5 (0-4) % Baso % (Auto) 0.4 (0-2) % Lymph # (Auto) 1.0 L (1.2-4.9) X10*3/uL [place] # (Auto) 0.3 (0.1-1.2) X10*3/uL Eos # (Auto) 0.0 (0.0-0.4) X10*3/uL Baso # (Auto) 0.0 (0.0-0.2) X10*3/uL Abs Immat Gran (auto) 0.00 (0.00-0.03) X10*3/uL Absolute Neuts (auto) 1.4 L (2.0-8.3) x10*3/uL Absolute Nucleated RBC 0.000 (0.0-0.012) X10*3/uL Nucleated RBC % (auto) 0.0 (0.0-0.2) /100WBC PT 12.5 H (10.9-12.4) SEC INR 1.1 (0.9-1.1) Sodium 144 (135-145) mmol/L Potassium 3.7 (3.3-5.1) mmol/L Chloride 107 (96-108) mmol/L Carbon Dioxide 27 (22-29) mmol/L Anion Gap 14 (12-20) BUN 8 L (9-16) mg/dL Creatinine 0.70 (0.5-1.4) mg/dL Estim Creat Clear Calc 103.5 Estimated GFR > 60 Random Glucose 98 (60-115) mg/dL Calcium 8.3 L (8.4-10.2) mg/dL Total Bilirubin 0.6 (0.0-1.0) mg/dL Direct Bilirubin 0.3 (0.0-0.5) mg/dL AST 74 H (5-37) U/L ALT 50 H (0-40) U/L Alkaline Phosphatase 99 (39-117) U/L Total Protein 6.7 (6.5-8.0) g/dL Albumin 4.0 (3.5-5.0) g/dL Urine Color Yellow Urine Appearance Clear Urine pH 6.5 (5.0-9.0) Ur Specific [place] <= 1.005 (1.005-1.025) Urine Protein Negative (Neg-Trace) mg/dL Urine Glucose (UA) Negative (Negative) mg/dL Urine Ketones Negative (Negative) mg/dL Urine Blood Negative (Negative) Urine Nitrite Negative (Negative) Ur Leukocyte Esterase Trace H (Negative) Urine RBC 0-2 (0-2) /HPF Urine WBC 0-5 (0-5) /HPF Ur Squamous Epith Cells 0-2 (0-2) /HPF Urine Bacteria None Seen (None Seen) Hyaline Casts 0-2 (0-2) /LPF Urine Opiates Screen Not Detected (Not Detect) Ur Buprenorphine Scrn Not Detected (Not Detect) ng/mL Ur Oxycodone Screen Not Detected (Not Detect) ng/mL Urine Methadone Screen Not Detected (Not Detect) ng/mL Urine Fentanyl Screen Not Detected (Not Detect) Ur Barbiturates Screen Not Detected (Not Detect) Ur Phencyclidine Scrn Not Detected (Not Detect) Ur Amphetamines Screen Not Detected (Not Detect) U Benzodiazepines Scrn POSITIVE H (Not Detect) Urine Cocaine Screen Not Detected (Not Detect) U Marijuana (THC) Screen POSITIVE H (Not Detect) Ethyl Alcohol 279 mg/dL Medications Administered Discontinued Medications Generic Name Dose Route Start Last Admin Trade Name Freq PRN Reason Stop Dose Admin Albuterol Sulfate 2.5 mg 02/10/25 04:36 02/10/25 04:39 Albuterol Sulfate (0.083%) 2.5 Mg/3 Ml Vial.Neb INHALE 02/10/25 04:37 2.5 mg ONCE ONE Administration Midazolam HCl 10 mg 02/09/25 15:37 02/09/25 15:45 Midazolam Hcl 5 Mg/Ml Vial IM 02/09/25 15:38 10 mg ONCE ONE Administration Olanzapine 10 mg 02/09/25 15:37 02/09/25 15:45 Olanzapine 10 Mg Vial IM 02/09/25 15:38 10 mg ONCE ONE Administration Discharge Plan Discharge Clinical Impression: Alcohol intoxication, Alcoholism, Agitation Patient Disposition: Home, Self-Care Instructions: Alcohol Intoxication (ED) Prescriptions: No Action acetaminophen 325 mg tablet 650 mg PO BID PRN (Reason: Headache/Pain, Scale 1-10) fexofenadine 180 mg tablet 180 mg PO DAILY PRN (Reason: Allergy Symptoms) ibuprofen 600 mg tablet 400 mg PO BIDWM PRN (Reason: joint pain/headache) gabapentin 300 mg Capsule 300 mg PO BID Qty: 90 0RF omeprazole 20 mg Capsule,Delayed Release(Dr/Ec) 20 mg PO DAILY@0630 Qty: 30 0RF carvedilol 6.25 mg Tablet 6.25 mg PO BID Qty: 60 0RF Rx Instructions: must administer with a meal/food HOLD IF SBP<115 or HR<56 amlodipine 5 mg Tablet 5 mg PO BID Qty: 60 0RF spironolactone [Aldactone] 25 mg Tablet 25 mg PO DAILY Qty: 30 0RF ferrous sulfate 325 mg (65 mg iron) Tablet 325 mg PO Q48H Qty: 30 0RF nicotine 21 mg/24 hr Patch 24 Hour 1 patch TRANSDERMAL DAILY Qty: 30 0RF albuterol sulfate [Ventolin HFA] 90 mcg/actuation Hfa Aerosol Inhaler 2 puff INHALATION Q4H PRN (Reason: Shortness Of Breath Or Wheezing) Qty: 1 0RF ascorbic acid (vitamin C) [Vitamin C] 250 mg tablet 500 mg PO DAILY Stand Alone Forms: Against Medical Advice Print Language: Bangladeshi
[2025-02-09 16:45] LABS: MANUAL DIFF FLAG NO
[2025-02-09 16:52] LABS: Hematocrit 34.8 % (42.0-52.0); Hemoglobin 11.6 g/dl (14.0-18.0); Imm Gran Abs Auto 0.00 X10*3/uL (0.00-0.03); Imm Gran Pct Auto 0.0 % (0.0-0.4); Lymphocytes Absolute Auto 1.0 X10*3/uL (1.2-4.9); Mean Corpuscular HGB Conc 33.3 g/dl (31.0-36.0); Mean Corpuscular Hemoglobin 28.4 pg (27.0-33.0); Mean Corpuscular Volume 85.3 fL (80.0-98.0); NRBC Abs Auto 0.000 X10*3/uL (0.0-0.012); NRBC Pct Auto 0.0 /100WBC (0.0-0.2); Red Blood Count 4.08 X10*6/uL (4.60-5.80); White Blood Count 2.7 X10*3/uL (4.8-10.8)
--- NOTE | 2025-02-09 17:01 | PC.NURSE ---
upon patient arrival he became threatening and yelling at staff and other patients in the [place], security was called, provider came to bedside, pt safety search and changeover was performed, it was decided by the provider to give the patient IM medications, see written documentation.
[2025-02-09 17:07] LABS: Alanine Aminotransferase 50 U/L (0-40); Albumin Level 4.0 g/dL (3.5-5.0); Alkaline Phosphatase 99 U/L (39-117); Anion Gap 14 (12-20); Aspartate Amino Transferase 74 U/L (5-37); Blood Urea Nitrogen 8 mg/dL (9-16); Calcium 8.3 mg/dL (8.4-10.2); Carbon Dioxide 27 mmol/L (22-29); Chloride 107 mmol/L (96-108); Creatinine Clr Calc Pharmacy 103.5; Estimated Glomerular Filt Rate > 60; Potassium 3.7 mmol/L (3.3-5.1); Sodium 144 mmol/L (135-145); Total Protein 6.7 g/dL (6.5-8.0)
[2025-02-09 17:08] LABS: INTERNATIONAL NORM RATIO 1.1 (0.9-1.1); Prothrombin Time 12.5 SEC (10.9-12.4)
[2025-02-09 17:53] LABS: Platelet Count 83 X10*3/uL (160-400)
--- OUTSIDE RECORDS SUMMARY | 2025-02-09 18:22 | XMS_ITS | Clinical Summary ---
Author Organization [facility] Address [address] [place] [address] Care Team Providers Care Second Crusher Name Role Phone Unavailable Primary Care Provider [...]
--- OUTSIDE RECORDS SUMMARY | 2025-02-09 18:22 | XMS_ITS | Clinical Summary ---
Author Organization [facility] Address [address] [place] [address] Phone Care Team Providers Care Cream Tester Name Role Phone Physician, Pcp Unknown Primary Care Provider Jenise vailable Allergies Active Allergy Reactions Criticality Noted Date Comments Lisinopril Angioedema High 07/28/2024 Fluoxetine Hives 08/11/2024 Encounters Date Type Department Care Team Description 01/05/2025 1:19 AM EDT - 01/05/2025 1:59 AM EDT Emergency [facility] Emergency [address] [place] [id number] Hypertension, unspecified type (Primary Dx); Alcoholic intoxication without complication (CMS/[facility] V24) Discharge Disposition: Home or Self Care [...] mmol/L LAB CHEMISTRY METHOD 10/30/2024 8:27 PM [facility] Potassium 3.7 3.5 - 5.5 mmol/L LAB CHEMISTRY METHOD 10/30/2024 8:27 PM [facility] Chloride 98 96 - 110 mmol/L LAB CHEMISTRY METHOD 10/30/2024 8:27 PM [facility] CO2 31 21 - 32 mmol/L LAB CHEMISTRY METHOD 10/30/2024 8:27 PM [facility] Anion Gap 7 3 - 11 LAB CHEMISTRY METHOD 10/30/2024 8:27 PM [facility] Glucose 97 70 - 100 mg/dL LAB CHEMISTRY METHOD 10/30/2024 8:27 PM [facility] BUN 9 5 - 25 mg/dL LAB CHEMISTRY METHOD 10/30/2024 8:27 PM [facility] Creatinine 0.61(L) 0.70 - 1.30 mg/dL LAB CHEMISTRY METHOD 10/30/2024 8:27 PM [facility] eGFR 107 >=60 mL/min/1. 73m2 LAB CHEMISTRY METHOD 10/30/2024 8:27 PM [facility] Comment:Calculation based on the Chronic Kidney Disease Epidemiology Collaboration (CKD-EPI) equation refit without adjustment for race. BUN/Creatinine Ratio 14.8 LAB CHEMISTRY METHOD 10/30/2024 8:27 PM [facility] Calcium 8.3(L) 8.5 - 10.5 mg/dL LAB CHEMISTRY METHOD 10/30/2024 8:27 PM EDT [facility] AST (SGOT) 57(H) 10 - 42 unit/L LAB CHEMISTRY METHOD 10/30/2024 8:27 PM EDT [facility] ALT (SGPT) 74(H) 10 - 60 unit/L LAB CHEMISTRY METHOD 10/30/2024 8:27 PM EDT [facility] Alkaline Phosphatase 93 42 - 121 unit/L LAB CHEMISTRY METHOD 10/30/2024 8:27 PM EDT [facility] Total Protein 7.1 6.0 - 8.0 g/dL LAB CHEMISTRY METHOD 10/30/2024 8:27 PM EDT [facility] Albumin 3.8 3.2 - 5.0 g/dL LAB CHEMISTRY METHOD [facility] Total Bilirubin 0.4 0.0 - 1.4 mg/dL LAB CHEMISTRY METHOD 10/30/2024 8:27 PM EDT [facility] Blood Venous blood specimen / Unknown Venipuncture / Unknown 10/30/2024 7:33 PM EDT 10/30/2024 7:49 PM EDT us Joel Woo MD LAB BLOOD ORDERABLES Final Res ult [facility] [address] [place] [address], from Last 3 Months or Most Recently Relevant to Health Maintenance Insurance [facility] [employer] [facility] Care Teams Cream Tester Relationship Specialty Start Date End Date Physician, Pcp Unknown PCP - General 01/05/25
[2025-02-09 21:31] VITALS: BP 133/69; PULSE 75; RESP 12; O2SAT 100
--- NOTE | 2025-02-09 21:33 | PC.NURSE ---
Patient sleeping. skin pwd, resp even and non labored. VSS
--- NOTE | 2025-02-09 23:35 | PC.NURSE ---
Patient awake and alert. skin pwd, resp even and non labored, speaking in full, clear sentences. patient calm and cooperative at this time. incontinent of urine. one assist to the bathroom, new crisis gown provided and linens change. patient reports increased depression, denies SI/HI, reports that he would like to see crisis, physician aware.
[2025-02-09 23:46] VITALS: BP 128/81; PULSE 83; RESP 16; TEMP 36.6; O2SAT 96
--- NOTE | 2025-02-10 | ECG_ITS ---
Test Reason : [id number] Blood Pressure : */* mmHG Vent. Rate : 106 BPM Atrial Rate : 106 BPM P-R Int : 134 ms QRS Dur : 84 ms QT Int : 346 ms P-R-T Axes : 74 27 47 degrees QTcB Int : 459 ms Sinus tachycardia Nonspecific ST abnormality Abnormal ECG When compared with ECG of 19-Dec-2024 08:29, No significant change was found Referred By: Padmini Siddiqui Electronically Signed By: Kenneth Fang
--- NOTE | 2025-02-10 00:42 | MHC.CARE ---
CARE Team attempted to evaluate patient who is minimally engaged, falling asleep with slurred speech. Patient becoming angry when asked to repeat himself. He was unable to provide any specifics related to his ED visit but did state he was seeking detox and had already explained that to a previous staff. Patient was engaged for roughly five minutes before falling back to sleep. He was not arousable and was unable to complete evaluation. CARE Team will wait a few hours before making an additional attempt.
[2025-02-10 02:35] VITALS: BP 146/88; PULSE 74; RESP 16; TEMP 37; O2SAT 95
[2025-02-10] MEDS: Albuterol Sulfate (0.083%) 2.5 MG/3 ML VIAL.NEB INHALE (04:39)
[2025-02-10 04:42] VITALS: PULSE 80; RESP 18; O2SAT 93
[2025-02-10 06:37] VITALS: BP 156/65; PULSE 75; RESP 16; TEMP 37.1; O2SAT 92
[2025-02-10 08:40] VITALS: BP 161/93; PULSE 88; RESP 14; TEMP 36.5; O2SAT 97
--- NOTE | 2025-02-10 09:46 | MHC.CARE ---
patient seen by CARE team, is agreeable to inpatient dual dx bed search. Aware he could be sent as far as [place] and is fine with this.
--- NOTE | 2025-02-10 10:23 | PC.NURSE ---
Pt still reporting severe nausea and pain after zofran, maalox and carafate. Lying on his right side at this time.
[2025-02-10 10:40] LABS: Appearance Urine Clear; Glucose Urine UA Negative (Negative); PH 6.5 (5.0-9.0); Specific Gravity - Urine <= 1.005 (1.005-1.025); UMIC TRIGGER UACC YES
[2025-02-10 10:51] LABS: Cannabinoid Screen Urine POSITIVE (Not Detect)
--- NOTE | 2025-02-10 12:07 | PC.NURSE ---
Pt reports that he has a physical therapy apppoint for his back. He is considering leaving [place] to make it to this appoint. He is asking for his wallet to access phone numbers to call PT. Will continue to discuss.
[2025-02-10 12:13] VITALS: BP 153/102; PULSE 110; RESP 18; TEMP 36.6; O2SAT 94
--- NOTE | 2025-02-10 12:55 | PC.NURSE ---
Pt wants to leave DR DREW and manager wholesale notified. MD to discharge. Pt alert and oriented. No signs of withdrawal.
[2025-02-10 13:16] VITALS: BP 153/102; PULSE 110; RESP 18; TEMP 36.6; O2SAT 94
--- NOTE | 2025-02-10 13:17 | PC.NURSE ---
Pt left AMA before DC was written. AMA signed.
== END 2025-02-10 13:17 | disposition home or self-care (01) ==
PROVIDERS: Emergency Medicine; Emergency Provider Emergency Medicine Emergency Medical Services
DX: F10.120 Alcohol abuse with intoxication, uncomplicated (principal); R45.1 Restlessness and agitation
CPT/HCPCS: 36415; 80048; 80076; 80307; 81001; 85025; 85610; 93005; 94640; 99285; J2250; J2359; S9485

== ENCOUNTER → 2025-02-10 10:44 | Outpatient (BNV) | payer OTHER, SELFPAY | PROVIDERS: Emergency Provider Emergency Medicine Emergency Medical Services; Visit Provider Internal Medicine Cardiovascular Disease | DX: R00.0 Tachycardia, unspecified (principal) | CPT/HCPCS: 93010 ==

== ENCOUNTER 2025-02-11 08:22 | Emergency (ER) | payer OTHER, SELFPAY ==
[2025-02-11] VITALS (7 sets, daily range): BP systolic 136–175; BP diastolic 73–84; PULSE 82–102; RESP 12–18; TEMP 36.2–37.1; O2SAT 94–97; BMI 30.5
--- NOTE | 2025-02-11 08:26 | ED.PSYCH ---
HPI - Psych General Chief Complaint: Psychiatric Symptoms Stated Complaint: CRISIS EVAL PER EMS Time Seen by Provider: 02/11/25 08:23 Source: patient, EMS, RN notes reviewed and old records reviewed Mode of arrival: EMS Limitations: no limitations History of Present Illness ED Provider: Dang Bernal PA-C HPI Narrative: 64 yo male, former [employer], with history of PTSD, major depressive disorder, and ETOH use disorder who presents to the ER via EMS for evaluation of longstanding depression and suicidal ideation. EMS reports picking him up on the streets, he usually gets his care at the [facility] in [place]. He endorses drinking alcohol this morning, when asked how much he reports not enough. when asked if he was trying to harm himself by drinking alcohol he reported always. further interview limited as he is focused on his experience and not answering questions appropriately. MD complaint: suicidal ideation and feels depressed Onset (ago): unknown (reports a long time ) Duration: constant History of same: Yes Context: recent alcohol abuse Associated psychiatric symptoms: depression and suicidal ideation Related Data Home Medications ?Medication ?Instructions ?Recorded ?Confirmed ascorbic acid (vitamin C) 250 mg 500 mg PO DAILY 12/15/24 02/11/25 tablet (Vitamin C) acetaminophen 325 mg tablet 650 mg PO BID PRN Headache/Pain, 12/19/24 02/11/25 Scale 1-10 fexofenadine 180 mg tablet 180 mg PO DAILY PRN Allergy 12/19/24 02/11/25 Symptoms ibuprofen 600 mg tablet 400 mg PO BIDWM PRN joint 12/19/24 02/11/25 pain/headache Previous Rx's ?Medication ?Instructions ?Recorded albuterol sulfate 90 mcg/actuation 2 puff inhalation Q4H PRN 11/16/24 aerosol inhaler (Ventolin HFA) Shortness Of Breath Or Wheezing #1 inhaler amlodipine 5 mg tablet 5 mg PO BID #60 tabs 11/16/24 carvedilol 6.25 mg tablet 6.25 mg PO BID #60 tabs 11/16/24 ferrous sulfate 325 mg (65 mg 325 mg PO Q48H #30 tabs 11/16/24 iron) tablet gabapentin 300 mg capsule 300 mg PO BID #90 caps 11/16/24 nicotine 21 mg/24 hr daily 1 patch transdermal DAILY #30 ea 11/16/24 transdermal patch omeprazole 20 mg capsule,delayed 20 mg PO DAILY@0630 #30 caps 11/16/24 release spironolactone 25 mg tablet 25 mg PO DAILY #30 tabs 11/16/24 (Aldactone) Allergies Allergy/AdvReac Type Severity Reaction Status Date / Time latex Allergy Unknown Verified 02/11/25 08:50 lisinopril Allergy Unknown Verified 02/11/25 08:50 Review of Systems Review of Systems: Yes Unobtainable due to mental status [facility] Past Medical History Medical History Major depressive disorder, recurrent, moderate Alcohol abuse Social History Social History Household Members: Other Housing: Other Housing Other:: friends/motel Do you presently have visiting nurse or other home services: No Alcohol intake: current Alcohol intake frequency: 3 or more drinks per day Alcohol type: beer and hard liquor Comment: Pt. refused offer for an opportunity to use a walker. Patient Tobacco Use Status: Current everyday Tobacco user Tobacco use type: Cigarette Years Smoked: 40+ Substance Use Type: Marijuana Advance Directives: No Advance Directives Information Provided: No Do you have a plan to hurt others: No Plan service: Yes Sexual orientation: Straight/Heterosexual Physical Exam Exam: Exam: Appearance: Alert. Oriented X3. No acute distress. smells of alcohol Head: normocephalic, atraumatic. Eyes: Pupils equal, round and reactive to light. ENT: normal external inspection Neck: Normal inspection. CVS: Normal heart rate and rhythm. Pulses normal. Respiratory: No respiratory distress. Breath sounds normal. Abdomen: Soft and nontender. +BS x4 Skin: Skin warm and dry. Normal skin color. Normal skin turgor. No rashes. Extremities: No lower extremity edema. No joint swelling. Neuro/psych: Oriented X 3. slow but steady gait, CN II-XII intact. slightly slurred speech, speaking loudly, perseverating on marine training and experiences, passive suicidal thoughts Vital Signs: Vital Signs: Last Vital Signs Temp 97.8 F 02/12/25 16:16 Pulse 85 02/12/25 16:16 Resp 18 02/12/25 16:16 BP 140/80 H 02/12/25 16:16 Pulse Ox 96 02/12/25 16:16 O2 Del Method Room Air 02/12/25 13:44 BMI result Body Mass Index 30.5 Course Course Course Narrative: Time: 06:04 Date: 02/12/25 Provider: Jane Guillen, DO Patient in physician observation for psychiatric evaluation.? No acute events reported overnight. No current complaints. VS stable.? Patient is pending repeat CARE team reassess. Will continue to monitor. Reevaluation(s) Reevaluation #1: 02/12/25 1616 FILI dougherty physician observation transferred to acute psych facility Medications Administered Discontinued Medications Generic Name Dose Route Start Last Admin Trade Name Freq PRN Reason Stop Dose Admin Albuterol Sulfate 2 puff 02/11/25 21:18 02/11/25 23:27 Albuterol Sulfate 90 Mcg 8 Gm Inhaler INHALE 2 puff Q4H PRN Administration Shortness Of Breath Or Wheezing Amlodipine Besylate 5 mg 02/11/25 21:30 02/12/25 08:20 Amlodipine Besylate 5 Mg Tablet PO 5 mg BID MORIS Administration Protocol Ascorbic Acid 500 mg 02/12/25 09:00 02/12/25 08:20 Ascorbic Acid 500 Mg Tablet PO 500 mg DAILY MORIS Administration Carvedilol 6.25 mg 02/11/25 21:30 02/11/25 21:52 Carvedilol 6.25 Mg Tablet PO 6.25 mg BID MORIS Administration Protocol Ferrous Sulfate 324 mg 02/12/25 09:00 02/12/25 08:21 Ferrous Sulfate 324 Mg Tablet. PO 324 mg Q48H MORIS Administration Gabapentin 300 mg 02/11/25 21:30 02/12/25 08:21 Gabapentin 300 Mg Capsule PO 300 mg BID MORIS Administration Ibuprofen 400 mg 02/11/25 21:18 02/11/25 21:54 Ibuprofen 400 Mg Tablet PO 400 mg BIDWM PRN Administration joint pain/headache Nicotine 21 mg 02/12/25 09:00 02/12/25 08:21 Nicotine 21 Mg Patch.Td24 TRANSDERMA 21 mg DAILY MORIS Administration Omeprazole 20 mg 02/12/25 06:30 02/12/25 08:20 Omeprazole 20 Mg Capsule. PO 20 mg DAILY@0630 MORIS Administration Spironolactone 25 mg 02/12/25 09:00 02/12/25 08:20 Spironolactone 25 Mg Tablet PO 25 mg DAILY MORIS Administration Protocol Medical Decision Making Medical Decision Making MDM Narrative: 64 yo male with history of ETOH abuse, PTSD and depression presenting via EMS, intoxicated c/o depression and suicidal thoughts. acute on chronic. not giving a specific plan. labs showing stable pancytopenia. has mild transaminitis likely due to ETOH use, slightly up from 2 days prior. no abdominal pain, vomiting. his ETOH level is 330. he was seen here 02/09 for similar complaints, had a detox bed search started and he decided to leave. will place is physician observation and re-evaluate when clinically sober. Physician observation started at 1023. Patient placed in physician observation because patient is awaiting sober re-evaluation. may need CARE team evaluation if still suicidial. At the time observation was started patient's vital signs were stable. Patient is alert and oriented. Neuro exam is non-focal. CV: RRR and lungs are clear. Will continue to monitor. Differential Diagnosis Differential Diagnoses: The differential diagnosis associated with the presentation includes substance induced mood disorder, acute psychosis, acute etoh intoxication, schizoaffective disorder, PTSD, bipolar disorder, major depression with psychotic features Admission/Observation Consideration of admission/observation: Escalation of care including admission/observation considered Lab Data MDM Lab Attestation statement: I reviewed the patient's lab results. as above 02/11/25 09:12 02/11/25 09:12 Labs: Lab Results 02/11/25 02/11/25 Range/Units 09:12 09:14 WBC 4.5 L (4.8-10.8) X10*3/uL RBC 4.62 (4.60-5.80) X10*6/uL Hgb 13.3 L (14.0-18.0) g/dl Hct 39.2 L (42.0-52.0) % MCV 84.8 (80.0-98.0) fL MCH 28.8 (27.0-33.0) pg MCHC 33.9 (31.0-36.0) g/dl RDW 15.8 (11.0-16.0) % Plt Count 116 L D (160-400) X10*3/uL MPV 8.3 L (9.4-12.4) fL Immature Gran % (Auto) 0.2 (0.0-0.4) % Neut % (Auto) 43.7 L (45-73) % Lymph % (Auto) 39.5 (20-40) % [place] % (Auto) 11.7 H (2-11) % Eos % (Auto) 4.2 H (0-4) % Baso % (Auto) 0.7 (0-2) % Lymph # (Auto) 1.8 (1.2-4.9) X10*3/uL [place] # (Auto) 0.5 (0.1-1.2) X10*3/uL Eos # (Auto) 0.2 (0.0-0.4) X10*3/uL Baso # (Auto) 0.0 (0.0-0.2) X10*3/uL Abs Immat Gran (auto) 0.01 (0.00-0.03) X10*3/uL Absolute Neuts (auto) 2.0 (2.0-8.3) x10*3/uL Absolute Nucleated RBC 0.000 (0.0-0.012) X10*3/uL Nucleated RBC % (auto) 0.0 (0.0-0.2) /100WBC Sodium 141 (135-145) mmol/L Potassium 4.3 (3.3-5.1) mmol/L Chloride 101 (96-108) mmol/L Carbon Dioxide 29 (22-29) mmol/L Anion Gap 15 (12-20) BUN 7 L (9-16) mg/dL Creatinine 0.88 (0.5-1.4) mg/dL Estim Creat Clear Calc 90.0 Estimated GFR > 60 Random Glucose 109 (60-115) mg/dL Calcium 9.3 D (8.4-10.2) mg/dL Magnesium 2.3 (1.6-2.6) mg/dL Total Bilirubin 0.6 (0.0-1.0) mg/dL Direct Bilirubin 0.3 (0.0-0.5) mg/dL AST 100 H (5-37) U/L ALT 63 H (0-40) U/L Alkaline Phosphatase 115 (39-117) U/L Total Protein 7.9 (6.5-8.0) g/dL Albumin 4.7 (3.5-5.0) g/dL Urine Color Yellow Urine Appearance Clear Urine pH 6.0 (5.0-9.0) Ur Specific [place] 1.010 (1.005-1.025) Urine Protein Negative (Neg-Trace) mg/dL Urine Glucose (UA) Negative (Negative) mg/dL Urine Ketones Negative (Negative) mg/dL Urine Blood Negative (Negative) Urine Nitrite Negative (Negative) Ur Leukocyte Esterase Trace H (Negative) Urine RBC 0-2 (0-2) /HPF Urine WBC 0-5 (0-5) /HPF Ur Squamous Epith Cells 0-2 (0-2) /HPF Urine Bacteria None Seen (None Seen) Hyaline Casts 0-2 (0-2) /LPF Urine Opiates Screen Not Detected (Not Detect) Ur Buprenorphine Scrn Not Detected (Not Detect) ng/mL Ur Oxycodone Screen Not Detected (Not Detect) ng/mL Urine Methadone Screen Not Detected (Not Detect) ng/mL Urine Fentanyl Screen Not Detected (Not Detect) Ur Barbiturates Screen Not Detected (Not Detect) Ur Phencyclidine Scrn Not Detected (Not Detect) Ur Amphetamines Screen Not Detected (Not Detect) U Benzodiazepines Scrn POSITIVE H (Not Detect) Urine Cocaine Screen Not Detected (Not Detect) U Marijuana (THC) Screen POSITIVE H (Not Detect) Ethyl Alcohol 330 H* mg/dL Independent Historian Clinical information obtained from an independent historian. History obtained from or confirmed by: EMS External Record Review External record reviewed: Prior outpatient labs Prescription Management I considered prescription management with: Other (antipsychtoics) Chronic Conditions Patient?s care impacted by: Other (etoh use disorder, depression, PTSD) Social Determinants Patient?s care significantly limited by Social Determinants of Health including: Problems related to primary support group Critical Care Time Critical Care Time Critical Care Time: No Discharge Plan Discharge Clinical Impression: Alcohol intoxication Patient Disposition: Xfer Psychiatric Hosp Prescriptions: No Action acetaminophen 325 mg tablet 650 mg PO BID PRN (Reason: Headache/Pain, Scale 1-10) fexofenadine 180 mg tablet 180 mg PO DAILY PRN (Reason: Allergy Symptoms) ibuprofen 600 mg tablet 400 mg PO BIDWM PRN (Reason: joint pain/headache) gabapentin 300 mg Capsule 300 mg PO BID Qty: 90 0RF omeprazole 20 mg Capsule,Delayed Release(Dr/Ec) 20 mg PO DAILY@0630 Qty: 30 0RF carvedilol 6.25 mg Tablet 6.25 mg PO BID Qty: 60 0RF Rx Instructions: must administer with a meal/food HOLD IF SBP<115 or HR<56 amlodipine 5 mg Tablet 5 mg PO BID Qty: 60 0RF spironolactone [Aldactone] 25 mg Tablet 25 mg PO DAILY Qty: 30 0RF ferrous sulfate 325 mg (65 mg iron) Tablet 325 mg PO Q48H Qty: 30 0RF nicotine 21 mg/24 hr Patch 24 Hour 1 patch TRANSDERMAL DAILY Qty: 30 0RF albuterol sulfate [Ventolin HFA] 90 mcg/actuation Hfa Aerosol Inhaler 2 puff INHALATION Q4H PRN (Reason: Shortness Of Breath Or Wheezing) Qty: 1 0RF ascorbic acid (vitamin C) [Vitamin C] 250 mg tablet 500 mg PO DAILY Interventions: [place]-Suicide Risk Severity Scale Last Done: 02/12/25 10:21 Acute Care Transfer Worksheet (ED) Last Done: 02/12/25 16:16 Discharge Date/Time: 02/12/25 16:17 Print Language: Cuban
[2025-02-11 09:21] LABS: MANUAL DIFF FLAG NO
[2025-02-11 09:26] LABS: Appearance Urine Clear; Glucose Urine UA Negative (Negative); PH 6.0 (5.0-9.0); Specific Gravity - Urine 1.010 (1.005-1.025); UMIC TRIGGER UACC YES
--- NOTE | 2025-02-11 09:32 | MHC.EDTECH ---
This tech was able to convince patient to remove large white ring from his finger. Patient ring put away with the rest of his belongings. Patient still with necklace and hair ties. RN aware.
[2025-02-11 09:35] LABS: Hematocrit 39.2 % (42.0-52.0); Hemoglobin 13.3 g/dl (14.0-18.0); Imm Gran Abs Auto 0.01 X10*3/uL (0.00-0.03); Imm Gran Pct Auto 0.2 % (0.0-0.4); Lymphocytes Absolute Auto 1.8 X10*3/uL (1.2-4.9); Mean Corpuscular HGB Conc 33.9 g/dl (31.0-36.0); Mean Corpuscular Hemoglobin 28.8 pg (27.0-33.0); Mean Corpuscular Volume 84.8 fL (80.0-98.0); NRBC Abs Auto 0.000 X10*3/uL (0.0-0.012); NRBC Pct Auto 0.0 /100WBC (0.0-0.2); Platelet Count 116 X10*3/uL (160-400); Red Blood Count 4.62 X10*6/uL (4.60-5.80); White Blood Count 4.5 X10*3/uL (4.8-10.8)
[2025-02-11 09:36] LABS: Cannabinoid Screen Urine POSITIVE (Not Detect)
[2025-02-11 09:39] LABS: Alanine Aminotransferase 63 U/L (0-40); Albumin Level 4.7 g/dL (3.5-5.0); Alkaline Phosphatase 115 U/L (39-117); Anion Gap 15 (12-20); Aspartate Amino Transferase 100 U/L (5-37); Blood Urea Nitrogen 7 mg/dL (9-16); Calcium 9.3 mg/dL (8.4-10.2); Carbon Dioxide 29 mmol/L (22-29); Chloride 101 mmol/L (96-108); Creatinine Clr Calc Pharmacy 90.0; Estimated Glomerular Filt Rate > 60; Magnesium 2.3 mg/dL (1.6-2.6); Potassium 4.3 mmol/L (3.3-5.1); Sodium 141 mmol/L (135-145); Total Protein 7.9 g/dL (6.5-8.0)
--- OUTSIDE RECORDS SUMMARY | 2025-02-11 09:50 | XMS_ITS | Clinical Summary ---
Author Organization [facility] Address [address] [place] [address] Phone Care Team Providers Care Varnish Inspector Name Role Phone Physician, Pcp Unknown Primary Care Provider Jenise vailable Allergies Active Allergy Reactions Criticality Noted Date Comments Lisinopril Angioedema High 07/28/2024 Fluoxetine Hives 08/11/2024 Encounters Date Type Department Care Team Description 01/05/2025 1:19 AM EDT - 01/05/2025 1:59 AM EDT Emergency [facility] Emergency [address] [place] [id number] Hypertension, unspecified type (Primary Dx); Alcoholic intoxication without complication (CMS/[facility] V24) Discharge Disposition: Home or Self [...] LAB CHEMISTRY METHOD 10/30/2024 8:27 PM EDT [facility] AST (SGOT) 57(H) 10 - 42 unit/L LAB CHEMISTRY METHOD 10/30/2024 8:27 PM EDT [facility] ALT (SGPT) 74(H) 10 - 60 unit/L LAB CHEMISTRY METHOD 10/30/2024 8:27 PM EDT [facility] Alkaline Phosphatase 93 42 - 121 unit/L LAB CHEMISTRY METHOD 10/30/2024 8:27 PM EDT [facility] Total Protein 7.1 6.0 - 8.0 g/dL LAB CHEMISTRY METHOD 10/30/2024 8:27 PM EDT [facility] Albumin 3.8 3.2 - 5.0 g/dL LAB CHEMISTRY METHOD [facility] Total Bilirubin 0.4 0.0 - 1.4 mg/dL LAB CHEMISTRY METHOD 10/30/2024 8:27 PM EDT [facility] Blood Venous blood specimen / Unknown Venipuncture / Unknown 10/30/2024 7:33 PM EDT 10/30/2024 7:49 PM EDT us Joel Woo MD LAB BLOOD ORDERABLES Final Res ult [facility] [address] [place] [address], from Last 3 Months or Most Recently Relevant to Health Maintenance Insurance [facility] [employer] [facility] Care Teams Varnish Inspector Relationship Specialty Start Date End Date Physician, Pcp Unknown PCP - General 01/05/25
--- OUTSIDE RECORDS SUMMARY | 2025-02-11 09:50 | XMS_ITS | Clinical Summary ---
Author Organization [facility] Address [address] [place] [address] Care Team Providers Care [place] Fire Fighter Specialist Name Role Phone Unavailable Primary Care Provider [...] - 2023-2 5 season) 2024 RSV Vaccine 50 years and old er and Patients (1 - 1-dose 75+ series) 2035 Hepatitis B Vaccines Aged Out No long er eligible based on patient's age to complete this topic Insurance
--- NOTE | 2025-02-11 10:21 | MHC.EDTECH ---
Vital signs not taken on patients arrival to the pod due to the patients volatility. Patient now sleeping, respirations even and unlabored. Per RN okay to not vital patient at this time.
--- NOTE | 2025-02-11 10:44 | PHA.MEDREC ---
Pharmacy Consult ? Medication Reconciliation Received med list from nursing that appears to be from [place]. Confirmed what I could based on the list, the majority of the prescriptions on record are discontinued or
--- NOTE | 2025-02-11 16:57 | MHC.EDTECH ---
Patient reports that he has his meds filled at the [facility] in [place], and that his 100% disabled with PTSD and a TBI. RN made aware of the information provided to this tech.
[2025-02-11] MEDS: Albuterol Sulfate 90 MCG 8 GM INHALER 2 PUFF INHALE (23:27)
--- NOTE | 2025-02-11 23:50 | ECG_ITS ---
Test Reason : CP Blood Pressure : */* mmHG Vent. Rate : 74 BPM Atrial Rate : 74 BPM P-R Int : 152 ms QRS Dur : 88 ms QT Int : 414 ms P-R-T Axes : 85 36 61 degrees QTcB Int : 459 ms Normal sinus rhythm Normal ECG When compared with ECG of 10-Feb-2025 10:44, No significant change was found Referred By: Rachael [place] Electronically Signed By: Kenneth Fang
--- NOTE | 2025-02-11 23:50 | PC.NURSE ---
Pt requesting requesting rescue inhaler reporting SOB and CP. Provider notified, EKG ordered and completed. pt reports CP dissipated after using inhaler and SOB has resolved as well
--- NOTE | 2025-02-12 07:17 | PC.NURSE ---
Assumed care, report received. Pt is currently sleeping, safety is maintained.
[2025-02-12 07:43] VITALS: BP 152/106; PULSE 85; RESP 18; TEMP 36.6; O2SAT 96
[2025-02-12] MEDS: Nicotine 21 MG PATCH.TD24 TRANSDERMA (08:21)
[2025-02-12] MEDS: Ferrous Sulfate 324 MG TABLET.DR PO (08:21)
--- NOTE | 2025-02-12 10:28 | MHC.CARE ---
Pt will be a dual DX bedsearch. ED provider in agreement.
[2025-02-12 13:44] VITALS: BP 140/80; PULSE 85; TEMP 36.6; O2SAT 96
--- NOTE | 2025-02-12 14:28 | MHC.CARE ---
Stanley Liu has been accepted to [facility]. The address is [address] [place] [address]. The accepting doc is Dr. Dee and the ETA is 5pm. CARE Team and pod RN were both notified. No nurse to nurse is required.
--- NOTE | 2025-02-12 15:07 | PC.NURSE ---
Pt has remained calm and cooperative. he has been compliant with meals and medications. He naps in the afternoon.
[2025-02-12 16:16] VITALS: BP 140/80; PULSE 85; RESP 18; TEMP 36.6; O2SAT 96
== END 2025-02-12 16:17 ==
PROVIDERS: Physician Assistant; Emergency Provider Emergency Medicine
DX: F33.1 Major depressive disorder, recurrent, moderate (principal); R45.851 Suicidal ideations; F10.129 Alcohol abuse with intoxication, unspecified; R07.89 Other chest pain; Y90.8 Blood alcohol level of 240 mg/100 ml or more; Z79.899 Other long term (current) drug therapy; Z51.81 Encounter for therapeutic drug level monitoring
CPT/HCPCS: 36415; 80048; 80076; 80307; 81001; 83735; 85025; 93005; 99285; S9485

== ENCOUNTER → 2025-02-11 23:50 | Outpatient (BNV) | payer OTHER, SELFPAY | PROVIDERS: Emergency Provider Emergency Medicine; Visit Provider Internal Medicine Cardiovascular Disease | DX: R00.0 Tachycardia, unspecified (principal) | CPT/HCPCS: 93010 ==